=== PATIENT | female | born 1965 | race Caucasian/White ===

== ENCOUNTER → 2018-02-10 | Outpatient (CLI) | payer BC ==
[~2018-02-10] MED LIST: ALPR.5T PO; CLON0.5T3 PO; ESCT10T PO; HYDR-3454 PO; IBP600T1 PO; LISD50CA2 PO
--- NOTE | 2018-02-10 13:09 | Diagnostic Imaging Report ---
INDICATION: Screening. TECHNIQUE: Screening digital mammography was performed bilaterally with a Computer Aided Detection (CAD) system. 3D tomosynthesis was also performed and reviewed. COMPARISON: 06/05/2015 back through 01/14/2012. FINDINGS: There are scattered fibroglandular densities bilaterally. There are benign type calcifications in both breasts. There is an unchanged nodular density in the medial aspect of the left breast. There is no new dominant mass, spiculated lesion, or suspicious calcification identified. The skin, nipples, and axillae are unremarkable. IMPRESSION: Benign findings. ACR BI-RADS Category 2: Benign findings. Result letter will be mailed to the patient. Note: At least 10% of breast cancer is not imaged by mammography. Dictated by: Dictated on workstation # [id number]
== END ==
LOC: RAD 07:43
PROVIDERS: ATTEND Family Medicine
DX: Z12.31 Encounter for screening mammogram for malignant neoplasm of breast (principal)
CPT/HCPCS: 77067

== ENCOUNTER → 2019-06-25 | Outpatient (CLI) | payer BC ==
--- NOTE | 2019-06-25 14:59 | Diagnostic Imaging Report ---
EXAM: PA and lateral chest COMPARISON to priors from February 19, 2016 INDICATION: Follow-up of pneumonia. FINDINGS: Some linear densities adjacent to the hilum of both lungs most likely reflective of discoid atelectasis. There is no residual dense alveolar consolidation evident. Some parenchymal distortion within the right upper lobe does not appear significantly changed from prior exam. There is no effusion. There is no pneumothorax. Heart size and mediastinal contours appear appropriate and pulmonary vascularity appears normal. IMPRESSION: Bilateral perihilar linear densities are most suggestive of discoid atelectasis. There is chronic parenchymal distortion within the right upper lobe. No residual alveolar consolidation or focal infiltrate evident. There is no effusion. Dictated by: Dictated on workstation # [id number]
== END ==
LOC: RAD 12:45
PROVIDERS: ATTEND Family Medicine
DX: J18.9 Pneumonia, unspecified organism (principal)
CPT/HCPCS: 71046

== ENCOUNTER 2019-06-26 11:40 | Emergency (ER) | payer BC ==
[~2019-06-26] VITALS: Ht 154.9 cm; Wt 45.4 kg
[2019-06-26] MEDS ORDERED: methylPREDNISolone 125 MG (Solu-MEDROL) VIAL IV STA (11:54)
[2019-06-26] MEDS ORDERED: LACTATED RINGERS 1,000 ML IV ONE (11:54)
[2019-06-26] MEDS ORDERED: RT-ALBUTEROL/IPRATROPIUM 3 ML (DUONEB) VIAL INH ONE (12:00)
[2019-06-26] MEDS ORDERED: DEXAMETHASONE 4 MG/ML SDV (DECADRON) IH ONE (12:00)
[2019-06-26 12:03] LABS: BASOPHILS # (AUTO) 0.1 10^3/uL (0.0-0.1); BASOPHILS % (AUTO) 1 % (0-10); EOSINOPHILS # (AUTO) 0.5 10^3/uL (0.0-0.3); EOSINOPHILS % (AUTO) 3 % (0-10); HEMATOCRIT 47 % (35-52); HEMOGLOBIN 15.7 G/DL (11.5-16.0); LYMPHOCYTES # (AUTO) 2.9 X 10^3 (1.0-4.0); LYMPHOCYTES % (AUTO) 16 % (12-44); MEAN CORPUSCULAR HEMOGLOBIN 29 PG (25-34); MEAN CORPUSCULAR HGB CONC 33 G/DL (32-36); MEAN CORPUSCULAR VOLUME 88 FL (80-99); MEAN PLATELET VOLUME 9.6 FL (7.4-10.4); MONOCYTES # (AUTO) 1.5 X 10^3 (0.0-1.0); MONOCYTES % (AUTO) 8 % (0-12); NEUTROPHILS # (AUTO) 13.9 X 10^3 (1.8-7.8); NEUTROPHILS % (AUTO) 73 % (42-75); PLATELET COUNT 732 10^3/uL (130-400); RED CELL DISTRIBUTION WIDTH 14.5 % (10.0-14.5)
--- NOTE | 2019-06-26 12:23 | Diagnostic Imaging Report ---
INDICATION: Shortness of air with weakness. EXAMINATION: Chest 06/26/2019 COMPARISON to 12/06/2019 FINDINGS: Heart and pulmonary vasculature appear unremarkable. The lungs are clear other than chronic change. No effusions. No infiltrates. No pneumothorax. IMPRESSION: 1. Chronic findings. No acute abnormality. Dictated by: Dictated on workstation # [id number]
[2019-06-26 12:30] LABS: ALBUMIN 4.4 GM/DL (3.2-4.5); BILIRUBIN,TOTAL 0.5 MG/DL (0.1-1.0); CREATININE SERUM 1.57 MG/DL (0.60-1.30); POTASSIUM 3.8 MMOL/L (3.6-5.0); TOTAL PROTEIN 8.4 GM/DL (6.4-8.2)
--- NOTE | 2019-06-26 12:38 | ED Respiratory ---
General Chief Complaint: Respiratory Problems Stated Complaint: SOA / WEAKNESS Nursing Triage Note: TO ED PER W/C REPORTS THAT WAS DISCHARGED FROM [facility] JUN 18 WITH DX OF PNEUMONIA. WENT HOME ON O2 HAS NOT FELT WELL SINCE. C/O BEING DIZZY FOR 2 DAYS WAS SEEN BY FAMILY YESTERDAY CXR DONE Source: patient History of Present Illness Date Seen by Provider: Jun 26, 2019 Time Seen by Provider: 11:42 Initial Comments PT ARRIVES VIA POV, WANTS WHEELCHAIR ON ARRIVAL PT STATES " I DON'T FEEL GOOD" PT WITH MULTIPLE COMPLAINTS. PT STATES SHE WAS ADMITTED AT [place] "LAST WEEK" FOR PNEUMONIA, DISMISSED 06/18/19 SENT HOME ON ZITHROMAX, CEFDINIR, ALBUTEROL, ZOFRAN AND PREDNISONE. STATES SHE FINISHED ANTIBIOTICS AND PREDNISONE 2 DAYS AGO/FRIDAY STATES SHE WAS SENT HOME ON OXYGEN--HAD NOT BEEN ON OXYGEN PRIOR TO THAT STATES SHE LAST USED INHALER YESTERDAY STATES SHE STILL FEELS SHORT OF BREATH C/O DIZZINESS STATES HER BLOOD PRESSURE WAS LOW 85/65--STATES NORMALLY HER BLOOD PRESSURE IS HIGH AND SHE TAKES BLOOD PRESSURE MEDICATION, BUT DID NOT TAKE IT TODAY BECAUSE OF HER LOW BLOOD PRESSURE C/O GENERALIZED WEAKNESS STATES SHE HAS CONTINUED TO RUN FEVER 99-100 C/O NAUSEA, NO VOMITING, NO DIARRHEA, NO ABDOMINAL PAIN NO COUGH NO CHEST PAIN NO SWELLING IN LEGS/ FEET OR PAIN IN CALVES SAW DR. FRAIRE FRIDAY AND FRIDAY FOR FOLLOW UP. NO ADDITIONAL MEDICATIONS GIVEN. HAD CXR DONE YESTERDAY DENIES PRIOR HISTORY OF RESPIRATORY PROBLEMS, OTHER THAN CHILDHOOD ASTHMA STATES SHE SMOKES 1/2 PPD, NONE SINCE RECENT HOSPITALIZATION PCP: DR. FRAIRE Allergies and Home Medications Allergies Coded Allergies: Penicillins (Unverified Allergy, Unknown, HIVES, 06/26/19) Home Medications Clonazepam 0.5 Mg Tablet, 0.5 MG PO BID PRN, (Reported) PRN ANXIETY Hydrocodone Bit/Acetaminophen 1 Each Tablet, 1-2 TAB PO Q4H PRN, (Reported) Lisdexamfetamine Dimesylate 50 Mg Capsule, 50 MG PO DAILY, (Reported) Patient Home Medication List Home Medication List Reviewed: Yes Review of Systems Review of Systems Constitutional: see HPI, dizziness, fever, malaise, weakness EENTM: no symptoms reported; No nose congestion Respiratory: see HPI; No cough; dyspnea on exertion, short of breath Cardiovascular: no symptoms reported; No chest pain, No edema, No palpitations, No syncope Gastrointestinal: see HPI; No abdominal pain, No diarrhea; nausea; No vomiting Genitourinary: no symptoms reported Musculoskeletal: no symptoms reported Skin: no symptoms reported Psychiatric/Neurological: No Symptoms Reported; Denies Headache, Denies Numbness, Denies Paresthesia, Denies Weakness Hematologic/Lymphatic: No Symptoms Reported Immunological/Allergic: no symptoms reported Past Pjmlysp-Rbaben-Taxqsg Hx Past Med/Social Hx: Reviewed and Corrections made Patient Social History Alcohol Use: Occasionally Uses Recreational Drug Use: No Smoking Status: Current Everyday Smoker (1/2 PPD) Type Used: Cigarettes 2nd Hand Smoke Exposure: Yes Recent Foreign Travel: No Contact w/Someone Who Travel: No Recent Infectious Disease Expo: No Immunizations Up To Date Date of Influenza Vaccine: Feb 17, 2012 Past Medical History Surgeries: Yes ( X 3;REMOVAL OF BIRTHMARK;L FOOT SURGERY X 2;ENDOMETRIAL ABLATION) Section, Ear Surgery, Orthopedic 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) Cardiac: Yes Hypertension Neurological: No Reproductive Disorders: Yes (MENORRHAGIA-S/P ENDOMETRIAL ABLATION AND D&C 2012) Female Reproductive Disorders: Menstrual Problems Genitourinary: No Gastrointestinal: No Musculoskeletal: Yes (LEFT FOOT SURGERY X 2 IN 2013) Endocrine: No HEENT: Yes (EAR SURGERY ) Chronic Ear Infection Cancer: No Psychosocial: Yes ADD/ADHD, Anxiety Integumentary: Yes (BIRTHMARK REMOVAL ) Blood Disorders: No Family Medical History PSH: - X 3 -ENDOMETRIAL ABLATION AND D&C IN 2013 -LEFT FOOT SURGERY X 2 IN 2013 -REMOVAL OF DEYSI -EAR SURGERY Physical Exam Vital Signs - First Documented 06/26/19 06/26/19 06/26/19 11:44 13:02 15:29 Temp 37.2 Pulse 123 Resp 18 B/P (MAP) 122/62 (82) Pulse Ox 92 O2 Delivery Room Air O2 Flow Rate 1.00 Capillary Refill : Less Than 3 Seconds Height: '" Weight: lbs. oz. kg; 18.00 BMI Method: General Appearance: no apparent distress, thin, other (CONSTANT MOVEMENTS OF JAW AND LEGS/FEET--RIGHT > LEFT. HOLDS JAW IN OFFSET POSITION TO ONE SIDE. DOES NOT APPEAR TO BE IN ANY DISCOMFORT OR DISTRESS OR ILL. 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 II-XII nml as tested, no motor/sensory deficits, alert, oriented x 3 Skin: normal color, warm/dry Focused Exam Sepsis Stage: Severe Sepsis Possible Source: Pulmonary Lactate Level 06/26/19 11:55: Lactic Acid Level 4.19*H 06/26/19 14:19: Lactic Acid Level 2.63*H Time of Focused Exam: 12:30 Respiratory: Normal Breath Sounds, No Accessory Muscle Use, No Respiratory Distress Cardiovascular: No Edema, No Gallop, No JVD, No Murmur, Normal Peripheral Pulses, Tachycardia (BUT RATE IS DOWN FROM ARRIVAL--NOW IN 100'S) Capillary Refill: Less Than 3 Seconds Peripheral Pulses: 2+ Dorsalis Pedis (R), 2+ Left Dors-Pedis (L) Skin: normal color, warm/dry Lactic Acid Level Laboratory Tests Test 06/26/19 11:55 06/26/19 14:19 Lactic Acid Level 4.19 MMOL/L (0.50-2.00) *H 2.63 MMOL/L (0.50-2.00) *H Within 3hrs of presentation: Admin fluids, Admin ABX, Blood cultures prior to ABX's, Focus exam, Lactate level Progress/Results/Core Measures Suspected Sepsis Recent Fever Within 48 Hours: No Infection Criteria Present: None New/Unexplained Altered Menta: No Sepsis Screen: No Definite Risk SIRS Temperature: Pulse: 123 Respiratory Rate: Laboratory Tests 06/26/19 11:55: White Blood Count 19.0H Blood Pressure 122 /62 Mean: 82 06/26/19 11:55: Lactic Acid Level 4.19*H 06/26/19 14:19: Lactic Acid Level 2.63*H Laboratory Tests 06/26/19 11:55: Creatinine 1.57H, Platelet Count 732H, Total Bilirubin 0.5 06/26/19 12:48: INR Comment 1.0 Results/Orders Lab Results Laboratory Tests Test 06/26/19 11:55 06/26/19 12:48 06/26/19 13:59 06/26/19 14:19 Range/Units White Blood Count 19.0 H 4.3-11.0 10^3/uL Red Blood Count 5.34 4.35-5.85 10^6/uL Hemoglobin 15.7 11.5-16.0 G/DL Hematocrit 47 35-52 % Mean Corpuscular Volume 88 80-99 FL Mean Corpuscular Hemoglobin 29 25-34 PG Mean Corpuscular Hemoglobin Concent 33 32-36 G/DL Red Cell Distribution Width 14.5 10.0-14.5 % Platelet Count 732 H 130-400 10^3/uL Mean Platelet Volume 9.6 7.4-10.4 FL Neutrophils (%) (Auto) 73 42-75 % Lymphocytes (%) (Auto) 16 12-44 % Monocytes (%) (Auto) 8 0-12 % Eosinophils (%) (Auto) 3 0-10 % Basophils (%) (Auto) 1 0-10 % Neutrophils # (Auto) 13.9 H 1.8-7.8 X 10^3 Lymphocytes # (Auto) 2.9 1.0-4.0 X 10^3 Monocytes # (Auto) 1.5 H 0.0-1.0 X 10^3 Eosinophils # (Auto) 0.5 H 0.0-0.3 10^3/uL Basophils # (Auto) 0.1 0.0-0.1 10^3/uL Neutrophils % (Manual) 70 % Lymphocytes % (Manual) 21 % Monocytes % (Manual) 4 % Eosinophils % (Manual) 4 % Basophils % (Manual) 1 % Toxic Granulation 3+ Poikilocytosis SLIGHT Spherocytes SLIGHT Sodium Level 134 L 135-145 MMOL/L Potassium Level 3.8 3.6-5.0 MMOL/L Chloride Level 91 L 98-107 MMOL/L Carbon Dioxide Level 25 21-32 MMOL/L Anion Gap 18 H 5-14 MMOL/L Blood Urea Nitrogen 19 H 7-18 MG/DL Creatinine 1.57 H 0.60-1.30 MG/DL Estimat Glomerular Filtration Rate 34 BUN/Creatinine Ratio 12 Glucose Level 458 *H 70-105 MG/DL Lactic Acid Level 4.19 *H 2.63 *H 0.50-2.00 MMOL/L Calcium Level 10.0 8.5-10.1 MG/DL Corrected Calcium 9.7 8.5-10.1 MG/DL Total Bilirubin 0.5 0.1-1.0 MG/DL Aspartate Amino Transf (AST/SGOT) 18 5-34 U/L Alanine Aminotransferase (ALT/SGPT) 17 0-55 U/L Alkaline Phosphatase 144 H 40-136 U/L Troponin I 0.473 *H <0.028 NG/ML Total Protein 8.4 H 6.4-8.2 GM/DL Albumin 4.4 3.2-4.5 GM/DL Prothrombin Time 13.1 12.2-14.7 SEC INR Comment 1.0 0.8-1.4 Activated Partial Thromboplast Time 27 24-35 SEC Magnesium Level 2.2 1.6-2.4 MG/DL B-Type Natriuretic Peptide 1182.6 H <100.0 PG/ML Amylase Level 43 25-125 U/L Lipase 28 8-78 U/L Salicylates Level < 5.0 L 5.0-20.0 MG/DL Acetaminophen Level < 10 L 10-30 UG/ML Serum Alcohol < 10 <10 MG/DL Blood Gas Puncture Site RT RAD Blood Gas Patient Temperature 36.5 Arterial Blood pH 7.45 H 7.37-7.43 Arterial Blood Partial Pressure CO2 39 35-45 MMHG Arterial Blood Partial Pressure O2 75 L 79-93 MMHG Arterial Blood HCO3 27 23-27 MMOL/L Arterial Blood Total CO2 28.5 21.0-31.0 MMOL/L Arterial Blood Oxygen Saturation 95 94-100 % Arterial Blood Base Excess 3.4 H -2.5-2.5 MMOL/L Pranav Test YES-POS Blood Gas Ventilator Setting NO Blood Gas Inspired Oxygen 1 Test 06/26/19 14:20 06/26/19 14:45 Range/Units Urine Color YELLOW Urine Clarity CLEAR Urine pH 6.0 5-9 Urine Specific [place] 1.010 L 1.016-1.022 Urine Protein 1+ H NEGATIVE Urine Glucose (UA) 3+ H NEGATIVE Urine Ketones NEGATIVE NEGATIVE Urine Nitrite NEGATIVE NEGATIVE Urine Bilirubin NEGATIVE NEGATIVE Urine Urobilinogen 0.2 < = 1.0 MG/DL Urine Leukocyte Esterase NEGATIVE NEGATIVE Urine RBC (Auto) NEGATIVE NEGATIVE Urine RBC 0 /HPF Urine WBC 0 /HPF Urine Crystals NONE /LPF Urine Bacteria TRACE /HPF Urine Casts NONE /LPF Urine Mucus NEGATIVE /LPF Urine Culture Indicated CULTURE PENDING Urine Opiates Screen NEGATIVE NEGATIVE Urine Oxycodone Screen NEGATIVE NEGATIVE Urine Methadone Screen NEGATIVE NEGATIVE Urine Propoxyphene Screen NEGATIVE NEGATIVE Urine Barbiturates Screen NEGATIVE NEGATIVE Ur Tricyclic Antidepressants Screen NEGATIVE NEGATIVE Urine Phencyclidine Screen NEGATIVE NEGATIVE Urine Amphetamines Screen POSITIVE H NEGATIVE Urine Methamphetamines Screen NEGATIVE NEGATIVE Urine Benzodiazepines Screen NEGATIVE NEGATIVE Urine Cocaine Screen NEGATIVE NEGATIVE Urine Cannabinoids Screen NEGATIVE NEGATIVE Glucometer 323 H 70-110 MG/DL Micro Results Microbiology 06/26/19 Influenza Types A,B Antigen (JOSE) - Final, Complete My Orders Orders - AISLINN EDWARDS DO Ed Iv/Invasive Line Start (06/26/19 11:54) Ekg Tracing (06/26/19 11:54) O2 (06/26/19 11:54) Monitor-Rhythm Ecg Trace Only (06/26/19 11:54) Cbc With Automated Diff (06/26/19 11:54) Comprehensive Metabolic Panel (06/26/19 11:54) Blood Culture (06/26/19 11:54) Urinalysis (06/26/19 11:54) Urine Culture (06/26/19 11:54) Protime With Inr (06/26/19 11:54) Partial Thromboplastin Time (06/26/19 11:54) Chest 1 View, Ap/Pa Only (06/26/19 11:54) Ed Iv/Invasive Line Start (06/26/19 11:54) Ed Iv/Invasive Line Start (06/26/19 11:54) Ekg Tracing (06/26/19 11:54) Troponin I (06/26/19 11:54) Vital Signs Adult Sepsis Patie Q15M (06/26/19 11:54) O2 (06/26/19 11:54) Remove Rings In Anticipation O (06/26/19 11:54) Lactic Acid Analyzer (06/26/19 11:54) Influenza A And B Antigens (06/26/19 11:54) Ed Iv/Invasive Line Start (06/26/19 11:54) Lactated Ringers (Lr 1000 Ml Iv Solution (06/26/19 11:54) Albuterol/Ipra Inhalation Soln (Duoneb I (06/26/19 12:00) Dexamethasone Injection (Decadron Inject (06/26/19 12:00) Rt Request For Service (06/26/19 11:54) Methylprednisolone Sod Succ (Solu-Medrol (06/26/19 11:54) Svn Small Volume Nebulizer (06/26/19 11:54) Manual Differential (06/26/19 11:55) Drug Screen Stat (Urine) (06/26/19 12:47) BNP (06/26/19 12:48) Ed Iv/Invasive Line Start (06/26/19 12:49) Ns Iv 1000 Ml (Sodium Chloride 0.9%) (06/26/19 12:49) Insulin (Regular) Human (Humulin R (Per (06/26/19 13:00) Hemoglobin A1c (06/26/19 12:49) Amylase (06/26/19 12:55) Lipase (06/26/19 12:55) Cefepime Injection (Maxipime Injection) (06/26/19 13:15) Vancomycin Injection (Vancomycin Injecti (06/26/19 13:15) Alcohol (06/26/19 12:48) Magnesium (06/26/19 12:48) Enoxaparin Injection (Lovenox Injection) (06/26/19 13:15) Acetaminophen (06/26/19 13:19) Arterial Blood Gas (06/26/19 13:19) Salicylate (06/26/19 13:19) Furosemide Injection (Lasix Injection) (06/26/19 13:45) Catheter(Urinary) Insert & Ass 03,15 (06/26/19 13:32) Accucheck Stat ONCE (06/26/19 14:37) Ed Iv/Invasive Line Start (06/26/19 15:37) Ns Iv 1000 Ml (Sodium Chloride 0.9%) (06/26/19 15:37) Medications Given in ED Vital Signs/I&O 06/26/19 06/26/19 06/26/19 11:44 13:02 15:29 Temp 37.2 Pulse 123 100 Resp 18 B/P (MAP) 122/62 (82) 112/84 Pulse Ox 92 96 98 O2 Delivery Room Air OxyMask Nasal Cannula O2 Flow Rate 1.00 1.00 Capillary Refill : Less Than 3 Seconds Blood Pressure Mean: 82 Progress Note : Progress Note NO DETERIORATION IN PT'S CONDITION DURING ER STAY HEART RATE DOWN, BLOOD PRESSURE UP, O2 SATS IN MID TO UPPER 90'S PT HAD NO COMPLAINTS DURING ER STAY GIVEN IV FLUIDS, SOLU-MEDROL, NEB TREATMENTS, IV ANTIBIOTICS--CEFEPIME AND VANCOMYCIN, LOVENOX FOR ELEVATED TROPONIN, LASIX REVIEWED CT CHEST REPORT THAT WAS DONE AT [place] ON 06/18/19---SIGNIFICANT BILATERAL INFILTRATES, ABNORMALITY OF PANCREATIC HEAD, OTHER NON-ACUTE FINDINGS. WANTING SOMETHING TO EAT AND DRINK SOON SHE ARRIVES, AND CONTINUES TO WANT TO EAT THROUGHOUT ER STAY ECG Initial ECG Impression Date: Jun 26, 2019 Initial ECG Impression Time: 12:20 Initial ECG Rate: 90 Initial ECG Rhythm: Normal Sinus Diagnostic Imaging Comments CXR--CHRONIC CHANGES, NO ACUTE PROCESS, PER RADIOLOGIST REPORT AT 1237 Reviewed: Reviewed by Me Departure Communication (Admissions) THIS FACILITY IS ON [facility] [facility]--SPOKE WITH DR. PRECIADO, SHE RECENTLY CARED FOR PT AT [place]. ADVISES TRANSFER TO HIGHER LEVEL OF CARE, PT HAS MULTIPLE PROBLEMS AND HAD A VERY ABNORMAL CT OF CHEST ON 06/18/19 AT [place] 1315--CALLED [facility], PT PREFERENCE. 1320--SPOKE WITH DR. FREY, TECHNICAL DOCUMENT WRITER, ACCEPTS PT FOR ADMIT. NO ADDITIONAL RECOMMENDATIONS AT THIS TIME Impression Primary Impression: Severe sepsis Additional Impressions: PNEUMONIA WITH HYPOXIA SIGNIFICANT HYPERGLYCEMIA CHF (congestive heart failure) Elevated troponin Renal insufficiency ABNORMALITY OF PANCREAS NOTED ON RECENT CT SCAN Smoking greater than 25 pack years Disposition: XFER SHT-TRM HOSP Condition: Improved Transfer Transfer Reason: Diversion Transfer Facility: [facility] Method of Transfer: EMS Departure-Patient Inst. Referrals: EDUARDO FRAIRE MD (PCP/Family) Primary Care Physician AISLINN EDWARDS DO Jun 26, 2019 12:38
[2019-06-26] MEDS ORDERED: NS IV 1000 ML 1,000 ML IV SCH ×2 (12:49→15:37)
[2019-06-26] MEDS ORDERED: inSUlin (REGULAR) HUMAN 1 UNIT/0.01 ML (CHARGE PER UNIT) IV ONE (13:00)
[2019-06-26 13:03] LABS: BASOPHILS % (MANUAL) 1 %; EOSINOPHILS % (MANUAL) 4 %; LYMPHOCYTES % (MANUAL) 21 %; MONOCYTES % (MANUAL) 4 %; NEUTROPHILS % (MANUAL) 70 %; POIKILOCYTOSIS SLIGHT; SPHEROCYTES SLIGHT; TOXIC GRANULATION/VACUOLAZATIO 3+
[2019-06-26] MEDS ORDERED: CEFEPIME INJECTION 2,000 MG in WATER (STERILE) FOR INJECTION 20 ML IV ONE (13:15)
[2019-06-26] MEDS ORDERED: ENOXAPARIN 60 MG/0.6 ML (LOVENOX) SYR SC ONE (13:15)
[2019-06-26] MEDS ORDERED: VANCOMYCIN INJECTION 1,000 MG in NS (IVPB) 250 ML IV NR (13:15)
[2019-06-26 13:19] LABS: PROTHROMBIN TIME PATIENT 13.1 SEC (12.2-14.7)
[2019-06-26 13:29] LABS: AMYLASE 43 U/L (25-125); LIPASE 28 U/L (8-78); MAGNESIUM 2.2 MG/DL (1.6-2.4)
[2019-06-26 13:36] LABS: SALICYLATE < 5.0 MG/DL (5.0-20.0)
[2019-06-26 13:39] LABS: ACETAMINOPHEN < 10 UG/ML (10-30)
[2019-06-26] MEDS ORDERED: FUROSEMIDE 40 MG/4 ML INJ (LASIX) IVP ONE (13:45)
[2019-06-26 14:09] LABS: ABG BASE EXCESS 3.4 MMOL/L (-2.5-2.5); ABG OXYGEN SATURATION 95 % (94-100); ABG PCO2 39 MMHG (35-45); ABG PH 7.45 (7.37-7.43); ABG PO2 75 MMHG (79-93); ABG TCO2 28.5 MMOL/L (21.0-31.0); ALLENS TEST YES-POS; INSPIRED O2 1; PATIENT TEMP 36.5; VENTILATOR NO
[2019-06-26 14:31] LABS: BILIRUBIN,URINE NEGATIVE (NEGATIVE); CLARITY,URINE CLEAR; COLOR,URINE YELLOW; GLUCOSE, URINE (UA) 3+ (NEGATIVE); KETONES,URINE NEGATIVE (NEGATIVE); LEUKOCYTE ESTERASE ,URINE NEGATIVE (NEGATIVE); NITRITE,URINE NEGATIVE (NEGATIVE); PROTEIN,URINE 1+ (NEGATIVE)
--- NOTE | 2019-06-26 14:37 | NUR ---
[facility] CALLED FOR TRANSFER.
[2019-06-26 14:46] LABS: BACTERIA,URINE TRACE /HPF; RBC,URINE 0 /HPF; WBC,URINE 0 /HPF
--- NOTE | 2019-06-26 14:49 | NUR ---
REPORT TO [facility]
[2019-06-26 14:54] LABS: AMPHETAMINE SCREEN, URINE POSITIVE (NEGATIVE); BARBITURATE SCREEN URINE NEGATIVE (NEGATIVE); BENZODIAZEPINES SCREEN URINE NEGATIVE (NEGATIVE); CANNABINOID SCREEN, URINE NEGATIVE (NEGATIVE); COCAINE SCREEN URINE NEGATIVE (NEGATIVE); METHADONE STAT NEGATIVE (NEGATIVE); METHAMPHETAMINE SCREEN URINE S NEGATIVE (NEGATIVE); OPIATE SCREEN URINE NEGATIVE (NEGATIVE); OXYCODONE STAT NEGATIVE (NEGATIVE); PROPOXYPHENE STAT NEGATIVE (NEGATIVE); TRICYCLIC ANTIDEPRESSANTS SCRE NEGATIVE (NEGATIVE)
[2019-06-26 15:29] VITALS: BP 112/84
== END 2019-06-26 16:02 | disposition short-term general hospital (02) ==
LOC: EDUNIT# 11:40 → ER 11:41
DX: A41.9 Sepsis, unspecified organism (principal); R65.20 Severe sepsis without septic shock; J18.9 Pneumonia, unspecified organism; I11.0 Hypertensive heart disease with heart failure; I50.9 Heart failure, unspecified; R09.02 Hypoxemia; R73.9 Hyperglycemia, unspecified; R79.89 Other specified abnormal findings of blood chemistry; N28.9 Disorder of kidney and ureter, unspecified; K86.9 Disease of pancreas, unspecified; F41.9 Anxiety disorder, unspecified; F90.9 Attention-deficit hyperactivity disorder, unspecified type; F17.210 Nicotine dependence, cigarettes, uncomplicated; Z88.0 Allergy status to penicillin
CPT/HCPCS: 36415; 51702; 71045; 80053; 80306; 80320; 80329; 81000; 82150; 82805; 82962; 83036; 83605; 83690; 83735; 83880; 84484; 85007; 85027; 85610; 85730; 87040; 87088; 87804; 93005; 93041; 94640; 96361; 96365; 96367; 96372; 96375

== ENCOUNTER 2019-11-22 23:44 | Inpatient (IN) | payer BC ==
[~2019-11-22] VITALS: Ht 57.5 cm; Wt 56.5 kg
[2019-11-23] VITALS (7 sets, daily range): BP systolic 100–177; BP diastolic 73–86
[2019-11-23 00:09] LABS: BASOPHILS # (AUTO) 0.1 10^3/uL (0.0-0.1); BASOPHILS % (AUTO) 1 % (0-10); EOSINOPHILS # (AUTO) 1.7 10^3/uL (0.0-0.3); EOSINOPHILS % (AUTO) 10 % (0-10); HEMATOCRIT 39 % (35-52); HEMOGLOBIN 13.2 G/DL (11.5-16.0); LYMPHOCYTES # (AUTO) 2.4 X 10^3 (1.0-4.0); LYMPHOCYTES % (AUTO) 14 % (12-44); MEAN CORPUSCULAR HGB CONC 34 G/DL (32-36); MEAN CORPUSCULAR VOLUME 91 FL (80-99); MEAN PLATELET VOLUME 8.8 FL (7.4-10.4); MONOCYTES % (AUTO) 11 % (0-12); NEUTROPHILS # (AUTO) 11.5 X 10^3 (1.8-7.8); NEUTROPHILS % (AUTO) 65 % (42-75); PLATELET COUNT 434 10^3/uL (130-400); RED CELL DISTRIBUTION WIDTH 14.7 % (10.0-14.5); WHITE BLOOD COUNT 17.7 10^3/uL (4.3-11.0)
[2019-11-23 00:12] LABS: MEAN CORPUSCULAR HEMOGLOBIN 30 PG (25-34)
[2019-11-23] MEDS ORDERED: RT-ALBUTEROL/IPRATROPIUM 3 ML (DUONEB) VIAL ONE (00:15)
[2019-11-23 00:17] LABS: ALBUMIN 4.8 GM/DL (3.2-4.5); CHLORIDE 100 MMOL/L (98-107); POTASSIUM 4.1 MMOL/L (3.6-5.0); SODIUM 135 MMOL/L (135-145)
[2019-11-23 00:18] LABS: CALCIUM 9.6 MG/DL (8.5-10.1)
[2019-11-23 00:19] LABS: GLUCOSE 111 MG/DL (70-105); TOTAL PROTEIN 8.3 GM/DL (6.4-8.2)
[2019-11-23 00:20] LABS: CARBON DIOXIDE 19 MMOL/L (21-32)
[2019-11-23 00:21] LABS: BILIRUBIN,TOTAL 0.2 MG/DL (0.1-1.0)
[2019-11-23 00:22] LABS: ALKALINE PHOSPHATASE 138 U/L (40-136)
[2019-11-23 00:23] LABS: CREATININE SERUM 0.96 MG/DL (0.60-1.30); GFR ESTIMATED 60
[2019-11-23 00:24] LABS: BUN/CREATININE RATIO 15
[2019-11-23 00:26] LABS: ALANINE AMINOTRANSFERASE 10 U/L (0-55)
[2019-11-23 00:47] LABS: EOSINOPHILS % (MANUAL) 8 %; LYMPHOCYTES % (MANUAL) 13 %; MONOCYTES % (MANUAL) 11 %; NEUTROPHILS % (MANUAL) 68 %; RBC MORPH NORMAL
[2019-11-23 00:58] LABS: INR 0.9 (0.8-1.4); PROTHROMBIN TIME PATIENT 12.7 SEC (12.2-14.7)
[2019-11-23] MEDS ORDERED: AZITHROMYCIN INJECTION 500 MG in NS (IVPB) 250 ML IV ONE (02:45)
[2019-11-23] MEDS ORDERED: methylPREDNISolone 125 MG (Solu-MEDROL) VIAL IVP ONE (02:45)
--- NOTE | 2019-11-23 02:58 | ED Respiratory ---
General Chief Complaint: Respiratory Problems Stated Complaint: SOB Nursing Triage Note: Pt to [facility] 9 with c/o SOB since friday. Pt reports taking breathing Tx's with minimal relief. Pt is 89% on RA on arrival. Pt reports Hx of pneumonia with sepsis in May, denies Hx of COPD or asthma. Source: patient Exam Limitations: no limitations History of Present Illness Date Seen by Provider: Nov 22, 2019 Time Seen by Provider: 23:46 Initial Comments This 54-year-old woman has been having difficulty breathing for about 4 days. She denies COPD and states she was tested by Dr. De La Cruz with no positive results. However, she is tightly wheezing and appears to have bronchospasm on auscultation. She is afebrile but has had some cough. Oxygen saturations are in the 80s on room air. She reports prior history of pneumonia. She denies any COVID-19 exposures she reports performing multiple albuterol nebulized treatments this morning without improvement. Allergies and Home Medications Allergies Coded Allergies: Penicillins (Unverified Allergy, Unknown, HIVES, 06/26/19) Home Medications Clonazepam 0.5 Mg Tablet, 0.5 MG PO BID PRN, (Reported) PRN ANXIETY Hydrocodone Bit/Acetaminophen 1 Each Tablet, 1-2 TAB PO Q4H PRN, (Reported) Lisdexamfetamine Dimesylate 50 Mg Capsule, 50 MG PO DAILY, (Reported) Patient Home Medication List Home Medication List Reviewed: Yes Review of Systems Review of Systems Constitutional: no symptoms reported EENTM: no symptoms reported Respiratory: see HPI Cardiovascular: no symptoms reported Gastrointestinal: no symptoms reported Genitourinary: no symptoms reported : No Musculoskeletal: no symptoms reported Skin: no symptoms reported Psychiatric/Neurological: No Symptoms Reported Hematologic/Lymphatic: No Symptoms Reported Immunological/Allergic: no symptoms reported Past Pznpuyh-Ltftoa-Rcskuq Hx Past Med/Social Hx: Reviewed Nursing Past Med/Soc Hx Patient Social History Alcohol Use: Regular Use Recreational Drug Use: No Smoking Status: Former Smoker Type Used: Cigarettes Former Smoker, Quit: May 19, 2019 2nd Hand Smoke Exposure: Yes Recent Foreign Travel: No Contact w/Someone Who Travel: No Recent Infectious Disease Expo: No Immunizations Up To Date Date of Influenza Vaccine: Feb 17, 2012 Past Medical History Surgeries: Yes ( X 3;REMOVAL OF BIRTHMARK;L FOOT SURGERY X 2;ENDOMETRIAL ABLATION) Section, Ear Surgery, Orthopedic 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) Pneumonia Cardiac: Yes Hypertension Neurological: No Reproductive Disorders: Yes (MENORRHAGIA-S/P ENDOMETRIAL ABLATION AND D&C 2013) Female Reproductive Disorders: Menstrual Problems Genitourinary: No Gastrointestinal: No Musculoskeletal: Yes (LEFT FOOT SURGERY X 2 IN 2013) Endocrine: No Diabetes, Non-Insulin dep HEENT: Yes (EAR SURGERY ) Chronic Ear Infection Cancer: No Psychosocial: Yes ADD/ADHD, Anxiety Integumentary: Yes (BIRTHMARK REMOVAL ) Blood Disorders: No Family Medical History PSH: - X 3 -ENDOMETRIAL ABLATION AND D&C IN 2013 -LEFT FOOT SURGERY X 2 IN 2013 -REMOVAL OF DEYSI -EAR SURGERY Physical Exam Vital Signs - First Documented 11/22/19 23:48 Temp 36.7 Pulse 122 Resp 26 B/P (MAP) 168/82 (110) Pulse Ox 93 O2 Delivery Nasal Cannula O2 Flow Rate 2.00 Capillary Refill : Less Than 3 Seconds Height: '" Weight: lbs. oz. kg; 23.00 BMI Method: General Appearance: WD/WN, no apparent distress HEENT: PERRL/EOMI, normal ENT inspection Neck: normal inspection Respiratory: no respiratory distress, no accessory muscle use, wheezing Cardiovascular: regular rate, rhythm, no edema, no murmur Gastrointestinal: non tender, soft Extremities: non-tender, normal inspection, no pedal edema Neurologic/Psychiatric: community health navigator II-XII nml as tested, no motor/sensory deficits, alert, normal mood/affect, oriented x 3 Skin: normal color, warm/dry Focused Exam Lactate Level 11/23/19 00:13: Lactic Acid Level 1.16 Lactic Acid Level Laboratory Tests Test 11/23/19 00:13 Lactic Acid Level 1.16 MMOL/L (0.50-2.00) Progress/Results/Core Measures Suspected Sepsis Recent Fever Within 48 Hours: No Infection Criteria Present: None New/Unexplained Altered Menta: No Sepsis Screen: No Definite Risk SIRS Temperature: Pulse: 101 Respiratory Rate: 16 Laboratory Tests 11/23/19 00:01: White Blood Count 17.7H Blood Pressure 100 /79 Mean: 86 11/23/19 00:13: Lactic Acid Level 1.16 Laboratory Tests 11/23/19 00:01: Creatinine 0.96, INR Comment 0.9, Platelet Count 434H, Total Bilirubin 0.2 Results/Orders Lab Results Laboratory Tests Test 11/23/19 00:01 11/23/19 00:07 11/23/19 00:09 11/23/19 00:13 Range/Units White Blood Count 17.7 H 4.3-11.0 10^3/uL Red Blood Count 4.33 L 4.35-5.85 10^6/uL Hemoglobin 13.2 11.5-16.0 G/DL Hematocrit 39 35-52 % Mean Corpuscular Volume 91 80-99 FL Mean Corpuscular Hemoglobin 30 25-34 PG Mean Corpuscular Hemoglobin Concent 34 32-36 G/DL Red Cell Distribution Width 14.7 H 10.0-14.5 % Platelet Count 434 H 130-400 10^3/uL Mean Platelet Volume 8.8 7.4-10.4 FL Neutrophils (%) (Auto) 65 42-75 % Lymphocytes (%) (Auto) 14 12-44 % Monocytes (%) (Auto) 11 0-12 % Eosinophils (%) (Auto) 10 0-10 % Basophils (%) (Auto) 1 0-10 % Neutrophils # (Auto) 11.5 H 1.8-7.8 X 10^3 Lymphocytes # (Auto) 2.4 1.0-4.0 X 10^3 Monocytes # (Auto) 2.0 H 0.0-1.0 X 10^3 Eosinophils # (Auto) 1.7 H 0.0-0.3 10^3/uL Basophils # (Auto) 0.1 0.0-0.1 10^3/uL Neutrophils % (Manual) 68 % Lymphocytes % (Manual) 13 % Monocytes % (Manual) 11 % Eosinophils % (Manual) 8 % Blood Morphology Comment NORMAL Prothrombin Time 12.7 12.2-14.7 SEC INR Comment 0.9 0.8-1.4 Activated Partial Thromboplast Time 30 24-35 SEC Sodium Level 135 135-145 MMOL/L Potassium Level 4.1 3.6-5.0 MMOL/L Chloride Level 100 98-107 MMOL/L Carbon Dioxide Level 19 L 21-32 MMOL/L Anion Gap 16 H 5-14 MMOL/L Blood Urea Nitrogen 14 7-18 MG/DL Creatinine 0.96 0.60-1.30 MG/DL Estimat Glomerular Filtration Rate 60 BUN/Creatinine Ratio 15 Glucose Level 111 H 70-105 MG/DL Calcium Level 9.6 8.5-10.1 MG/DL Corrected Calcium 8.5-10.1 MG/DL Total Bilirubin 0.2 0.1-1.0 MG/DL Aspartate Amino Transf (AST/SGOT) 23 5-34 U/L Alanine Aminotransferase (ALT/SGPT) 10 0-55 U/L Alkaline Phosphatase 138 H 40-136 U/L C-Reactive Protein High Sensitivity 1.38 H 0.00-0.50 MG/DL B-Type Natriuretic Peptide 25.0 <100.0 PG/ML Total Protein 8.3 H 6.4-8.2 GM/DL Albumin 4.8 H 3.2-4.5 GM/DL Procalcitonin 0.03 <0.10 NG/ML Lactic Acid Level 1.16 0.50-2.00 MMOL/L My Orders Orders - DEBBY MORENO MD BNP (11/23/19 00:01) Cbc With Automated Diff (11/23/19 00:01) Comprehensive Metabolic Panel (11/23/19 00:01) Hs C Reactive Protein (11/23/19 00:01) Ed Iv/Invasive Line Start (11/23/19 00:01) Chest 1 View, Ap/Pa Only (11/23/19 00:01) Manual Differential (11/23/19 00:01) Albuterol/Ipra Inhalation Soln (Duoneb I (11/23/19 00:15) Blood Culture (11/23/19 00:13) Sputum Culture (11/23/19 00:13) Urinalysis (11/23/19 00:13) Urine Culture (11/23/19 00:13) Protime With Inr (11/23/19 00:13) Partial Thromboplastin Time (11/23/19 00:13) Vital Signs Adult Sepsis Patie Q15M (11/23/19 00:13) O2 (11/23/19 00:13) Remove Rings In Anticipation O (11/23/19 00:13) Lactic Acid Analyzer (11/23/19 00:13) Coronavirus Sars-Cov-2 So 2018 (11/23/19 01:37) Methylprednisolone Sod Succ (Solu-Medrol (11/23/19 02:45) Azithromycin Injection (Zithromax Inject (11/23/19 02:45) Medications Given in ED Current Medications Medications Dose Ordered Sig/Colleen Route Start Time Stop Time Status Last Admin Dose Admin Albuterol/ Ipratropium 3 ml STK-MED ONCE .ROUTE 11/23/19 00:15 11/23/19 00:17 DC 11/23/19 00:20 3 ML Azithromycin 500 mg/Sodium Chloride 250 ml @ 250 mls/hr ONCE ONCE IV 11/23/19 02:45 11/23/19 03:44 DC 11/23/19 03:27 250 MLS/HR Methylprednisolone Sodium Succinate 125 mg ONCE ONCE IVP 11/23/19 02:45 11/23/19 02:46 DC 11/23/19 03:27 125 MG Vital Signs/I&O 11/22/19 11/22/19 11/23/19 23:48 23:50 02:22 Temp 36.7 Pulse 122 101 Resp 26 16 B/P (MAP) 168/82 (110) 100/79 (86) Pulse Ox 93 94 95 O2 Delivery Nasal Cannula Nasal Cannula Room Air O2 Flow Rate 2.00 Capillary Refill : Less Than 3 Seconds Blood Pressure Mean: 86 Progress Note : Progress Note Patient received a DuoNeb treatment with some improvement. However, she remained hypoxic on RA. Nasal cannula was reapplied. WBC was elevated. She was treated with Solu-Medrol and Azithromycin. She was admitted due to persistent hypoxia. She was swabbed for COVID 19. Diagnostic Imaging Diagonstic Imaging: Xray Plain Films/CT/US/NM/MRI: chest Comments Chest x-ray viewed by me and report reviewed. See report below: NAME: LORENZO SALGADO [facility] REC#: [id number] PT STATUS: ADM IN : 1965 PHYSICIAN: DEBBY MORENO MD ADMIT DATE: 11/23/19 Signed Date of Exam:11/23/19 CHEST 1 VIEW, AP/PA ONLY INDICATION: Shortness of air. TECHNIQUE: Single view chest 12:25 AM. CORRELATION STUDY: 06/26/2019 FINDINGS: The heart size, mediastinal configuration and pulmonary vascularity are within normal limits. Lung parham are hyperinflated but overall appear to be clear. No consolidating infiltrate. IMPRESSION: 1. Hyperinflated lung parham with chronic change of the lung parenchyma. No acute abnormality and/or significant interval change. Dictated by: Dictated on workstation # [id number] Dict: 11/23/1944 Trans: 11/23/1945 DO [id number] Interpreted by: GREG PACKER DO Electronically signed by: GREG PACKER DO 11/23/1945 Departure Communication (Admissions) Time/Spoke to Admitting Phy: 02:45 Dr. Carmen Impression Primary Impression: Acute bronchitis Qualified Codes: J20.9 - Acute bronchitis, unspecified Additional Impressions: Hypoxia Acute bronchospasm Disposition: 01 HOME, SELF-CARE Condition: Improved Admissions Decision to Admit Reason: Admit from ER (General) Decision to Admit/Date: Nov 23, 2019 Time/Decision to Admit Time: 02:40 Departure-Patient Inst. Referrals: EDUARDO CARMEN MD (PCP/Family) Primary Care Physician DEBBY MORENO MD Nov 23, 2019 02:58
--- OUTSIDE RECORDS SUMMARY | 2019-11-23 03:31 | XMS REPORT ---
Author Author Common Sensing [facility] [place] Address [address] [address] Care Team Providers Care Medical Health Researcher Name Role Phone EDUARDO FRAIRE Unavailable PRECIADOJUANITA ESPARZA Unavailable Unavailable JUANITA PRECIADO Unavailable Unavailable JUANITA PRECIADO Unavailable Unavailable EDUARDO FRAIRE MD Unavailable Unavailable AISLINN EDWARDS DO Unavailable Unavailable Unavailable Unavailable Unavailable Unavailable Allergies No Information Medications Medication Ingredient Drug Dose Dates Status Sig Sig Care Class(es) (Normalized) (Original) Provid er no Acetaminoph no 06-16-19 no no no no information en information 20 - informat information infor mation name (1 source.) 07-16-19 ion 20 no ACETAMINOPH no 650 mg 06-16-19 no no no no information EN SUPPOS information 20 - informat information in formation name (1 source.) SUP 650 MG 06-23-19 ion (TYLENOL) 20 no Albuterol beta2-Adren 06-16-19 no no no no information ergic 20 - informat information information name (1 source.) Agonist 06-26-19 ion 20 no ALUM/MAG/SI no 06-16-19 no no no no information METH 30CC information 20 - informat information in formation name (1 source.) LIQ 06-26-19 ion (MYLANTA 20 PLUS) no amLODIPine Dihydropyri 10 mg 06-17-19 no no no no information dine 20 - informat information information name (1 source.) Calcium 06-23-19 ion Channel 20 Juanpablo no AZITHROMYCI no 500 mg 06-17-19 no no no no information N VIAL INJ information 20 - informat informatio n information name (1 source.) 500 MG 06-21-19 ion (ZITHROMAX 20 VIAL) no Bisacodyl Stimulant 5 mg 06-17-19 no no no no information Laxative 20 - informat information information name (1 source.) 06-23-19 ion 20 no BISACODYL no 10 mg 06-17-19 no no no no information SUPPOS 10 information 20 - informat information in formation name (1 source.) MG 06-23-19 ion (DULCOLAX 20 SUPPOS) no Budesonide Corticoster 06-16-19 no no no no information oid 20 - informat information information name (1 source.) 06-22-19 ion 20 no Calcium no 500 mg 06-16-19 no no no no information Carbonate information 20 - informat information in formation name (1 source.) 06-23-19 ion 20 no cefTRIAXone Cephalospor 1 g 06-16-19 no no no no information in 20 - informat information information name (1 source.) Antibacteri 06-22-19 ion al 20 no CEFTRIAXONE no 06-16-19 no no no no information PREMIX IV information 20 - informat information in formation name (1 source.) BAG IV 1 06-22-19 ion GM/50CC 20 (ROCEPHIN PREMIX IV BAG) no cloNIDine Central 0.1 mg 06-16-19 no no no n o information alpha-2 20 - informat information information name (1 source.) Adrenergic 06-23-19 ion Agonist 20 no diphenhydrA Histamine-1 25 mg 06-16-19 no no no no information MINE Receptor 20 - informat information informat ion name (1 source.) Antagonist 06-23-19 ion 20 no Docusate no 100 mg 06-16-19 no no no no information sodium information 20 - informat information infor mation name (1 source.) 100mg oral 07-16-19 ion capsule 20 (COLACE) no ENOXAPARIN no 40 mg 06-17-19 no no no n o information SYRINGE INJ information 20 - informat informati on information name (1 source.) 40 MG 06-26-19 ion (LOVENOX 20 SYRINGE) no Famotidine Histamine-2 20 mg 06-16-19 no no no no information Receptor 20 - informat information information name (1 source.) Antagonist 06-23-19 ion 20 no guaiFENesin no 06-16-19 no no no no information information 20 - informat information informat ion name (1 source.) 06-23-19 ion 20 no HYDROCODONE no 06-16-19 no no no no information /APAP information 20 - informat information infor mation name (1 source.) 5MG/325MG 06-26-19 ion TAB 5 20 MG/325MG (ADARSH-TAB 5/325) no INSULIN no 06-16-19 no no no no information ASPART PEN information 20 - informat informatio n information name (1 source.) INJ 100 07-16-19 ion UNITS/CC 20 (NOVOLOG FLEXPEN) no Lactulose Osmotic 06-16-19 no no no no information Laxative 20 - informat information information name (1 source.) 07-16-19 ion 20 no Melatonin no 3 mg 06-16-19 no no no no information information 20 - informat information informat ion name (1 source.) 07-15-19 ion 20 no METHYLPREDN no 06-17-19 no no no no information ISOLONE information 20 - informat information info rmation name (1 source.) VIAL INJ 06-22-19 ion 125 MG/2CC 20 (SOLU-MEDRO L VIAL) 06-16-2019 no no no no name - information inform informat 06-21-2019 ation ion no MILK OF no 06-17-19 no no no no information MAGNESIA information - informat information inf ormation name (1 source.) LIQ 07-16-19 ion 20 no Normal no 06-17-19 no no no no information saline information - informat information infor mation name (1 source.) Translation 06-21-19 ion s: [ NORMAL 20 SALINE 1000CC IV BAG INJ 0.9 % (NS 1000CC IV BAG)] 06-16-2019 no no no no name - information inform informat 07-01-2019 ation ion no ONDANSETRON no 06-16-19 no no no no information VIAL INJ 4 information - informat informatio n information name (1 source.) MG/2CC 06-23-19 ion (ZOFRAN 2CC 20 VIAL) no Polyethylen no 17 g 06-17-19 no no no no information e Glycols information 20 - informat information in formation name (1 source.) 06-23-19 ion 20 Problems Active Problems Problem Normalized Date Last Normalized Normalized Provider Fa cility Classification Problem(s) Recorded Problem Problem Sta tus Duration Other Abnormal Episodic Active EDUARDO FRAIRE [facility] Via screening for mammogram, MD Melendez suspected unspecified Hospital - conditions Translations: Jack (not mental [ OTH SCREEN (74482) disorders or MAMMO-MALIGN infectious NEOPLASM OF disease) (21 VINAY, ENCNTR sources.) SCREEN MAMMOGRAM FOR MALIGNANT NE, NOSP (ABN) FINDINGS ON RADIOLOGICAL OT, OTHER SPECIFIED ABNORMAL FINDINGS OF BLO] Allergic Allergy status Episodic Active AISLINN GRACE , DO [facility] Via reactions (2 to penicillin [place] sources.) Hospital - [place] ([id number]) Anxiety Anxiety Chronic Active [facility] disorders (12 disorder, [facility] sources.) unspecified [place] Translations: [facility] () [ ANXIETY STATE, UNSPECIFIED] Attention-defi Attention Chronic Active [facility] ital cit conduct deficit [facility] and disruptive disorder [place] behavior without [facility] (60704) disorders (3 mention of sources.) hyperactivity Attention-defi Attention-defi Chronic Active [facility] cit conduct cit [facility] and disruptive hyperactivity [place] behavior disorder, [facility] (66186) disorders (5 unspecified sources.) type Other lower Cough Episodic Active EDUARDO FRAIRE [facility] Vi a respiratory MD Melendez disease (6 Hospital - sources.) [place] (88560) Pancreatic Disease of Episodic Active AISLINNMaegan EDWARDS DO H V ia disorders (not pancreas, [place] diabetes) (2 unspecified Hospital - sources.) [place] (88099) Other diseases Disorder of Episodic Active AISLINN GRACE DO [facility] Via of kidney and kidney and [place] ureters (2 ureter, Hospital - sources.) unspecified [place] (52366) Essential Essential Chronic Active [facility] hypertension (primary) [facility] (8 sources.) hypertension [place] Translations: [facility] (69143) [ MALIGNANT ESSENTIAL HYPERTENSION] NEGATED Excessive or Chronic Active YOSSI HARRELL , Not A vailable no frequent DO (15359) information (3 menstruation sources.) Translations: [ MENSTRUAL DISORDER NEC] NEGATED Hallux rigidus Chronic Active no name no info rmation no information (10 sources.) Congestive Heart failure, Chronic Active AISLINN GRACE , DO [facility] Via heart failure; unspecified [place] nonhypertensiv Hospital - (2 sources.) [place] (34499) Diabetes Hyperglycemia, Episodic Active AISLINN GRACE , DO [facility] Via mellitus unspecified [place] without Hospital - complication [facility] (2 sources.) (01430) Hypertension Hypertensive Chronic Active AISLINN GRACE , DO [facility] Via with heart disease [place] complications with heart Hospital - and secondary failure [facility] hypertension (08691) (2 sources.) Other lower Hypoxemia Episodic Active AISLINN GRACE , DO [facility] V ia respiratory [place] disease (2 Hospital - sources.) Jack () Residual Insomnia, Episodic Active J[facility]ANITA [place] Hospital codes; unspecified [facility] unclassified [place] (2 sources.) [facility] (48777) Residual Insomnia, Episodic Active [facility] Hospital codes; unspecified [facility] unclassified [place] (2 sources.) [facility] () Substance-rela Nicotine Chronic Active AISLINN GRACE , DO [facility] Via elizabeth disorders dependence, [facility] (2 sources.) cigarettes, Hospital - uncomplicated [place] (58659) Other Other Episodic Active EDUARDO YEE , [facility] Via circulatory specified MD [place] disease (6 symptoms and Hospital - sources.) signs Jack involving the (25799) circulatory and respiratory systems Pneumonia Pneumonia, Episodic Active [facility] (except that unspecified [facility] caused by organism [place] tuberculosis Translations: [place] ([address]) or sexually [ PNEUMONIA, transmitted ORGANISM disease) (28 UNSPECIFIED, sources.) UNSPECIFIED BACTERIAL PNEUMONIA , BACTERIAL PNEUMONIA, UNSPECIFIED] NEGATED Screening Episodic Active no name no informati on no examination information (6 for other sources.) specified bacterial and spirochetal diseases Septicemia Sepsis, Episodic Active [facility] (except in unspecified [facility] of labor) (24 organism [place] sources.) Translations: [facility] (71258) [ UNSPECIFIED SEPTICEMIA, SEVERE SEPSIS WITHOUT SEPTIC SHOCK, SEPSIS, UNSPECIFIED ORGANISM] Other lower Shortness of Episodic Active AISLINN GRACE , DO [facility] Via respiratory breath [place] disease (2 Hospital - sources.) Jack (68187) Asthma (26 Unspecified Chronic Active JUANITA PRECIADO Hospit al sources.) asthma with [facility] of status [place] asthmaticus [facility] (33502) Translations: [ ASTHMA, UNSPECIFIED TYPE, WITH STATUS ASTHMATICUS] Past or Other Problems Problem Normalized Date Last Normalized Normalized Provider Fa cility Classification Problem(s) Recorded Problem Problem Sta tus Duration Other female Hypertrophy of Episodic Completed EDUARDO FRAIRE , Not Available genital uterus (45585) disorders (1 source.) Ovarian cyst Other and Episodic Completed EDUARDO FRAIRE , Not Available (1 source.) unspecified (42420) ovarian cyst Nonmalignant Solitary cyst Episodic Completed EDUARDO FRAIRE , Not Available breast of breast (14235) conditions (1 source.) Procedures No Information Immunizations No Information Results Test Name Value Interpretation Reference Range Date Time Fa cility (Normalized) (Normalized) (Medline Reference) laboratory on 2019-06-18 Albumin BCG dye 3.7 (no code) 06-18-2019 Hospital [Mass/Vol] 00: [address] () ALP [Catalytic 119 U/L (no code) 44 - 147 U/L 06-18-2019 Hosp ital activity/Vol] 00: [address] () ALT [Catalytic 12 U/L (no code) 4 - 40 U/L 06-18-2019 Hospit al activity/Vol] 00: [address] () Anion gap 15 mmol/L (H) 3 - 11 mmol/L 06-18-2019 Hospital [Moles/Vol] 00: [address] () AST [Catalytic 19 U/L (no code) 10 - 34 U/L 06-18-2019 Hospi carolin activity/Vol] 00: [address] () Basophils (Bld) 0.0 10*3/uL (no code) 0 - 0.3 10*3/uL 06-18-2019 Hospital [#/Vol] 00:[address] ([address]) Basophils/100 0.00 % (no code) 0.5 - 1 % 06-18-2019 Hospital WBC (Bld) 00: [address] () Bilirubin 0.2 mg/dL (no code) 0.1 - 1.2 mg/dL 06-18-2019 Hospit al [Mass/Vol] 00: [address] () Calcium 9.5 mg/dL (no code) 8.5 - 10.2 mg/dL 06-18-2019 Hospi carolin [Mass/Vol] 00:00050 [facility] () Chloride 106 mmol/L (no code) 95 - 106 mmol/L 06-18-2019 Hospi carolin [Moles/Vol] 00:00050 [facility] (69288) Creatinine 0.68 mg/dL (no code) 06-18-2019 Hospital [Mass/Vol] 00:00 [facility] (07888) Eosinophils 0.0 10*3/uL (no code) 0.05 - 0.5 06-18-2019 Hospita l (Bld) [#/Vol] 10*3/uL 00: [facility] () Eosinophils/100 0.0 % (no code) 1 - 4 % 06-18-2019 Hospit al WBC (Bld) 00: [facility] () Erythrocyte 14.7 % (no code) 11.6 - 14.6 % 06-18-2019 Hospit al distribution 00:00 [facility] of width (RBC) [facility] [Ratio] (23038) GFR/1.73 sq 90 (no code) 90 - 120 06-18-2019 Hospital M.predicted MDRD mL/min/{1.73_m2} mL/min/{1.73_m2} 00: [facility] of (S/P/Bld) [Vol [facility] rate/Area] (07127) Globulin (S) 2.6 g/dL (no code) 2 - 3.5 g/dL 06-18-2019 Hospit al [Mass/Vol] 00: [facility] () Glucose 228 mg/dL (H) 60 - 125 mg/dL 06-18-2019 Hospita l [Mass/Vol] 00: [facility] (38283) HCO3 (P) 23 (no code) 06-18-2019 Hospital [Moles/Vol] 00:00050 [facility] (76601) Hematocrit (Bld) 34.5 % (L) 36.1 - 50.3 % 06-18-2019 H ospital [Volume 00:00-0500 [facility] fraction] [facility] (71704) Hemoglobin (Bld) 11.4 g/dL (L) 12.1 - 17.2 g/dL 06-18-2019 Hospital [Mass/Vol] 00:00-0500 [facility] (88384) Lymphocytes 0.60 10*3/uL (no code) 0.9 - 2.9 06-18-2019 Hospita l (Bld) [#/Vol] 10*3/uL 00:000500 [facility] (92052) Lymphocytes/100 2.0 % (L) 20 - 40 % 06-18-2019 Hospit al WBC (Bld) 00:00-0500 [facility] (97275) MCH (RBC) 30.8 pg (no code) 27 - 31 pg 06-18-2019 Hospital [Entitic mass] 00:000500 [facility] (29637) MCHC (RBC) 33.0 g/dL (no code) 32 - 36 g/dL 06-18-2019 Hospital [Mass/Vol] 00:00-0500 [facility] (85946) MCV (RBC) 93.2 fL (no code) 80 - 100 fL 06-18-2019 Hospital [Entitic vol] 00:00-0500 [facility] (96197) Monocytes (Bld) 0.9 10*3/uL (no code) 0.3 - 0.9 06-18-2019 Hosp ital [#/Vol] 10*3/uL 00:00-0500 [facility] (91589) Monocytes/100 3.1 % (no code) 2 - 8 % 06-18-2019 Hospital WBC (Bld) 00:000500 [facility] (64124) Neutrophils 28.73 10*3/uL (H) 1.7 - 7 10*3/uL 06-18-2019 Hospital (Bld) [#/Vol] 00:00-0500 [facility] (54223) Neutrophils/100 94.9 % (H) 40 - 60 % 06-18-2019 Hospit al WBC (Bld) 00:00 [facility] (91675) Osmolality Calc 295 (no code) 06-18-2019 Hospital [Osmolality] 00:00 [facility] (40435) Platelet mean 10.2 fL (H) 7.2 - 11.7 fL 06-18-2019 Hosp ital volume (Bld) 00:00 [facility] [Entitic vol] [facility] (12242) Platelets (Bld) 444 10*3/uL (H) 150 - 450 06-18-2019 Hosp ital [#/Vol] 10*3/uL 00:00 [facility] (38814) Potassium 4.1 mmol/L (no code) 3.7 - 5.2 mmol/L 06-18-2019 Hosp ital [Moles/Vol] 00:000 [facility] (44951) Protein 6.3 g/dL (no code) 6.4 - 8.3 g/dL 06-18-2019 Hospita l [Mass/Vol] 00:000500 [facility] (89329) RBC (Bld) 3.70 10*6/uL (no code) 4.2 - 6.1 06-18-2019 Hospital [#/Vol] 10*6/uL 00:000500 [facility] (06676) Sodium 140 mmol/L (no code) 135 - 145 mmol/L 06-18-2019 Hosp ital [Moles/Vol] 00:000500 [facility] (36729) Urea nitrogen 10 mg/dL (no code) 7 - 20 mg/dL 06-18-2019 Hospi carolin [Mass/Vol] 00:000500 [facility] (44262) WBC (Bld) 30.27 10*3/uL (HH) 3.5 - 10.5 06-18-2019 Hospita l [#/Vol] 10*3/uL 00:000 [facility] (01521) not yet categorized on 2019-06-17 FINAL CULTURE Negative (no code) 06-17-2019 Hospital RESULTS 00:000 [facility] (74860) MEDIA PLATED Setup at 08:06 (no code) 06-17-2019 Hospital on 06/17/2019 00: [facility] (97288) not yet categorized on 2019-06-16 CULTURE SOURCE left (no code) 06-16-2019 Hospital 09: [facility] (76245) CULTURE SOURCE right ac (no code) 06-16-2019 Hospital 09: [facility] (41843) FINAL CULTURE Negative (no code) 06-16-2019 Hospital RESULTS 09: [facility] (19558) PRELIM CULTURE Negative (no code) 06-16-2019 Hospital RESULTS 09: [facility] (76928) laboratory on 2019-06-16 Albumin BCG dye 4.4 (no code) 06-16-2019 Hospital [Mass/Vol] 09: [facility] (50215) Albumin BCG dye 4.0 (no code) 06-16-2019 Hospital [Mass/Vol] 23:50050 [facility] (90808) ALP [Catalytic 150 U/L (H) 44 - 147 U/L 06-16-2019 Hosp ital activity/Vol] 09: [facility] (92519) ALP [Catalytic 133 U/L (H) 44 - 147 U/L 06-16-2019 Hosp ital activity/Vol] 23:500500 [facility] (75080) ALT [Catalytic 11 U/L (no code) 4 - 40 U/L 06-16-2019 Hospit al activity/Vol] 09: [facility] (06357) ALT [Catalytic 10 U/L (no code) 4 - 40 U/L 06-16-2019 Hospit al activity/Vol] 23:500500 [facility] (06729) Anion gap 16 mmol/L (H) 3 - 11 mmol/L 06-16-2019 Hospital [Moles/Vol] 09: [facility] (04783) Anion gap 18 mmol/L (H) 3 - 11 mmol/L 06-16-2019 Hospital [Moles/Vol] 23:50-0500 [facility] (33196) AST [Catalytic 24 U/L (no code) 10 - 34 U/L 06-16-2019 Hospi carolin activity/Vol] 09:170500 [facility] (42414) AST [Catalytic 23 U/L (no code) 10 - 34 U/L 06-16-2019 Hospi carolin activity/Vol] 23:50-0500 [facility] (25580) Average glucose 153 mg/dL (H) 06-16-2019 Hospital Estimated from 09: [facility] glycated [facility] hemoglobin mass (10335) conc (Bld) Base excess -4.00 (L) 06-16-2019 Hospital standard Calc 09: [facility] (BldA) [facility] [Moles/Vol] (11837) Basophils (Bld) 0.0 10*3/uL (no code) 0 - 0.3 10*3/uL 06-16-2019 Hospital [#/Vol] 09:17-0500 [facility] (34535) Basophils (Bld) 0.0 10*3/uL (no code) 0 - 0.3 10*3/uL 06-16-2019 Hospital [#/Vol] 23:50-0500 [facility] (28578) Basophils/100 0.20 % (no code) 0.5 - 1 % 06-16-2019 Hospital WBC (Bld) 09: [facility] (72734) Basophils/100 0.10 % (no code) 0.5 - 1 % 06-16-2019 Hospital WBC (Bld) 23:50-0500 [facility] (86690) Bilirubin 0.3 mg/dL (no code) 0.1 - 1.2 mg/dL 06-16-2019 Hospit al [Mass/Vol] 09:0500 [facility] (69605) Bilirubin 0.2 mg/dL (no code) 0.1 - 1.2 mg/dL 06-16-2019 Hospit al [Mass/Vol] 23:500500 [facility] () Calcium 9.6 mg/dL (no code) 8.5 - 10.2 mg/dL 06-16-2019 Hospi carolin [Mass/Vol] 09: [facility] () Calcium 9.5 mg/dL (no code) 8.5 - 10.2 mg/dL 06-16-2019 Hospi carolin [Mass/Vol] 23:050 [facility] () Chloride 106 mmol/L (no code) 95 - 106 mmol/L 06-16-2019 Hospi carolin [Moles/Vol] 09: [facility] () Chloride 107 mmol/L (no code) 95 - 106 mmol/L 06-16-2019 Hospi carolin [Moles/Vol] 23: [facility] () CO2 (Bld) 31 (L) 06-16-2019 Hospital [Partial 09: [facility] pressure] [facility] () Creatinine 0.77 mg/dL (no code) 06-16-2019 Hospital [Mass/Vol] 09: [facility] () Creatinine 0.67 mg/dL (no code) 06-16-2019 Hospital [Mass/Vol] 23: [facility] () Eosinophils 0.0 10*3/uL (no code) 0.05 - 0.5 06-16-2019 Hospita l (Bld) [#/Vol] 10*3/uL 09: [facility] (61288) Eosinophils 0.0 10*3/uL (no code) 0.05 - 0.5 06-16-2019 Hospita l (Bld) [#/Vol] 10*3/uL 23:050 [facility] () Eosinophils/100 0.1 % (no code) 1 - 4 % 06-16-2019 Hospit al WBC (Bld) 09: [facility] () Eosinophils/100 0.0 % (no code) 1 - 4 % 06-16-2019 Hospit al WBC (Bld) 23:500500 [facility] (36936) Erythrocyte 14.5 % (no code) 11.6 - 14.6 % 06-16-2019 Hospit al distribution 09:170500 [facility] width (RBC) [facility] [Ratio] (43525) Erythrocyte 14.6 % (no code) 11.6 - 14.6 % 06-16-2019 Hospit al distribution 23:500500 [facility] width (RBC) [facility] [Ratio] (01866) Fibrin D-dimer 178.00 (no code) 06-16-2019 Hospital DDU (PPP) 09: [facility] [Mass/Vol] [facility] (16842) FLUAV and FLUBV Negative (no code) 06-16-2019 Hospital Ag IA.rapid Nom 09: [facility] (Nose) [facility] (45148) GFR/1.73 sq 78 (no code) 90 - 120 06-16-2019 Hospital M.predicted MDRD mL/min/{1.73_m2} mL/min/{1.73_m2} 09: [facility] (S/P/Bld) [Vol [facility] rate/Area] (53353) GFR/1.73 sq 91 (no code) 90 - 120 06-16-2019 Hospital M.predicted MDRD mL/min/{1.73_m2} mL/min/{1.73_m2} 23:500500 [facility] (S/P/Bld) [Vol [facility] rate/Area] (19181) Globulin (S) 3.5 g/dL (no code) 2 - 3.5 g/dL 06-16-2019 Hospit al [Mass/Vol] 09: [facility] (73611) Globulin (S) 2.7 g/dL (no code) 2 - 3.5 g/dL 06-16-2019 Hospit al [Mass/Vol] 23:500500 [facility] (47390) Glucose 300 mg/dL (H) 60 - 125 mg/dL 06-16-2019 Hospita l [Mass/Vol] 09:170500 [facility] (04215) Glucose 223 mg/dL (H) 60 - 125 mg/dL 06-16-2019 Hospita l [Mass/Vol] 23:50-0500 [facility] (10438) HbA1c (Bld) 6.50 % (no code) 0 - 5.7 % 06-16-2019 Hospital [Mass fraction] 09: [facility] (12850) HCO3 (BldMV) 20 (no code) 06-16-2019 Hospital [Moles/Vol] 09: [facility] (77463) HCO3 (P) 22 (no code) 06-16-2019 Hospital [Moles/Vol] 09: [facility] (33449) HCO3 (P) 19 (L) 06-16-2019 Hospital [Moles/Vol] 23:500500 [facility] (47022) Hematocrit (Bld) 39.7 % (no code) 36.1 - 50.3 % 06-16-2019 H ospital [Volume 09:170500 [facility] fraction] [facility] (58952) Hematocrit (Bld) 34.5 % (L) 36.1 - 50.3 % 06-16-2019 H ospital [Volume 23:50-0500 [facility] fraction] [facility] (02923) Hemoglobin (Bld) 13.0 g/dL (no code) 12.1 - 17.2 g/dL 06-16-2019 Hospital [Mass/Vol] 09:170500 [facility] (50047) Hemoglobin (Bld) 11.5 g/dL (L) 12.1 - 17.2 g/dL 06-16-2019 Hospital [Mass/Vol] 23:500500 [facility] (29236) Lactate 19.7 (no code) 06-16-2019 Hospital [Mass/Vol] 09:0500 [facility] (23984) Lymphocytes 0.25 10*3/uL (L) 0.9 - 2.9 06-16-2019 Hospita l (Bld) [#/Vol] 10*3/uL 09: [facility] (19277) Lymphocytes 0.61 10*3/uL (no code) 0.9 - 2.9 06-16-2019 Hospita l (Bld) [#/Vol] 10*3/uL 23:500500 [facility] (47984) Lymphocytes/100 1.3 % (L) 20 - 40 % 06-16-2019 Hospit al WBC (Bld) 09: [facility] (94569) Lymphocytes/100 2.4 % (L) 20 - 40 % 06-16-2019 Hospit al WBC (Bld) 23: [facility] (38403) M. pneumoniae Ab Negative (no code) 06-16-2019 Hospital Ql (S) 09: [facility] (65738) MCH (RBC) 30.7 pg (no code) 27 - 31 pg 06-16-2019 Hospital [Entitic mass] 09: [facility] (59801) MCH (RBC) 31.3 pg (H) 27 - 31 pg 06-16-2019 Hospital [Entitic mass] 23:500500 [facility] (23329) MCHC (RBC) 32.7 g/dL (no code) 32 - 36 g/dL 06-16-2019 Hospital [Mass/Vol] 09: [facility] ([id number]) MCHC (RBC) 33.3 g/dL (no code) 32 - 36 g/dL 06-16-2019 Hospital [Mass/Vol] 23:50-0500 [facility] ([id number]) MCV (RBC) 93.6 fL (no code) 80 - 100 fL 06-16-2019 Hospital [Entitic vol] 09: [facility] ([id number]) MCV (RBC) 94.0 fL (no code) 80 - 100 fL 06-16-2019 Hospital [Entitic vol] [id number] [facility] ([id number]) Monocytes (Bld) 0.1 10*3/uL (no code) 0.3 - 0.9 06-16-2019 Hosp ital [#/Vol] 10*3/uL 09: [facility] ([id number]) Monocytes (Bld) 0.6 10*3/uL (no code) 0.3 - 0.9 06-16-2019 Hosp ital [#/Vol] 10*3/uL 23: [facility] () Monocytes/100 0.7 % (no code) 2 - 8 % 06-16-2019 Hospital WBC (Bld) 09: [facility] () Monocytes/100 2.2 % (no code) 2 - 8 % 06-16-2019 Hospital WBC (Bld) 23: [facility] () Natriuretic 67.60 pg/mL (no code) 0 - 100 pg/mL 06-16-2019 Hosp ital peptide B (Bld) 09: [facility] [Mass/Vol] [facility] ([id number]) Neutrophils 18.63 10*3/uL (H) 1.7 - 7 10*3/uL 06-16-2019 Hospital (Bld) [#/Vol] 09: [facility] () Neutrophils 24.18 10*3/uL (H) 1.7 - 7 10*3/uL 06-16-2019 Hospital (Bld) [#/Vol] 23:50 [facility] () Neutrophils/100 97.7 % (H) 40 - 60 % 06-16-2019 Hospit al WBC (Bld) 09: [facility] ([id number]) Neutrophils/100 95.3 % (H) 40 - 60 % 06-16-2019 Hospit al WBC (Bld) 23:50 [facility] () Osmolality Calc 298 (H) 06-16-2019 Hospital [Osmolality] 09: [facility] () Osmolality Calc 294 (no code) 06-16-2019 Hospital [Osmolality] 23:50 [facility] ([id number]) Oxygen adjusted 67 (L) 06-16-2019 Hospital to patient's 09: [facility] temperature (80498) (BldA) [Partial pressure] Oxygen 94 3L (L) 06-16-2019 Hospital saturation 09: [facility] adjusted to 0.5 [facility] (BldA) [Partial (39584) pressure] pH (Bld) 7.43 [pH] (no code) 7.38 - 7.42 [pH] 06-16-2019 Hospi carolin 09: [facility] () Platelet mean 9.8 fL (no code) 7.2 - 11.7 fL 06-16-2019 Hosp ital volume (Bld) 09: [facility] [Entitic vol] [facility] () Platelet mean 10.1 fL (H) 7.2 - 11.7 fL 06-16-2019 Hosp ital volume (Bld) 23: [facility] [Entitic vol] [facility] () Platelets (Bld) 426 10*3/uL (H) 150 - 450 06-16-2019 Hosp ital [#/Vol] 10*3/uL 09: [facility] () Platelets (Bld) 428 10*3/uL (H) 150 - 450 06-16-2019 Hosp ital [#/Vol] 10*3/uL 23: [facility] () Potassium 3.8 mmol/L (no code) 3.7 - 5.2 mmol/L 06-16-2019 Hosp ital [Moles/Vol] 09: [facility] () Potassium 3.7 mmol/L (no code) 3.7 - 5.2 mmol/L 06-16-2019 Hosp ital [Moles/Vol] 23:[id number] [facility] () Protein 7.9 g/dL (no code) 6.4 - 8.3 g/dL 06-16-2019 Hospita l [Mass/Vol] 09: [facility] ([id number]) Protein 6.7 g/dL (no code) 6.4 - 8.3 g/dL 06-16-2019 Hospita l [Mass/Vol] 23:500500 [facility] () RBC (Bld) 4.24 10*6/uL (no code) 4.2 - 6.1 06-16-2019 Hospital [#/Vol] 10*6/uL 09: [facility] () RBC (Bld) 3.67 10*6/uL (no code) 4.2 - 6.1 06-16-2019 Hospital [#/Vol] 10*6/uL 23: [facility] () Sodium 140 mmol/L (no code) 135 - 145 mmol/L 06-16-2019 Hosp ital [Moles/Vol] 09: [facility] () Sodium 140 mmol/L (no code) 135 - 145 mmol/L 06-16-2019 Hosp ital [Moles/Vol] 23:050 [facility] () Troponin ng/mL (no code) 0 - 0.4 ng/mL 06-16-2019 Hospital I.cardiac 09: [facility] [Mass/Vol] [facility] () Urea nitrogen 8 mg/dL (no code) 7 - 20 mg/dL 06-16-2019 Hospi [facility] [Mass/Vol] 09: [facility] () Urea nitrogen 10 mg/dL (no code) 7 - 20 mg/dL 06-16-2019 [facility]pi [facility] [Mass/Vol] 23:0500 [facility] () WBC (Bld) 19.06 10*3/uL (H) 3.5 - 10.5 06-16-2019 Hospita l [#/Vol] 10*3/uL 09: [facility] () WBC (Bld) 25.37 10*3/uL (HH) 3.5 - 10.5 06-16-2019 Hospita l [#/Vol] 10*3/uL 23:[id number] [facility] ([id number]) Vital Signs No Information Interventions No Information Plan of Treatment No Information Goals No Information Social History No Information Functional Status No Information Mental Status No Information Encounters Encounter Normalized Encounter Encounter Diagnosis Care Provi chi Organization Date Type 06-26-2019 Emergency department no information AISLINN EDWARDS DO (no [facility] - patient visit phone) [facility] 06-26-2019 (no phone) 06-16-2019 Evaluation and no information JUANITA PRECIADO (no [facility] - management of phone) [facility] (no 06-18-2019 inpatient phone) 02-10-2018 Patient encounter no information no name no or ganization name NEGATED Patient encounter no information no name no or ganization name 02-19-2016 NEGATED Patient encounter no information no name no or ganization name 06-05-2015 NEGATED Patient encounter no information no name no or ganization name 11-23-2013 NEGATED Patient encounter no information no name no or ganization name 12-07-2012 - 12-07-2012 NEGATED Patient encounter no information no name no or ganization name 11-27-2012 NEGATED Patient encounter no information no name no or ganization name 08-10-2012 01-14-2012 Patient encounter no information no name no or ganization name 06-26-2019 Patient encounter no information AISLINN EDWARDS DO (no [facility] procedure phone) [facility] (no phone) 06-25-2019 Patient encounter no information EDUARDO FRAIRE MD (no [facility] procedure phone) [facility] (no phone) 02-10-2018 Patient encounter no information EDUARDO FRAIRE MD (no [facility] procedure phone) [facility] (no phone) 02-19-2016 Patient encounter no information EDUARDO FRAIRE MD (no [facility] procedure phone) [facility] (no phone) 06-05-2015 Patient encounter no information EDUARDO FRAIRE MD (no [facility] procedure phone) [facility] (no phone) 05-29-2012 Patient encounter no information no name no or ganization name - procedure 05-29-2012 05-26-2012 Patient encounter no information no name no or ganization name procedure 01-21-2012 Patient encounter no information no name no or ganization name procedure 01-02-2012 Patient encounter no information no name no or ganization name procedure no information Other specified no name no organizatio n name pre-operative examination no information Pre-procedural no name no organization name laboratory examination Medical Equipment No Information Payers Normalized Payer Value [facility] no information Advance Directives Directive Response Recor ded Date Advance Directives Y 6:30am Health Care Power of Business Director N 12/07/12 6:30am Organ Donor Y 12/07/12 6 :30am Additional Source Comments This clinical document has been generated using [employer] software that has been certified by the Office of the National Coordinator for Health Information Technology (ONC 15.99.04.3023.Diam.31.00.0.430557) and the National Committee for Licensed Therapist (NCQA, as an eMeasure certified technology). FOR RECORDS PERTAINING TO PATIENTS WHO ARE OR HAVE BEEN ENROLLED IN A CHEMICAL D EPENDENCY/SUBSTANCE ABUSE PROGRAM, SOME INFORMATION MAY BE OMITTED. This clinica l summary was aggregated from multiple sources. Caution should be exercised in using it in the provision of clinical care. This summary normalizes information from multiple sources, and as a consequence, information in this document may ma terially change the coding, format and clinical context of patient data. In nuvia tion, data may be omitted in some cases. CLINICAL DECISIONS SHOULD BE BASED ON T HE PRIMARY CLINICAL RECORDS. [employer] provides no warranty or guara ntee of the accuracy or completeness of information in this document.The followi ng information is based on time limited clinical information
--- OUTSIDE RECORDS SUMMARY | 2019-11-23 03:31 | XMS REPORT | Encounter Summary ---
Author Author [facility] Organization [facility] Address Unknown Phone Unavailable Care Team Providers Care Toll Booth Operator Name Role Phone Dung Carmen MD 21 Dung Carmen MD PCP Encounter Details Care Team Description Date Type Department Anamaria Tuttleine Pheochromocytoma, unspecified laterality (Primary Dx) 10/28/2019 Orders Only [facility] [address] [id number] Social History Date Tobacco Use Types Packs/Day Years Used Quit: 06/07/2019 Former Smoker Cigarettes 0.25 20 Smokeless Tobacco: Never Used Drinks/Week oz/Week Comments Alcohol Use 12 Cans of beer 12.0 Yes Sex Assigned at Date Recorded Female 08/25/2019 12:24 PM CDT Industry Job Start Date Occupation Not on file Not on file Not on file Travel End Travel History Travel Start No recent travel history available. Date Recorded COVID-19 Exposure Response 10/05/2019 1:23 PM CDT In the last month, have you been in contact with No / Unsure someone who was confirmed or suspected to have Coronavirus / COVID-19? documented as of this encounter Functional Status Date of Assessment Functional Status Response 09/23/2019 Does the patient have a hearing impairment: Yes 08/03/2019 Does the patient have a visual impairment: Yes 08/03/2019 Does the patient have impaired ambulation: No 08/03/2019 Does the patient have an activity of daily living No (ADL) impairment: 08/03/2019 Does the patient have an instrumental activity of No daily living (IADL) impairment: Date of Assessment Cognitive Status Response 08/03/2019 Does the patient have a cognitive impairment: No documented as of this encounter Plan of Treatment Not on filedocumented as of this encounter Goals Goal Patient Associated Recent Progress Patient-Stat Aut hor Goal Type Problems ed? Increase Physical Activity Exercise Yes Idania Hernandez RN Note: "To be able to get better and be more active" documented as of this encounter Procedures Comments Procedure Name Priority Date/Time Associated Diag nosis GENETIC TEST Routine 10/15/2019 Pheochromocytom a, unspecified laterality documented in this encounter Results * GENETIC TEST (10/15/2019) Specimen Blood Narrative Performed At This result has an attachment that is n ot available. Performing Organization Address City/State/Zipcode Ph one Number OTHER OUTSIDE LAB documented in this encounter Visit Diagnoses Diagnosis Pheochromocytoma, unspecified lateralit y documented in this encounter
--- OUTSIDE RECORDS SUMMARY | 2019-11-23 03:31 | XMS REPORT | Encounter Summary ---
Author Author [facility] Organization [facility] Address Unknown Phone Unavailable Care Team Providers Care Tire Builder Operator Name Role Phone Dung Carmen MD 21 Dung Carmen MD PCP Encounter Details Care Team Description Date Type Department Cassidy Tuttle 11/03/2019 Documentation [facility] [address] [phone] Social History Date Tobacco Use Types Packs/Day [...] impairment: No documented as of this encounter Progress Notes * Mima Tuttleherine - 11/03/2019 12:27 PM CDT [facility] Counseling Aminta Meraz # [id number] During our last visit with Aminta Meraz, age 53 y.o., we ordered the [employer] Custom[employer] Panel (13 genes FH, MAX, MEN1, NF1, RET, SDHA, SDHAF2, SDHB, SDHC, SDHD, SMAD4, [id number] and VHL). Aminta's testing was NEGATIVE. Aminta was ca lled to inform her of these results. These results mean that she was not found t o have a mutation in any of these genes. Testing was ordered for Aminta based on her personal diagnosis of a pheochromocytoma as well as her family history of dean spicious signs of pheochromocytoma/paragangliomas. Aminta's testing did not find a mutation in any of the known genes associated wit h hereditary pheochromocytoma/paraganglioma syndromes. This means that at this t cynthia we cannot explain the cause for Aminta's pheochromocytoma. We did recommended that Aminta's family members still be aware of signs and sympt oms related to pheochromocytomas and paragangliomas. These include continual or episodic high blood pressure, headaches, profuse sweating, palpations, pallor, a nxiety and panic attacks. There are no other individuals in Aminta's family that meet criteria for genetic testing, due to this no other family members are recommended to see a genetic co unselor. It is still possible that Aminta's children could have inherited a hereditary can cer syndrome from their father's family. If there is a paternal family history o f cancer we recommend they consider seeing a Genetic Counselor to review the fam sam history and determine if genetic testing is appropriate. Plan: Aminta is to reach out to our clinic in 1-2 years to determine if there are newer genes for pheochromocytoma susceptibility available for testing. Time: 10 minutes. Discussed test results and implications for family members. Mariana Tuttle MS , [facility] [place] Certified Genetic Counselor [facility] [address] [address] Email: [email or web address] Appointments documented in this encounter Plan of Treatment Not on filedocumented as of this encounter Goals Goal Patient Associated Recent Progress Patient-Stat Aut hor Goal Type Problems ed? Increase Physical Activity Exercise Yes Idania Hernandez, RN Note: "To be able to get better and be more active" documented as of this encounter Visit Diagnoses Not on filedocumented in this encounter
--- OUTSIDE RECORDS SUMMARY | 2019-11-23 03:31 | XMS REPORT | Clinical Summary ---
Author Author [facility] Organization [facility] Address Unknown Phone Unavailable Care Team Providers Care Insole Rasper Name Role Phone Dung Carmen MD 21 Dung Carmen MD PCP Source Comments Some departments are not documenting in the electronic medical record. If you d o not see the information that you expected, contact Release of Information in [facility] [employer] Information Management department at [phone] for further assistan ce in locating additional records.[facility] Allergies Comments Active Allergy Reactions Severity Noted Date Penicillins HIVES Medium 06/26/2019 Tuna Oil STOMACH UPSET Low 06/26/2019 Medications End Date Status Medication Sig Dispensed Refills Start Date Active docusate (COLACE) 100 mg Take 100 mg 0 capsule by mouth daily. Active lisinopriL (ZESTRIL) 40 Take 40 mg by 0 mg tablet mouth daily. 0 Active metFORMIN-XR (GLUCOPHAGE Take 1,000 mg 0 06/30 XR) 500 mg extended by mouth 0 release tablet daily with dinner. Active clonazePAM (KLONOPIN) 0.5 Take 0.5 mg 0 07/17 mg tablet by mouth 0 daily as needed. Active sodium chloride 1 gram Take one 90 tablet 1 tablet tablet by 0 mouth three times daily. Active metoprolol tartrate Take one-half 10 tablet 0 /0 (LOPRESSOR) 25 mg tablet tablet by 0 mouth twice daily. Active melatonin 10 mg tab Take 1 tablet 0 by mouth at bedtime daily. Active metoprolol XL (TOPROL XL) Take 12.5 mg 0 25 mg extended release by mouth tablet twice daily. Active oxyCODONE (ROXICODONE) 5 Take one 20 tablet 0 0 mg tablet tablet to 0 three tablets by mouth every 4 hours as needed Active Problems Problem Noted Date Diastolic heart failure 09/01/2019 Essential hypertension 09/01/2019 Type 2 diabetes mellitus, without long-term current u se of insulin 09/01/2019 Resolved Problems Problem Noted Date Resolved Date Pheochromocytoma 09/01/2019 10/07/2019 Left adrenal mass 08/09/2019 10/07/2019 Encounters Care Team Description Date Type Specialty Cassidy Tuttle 11/03/2019 Documentation Oncology Cassidy Tuttle Pheochromocytoma, unspecified laterality (Primary Dx) 10/28/2019 Orders Only Oncology Kennedy Ibarra MD Pheochromocytoma, unspecified laterality (Primary Dx) 10/05/2019 Office Visit Oncology 10/05/2019 Kelly Garzon, MSN,ENGLISH DIVISION CHAIR Kennedy Ibarra MD Nelson, Katherine 10/04/2019 Clinical Oncology Support Telehealth Kennedy Ibarra MD Surgical Followup (Post op call, confirm pt received pathology results) 09/29/2019 Telephone Oncology Kennedy Ibarra MD Surgical Followup (Post op call, 2nd att empt); Results (Surgical pathology results - benign ) 09/28/2019 Telephone Oncology Kennedy Ibarra MD Surgical Followup (Post op call, surgery 09/22, discharged 09/23) 09/27/2019 Telephone Oncology Kennedy Ibarra MD LEFT LAPAROSCOPIC, ADRENALECTOMY 09/23/2019 Surgery Gianna Marquez MD Taylor, Susan, KHALIF-SPECIALTY PERSON 09/23/2019 Anesthesia Event Kennedy Ibarra MD Essential hypertension 09/23/2019 Hospital - Encounter 09/24/2019 09/23/2019 Kennedy Zhang MD Results (COVID test - negative) 09/22/2019 Telephone Oncology Kennedy Ibarra MD Adrenal mass (HCC) (Primary Dx); Pre-operative cardiovascular examination 09/21/2019 Ancillary Pre-Admission Testi ng Procedure Preop testing (Primary Dx); Pheochromocytoma, unspecified laterality 09/21/2019 Nurse Only Urgent Care 09/21/2019 Bacilio Neil DO Medication Question 09/21/2019 Telephone [facility]ocr[facility]ology, [facility] Madie Pearce RN Covid-19 09/20/2019 Telephone Pre-Admission Testi ng Corby, Bacilio, DO Medication Request 09/16/2019 Telephone Endocrinology, [facility] Kennedy Ibarra MD Other (Call to discuss COVID screening b efore surgery) 09/15/2019 Telephone Oncology Kennedy Ibarra MD Pheochromocytoma, unspecified laterality (Primary Dx) 09/15/2019 Orders Only Oncology Kennedy Ibarra MD Surgery (Check on pre-med/ inform pt tonja t case moved to start) 09/07/2019 Telephone Oncology Kennedy Ibarra MD Worsham, Samuel, DO Pheochromocytoma of left adrenal gland; Diastolic heart failure, unspecified HF chronicity (HCC); Essential hypertension; Type 2 diabetes mellitus with hyperglycemia, without long-term current use of insulin (HCC) 09/01/2019 Office Visit Endocr[facility]ology, [facility] 09/01/2019 Travel Kennedy Ibarra MD Referral (Check in with Endo regarding u rgent referral) 08/25/2019 Telephone Oncology from Last 3 Months Family History Medical History Relation Name Comments Cancer-Lung Father Bladder Cancer Maternal non-smoker Grandfather Stroke Maternal Grandfather Arthritis-osteo Maternal Grandmother Arthritis-osteo Mother Hypertension Mother Cancer-Lung Paternal Grandmother Cancer-Lung Paternal Uncle Relation Name Status Comments Daughter Alive Daughter Alive Father (Age 64) Maternal Aunt Alive Maternal Aunt (Age 90) Maternal Grandfather (Age 87) Maternal Grandmother (Age 91) Mother Alive spikes in blood pre ssure tubes are ties +ov/ut Paternal Aunt (Age 70) Paternal Grandfather (Age 71) Paternal Grandmother (Age 95) Paternal Uncle (Age 66) Sister Alive +ov/ut Son Alive Social History Date Tobacco Use Types Packs/Day Years Used Quit: 06/07/2019 Former Smoker Cigarettes 0.25 20 Smokeless Tobacco: Never Used Tobacco Cessation: Counseling Given: No Drinks/Week oz/Week Comments Alcohol Use 12 Cans of beer 12.0 Yes Sex Assigned at Date Recorded Female 08/25/2019 12:24 PM CDT Industry Job Start Date Occupation Not on file Not on file Not on file Travel End Travel History Travel Start No recent travel history available. Last Filed Vital Signs Reading Time Taken Comments Vital Sign 148/76 10/05/2019 1:38 PM CDT Blood Pressure 108 10/05/2019 1:38 PM CDT Pulse 36.2 C (97.2 F) 10/05/2019 1:38 PM CDT Temperature 16 10/05/2019 1:38 PM CDT Respiratory Rate 97% 10/05/2019 1:38 PM CDT Oxygen Saturation - - Inhaled Oxygen Concentration 57.8 kg (127 lb 6.4 oz) 10/05/2019 1:38 PM CDT Weight 157.5 cm (5' 2.01") 10/05/2019 1:38 PM CDT Height 23.3 10/05/2019 1:38 PM CDT Body Mass Index Plan of Treatment Health Maintenance Due Date Last Done Comments HIV SCREENING 11/09/1978 DILATED EYE EXAM 11/09/1981 DTAP/TDAP VACCINES (1 - 11/09/1981 Tdap) FOOT EXAM 11/09/1981 HBA1C 11/09/1981 HEPATITIS C SCREENING 11/09/1981 PHYSICAL (COMPREHENSIVE) 11/09/1981 EXAM PNEUMONIA VACCINE (DM) 11/09/1981 CERVICAL CANCER SCREENING 11/09/1984 BREAST CANCER SCREENING 2003 COLORECTAL CANCER 11/09/2013 SCREENING SHINGLES RECOMBINANT 11/09/2013 VACCINE (1 of 2) INFLUENZA VACCINE 02/17/2020 Goals Goal Patient Associated Recent Progress Patient-Stat Aut hor Goal Type Problems ed? Increase Physical Activity Exercise Yes Idania Hernandez RN Note: "To be able to get better and be more active" Procedures Comments Procedure Name Priority Date/Time Associated Diag nosis GENETIC TEST Routine 10/15/2019 Pheochromocytom a, unspecified laterality POC GLUCOSE 09/24/2019 7:53 AM CDT HC BASIC METABOLIC PANEL Routine 09/24/2019 4:50 AM CDT HC PHOSPHOROUS, SERUM Routine 09/24/2019 4:50 AM CDT HC MAGNESIUM Routine 09/24/2019 4:50 AM CDT POC GLUCOSE 09/23/2019 9:58 PM CDT POC GLUCOSE 09/23/2019 12:15 PM CDT ANESTHESIA ARTERIAL LINE Routine 09/23/2019 INSERTION 12:02 PM CDT HC LEVEL V SRG PTH, GROSS Routine 09/23/2019 Adre nal mass (HCC) & MICRO 10:39 AM CDT POC GLUCOSE 09/23/2019 10:18 AM CDT TRANSABDOMINAL/ LUMBAR/ 09/23/2019 Adrenal mass (HCC) DORSAL LAPAROSCOPIC 8:14 AM CDT ADRENALECTOMY/ EXPLORATION ADRENAL GLAND WITH/ WITHOUT BIOPSY POC GLUCOSE 09/23/2019 7:36 AM CDT TELEMETRY STRIPS-SCAN 09/23/2019 12:00 AM CDT HC BLOOD TYPING, ABO Routine 09/21/2019 Adrenal m ass (HCC) CONFIRM 91 3:21 PM CDT HC ABO GROUP Routine 09/21/2019 Adrenal mass (H CC) 3:15 PM CDT HC COMPREHENSIVE Routine 09/21/2019 Adrenal mass (HCC) METABOLIC PANEL 3:15 PM CDT HC CBC,AUTOMATED Routine 09/21/2019 Adrenal mass (HCC) 3:15 PM CDT COVID-19 (SARS-COV-2) PCR Routine 09/21/2019 Pheo chromocytoma, 1:27 PM CDT unspecified laterality ECG-SCAN 09/21/2019 12:00 AM CDT from Last 3 Months Results * GENETIC TEST (10/15/2019) Specimen Blood Narrative Performed At This result has an attachment that is n ot available. Performing Organization Address City/[facility] Ph one Number OTHER OUTSIDE LAB * POC GLUCOSE (09/24/2019 7:53 AM CDT) Only the most recent of 5 results within the time period is included. Glucose, POC 86 70 - 100 MG/DL MAIN LAB Specimen Performing Organization Address City/[facility] Ph one Number MAIN LAB [address] [place] [address] * PHOSPHORUS (09/24/2019 4:50 AM CDT) Phosphorus 3.0 2.0 - 4.5 MG/DL MAIN LAB Specimen Blood Performing Organization Address City/[facility]/Zipcode Ph one Number MAIN LAB [address] [place] [address] * MAGNESIUM (09/24/2019 4:50 AM CDT) Pathologist [facility] Magnesium 1.9 1.6 - 2.6 mg/dL [facility] MAIN LAB Specimen Blood Performing Organization Address [facility] one Number MAIN LAB [address] [place] [address] * BASIC METABOLIC PANEL (09/24/2019 4:50 AM CDT) Sodium 134 (L) 137 - 147 MMOL/L [facility] MAIN LAB Potassium 3.9 3.5 - 5.1 MMOL/L [facility] MAIN LAB Chloride 103 98 - 110 MMOL/L [facility] MAIN LAB CO2 25 21 - 30 MMOL/L [facility] MAIN LAB Anion Gap 6 3 - 12 [facility] MAIN LAB Glucose 92 70 - 100 MG/DL [facility] MAIN LAB Blood Urea 13 7 - 25 MG/DL [facility] MAIN LAB Nitrogen Creatinine 0.70 0.4 - 1.00 MG/DL [facility] MAIN LAB Calcium 8.5 8.5 - 10.6 MG/DL [facility] MAIN LAB eGFR Non >60 >60 mL/min [facility] MAIN LAB Comment: Taiwanese The eGFR is not validated f or use in drug dosing adjustments. Continue to use estimated creatinine clearance per dosing reference text. Please contact the Clinical Pharmacist for questions. eGFR >60 >60 mL/min [facility] MAIN LAB Taiwanese Comment: The eGFR is not validated for use in drug dosing adjustments. Continue to use estimated creatinine clearance per dosing reference text. Please contact the Clinical Pharmacist for questions. Specimen Blood Performing Organization Address [facility] one Number MAIN LAB [address] [place] [address] * A-LINE INSERTION (09/23/2019 12:02 PM CDT) Narrative Performed At Gianna Marquez MD 09/23/2019 12:0 4 PM Anesthesia Procedure: Arterial Line Mac cement A-LINE INSERTION Date/Time: 09/23/2019 8:40 AM Patient location: OR Indications: hemodynamic monitoring Preprocedure checklist performed: 2 pat ient identifiers, risks & benefits discussed, patient evaluated, timeout p erformed, consent obtained, patient being monitored and sterile drape Sterile technique: - Proper hand washing - Cap, mask - Sterile gloves - Skin prep for antisepsis Arterial Line Procedure Patient sedated: yes (see MAR) Sedation type: general; Artery prepped with chlorhexidine; skin prep agent completely dried prior to procedure. Location: radial artery Laterality: left Technique: ultrasound Needle gauge: 20 G Number of attempts: 4 Procedure Outcome Catheter secured with adhesive dressing applied Events: no complications noted during i nsertion and skin intact, warm, and dry Observation: pt tolerated well Additional notes: 2 attempts on right by MACHINE LEATHER TRIMMER and 2 attem pts on left, small artery unable to thread wire on more distal attempts Performed by: Gianna Marquez MD Authorized by: Gianna Marquez MD * SURGICAL PATHOLOGY (09/23/2019 10:39 AM CDT) PATHOLOGY [facility] [employer] [facility] [employer] [email or web address] Department of Pathology and Laboratory Medicine [address] [place] [id number] Surgical Pathology Office: [phone] SURGICAL PATHOLOGY REPORT NAME: LORENZO MERAZSal SURG PATH #: [id number] MR #: [id number] SPECIMEN CLASS: [facility] BILLING #: [id number] ALT ID #: LOCATION: [facility] DATE OF PROCEDURE: 09/23/2019 AGE: 53 SEX: F DATE RECEIVED: 09/23/2019 : 1965 TIME RECEIVED: 11:02 PHYSICIAN: KENNEDY IBARRA MD DATE OF REPORT: 09/27/2019 COPY TO: DATE OF PRINTIN09/27/2019 ############################## ############################## ############ Final Diagnosis: A. Adrenal, "left adrenal", adrenalectomy: Pheochromocytoma See comment. Comment: Immunostains on block A1 show the tumor cells are strongly positive for synaptophysin and chromogranin; S100 demonstrates positivity in sustentacular cells, and Ki-67 labels focally up to 5% of cells. PASS score = 2/20; a score less than 4 is considered benign. Attestation: By this signature, I attest that I have personally formulated the final interpretation expressed in this report and that the above diagnosis is based upon my examination of the slides and/or other material indicated in this report. +++ +++ John Bowens MD Resident /09/24/2019 ############################## ############################## ############ Material Received: A: left adrenal History: 53-year-old female with an adrenal mass. Gross Description: A. Fixative: Fresh Labeled: "Left adrenal" Weight: 105 grams Specimen measurement: 7.0 x 6.5 x 4.3 cm; the specimen was previously bivalved Adrenal gland: There is minimal amount of residual adrenal along the periphery, which measures approximately 2.0 x 1.5 x 0.5 cm The external surface is inked black. Tumor: 6.5 x 4.9 x 4.0 cm Tumor appearance: Well-circumscribed, reyez-ribeiro, pink and necrotic Tumor originates from: Cannot be determined grossly Distance of tumor from inked external surface: 0.2 cm Uninvolved adrenal gland: Bright yellow cortex Financial Compliance Manager sections of the specimen are submitted as follows: A1-A6 Tumor to uninvolved adrenal gland and inked external surface. (klp) /09/23/2019 If immunohistochemical stains and/or in situ hybridization are cited in this report, the performance characteristics were determined by the [facility] ([employer]) in compliance with CLIA'88 regulations. Some of these tests rely on the use of "analyte specific reagents" and are subject to specific labeling requirements by the FDA. Known positive and negative control tissues demonstrate appropriate staining. Results should be interpreted with caution given the likelihood of false negativity on decalcified specimens. This testing was developed by the Department of [facility]ology and [facility] of the [facility]. It has not been cleared or approved by the FDA. The FDA has determined that such clearance or approval is not necessary. Specimen Tissue - Adrenal Gland,Left Performing Organization Address City/State/Zipcode Ph one Number [facility] MAIN LAB [address] [place] [address] * TELEMETRY STRIPS-SCAN (09/23/2019 12:00 AM CDT) Narrative Performed At This result has an attachment that is n ot available. Ordered by an unspecified provider. * BLOOD TYPE CONFIRMATION - ORDER ONLY IF REQUESTED BY LAB (09/21/2019 3:21 PM CDT) ABO/RH(D) O POS MAIN LAB Specimen Blood Performing Organization Address City/[facility] one Number MAIN LAB [address] [place] [address] * CBC (09/21/2019 3:15 PM CDT) White Blood 10.1 4.5 - 11.0 K/UL MAIN LAB Cells RBC 3.49 (L) 4.0 - 5.0 M/UL MAIN LAB Hemoglobin 10.9 (L) 12.0 - 15.0 GM/DL MAIN LAB Hematocrit 32.5 (L) 36 - 45 % MAIN LAB MCV 93.3 80 - 100 FL MAIN LAB MCH 31.4 26 - 34 PG MAIN LAB MCHC 33.7 32.0 - 36.0 G/DL MAIN LAB RDW 14.4 11 - 15 % MAIN LAB Platelet Count 429 (H) 150 - 400 K/UL MAIN LAB MPV 7.3 7 - 11 FL MAIN LAB Specimen Blood Performing Organization Address City/[facility] one Number MAIN LAB [address] [place] [address] * TYPE & CROSSMATCH (09/21/2019 3:15 PM CDT) Units Ordered 2 MAIN LAB Crossmatch 09/24/2019,2359 MAIN LAB Expires Record Check 2ND TYPE REQUIRED MAIN LAB ABO/RH(D) O POS MAIN LAB Antibody Screen NEG MAIN LAB Electronic YES MAIN LAB Crossmatch Unit Number [id number] MAIN LAB Blood Component RBC,ADSOL,LEUKO REDUCED [facility] MAIN LAB Type Unit Division 0 [facility] MAIN LAB Status OF Unit REL FROM ALLOC [facility] MAIN LAB Transfusion OK TO TRANSFUSE [facility] MAIN LAB Status Crossmatch COMPATIBLE,ELECTRONIC MAIN LAB Result Unit Number [id number] MAIN LAB Blood Component RBC,ADSOL,LEUKO REDUCED [facility] MAIN LAB Type Unit Division 0 MAIN LAB Status OF Unit REL FROM ALLOC [facility] MAIN LAB Transfusion OK TO TRANSFUSE [facility] MAIN LAB Status Crossmatch COMPATIBLE,ELECTRONIC MAIN LAB Result Specimen Blood Performing Organization Address [facility] one Number MAIN LAB [address] [place] [address] * COMPREHENSIVE METABOLIC PANEL (09/21/2019 3:15 PM CDT) Sodium 135 (L) 137 - 147 MMOL/L [facility] MAIN LAB Potassium 4.7 3.5 - 5.1 MMOL/L [facility] MAIN LAB Chloride 103 98 - 110 MMOL/L [facility] MAIN LAB Glucose 94 70 - 100 MG/DL [facility] MAIN LAB Blood Urea 16 7 - 25 MG/DL [facility] MAIN LAB Nitrogen Creatinine 0.80 0.4 - 1.00 MG/DL [facility] MAIN LAB Calcium 9.7 8.5 - 10.6 MG/DL [facility] MAIN LAB Total Protein 7.2 6.0 - 8.0 G/DL [facility] MAIN LAB Total Bilirubin 0.3 0.3 - 1.2 MG/DL [facility] MAIN LAB Albumin 4.3 3.5 - 5.0 G/DL [facility] MAIN LAB Alk Phosphatase 118 (H) 25 - 110 U/L [facility] MAIN LAB AST (SGOT) 20 7 - 40 U/L [facility] MAIN LAB CO2 23 21 - 30 MMOL/L [facility] MAIN LAB ALT (SGPT) 19 7 - 56 U/L [facility] MAIN LAB Anion Gap 9 3 - 12 [facility] MAIN LAB eGFR Non >60 >60 mL/min [facility] MAIN LAB Comment: [place]ese The eGFR is not validated f or use in drug dosing adjustments. Continue to use estimated creatinine clearance per dosing reference text. Please contact the Clinical Pharmacist for questions. eGFR >60 >60 mL/min MAIN LAB Taiwanese Comment: The eGFR is not validated for use in drug dosing adjustments. Continue to use estimated creatinine clearance per dosing reference text. Please contact the Clinical Pharmacist for questions. Specimen Blood Performing Organization Address City/[facility]/Zipcode Ph one Number MAIN LAB [address] [place] [address] * COVID-19 (SARS-COV-2) PCR (09/21/2019 1:27 PM CDT) COVID-19 NASOPHARYNGEAL SWAB REFERENCE LAB (SARS-CoV-2) PCR Source COVID-19 NOT DETECTED DN-NOT DETECTED REFERENCE LAB (SARS-CoV-2) Comment: PCR This assay is designed to detect the N and/or RdRp genes of SARS-CoV-2 using nucleic acid amplification. A "Not Detected" result does not preclude the possibility of SARS-CoV-2 infection since the adequacy of sample collection and/or low viral burden may result in the presence of viral nucleic acids below the analytical sensitivity of this test method. Test results should be used along with other clinical and laboratory data in making the diagnosis. Test parameters have not been validated for screening in asymptomatic patients. This test is authorized for use under the FDA Emergency Use Authorization and performance characteristics have been verified by the [facility]. Fact sheet for providers: https://www.fda.gov/media/9926 56/download Fact sheet for patients: https://www.fda.gov/media/7587 57/download Specimen Nasopharyngeal Swab Performing Organization Address City/State/Zipcode Ph one Number REFERENCE LAB REFERENCE LAB See results for address. * ECG-SCAN (09/21/2019 12:00 AM CDT) Narrative Performed At This result has an attachment that is n ot available. Ordered by an unspecified provider. from Last 3 Months Insurance Type Payer Benefit Subscriber ID Effective Phone Address Plan / Dates Group PPO [facility] xxxxxxxxxxxx 2019-P [facility] resent BLUE [id number] Advance Directives Patient Financial Compliance Manager Explanation Type Date Recorded Advance 08/03/2019 1:45 PM Directive/DPOA Date Inactivated Comments Code Status Date Activated 09/24/2019 1:22 PM Full Code 09/23/2019 1:51 PM Provider has discussed Code Status No, discussion no t w/Patient or Family? necessary based on Dx
--- OUTSIDE RECORDS SUMMARY | 2019-11-23 03:32 | XMS REPORT | Encounter Summary ---
Author Author [facility] Organization [facility] Address Unknown Phone Unavailable Care Team Providers Care Tire Beader Maker Name Role Phone Dung Carmen MD 21 Dung Carmen MD PCP Reason for Visit * Reason Comments Surgical Followup Post op call, surgery 09/22, discharged 09/23 Encounter Details Care Team Description Date Type Department Andrew Ibarra MD [address] [place] [address] [phone] Surgical Followup (Post op call, surgery 09/22, discharged 09/23) 09/27/[address] [phone] Social History Date Tobacco Use Types Packs/Day [...] history available. Date Recorded COVID-19 Exposure Response 09/23/2019 6:46 AM CDT In the last month, have you [...] impairment: No documented as of this encounter Miscellaneous Notes * Telephone Encounter - Jill Kelly RN - 09/27/2019 12:36 PM CDT I called Aminta to complete her post op call. She did not answer. I left a [facility] ail with a call back number. documented in this encounter Plan of Treatment [...]
--- OUTSIDE RECORDS SUMMARY | 2019-11-23 03:32 | XMS REPORT | Encounter Summary ---
Author Author [facility] Organization [facility] Address Unknown Phone Unavailable Care Team Providers Care Sustainability Project Coordinator Name Role Phone Dung Carmen MD 21 Dung Carmen MD PCP Reason for Visit * Reason Comments Surgical Followup Post op call, confirm pt re ceived pathology results Encounter Details Care Team Description Date Type Department Andrew Ibarra MD [address] [place] [address] [phone] Surgical Followup (Post op call, confirm pt received pathology results) 09/29/[address] [phone] Social History Date Tobacco Use Types Packs/Day [...] Telephone Encounter - Jill Kelly RN - 09/29/2019 1:49 PM CDT The patient was called to follow up following their hospital discharge. The aime ent was questioned about the following information: Are you having pain? Yes Has been 1 -2 during the night but haven't had to take narcotic since yesterday. Do you feel you are able to manage your pain adequately? Yes Are you taking narcotic pain medication? No Are you using other non-narcotic measures to manage your pain so as to minimize the use of narcotic medications? Yes Are you having any nausea or vomiting? No Are you eating? Yes When was your last bowel movement/stoma output? Today. Bowel movements every day . Are you taking your recommended bowel regimen? Yes Did you go home with a Drain? No If yes, do you have questions? N/A What are your 24 hour totals of drain output? n/a Are you receiving any tube feeds at this time? N/A If you are on tube feeds, do you have questions? N/A Did you go home with an ostomy?: N/A Do you know your total amount of output from your ostomy? N/A Would you like an appointment with the ostomy clinic? N/A Have you received a call from [employer] ([facility])? N/A If you have not received a call and do not have home health please call to arran ge an ostomy supply distributer at [phone]. If you have home health [facility] once their services are complete you need to call and arrange an ostomy supply distributer at [phone]. Are there any concerns related to your incision? No Do you know your post-operative appointment information: date and time and locat ion? Yes Pt has been informed to contact their primary care provider to inform them of th eir recent surgery and hospital admission. The pt was reminded to call should they have any further concerns or needs. Pt r eminded to call the main cancer center at [phone] and ask to be connected t o their provider's nurse upon calling. documented in this encounter Plan of Treatment [...]
--- OUTSIDE RECORDS SUMMARY | 2019-11-23 03:32 | XMS REPORT | Encounter Summary ---
Author Author [facility] Organization [facility] Address Unknown Phone Unavailable Care Team Providers Care Centrifugal Supervisor Name Role Phone Dung Carmen MD 21 Dung Carmen MD PCP Reason for Visit * Auth/Cert Referred By Contact Referred To Contact Status Reason Specialty Diagnoses / Procedures Diagnoses Adrenal mass (HCC) Adrenal mass (HCC) [E27.8] P rocedures MI LAPAROSCOPY ADRENALECTOMY PRTL/COMPL TABDL LEFT LAPAROSCOPIC, POSSIBLE OPEN, ADRENALECTOMY Encounter Details Care Team Description Date Type Department Gianna Marquez MD [address] [address] [phone] Kina Hall APRN [address] [address] [phone] 09/23/2019 Anesthesia [facility] OR [address] [place] [address] [id number] Anesthesia Record Responsible Anesthesiologist Anesthesia Start Time Anesthesi a Stop Time Procedure Name Gianna Marquez MD 09/23/19 0813 09/23/19 1214 LEFT LAPAROSCOPIC, ADRENALECTOMY (Left Abdomen) Date Time Event Comment 631 AN Equip Check 2019 08 0812 Out of Pre Procedure 0813 Anes Start 0814 In Room 0817 An Start Data 0825 An Induction The patient was ree valuated immediately before moderate or deep sedation use and before anesthesia induction. 0828 An Intubation 0934 Anesthesia Ready 0937 Antibiotic Given 0943 Proc Start 1148 An Extubation 1210 an stop data 1214 Handoff to RN I completed my SBAR handoff to the receiving nurse. 1214 An Stop Meds Name Total midazolam (VERSED) 1 mg/mL injection 1 mg lidocaine (2%) 200 mg/10mL Injection 80 mg syringe propofol (DIPRIVAN) 200 mg/ 20 mL 200 mg injection (VIAL) rocuronium (ZEMURON) injection 130 mg ondansetron (ZOFRAN) injection 4 mg dexamethasone (DECADRON) 4 mg/mL 4 mg injection phenylephrine (RAÚL-SYNEPHRINE) 0.1 mg/mL 700 mcg injection (SYRINGE) sugammadex (BRIDION) 100 mg/mL iv soln 120 mg dextran 70/hypromellose (GENTEAL TEARS; 2 drop BION TEARS) ophthalmic solution remifentaniL (ULTIVA) 1 mg/3 mL 1,000 260.59 mcg mcg in sodium chloride 0.9% (NS) 20 mL Injection vasopressin (VASOSTRICT) 20 unit/mL 20 2.5 Units Units in sodium chloride 0.9% (NS) 20 m L IV Syringe phenylephrine (RAÚL-SYNEPHRINE) 10 mg in 3.41 mg sodium chloride 0.9% (NS) 250 mL IV dri p (std conc) HYDROmorphone injection (DILAUDID) 2 2 mg mg syringe niCARdipine (cardENE) 20 mg/NS 200 mL 0.75 mg infusion (std conc)(premade) niCARdipine (cardENE) 2.5 mg in sodium 0.5 mg chloride PF 0.9% 10 mL injection lactated ringers infusion 700 mL electrolyte-A (PLASMA-LYTE A PH 7.4) 500 mL infusion * Name O2 N2O Inspired Sevoflurane Isoflurane Inspired Sevoflurane * No blood administrations on file. Removal Type Details Placement Wounds 09/23/19; 0954; Left; Abdomen; Surgical 09/23/19 0954 by (NOT for Incision (4 PORT SITES) Oli Maya RN Pressure Injuries) 09/24/19 0915 by Aminta Kelly RN Peripheral 09/23/19; 0749; RN; L; Anterior; 09/22 0749 by Navneet, IV Forearm; 20 G; 1; 09/24/19; 0915 Viaquan nichols RN 09/23/19 1148 by Ema Ng CRNA ETT 09/23/19; 0828; Mask ventilation not 0 09/23/19 0828 by Berenice, attempted (0); Direct laryngoscopy, Ema Fuentes CRNA Stylet; Single-Lumen, Cuffed; 7mm; Mac; 3; Oral; 2a-Partial view of the glottis ; 1 insertion attempt; Auscultation, ETCO 2 Detector; 22 centimeters; short TMD, limited mouth opening; 09/23/19; 1148 09/24/19 0915 by Aminta Kelly RN Peripheral 09/23/19; 0832; Provider; R; Forearm; 1 8 09/23/19 0832 by INGRID Ng G; 1; 09/24/19; 0915 Ema Fuentes CRNA 09/23/19 1330 by Neeru Brunner RN Arterial 09/23/19; 0840 (created via procedure 09/23/19 0840 by Alma, Line documentation); 20 G; 09/23/19; 1330 K gage Meléndez MD 09/23/19 1200 by Neeru Brunner RN Indwelling 09/23/19; 0852; 16 FR; Regular 0 0852 by Urinary (Two-way); 09/23/19; 1200 (removed in Frandy Maya RN Catheter OR) documented in this encounter Social History Date Tobacco Use Types Packs/Day [...] Status Date of Assessment Functional Status Response 08/03/2019 Does the patient have a hearing impairment: [...] impairment: No documented as of this encounter OR Notes * Anesthesia Postprocedure Evaluation - Heath Garvin MD - 09/23/2019 1:34 PM CDT Post-Anesthesia Evaluation Name: Aminta Meraz : 1965 Age: 53 y.o. Sex: female Procedure Date: 09/23/2019 Procedure(s) (LRB): LEFT LAPAROSCOPIC, ADRENALECTOMY (Left) Surgeon: Surgeon(s): Orlando Wells MD DiPasco, Peter, MD Post-Anesthesia Vitals BP: 96/62 (09/22 1315) Pulse: 80 (09/22 1315) Respirations: 10 PER MINUTE (09/22 1315) SpO2: 98 % (09/22 1315) SpO2 Pulse: 80 (09/22 1315) Vitals Value Taken Time BP 96/62 09/23/2019 1:15 PM Temp 36.7 C (98.1 F) 09/23/2019 12:12 PM Pulse 80 09/23/2019 1:15 PM Respirations 10 PER MINUTE 09/23/2019 1:15 PM SpO2 98 % 09/23/2019 1:15 PM Post Anesthesia Evaluation Note Evaluation location: pre/post Patient participation: recovered; patient participated in evaluation Level of consciousness: alert Pain management: adequate Hydration: normovolemia Temperature: 36.0C - 38.4C Airway patency: adequate Perioperative Events Post-op nausea and vomiting: no PONV Postoperative Status Cardiovascular status: hemodynamically stable Respiratory status: spontaneous ventilation and supplemental oxygen Follow-up needed: none Perioperative Events Perioperative Event: No Emergency Case Activation: No * Anesthesia Procedure Notes - Gianna Marquez MD - 09/23/2019 12:02 PM CDT Associated Order(s): A-LINE INSERTION Anesthesia Procedure: Arterial Line Placement A-LINE INSERTION Date/Time: 09/23/2019 8:40 AM Patient location: OR Indications: hemodynamic monitoring Preprocedure checklist performed: 2 patient identifiers, risks & benefits discussed, patient evaluated, timeout performed, consent obtained, patient being monitored and sterile drape Sterile technique: - Proper hand washing - Cap, mask - Sterile gloves - Skin prep for antisepsis Arterial Line Procedure Patient sedated: yes (see MAR) Sedation type: general; Artery prepped with chlorhexidine; skin prep agent completely dried prior to pro cedure. Location: radial artery Laterality: left Technique: ultrasound Needle gauge: 20 G Number of attempts: 4 Procedure Outcome Catheter secured with adhesive dressing applied Events: no complications noted during insertion and skin intact, warm, and dry Observation: pt tolerated well Additional notes: 2 attempts on right by GOLF BALL MOLDER and 2 attempts on left, small artery unable to threa d wire on more distal attempts Performed by: Gianna Marquez MD Authorized by: Gianna Marquez MD * Anesthesia Preprocedure Evaluation - Gianna Marquez MD - 09/23/2019 8:01 AM CDT Anesthesia Pre-Procedure Evaluation Name: Aminta Meraz : 1965 Age: 53 y.o. Sex: female Procedure Info: Procedure Information Date/Time: 09/23/19 0815 Procedure: LEFT LAPAROSCOPIC, POSSIBLE OPEN, ADRENALECTOMY (Left ) - CASE [facility] 4 HOURS, REQUEST 4101 START Location: [facility]3 OR08 / [facility] OR/Periop Surgeon: Andrew Ibarra MD Physical Assessment Vital Signs (last filed in past 24 hours): BP: 100/63 (09/22 709) Temp: 36.8 C (98.2 F) (09/22 709) Pulse: 85 (09/22 709) Respirations: 15 PER MINUTE (09/22 709) SpO2: 97 % (09/22 709) Height: 157.5 cm (62") (09/22 709) Weight: 60.1 kg (132 lb 6.4 oz) (09/22 709) Patient History Allergies Allergen Reactions Penicillins HIVES Tuna Oil STOMACH UPSET Current Medications Medication Directions clonazePAM (KLONOPIN) 0.5 mg tablet Take 0.5 mg by mouth daily as needed. docusate (COLACE) 100 mg capsule Take 100 mg by mouth daily. lisinopriL (ZESTRIL) 40 mg tablet Take 40 mg by mouth daily. melatonin 10 mg tab Take 1 tablet by mouth at bedtime daily. metFORMIN-XR (GLUCOPHAGE XR) 500 mg extended release tablet Take 1,000 mg by david th daily with dinner. metoprolol tartrate (LOPRESSOR) 25 mg tablet Take one-half tablet by mouth twice daily. metoprolol XL (TOPROL XL) 25 mg extended release tablet Take 12.5 mg by mouth tw ice daily. phenoxybenzamine (DIBENZYLINE) 10 mg cap Take two capsules by mouth twice daily. sodium chloride 1 gram tablet Take one tablet by mouth three times daily. Social History Socioeconomic History Marital status: Spouse name: Not on file Number of children: Not on file Years of education: Not on file Highest education level: Not on file Occupational History Not on file Tobacco Use Smoking status: Former Smoker Packs/day: 0.25 Years: 20.00 Pack years: 5.00 Types: Cigarettes Last attempt to quit: 06/07/2019 Years since quittin.2 Smokeless tobacco: Never Used Substance and Sexual Activity Alcohol use: Yes Alcohol/week: 12.0 standard drinks Types: 12 Cans of beer per week Drug use: Never Sexual activity: Not on file Other Topics Concern Not on file Social History Narrative Not on file Review of Systems/Medical History PONV Screening: Female gender, Non-smoker and Postoperative opioids No history of anesthetic complications No family history of anesthetic complications Airway TMJ (pt endorses occasional popping, clicking and pain. ) Pulmonary Not a current smoker (Quit 05/2019, prevoius 5 pack year history ) Asthma (h/o childhood asthma) Not on home oxygen (required O2 during admission 06/2019 and briefly at [facility] 2019 for PNA ) seasonal allergies Pt was evaluated by pulmonology 07/2019, OV note reviewed in [facility] Cardiovascular Recent diagnostic studies: ECG, echocardiogram and stress test EKG: NSR, left atrial enlargement Exercise tolerance: >4 METS (Pt is able to clean fr 3 hours or walk 2.5 miles without CP or dyspnea. ) Beta Juanpablo therapy: Yes Beta blockers within 24 hours: Yes Hypertension (metoprolol, lisinopril ), Valvular problems/murmurs ( Physiologic regurgitation of tricuspid valve) No hx of coronary artery disease Palpitations (at night, asymptmatic ) CHF ( assciated with sepsis 05/2019. EF 60%) No hyperlipidemia No orthopnea No indications/hx of PND No dyspnea on exertion No syncope Pt evaluated by cardiology during admission for PNA 06/2019. GI/Hepatic/Renal GERD (OTC PRN ), No hx of cirrhosis No renal disease (hypokalemia and hyponatremia during admission 06/2019) Electrolyte problem Neuro/Psych No seizures No CVA No indications/hx of neuropathy No indications/hx of weakness Chronic benzodiazepine use ( clonazepam most nights ) Psychiatric history Anxiety ( clonazepam QHS PRN ) H/o etoh use, denies x 2 weeks Musculoskeletal Back pain (low back 2/2 scoliosis ) Endocrine/Other Diabetes (dx 05/2019. FBS ~120. 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 Constitution - negative Physical Exam Airway Findings Mallampati: III TM distance: >3 FB Neck ROM: full Mouth opening: good Dental Findings: Cardiovascular Findings: Rhythm: regular Rate: normal No murmur, no carotid bruit, no peripheral edema Comments: HR auscultated 100 Pulmonary Findings: Breath sounds clear to auscultation. Abdominal Findings: Not obese Neurological Findings: Alert and oriented x 3 Constitutional findings: No acute distress Diagnostic Tests Hematology: Lab Results Component Value Date HGB 10.9 09/21/2019 HCT 32.5 09/21/2019 PLTCT 429 09/21/2019 WBC 10.1 09/21/2019 MCV 93.3 09/21/2019 MCH 31.4 09/21/2019 MCHC 33.7 09/21/2019 MPV 7.3 09/21/2019 RDW 14.4 09/21/2019 General Chemistry: Lab Results Component Value Date NA 135 09/21/2019 K 4.7 09/21/2019 CL 103 09/21/2019 CO2 23 09/21/2019 GAP 9 09/21/2019 BUN 16 09/21/2019 CR 0.80 09/21/2019 GLU 94 09/21/2019 CA 9.7 09/21/2019 ALBUMIN 4.3 09/21/2019 TOTBILI 0.3 09/21/2019 Coagulation: No results found for: PT, PTT, INR Anesthesia Plan ASA score: 3 Plan: general Induction method: intravenous NPO status: acceptable Informed Consent Anesthetic plan and risks discussed with patient. Use of blood products discussed with patient Blood Consent: consented Comments: (Prn regional if open) labs pending: CMP, CBC, T&C, CBT Echo 06/27/2019 ([facility])- EF 60%, 1. Left ventricular hypertrophy. 2. Diastolic dysfunction. 3. Physiologic regurgitation of tricuspid valve. 4. Elevated PA pressures. Stress test 06/2019 ([facility])- Baseline ECG: Abnormal: SR, TYLER, diffuse ST/T changes Symptoms: Dyspnea, Chest Pain, Abdominal Discomfort ECG changes: no Baseline blood pressure: 140/78 Response to intervention: Normal Heart rate response: Normal documented in this encounter Plan of Treatment Not on filedocumented as of this encounter Goals Goal Patient Associated Recent Progress Patient-Stat Aut hor Goal Type Problems ed? Increase Physical Activity Exercise Yes Idania Hernandez RN Note: "To be able to get better and be more active" documented as of this encounter Procedures Comments Procedure Name Priority Date/Time Associated Diag nosis ANESTHESIA ARTERIAL LINE Routine 09/23/2019 INSERTION 12:02 PM CDT documented in this encounter Results * A-LINE INSERTION (09/23/2019 12:02 PM CDT) [...] Additional notes: 2 attempts on right by GOLF BALL MOLDER and 2 attem pts on left, small artery unable to thread wire on more distal attempts Performed by: Gianna Marquez MD Authorized by: Gianna Marquez MD documented in this encounter Visit Diagnoses Not on filedocumented in this encounter Administered Medications Action Date Dose Rate Site Medication Order MAR Action 09/23/2019 10:00 AM CDT 4 mg dexamethasone (DECADRON) injection Given Intravenous, INTRA-PROCEDURE MED, Starting Siomara 09/23/19 at 1000, Until Siomara 09/23/19 at 1225, Anesthesia Intra-op 09/23/2019 8:28 AM CDT 2 drops dextran 70/hypromellose (GENTEAL TEARS) Given ophthalmic solution INTRA-PROCEDURE MED, Starting Siomara 09/22/2 0 at 0828, Until Siomara 09/23/19 at 1225, Anesthesia Intra-op 09/23/2019 9:33 AM CDT electrolyte-A (PLASMA-LYTE A PH 7.4) Given - New injection Bag INTRA-PROCEDURE MED(CONT), Starting Siomara 09/23/19 at 0933, Until Siomara 09/23/19 at 1225, Anesthesia Intra-op 09/23/2019 10:16 AM CDT 0.5 mg HYDROmorphone injection (DILAUDID) Given INTRA-PROCEDURE MED, Starting Siomara 5/2 0 at 0950, Until Siomara 09/23/19 at 1225, Anesthesia Intra-op 0.5 mg Given 09/23/2019 10:13 AM CDT 0.5 mg Given 09/23/2019 9:55 AM CDT 09/23/2019 8:25 AM CDT 80 mg lidocaine (PF) injection Given INTRA-PROCEDURE MED, Starting Siomara 0 at 0825, Until Siomara 09/23/19 at 1225, Anesthesia Intra-op 09/23/2019 9:28 AM CDT 1 mg midazolam (VERSED) injection Given Intravenous, INTRA-PROCEDURE MED, Starting Siomara 09/23/19 at 0928, Until Siomara 09/23/19 at 1225, Anesthesia Intra-op 09/23/2019 10:35 AM CDT 0.25 mg niCARdipine (cardENE) 2.5 mg in sodium Bolus chloride PF 0.9% 10 mL injection 10 mL, INTRA-PROCEDURE MED(CONT), Starting Siomara 09/23/19 at 1027, Until Siomara 09/23/19 at 1225, Anesthesia Intra-op 0.25 mg Given - New Bag 09/23/2019 10:27 AM CDT 09/23/2019 10:35 AM CDT 5 mg/hr 50 mL/hr niCARdipine (cardENE) 20 mg/NS 200 mL Infusion infusion (std conc)(premade) Restarted 200 mL, INTRA-PROCEDURE MED(CONT), Starting Siomara 09/23/19 at 1027, Until Siomara 09/23/19 at 1225, Anesthesia Intra-op 5 mg/hr 50 mL/hr Given - New Bag 09/23/2019 10:27 AM CDT 09/23/2019 10:55 AM CDT 4 mg ondansetron (ZOFRAN) injection Given Intravenous, INTRA-PROCEDURE MED, Starting Siomara 09/23/19 at 1055, Until Siomara 09/23/19 at 1225, Anesthesia Intra-op 09/23/2019 10:43 AM CDT 1 mcg/kg/min 90.2 mL/hr phenylephrine (RAÚL-SYNEPHRINE) 10 mg in Infusion sodium chloride 0.9% (NS) 250 mL IV drip Restarted (std conc) 250 mL, INTRA-PROCEDURE MED(CONT), Starting Siomara 09/23/19 at 0935, Until Siomara 09/23/19 at 1225, Anesthesia Intra-op 0.1 mcg/kg/min 9 mL/hr Infusion Restarted 09/23/2019 10:00 AM CDT 0.3 mcg/kg/min 27 mL/hr Given - New Bag 09/23/2019 9:35 AM CDT 09/23/2019 9:20 AM CDT 100 mcg phenylephrine in NS injection syringe Given Intravenous, INTRA-PROCEDURE MED, Starting Siomara 09/23/19 at 0830, Until Siomara 09/23/19 at 1225, Anesthesia Intra-op 200 mcg Given 09/23/2019 8:51 AM CDT 200 mcg Given 09/23/2019 8:46 AM CDT 09/23/2019 10:15 AM CDT 20 mg propofol (DIPRIVAN) injection Given INTRA-PROCEDURE MED, Starting Siomara 0 at 0825, Until Siomara 09/23/19 at 1225, Anesthesia Intra-op 30 mg Given 09/23/2019 8:27 AM CDT 150 mg Given 09/23/2019 8:25 AM CDT 09/23/2019 9:44 AM CDT 0.05 mcg/kg/min 3.6 mL/hr remifentaniL (ULTIVA) 1 mg/3 mL 1,000 Infusion mcg in sodium chloride 0.9% (NS) 20 mL Restarted Injection INTRA-PROCEDURE MED(CONT), Starting Siomara 09/23/19 at 0820, Until Siomara 09/23/19 at 1225, Anesthesia Intra-op 0.02 mcg/kg/min 1.4 mL/hr Dose/Rate Change 09/23/2019 9:09 AM CDT 0.05 mcg/kg/min 3.6 mL/hr Infusion Restarted 09/23/2019 9:02 AM CDT 09/23/2019 9:57 AM CDT 30 mg rocuronium injection Given Intravenous, INTRA-PROCEDURE MED, Starting Siomara 09/23/19 at 0826, Until Siomara 09/23/19 at 1225, Anesthesia Intra-op 10 mg Given 09/23/2019 9:23 AM CDT 20 mg Given 09/23/2019 9:13 AM CDT 09/23/2019 11:38 AM CDT 120 mg sugammadex (BRIDION) injection Given Intravenous, INTRA-PROCEDURE MED, Starting Siomara 09/23/19 at 1138, Until Siomara 09/23/19 at 1225, Anesthesia Intra-op 09/23/2019 10:55 AM CDT 0.5 Units vasopressin (VASOSTRICT) 20 unit/mL 20 Bolus Units in sodium chloride 0.9% (NS) 20 m L IV Syringe 20 mL, INTRA-PROCEDURE MED(CONT), Starting Siomara 09/23/19 at 0855, Until Siomara 09/23/19 at 1225, Anesthesia Intra-op 0.5 Units Bolus 09/23/2019 10:43 AM CDT 0.5 Units Bolus 09/23/2019 9:21 AM CDT documented in this encounter
--- OUTSIDE RECORDS SUMMARY | 2019-11-23 03:32 | XMS REPORT | Encounter Summary ---
Author Author [facility] Organization [facility] Address Unknown Phone Unavailable Care Team Providers Care Life Enrichment Assistant Name Role Phone Dung Carmen MD 21 Dung Carmen MD PCP Encounter Details Care Team Description Date Type Department 09/23/2019 Travel Social History Date Tobacco Use Types Packs/Day [...]
--- OUTSIDE RECORDS SUMMARY | 2019-11-23 03:32 | XMS REPORT | Encounter Summary ---
Author [facility] Address Unknown Phone Unavailable Care Team Providers Care [employer] Lab Technician Name Role Phone Dung Carmen MD 21 Dung Carmen MD PCP Reason for Visit * Auth/Cert Referred By Contact Referred To Contact Status Reason Specialty Diagnoses / Procedures Diagnoses Adrenal mass (HCC) Adrenal mass (HCC) [E27.8] P rocedures ND LAPAROSCOPY ADRENALECTOMY PRTL/COMPL TABDL LEFT LAPAROSCOPIC, POSSIBLE OPEN, ADRENALECTOMY Encounter Details Care Team Description Date Type Department Kennedy Ibarra MD [address] [place] [address] [phone] LEFT LAPAROSCOPIC, ADRENALECTOMY 09/23/2019 Surgery [facility] OR [address] [place] [id number] Social History Date Tobacco Use Types Packs/Day [...] / COVID-19? documented as of this encounter Last Filed Vital Signs Reading Time Taken Comments Vital Sign 96/52 09/24/2019 7:53 AM CDT Blood Pressure 87 09/24/2019 7:53 AM CDT Pulse 36.6 C (97.8 F) 09/24/2019 7:53 AM CDT Temperature - - Respiratory Rate 95% 09/24/2019 7:53 AM CDT Oxygen Saturation - - Inhaled Oxygen Concentration 60.1 kg (132 lb 6.4 oz) 09/23/2019 7:10 AM CDT Weight 157.5 cm (5' 2") 09/23/2019 7:10 AM CDT Height 24.22 09/23/2019 7:10 AM CDT Body Mass Index documented in this encounter Functional Status Date of Assessment [...] impairment: No documented as of this encounter Discharge Summaries * Ruano, August - 09/24/2019 11:18 AM CDT Physician Discharge Summary Name: Lorenzo Meraz Date Of : 1965 Age: 53 years Admit date: 09/23/2019 Discharge date: 09/24/2019 11:21 AM Attending Physician: Dr. 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 Diabetes mellitus (HCC) Hearing reduced Hypertension Infection Left adrenal mass (HCC) 08/09/2019 Melanoma of face (HCC) left nose s/p MOHS On supplemental oxygen therapy Pheochromocytoma 07/2019 Allergies: Penicillins and Tuna oil Admission Physical Exam notable for: none Admission Lab/Radiology studies notable for: Results for orders placed or performed during the hospital encounter of 09/23/19 (from the past 24 hour(s)) POC GLUCOSE Result Value Ref Range Glucose, POC 174 (H) 70 - 100 MG/DL POC GLUCOSE Result Value Ref Range Glucose, POC 168 (H) 70 - 100 MG/DL MAGNESIUM Result Value Ref Range Magnesium 1.9 1.6 - 2.6 mg/dL PHOSPHORUS Result Value Ref Range Phosphorus 3.0 2.0 - 4.5 MG/DL BASIC METABOLIC PANEL Result Value Ref Range Sodium 134 (L) 137 - 147 MMOL/L Potassium 3.9 3.5 - 5.1 MMOL/L Chloride 103 98 - 110 MMOL/L CO2 25 21 - 30 MMOL/L Anion Gap 6 3 - 12 Glucose 92 70 - 100 MG/DL Blood Urea Nitrogen 13 7 - 25 MG/DL Creatinine 0.70 0.4 - 1.00 MG/DL Calcium 8.5 8.5 - 10.6 MG/DL eGFR Non >60 >60 mL/min eGFR >60 >60 mL/min POC GLUCOSE Result Value Ref Range Glucose, POC 86 70 - 100 MG/DL No orders to display Brief Hospital Course: The patient was admitted and the following issues were a ddressed during this hospitalization: (with pertinent details). 53F w/ HTN, DM, left 6cm pheochromocytoma s/p lap left adrenalectomy (09/22). Oper ation was unremarkable and postoperative course went as planned. Endocrinology w as consulted for recommendations and agree with continuing home metformin at dis charge. Will d/c phenoxybenzamine at this time. Patient was discharged in stable condition, afebrile, with good bowel and urinary function, ambulating, tolerati ng regular diet and PO medications. Condition at Discharge: Stable Discharge Diagnoses: Hospital Problems Active Problems Left adrenal mass (HCC) Pheochromocytoma Diastolic heart failure (HCC) Essential hypertension Type 2 diabetes mellitus, without long-term current use of insulin (HCC) Active Problems: Left adrenal mass (HCC) Pheochromocytoma Diastolic heart failure (HCC) Essential hypertension Type 2 diabetes mellitus, without long-term current use of insulin (HCC) Surgical Procedures: Procedure(s) (LRB): LEFT LAPAROSCOPIC, ADRENALECTOMY (Left) Significant Diagnostic Studies and Procedures: noted in brief hospital course Consults: CONSULT ENDOCRINOLOGY PHYSICIAN Patient Disposition: Home Patient instructions/medications: Regular Diet You have no dietary restriction. Please continue with a healthy balanced diet. Regular Diet You have no dietary restriction. Please continue with a healthy balanced diet. Activity as Tolerated You will likely feel tired for at least 1 week after your surgery. Take your pa in medicine as needed in order to stay active, but rest as needed for recovery. Gradually increased your activity level and take short walks 2-3 times a day. This will help reduce the risk of blood clots and lung infection (pneumonia) fol lowing surgery. You may use the stairs as needed as long as you are not dizzy or weak. Make sure someone is around the first few times you use the stairs or exercise. Begin to work toward your normal activity level at disch arge. Bathing Restrictions You may shower the day after surgery and allow clean, soapy water to run over y our incision but do not expose your incisions to soaking in water (i.e. hot tub, bathtub or swimming pools) for the first 6 weeks after surgery. Do not put any ointment or creams over the incisions for the first 6 weeks after surgery or whi le the incision is open, draining or scabbed. Lifting Restrictions Practice 10 deep breaths every hour and 2 coughs every hour, (for at least 12 h ours a day), while awake for the first week after surgery to reduce the risk of lung problems or pneumonia. Do not lift heavy objects (more than 8 pounds) for t he first 4 weeks. Also avoid pushing, pulling or abdominal pressure for these fi rst 4 weeks. When coughing, be sure to place a pillow over the incision and gent ly press inward to reduce the pressure (from coughing) on your incision. Incision Care *Keep your incision clean and dry. *May shower the day following procedure. Avoid direct water contact to the incis ion. Take sponge baths, working around the incision during this time. soapy wate r to run over your incision but do not expose your incisions to soaking in water (i.e. hot tub, bathtub or swimming pools) for the first 6 weeks after surgery. Do not put any ointment or creams over the incisions for the first 6 weeks after surgery or while the incision is open, draining or scabbed. *Your incisions have been closed with dissolvable suture on the inside and a spe cial skin glue over the incision. The skin glue will dissolve so do not attempt to remove it from your skin. Usually there are not stitches to be removed. *Your incision should gradually look better each day. If you notice unusual swel ling, redness, drainage, have increasing pain at the site, or have a fever great er than 100 degrees, notify your physician immediately Report These Signs and Symptoms Please contact your doctor if you have any of the following symptoms: temperatu re higher than 100.4 degrees F, uncontrolled pain, unable to have bowel movement or feelings of heart racing, sweating. Questions About Your Stay For questions or concerns regarding your hospital stay, call [phone]. Discharging attending physician: KENNEDY IBARRA [[id number]] Discharge Signs/Symptoms Standard Please contact your doctor if you have any of the following symptoms: temperature higher than 100.4 degrees F, uncontrolled pain, persistent nausea an d/or vomiting or difficulty breathing Questions About Your Stay Standard For questions or concerns regarding your hospital stay: -DURING BUSINESS HOUR (8:00 AM - 4:30 PM): Call [phone] and ask to be transferred to your discharge attending mirta n. -AFTER BUSINESS HOURS (4:30 PM - 8:00 AM, on weekends, or holidays): Call [phone] and ask the benzene washer operator to page the on-call doctor for the discha rge attending physician. Discharging attending physician: KENNEDY IBARRA [[id number]] Lifting Restrictions Do not lift more than 10 pounds until after follow-up appointment. Incision Care Standard *Keep your incision clean and dry. *May shower 1 days following procedure. Avoid direct water contact to the incisi on. Take sponge baths, working around the incision during this time. *Do not submerge incision in tub, pool, hot tub, or farias for 4 weeks. *Avoid applying deodorants, powders, creams, lotions, etc, to your incision for 4 weeks. *Usually there are no stitches to be removed. Steri-strips (strips of tape) will begin to fall off in 10-14 days. If they remain after 2 weeks, gently remove th em when they are damp after a shower. *Your incision should gradually look better each day. If you notice unusual swel ling, redness, drainage, have increasing pain at the site, or have a fever great er than 100 degrees, notify your physician immediately. *The steri strips will gradually come off in the next 1-2 weeks. Do not peel the m. There are no sutures to remove. Current Discharge Medication List START taking these medications Details oxyCODONE (ROXICODONE) 5 mg tablet Take one tablet to three tablets by mouth pallavi ry 4 hours as needed Qty: 20 tablet, Refills: 0 PRESCRIPTION TYPE: Print CONTINUE these medications which have NOT CHANGED Details clonazePAM (KLONOPIN) 0.5 mg tablet Take 0.5 mg by mouth daily as needed. PRESCRIPTION TYPE: Historical Med docusate (COLACE) 100 mg capsule Take 100 mg by mouth daily. PRESCRIPTION TYPE: Historical Med lisinopriL (ZESTRIL) 40 mg tablet Take 40 mg by mouth daily. PRESCRIPTION TYPE: Historical Med melatonin 10 mg tab Take 1 tablet by mouth at bedtime daily. PRESCRIPTION TYPE: Historical Med metFORMIN-XR (GLUCOPHAGE XR) 500 mg extended release tablet Take 1,000 mg by david th daily with dinner. PRESCRIPTION TYPE: Historical Med metoprolol tartrate (LOPRESSOR) 25 mg tablet Take one-half tablet by mouth twice daily. Qty: 10 tablet, Refills: 0 PRESCRIPTION TYPE: Normal metoprolol XL (TOPROL XL) 25 mg extended release tablet Take 12.5 mg by mouth tw ice daily. PRESCRIPTION TYPE: Historical Med sodium chloride 1 gram tablet Take one tablet by mouth three times daily. Qty: 90 tablet, Refills: 1 PRESCRIPTION TYPE: Normal The following medications were removed from your list. This list includes medic ations discontinued this stay and those removed from your prior med list in our system phenoxybenzamine (DIBENZYLINE) 10 mg cap Future Appointments Date Time Provider Department Center 10/05/2019 1:40 PM Kennedy Ibarra MD [facility] Exam 12/08/2019 10:30 AM Dalia Jenkins PA-C [facility] 03/07/2020 1:00 PM IM [facility]O [facility] Pending items needing follow up: follow up appointment, f/u endocrine Signed: Raghu Barrett DO 09/24/2019 cc: Primary Care Physician: Dung Carmen Verified Referring physicians: 2 Additional provider(s): ATTESTATION I personally performed the coughlin portions of the E/M visit, discussed case with re sident and concur with resident documentation of history, physical exam, assessm ent, and treatment plan unless otherwise noted. Staff name: Kennedy Ibarra MD Date: 09/26/2019 documented in this encounter Medications at Time of Discharge Start Date End Date Medication Sig Dispensed Refills 08/02/2019 clonazePAM (KLONOPIN) 0.5 Take 0.5 mg 0 mg tablet by mouth daily as needed. docusate (COLACE) 100 mg Take 100 mg 0 capsule by mouth daily. 08/02/2019 lisinopriL (ZESTRIL) 40 Take 40 mg by 0 mg tablet mouth daily. melatonin 10 mg tab Take 1 tablet 0 by mouth at bedtime daily. 06/30/2019 metFORMIN-XR (GLUCOPHAGE Take 1,000 mg 0 XR) 500 mg extended by mouth release tablet daily with dinner. 09/20/2019 metoprolol tartrate Take one-half 10 tablet 0 (LOPRESSOR) 25 mg tablet tablet by mouth twice daily. metoprolol XL (TOPROL XL) Take 12.5 mg 0 25 mg extended release by mouth tablet twice daily. 09/24/2019 oxyCODONE (ROXICODONE) 5 Take one 20 tablet 0 mg tablet tablet to three tablets by mouth every 4 hours as needed 09/01/2019 sodium chloride 1 gram Take one 90 tablet 1 tablet tablet by mouth three times daily. documented as of this encounter Progress Notes * Lorenzo Kelly RN - 09/24/2019 11:19 AM CDT Lorenzo Meraz discharged on 09/24/2019. . Discharge instructions reviewed with patient. Valuables returned: Personal Items / Valuables: Cell Phone, Eyeglasses/Contacts, Clothing, Wallet Where Are Valuables Stored?: see note. Home medications: . Functional assessment at discharge complete: Yes . Discharge instructions reviewed with patient all questions answered, peripheral IV's were removed. Instructions regarding incision care and post-procedure instr uctions given. Pt discharge to [facility] with oxycodone prescription via wheelchair where son picked her up * Raghu Barrett DO - 09/24/2019 5:08 AM CDT Surgical Oncology Progress Note 09/24/2019 ASSESSMENT 53F w/ HTN, DM, left 6cm pheochromocytoma s/p lap left adrenalectomy (09/22) Active Problems: Left adrenal mass (HCC) Pheochromocytoma Diastolic heart failure (HCC) Essential hypertension Type 2 diabetes mellitus, without long-term current use of insulin (HCC) PLAN - Regular diet, SLIV - Pain control with tylenol, oxy prn, d/c fent prn - Endocrine consulted and following, LDCF SSI > holding antihypertensives - Bowel regimen with miralax, colace - Ppx: SCD, lovenox - PT/OT/ROM, RT therapy Dispo: cont floor, anticipated discharge today Raghu Barrett DO Pager: [phone] S: No acute events overnight. Reports pain well controlled with medication. Denies nausea or vomiting at this time. Ambulating to chair as tolerated. Urinating wit hout difficulty. Passing gas but no bowel movement overnight. O: Temp: 36.3 C (97.3 F) (09/23 413) Pulse: 86 (09/23 041) Respirations: 17 PER MINUTE (09/23 413) BP: 101/67 (09/23 413) PE Gen: no apparent distress, alert and oriented HEENT: normocephalic/atraumatic CV: regular rate and rhythm Resp: unlabored on RA Abd: soft, nondistended, ari tender to palpation, incision CDI with steri strips in place Ext: non edematous, no deformities noted No current facility-administered medications on file prior to encounter. Current Outpatient Medications on File Prior to Encounter Medication Sig Dispense Refill clonazePAM (KLONOPIN) 0.5 mg tablet Take 0.5 mg by mouth daily as needed. docusate (COLACE) 100 mg capsule Take 100 mg by mouth daily. lisinopriL (ZESTRIL) 40 mg tablet Take 40 mg by mouth daily. metFORMIN-XR (GLUCOPHAGE XR) 500 mg extended release tablet Take 1,000 mg by mouth daily with dinner. Associated attestation - Kennedy Ibarra MD - 09/27/2019 1:43 PM CDT ATTESTATION I personally performed the coughlin portions of the E/M visit, discussed case with re sident and concur with resident documentation of history, physical exam, assessm ent, and treatment plan unless otherwise noted. Staff name: Kennedy Ibarra MD Date: 09/27/2019 * Lorenzo Kelly RN - 09/23/2019 3:50 PM CDT Patient arrived to room # (7106) via cart accompanied by transport. Patient modi sferred to the bed with assistance. Bedside safety checks completed. Initial pat ient assessment completed. Refer to flowsheet for details. Admission skin assessment completed with: Alanna Penny RN Pressure injury present on arrival?: No 1. Head/Face/Neck: No 2. Trunk/Back: No 3. Upper Extremities: No 4. Lower Extremities: No 5. Pelvic/Coccyx: No 6. Assessed for device associated injury? Yes 7. Malnutrition Screening Tool (Nursing Nutrition Assessment) Completed? No See Doc Flowsheet for additional wound details. INTERVENTIONS: * Neeru Brunner RN - 09/23/2019 1:36 PM CDT Report given to HEIDE [place] 7. Patient awaiting transport to [place] [id number]. * Ruby Toth RN - 09/23/2019 8:16 AM CDT Belongings in locker#04, code 4040 * Alyssa Webb RN - 09/22/2019 8:29 AM CDT Perioperative and Procedural COVID-19 Screening Form Have you been in contact with someone who was sick? ([employer]) Yes No / Unsure x Unable to assess Does the patient have any of the following symptoms? (Select all that apply) None of these x Cough Muscle Pain Shortness of breath Unable to assess Diarrhea Rash Vomiting Abdominal Pain Fever Greater than 100F or 37.8 C Red eye Weakness Bruising or bleeding Joint Pain Severe Headache Unable to assess Travel History: Has the patient travelled outside [place] and [place] in the past 14 days? No If so, where did they travel? <Location> If so, what dates did they travel? <Dates> Denies loss of taste/smell, foot sores/ulcers. * Judy Rendon, RN - 09/15/2019 5:09 PM CDT PAC triage call to pt to schedule PAC appt for surgery 09/23/19 w/Dr. Ibarra. Pt scheduled for Covid test 09/21/19 @ 1310, [facility]. PAC appt scheduled for 09/21/19, 1400 , [facility]. Pt states she is capable of doing a telehealth appt if she would qualify for it. Advised pt PAC would contact pt if she is eligible for telehealth and se t that up. Pt needs PAC visit d/t having pheochromocytoma, will need pre-medicat ed before surgery, HTN, CHF, DM, Left adrenal mass, and supplemental O2 per estuardo t. Pt verbalized understanding, visitor restriction policy reviewed. documented in this encounter H&P Notes * Collin Mayberry DO - 09/23/2019 7:10 AM CDT Surgical Oncology H&P 09/23/2019 Patient: Lorenzo Meraz Admission Date: 09/23/2019, LOS: 0 days Date of Service: September 23, 2019 Attending Surgeon: Kennedy Ibarra MD H&P Performed by: Collin Mayberry DO ASSESSMENT: 53 y.o. female with HTN and DM presents for laparoscopic left adrena lectomy secondary to pheochromocytoma PLAN: Plan for laparoscopic left adrenalectomy; possible open adrenalectomy - Risks of the procedure were presented, elects to proceed with the operation - Informed consent was obtained in clinic Collin Mayberry DO #[id number] __ HPI: Lorenzo Meraz is a 53 y.o. female with HTN and DM presents for laparosc opic left adrenalectomy secondary to pheochromocytoma. Pt has a left adranal mas s which was found incidentally. It measured 6 cm in size. Work up showed laborat ory findings consistent with pheochromocytoma. Has had no abdominal pain. Has tran d no headache or changes in vision. Has had no nausea or vomiting. Has followed with endocrinology. Continued on beta-blockade and was started on phenoxybenzami ne. 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 Current Outpatient Medications on File Prior to Encounter Medication Sig Dispense Refill clonazePAM (KLONOPIN) 0.5 mg tablet Take 0.5 mg by mouth daily as needed. docusate (COLACE) 100 mg capsule Take 100 mg by mouth daily. lisinopriL (ZESTRIL) 40 mg tablet Take 40 mg by mouth daily. metFORMIN-XR (GLUCOPHAGE XR) 500 mg extended release tablet Take 1,000 mg by mouth daily with dinner. Allergies: Penicillins and Tuna oil Social History Socioeconomic History Marital status: Spouse [...] file Social History Narrative Not on file Family History Problem Relation Age of Onset Hypertension Mother Arthritis-osteo Mother Cancer-Lung Father Cancer-Lung Paternal Uncle Arthritis-osteo Maternal Grandmother Cancer-Lung Maternal Grandfather Vitals: Vital Signs: Last Filed In 24 Hours Vital Signs: 24 Hour Range Intake/Output: No intake or output data in the 24 hours ending 09/23/19 0729 Physical Exam: Constitutional: Appearance: Normal appearance. HENT: Head: Normocephalic and atraumatic. Cardiovascular: Rate and Rhythm: Normal rate and regular rhythm. Pulses: Normal pulses. Heart sounds: No murmur. Pulmonary: Effort: Pulmonary effort is normal. No respiratory distress. Abdominal: General: Abdomen is flat. There is no distension. Palpations: Abdomen is soft. Tenderness: There is no abdominal tenderness. Skin: General: Skin is warm and dry. Neurological: General: No focal deficit present. Mental Status: She is alert and oriented to person, place, and time. ROS: Constitutional: Negative. HENT: Negative. Eyes: Negative. Respiratory: Negative. Cardiovascular: Negative. Gastrointestinal: Negative. Endocrine: Negative. Genitourinary: Negative. Musculoskeletal: Negative. Skin: Negative. Allergic/Immunologic: Negative. Neurological: Negative. Hematological: Negative. Psychiatric/Behavioral: Negative. Lab/Radiology/Other Diagnostic Tests: Recent Labs 09/21/19 1515 HGB 10.9* HCT 32.5* WBC 10.1 PLTCT 429* NA 135* K 4.7 CL 103 CO2 23 BUN 16 CR 0.80 GLU 94 CA 9.7 ALBUMIN 4.3 TOTPROT 7.2 TOTBILI 0.3 AST 20 ALT 19 ALKPHOS 118* Pertinent labs have been reviewed. Associated attestation - Kennedy Ibarra MD - 09/26/2019 10:50 PM CDT ATTESTATION I personally performed the coughlin portions of the E/M visit, discussed case with re sident and concur with resident documentation of history, physical exam, assessm ent, and treatment plan unless otherwise noted. Staff name: Kennedy Ibarra MD Date: 09/26/2019 documented in this encounter Consult Notes * Benny Jameson MD - 09/23/2019 2:52 PM CDT Associated Order(s): CONSULT ENDOCRINOLOGY PHYSICIAN Endocrinology consult Note Admission Date: 09/23/2019 LOS: 0 days Reason for Consult: Pheochromocytoma status post adrenalectomy Consult type: Opinion with orders Assessment: Left adrenal adenoma/pheochromocytoma Incidentally identified 06/28/2019 CT chest/abdomen demonstrated an incidental 4.8 x 5.3 x 6.0 cm mass of left adrenal gland. Right adrenal gland contains 13 mm benign adenoma On 08/05/2019 Plasma free metanephrines 3124 (reference less than 57) Plasma free normetanephrine's 1266 (reference range less than 148) Total free metanephrines 4390 (reference range less than 205) Plasma renin 6.95 (reference 0.255.82) Aldosterone 3 (less than 28) Status post adrenalectomy on 09/23/2019. R Adrenal Adenoma-1.3 cm and appears to be benign. Type 2 diabetesdiagnosed June 2019 Hemoglobin A1c was 7.5%. Prior to admission on metformin XR thousand milligrams daily with dinner. Received dexamethasone into operatively 4 mg at 10 AM this morning. Recommendations/Plan: Patient underwent left adrenalectomy due to pheochromocytoma. Currently blood pressure stable. I would hold Antihypertensives for now. If she develops tachycardia, I would resume low-dose metoprolol if blood pressure stable. Patient received dexamethasone 4 mg intraoperatively. I will start checking glucose 4 times daily. We will start on low-dose correction. Once she is tolerating diet, will resu me metformin. Thank you for the consult, will continue to follow with you She has follow-up scheduled on December 08, 2019. History of Present Illness: Lorenzo Meraz is a 53 y.o. female with past medi denae history of hypertension, she had CT chest completed June 2019 that showe d an incidental 4.8 x 5.3 x 6 cm left adrenal mass with 1.3 cm right adrenal vanessa noma. She had elevated plasma metanephrines. There was no evidence of primary hyperaldosteronism. Prior to admission she was on lisinopril and metoprolol. S he has a history of diastolic heart failure. She also has a history of type 2 d iabetes diagnosed June 2019, at that time A1c was 7.5% and was initiated on metformin thousand milligrams twice a day. She was treated with phenoxybenzamine started on September 01, 2019. She was alread y on beta-mitchel that was stopped and at that time she was initiated on phenoxy benzamine and then reinitiated on September 10, 2019. She underwent left adrenalect amanda on 09/23/2019. She reports being slightly drowsy. Her diet will be advanced to regular. 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 Diabetes mellitus (HCC) Hearing reduced Hypertension Infection Left adrenal mass (HCC) 08/09/2019 Melanoma of face (HCC) left nose s/p MOHS On supplemental oxygen therapy Pheochromocytoma 07/2019 Surgical History: Procedure Laterality Date EAR SURGERY Right due to nevi as a child age 1 ENDOMETRIAL ABLATION HEEL SPUR SURGERY Left HX SECTION x3 MOHS SURGERY multiple MOHS procedure of nose 2/2 melanoma Social History Socioeconomic History Marital status: Spouse [...] file Social History Narrative Not on file Family History: Reviewed Allergies: Penicillins and Tuna oil Scheduled Meds:enoxaparin (LOVENOX) syringe 40 mg, 40 mg, Subcutaneous, QDAY(21) Continuous Infusions: lactated ringers infusion 100 mL/hr at 09/23/19 1355 PRN and Respiratory Meds:acetaminophen Q6H PRN, albuterol sulfate PRN, docusate QDAY PRN, fentaNYL citrate PF Q1H PRN, ondansetron Q6H PRN OR ondansetron (Z OFRAN) IV Q6H PRN, oxyCODONE Q4H PRN Review of Systems: Comprehensive 10 point ROS was limited due to patient drowsiness. She denied an y major complaints. Reported her weight to be stable. Vital Signs: Last Filed in 24 hours Vital Signs: 24 hour Range BP: 91/58 (09/22 1349) Temp: 36.8 C (98.3 F) (09/22 134) Pulse: 77 (09/22 1349) Respirations: 14 PER MINUTE (09/22 134) SpO2: 96 % (09/22 134) SpO2 Pulse: 80 (09/22 1315) Height: 157.5 cm (62") (09/22 07) BP: (91-101)/(56-64) ABP: (92-102)/(47-54) Temp: [36.7 C (98.1 F)-36.8 C (98.3 F)] Pulse: [77-85] Respirations: [9 PER MINUTE-15 PER MINUTE] SpO2: [91 %-99 %] Physical Exam: General: Awake, Alert, Oriented; slightly drowsy HEENT: Normocephalic, Atraumatic, PERRL Cardiovascular: Regular Pulmonary: Breathing comfortably with no respiratory distress. Nonlabored breat ana cristina. Extremities: No cyanosis or edema noted Skin: No rash or lesion noted Neurologic: No focal deficits noted Lab/Radiology/Other Diagnostic Tests: Pertinent Labs Reviewed Benny Jameson MD Pager [phone] documented in this encounter Miscellaneous Notes * Care Plan - Lorenzo Kelly RN - 09/24/2019 7:32 AM CDT Problem: Infection, Risk of, Urinary Catheter-Associated Urinary Tract Infection Goal: Absence of urinary catheter-associated infection Outcome: Add Note Problem: Falls, High Risk of Goal: Absence of falls-Adult Patient Outcome: Add Note * Care Plan - Juan M Lazar RT - 09/23/2019 1:00 PM CDT RT Adult Assessment Note NAME:Lorenzo Meraz :1965 AGE: 53 y.o. ADMISSION DATE: 09/23/2019 DAYS ADMITTED: LOS: 0 days RT Treatment Plan: Protocol Plan: Medications Albuterol: MDI PRN Protocol Plan: Procedures PAP: Place a nursing order for "IS Q1h While Awake" for any of Lung Expansion in dicators Oxygen/Humidity: O2 to keep SpO2 > 92% Monitoring: Pulse oximetry BID & PRN Additional Comments: Impressions of the patient: no respiratory distress Vital Signs: Pulse: 81 RR: 11 PER MINUTE SpO2: 97 % O2 Device: Cannula Liter Flow: 2 Lpm O2%: 21 % Breath Sounds: Clear (implies normal);Decreased Respiratory Effort: Non-Labored * Procedures (Immed Post or Bedside) - Orlando Wells MD - 09/23/2019 11:48 AM CDT Brief Operative Note Name: Lorenzo Meraz : 1965 DATE OF OPERATION: 09/23/2019 Date: 09/23/2019 Preoperative Dx: 1) Left adrenal pheochromocytoma Post-op Diagnosis 1) Left adrenal pheochromocytoma Procedure(s): 1) Laparoscopic left adrenalectomy. Anesthesia Type: General Surgeon(s) and Role: Panel 1: Dr. Kennedy Wells MD PGY2 Findings: Normal anatomy, approx 6cm left sided adrenal pheochromocytoma. Small hiatal hernia noted. Estimated Blood Loss: Minimal Specimen(s) Removed/Disposition: Left adrenal gland Complications: None Implants: None Drains: None Disposition: PACU - stable Orlando Wells MD Surgery PGY2 Pager [phone] Associated attestation - Kennedy Ibarra MD - 09/27/2019 1:43 PM CDT ATTESTATION I performed this procedure with a resident. and I was present for the entire pro cedure. Staff name: Kennedy Ibarra MD Date: 09/27/2019 * Operative Report (Direct Entry) - Orlando Wells MD - 09/23/2019 9:43 AM CDT Operative Dictation Name: Lorenzo Meraz is a 53 y.o. female : 1965 DATE OF OPERATION: 09/23/2019 Date: 09/23/2019 Pre Operative Dx: Adrenal mass (HCC) [E27.8] Post-op Diagnosis * Adrenal mass (HCC) [E27.8] Procedure(s): LEFT LAPAROSCOPIC, ADRENALECTOMY (Left Abdomen) Anesthesia Type: General Surgeon(s) and Role: * Kennedy Ibarra MD - Primary * Orlando Wells MD - Resident - Assisting Indications: 53 yo female with HTN and DM. 6cm adrenal mass found incidentally via imaging fo r unrelated reason. Biochemical workup results consistent with pheochromocytoma. Patient underwent several weeks of alpha blockade. Findings: Normal anatomy, 6cm adrenal mass, small hiatal hernia noted. Description of Procedure: Informed consent was obtained and the patient was brought into the operating judit m and placed in the supine position on the operating table. General anesthesia w as induced by the anesthesia team. The patient was then positioned in the right lateral decubitus position. Preoperative antibiotics were given. The patient's l eft side was prepped and draped in the usual sterile fashion. A timeout was per formed verifying the correct patient, procedure, and site. Attention was then t urned to the patient's left side. Access into the peritoneal cavity was achieved with the Veress needle at Mendiola' s point. Correct placement was confirmed with low opening pressure and the abdom en was insufflated. A 5mm trochar was placed at the anterior axillary line 2cm b elow the costal margin using the Optiview trochar. The scope was placed into the abdomen and the area was found to be without injury from the Veress or trochar. Another 5mm port was placed under direct visualization at the mid clavicular li ne, 2cm caudal to the costal margin. 10mm and 5mm ports were placed in the same fashion a the mid and posterior axillary lines respectively. The splenic flexion was mobilized by opened the white line of Toldt on the left and reflecting the colon medially, off the anterior aspect of the Gerota's fasci a using the enseal devise and blunt dissection. After which the spleen and tail of the pancreas were mobilized by taking the splenophrenic, gastrosplenic, and s plenocolic ligaments. The spleen and tail of the pancreas were retracted anterio medially establishing excellent visualization of the left adrenal mass. The medial border of the adrenal was mobilized from the retroperitoneal fat. Thi s plan was continued cephalad freeing the superior medial aspect of the adrenal. The lateral border of the adrenal was then mobilized and the plane was taken in a posterior and inferior direction to separate the adrenal from Gerota's fascia taking care to preserve the renal vasculature. The posterior attachments of the adrenal contained the venous drainage of the adrenal and these were taken with the enseal devise; freeing the specimen. The adrenal gland was placed in an endo catch bag. The operative field was irrigated and excellent hemostasis was ensure d. A small hiatal hernia was noted. The 10mm trochar incision was extended to allow passage of the specimen which wa s removed and sent to pathology routine. The extended 10mm incision was closed using 0 non looped PDS to close the fascia l and muscle layers in full thickness bites. The skin was closed with a 3-0 vicr yl interrupted sutures followed by a 4-0 Monocryl running subcuticular. The othe r port sites were closed with the 3-0 vicryl interrupted sutures. Grottoes smith and steri strips were applied to all incisions. The procedure was concluded. Of note the patient experienced hypertension early in the case requiring alpha and beta blockage. After removal of the specimen th e patient required minimal pressor support. The patient was awoken smoothly from anesthesia transferred to the PACU in stable condition. There were no apparent complications. At the end of the procedure all sponge, needle, and instrument counts were correct x2. Dr. Ibarra was present and scrubbed for the entire pro cedure. Estimated Blood Loss: No blood loss documented. Specimen(s) Removed/Disposition: ID Type Source Tests Collected by Time Destination 1 : LEFT ADRENAL Tissue Adrenal Gland,Left SURGICAL PATHOLOGY Kennedy Ibarra MD 09/23/2019 2252 Orlando Wells MD Pager # [phone] Associated attestation - Kennedy Ibarra MD - 09/27/2019 8:32 AM CDT ATTESTATION I performed this procedure with a resident. and I was present for the entire pro cedure. Staff name: Kennedy Ibarra MD Date: 09/27/2019 documented in this encounter Plan of Treatment Not on filedocumented as of this encounter Goals Goal Patient Associated Recent Progress Patient-Stat Aut hor Goal Type Problems ed? Increase Physical Activity Exercise Yes Idania Hernandez RN Note: "To be able to get better and be more active" documented as of this encounter Procedures Comments Procedure Name Priority Date/Time Associated Diag nosis POC GLUCOSE 09/24/2019 7:53 AM CDT HC PHOSPHOROUS, SERUM Routine 09/24/2019 4:50 AM CDT HC MAGNESIUM Routine 09/24/2019 4:50 AM CDT HC BASIC METABOLIC PANEL Routine 09/24/2019 4:50 AM CDT POC GLUCOSE 09/23/2019 9:58 PM CDT POC GLUCOSE 09/23/2019 12:15 PM CDT HC LEVEL V SRG PTH, GROSS Routine 09/23/2019 Adre nal mass (HCC) & MICRO 10:39 AM CDT POC GLUCOSE 09/23/2019 10:18 AM CDT TRANSABDOMINAL/ LUMBAR/ 09/23/2019 Adrenal mass (HCC) DORSAL LAPAROSCOPIC 8:14 AM CDT ADRENALECTOMY/ EXPLORATION ADRENAL GLAND WITH/ WITHOUT BIOPSY POC GLUCOSE 09/23/2019 7:36 AM CDT TELEMETRY STRIPS-SCAN 09/23/2019 12:00 AM CDT documented in this encounter Results * POC GLUCOSE (09/24/2019 7:53 AM CDT) Glucose, POC 86 70 - 100 MG/DL MAIN LAB Specimen Performing Organization Address City/State/Zipcode Ph one Number MAIN LAB [address] [place] [address] * BASIC METABOLIC PANEL (09/24/2019 4:50 AM CDT) Sodium 134 (L) 137 - 147 MMOL/L MAIN LAB Potassium 3.9 3.5 - 5.1 [...] Nitrogen Creatinine 0.70 0.4 - 1.00 MG/DL MAIN LAB Calcium 8.5 8.5 - 10.6 MG/DL MAIN LAB eGFR Non >60 >60 mL/min MAIN LAB Comment: [place] The eGFR is not validated f or use in drug dosing adjustments. Continue to use estimated creatinine clearance per dosing reference text. Please contact the Clinical Pharmacist for questions. eGFR >60 >60 mL/min MAIN LAB [place] Comment: The eGFR is not validated for use in drug dosing adjustments. Continue to use estimated creatinine clearance per dosing reference text. Please contact the Clinical Pharmacist for questions. Specimen Blood Performing Organization Address City/[facility] Ph one Number MAIN LAB [address] [place] [address] * PHOSPHORUS (09/24/2019 4:50 AM CDT) Phosphorus 3.0 2.0 - 4.5 MG/DL MAIN LAB Specimen Blood Performing Organization Address [facility] Ph one Number MAIN LAB [address] [place] [address] * MAGNESIUM (09/24/2019 4:50 AM CDT) Magnesium 1.9 1.6 - 2.6 mg/dL MAIN LAB Specimen Blood Performing Organization Address [facility] Ph one Number MAIN LAB [address] [place] [address] * POC GLUCOSE (09/23/2019 9:58 PM CDT) Glucose, POC 168 (H) 70 - 100 MG/DL MAIN LAB Specimen Performing Organization Address [facility] Ph one Number MAIN LAB [address] [place] [address] * POC GLUCOSE (09/23/2019 12:15 PM CDT) Glucose, POC 174 (H) 70 - 100 MG/DL MAIN LAB Specimen Performing Organization Address City/State/Zipcode Ph one Number MAIN LAB [address] [place] [address] * SURGICAL PATHOLOGY (09/23/2019 10:39 AM CDT) PATHOLOGY [email or web address] Department of Pathology and Laboratory Medicine [address] [place] [address] Surgical Pathology Office: [phone] SURGICAL PATHOLOGY REPORT NAME: LORENZO MERAZ SURG PATH #: [id number] MR #: [id number] SPECIMEN CLASS: [facility] BILLING #: [id number] ALT ID #: LOCATION: [id number] DATE OF PROCEDURE: 09/23/2019 AGE: 53 SEX: [...] cm Uninvolved adrenal gland: Bright yellow cortex Practice Representative sections of the specimen are submitted as follows: A1-A6 Tumor to uninvolved adrenal gland and inked external surface. ([facility]) /09/23/2019 If immunohistochemical stains and/or in situ hybridization are cited in this report, the performance characteristics were determined by the Department of Pathology and Laboratory Medicine of the [facility] ([employer]) in compliance with CLIA'88 [...] of Pathology and Laboratory Medicine of the [facility]. It has not been cleared or approved by the FDA. The FDA has determined that such clearance or approval is not necessary. Specimen Tissue - Adrenal Gland,Left Performing Organization Address City/[facility] Ph one Number [facility] [address] [place] [address] * POC GLUCOSE (09/23/2019 10:18 AM CDT) Glucose, POC 177 (H) 70 - 100 MG/DL MAIN LAB Specimen Performing Organization Address City/[facility] Ph one Number [facility] MAIN LAB [address] [place] [address] * POC GLUCOSE (09/23/2019 7:36 AM CDT) Glucose, POC 107 (H) 70 - 100 MG/DL MAIN LAB Specimen Performing Organization Address City/State/Zipcode Ph one Number MAIN LAB [address] [place] [address] * TELEMETRY STRIPS-SCAN (09/23/2019 12:00 AM CDT) Narrative Performed At This result has an attachment that is n ot available. Ordered by an unspecified provider. documented in this encounter Visit Diagnoses Diagnosis Adrenal mass (HCC) Unspecified disorder of adrenal glands documented in this encounter Administered Medications Action Date Dose Rate Site Medication Order MAR Action 09/24/2019 4:42 AM CDT 650 mg acetaminophen (TYLENOL) tablet 650 mg Given 650 mg, Oral, EVERY 6 HOURS PRN, Starting Siomara 09/23/19 at 1233, Until Fri09/24/19 at 1322, Pain non-opioid: may be used alone or in combination with opioi d analgesia, TOTAL ACETAMINOPHEN DOSE NOT TO EXCEED 4GM DAILY, 650 mg Given 09/23/2019 8:44 PM CDT 650 mg Given 09/23/2019 3:48 PM CDT albuterol sulfate (PROAIR HFA) inhaler 2 puff 2 puff, Inhalation, RT NEEDED, Starting Siomara 09/23/19 at 1401, Until Fri09/24/19 at 1322, RT PROTOCOL, When administered by RT, will be per RT policy., 09/23/2019 10:39 AM CDT 5.5 mL Other bupivacaine (MARCAINE) 0.25 % injection Given INTRA-PROCEDURE MED, Starting Siomara 0 at 1039, Until Siomara 09/23/19 at 1213, Intra-op 09/23/2019 3:48 PM CDT 100 mg docusate (COLACE) capsule 100 mg Given 100 mg, Oral, DAILY PRN, Starting Siomara 09/23/19 at 1233, Until Fri09/24/19 at 1322, Constipation PO, Hold for loose stools., 09/23/2019 8:46 PM CDT 40 mg Abdomina l Tissue enoxaparin (LOVENOX) syringe 40 mg Given 40 mg, Subcutaneous, DAILY, First dose on Siomara 09/23/19 at 2100, Until Discontinued, For patients undergoing surgery: Consult physician in advance - - enoxaparin is an anticoagulant and may need to be held for 12hr prior to surgery or invasive procedures. NOTE: This is a HIGH ALERT Medication., insulin aspart U-100 (NOVOLOG FLEXPEN) injection PEN 0-6 Units 0-6 Units, Subcutaneous, BEFORE MEALS AND 2200, First dose on Siomara 09/23/19 at 1730, Until Discontinued, -POC glucose 181-220mg/dL at , , administer 1 unit insulin, at 22, 03* administer 0 units. -POC glucose 221-260mg/dL at , , administer 2 units insulin, at , 03* administer 1 unit. -POC glucose 261-300mg/dL at , , administer 3 units insulin, at , * administer 2 units. -POC glucose 301-350mg/dL at , , administer 4 units insulin, at , 03* administer 3 units. -POC glucos e 351-400mg/dL at , , administer 5 units insulin, at , 03* administer 4 units. -POC glucose >400mg/dL at , , administer 6 units insulin, at , 03* administer 5 units. *only if ordered 5x's daily For POCT glucose >350mg/dL give correction bolus and recheck POCT glucose in 2 hours. If POC T glucose at 2 hours >300mg/dL call physician for further orders. For patients who are not eating meals, continue to administer the appropriate correction factor. NOTE: This is a HIGH ALERT Medication., Dispense pens manually with initial order and then upon request. DO NOT uncheck "Do not dispense", 09/23/2019 10:39 AM CDT 5.5 mL Other lidocaine 1%/EPINEPHrine 1:100,000 Given injection INTRA-PROCEDURE MED, Starting Siomara 0 at 1039, Until Siomara 09/23/19 at 1213, Intra-op ondansetron (ZOFRAN) injection 4 mg 4 mg, Intravenous, EVERY 6 HOURS PRN, Starting Siomara 09/23/19 at 1233, Until Fri09/24/19 at 1322, Nausea/Vomiting Injectable ondansetron (ZOFRAN) tablet 4 mg 4 mg, Oral, EVERY 6 HOURS PRN, Startin g Siomara 09/23/19 at 1233, Until Fri09/24/19 at 1322, Nausea/Vomiting PO 09/24/2019 8:57 AM CDT 15 mg oxyCODONE (ROXICODONE) tablet 5-15 mg Given 5-15 mg, Oral, EVERY 4 HOURS PRN, Starting Siomara 09/23/19 at 1234, Until Fri09/24/19 at 1322, Pain PO 15 mg Given 09/24/2019 4:42 AM CDT 15 mg Given 09/24/2019 12:48 AM CDT documented in this encounter
--- OUTSIDE RECORDS SUMMARY | 2019-11-23 03:32 | XMS REPORT | Encounter Summary ---
Author Author [facility] Organization [facility] Address Unknown Phone Unavailable Care Team Providers Care Pace Analyst Name Role Phone Dung Carmen MD 21 Dung Carmen MD PCP Reason for Referral * Radiology Services (Routine) Referred By Contact Referred To Contact Status Reason Specialty Diagnoses / Procedures Andrew Ibrara MD [address] [place] [id number] New Request Radiology Diagnoses Pheochromocytoma, unspecified laterality P rocedures CT ABD/PELV W CONTRAST Reason for Visit * Reason Comments Post Operative Visit Encounter Details Care Team Description Date Type Department Andrew Ibarra MD [address] [place] [id number] [phone] Pheochromocytoma, unspecified laterality (Primary Dx) 10/05/2019 Office Visit The [address] [address] Social History Date Tobacco Use Types Packs/Day [...] 10/05/2019 1:38 PM CDT Body Mass Index documented in this [...] as of this encounter Progress Notes * Andrew Ibarra MD - 10/05/2019 1:40 PM CDT Name: Aminta Meraz : 1965 AGE: 53 y .o. DATE OF SERVICE: 10/05/2019 Subjective: Reason for Visit: Post-operative visit Aminta Meraz is a 53 y.o. female. History of Present Illness 53 year old female with HTN, DM, left 6cm pheochromocytoma s/p lap left adrenale ctomy (09/23/2019) with pathology showing pheochromocytoma with a PASS score of 2. Has been doing well. Currently been pain free. Has had no an increase in PO int luc. Has had no problems with bowel or bladder. Has not been taken her lisinopri l or metoprolol and SBP have been in the 130s. Continues to have bilateral, lowe r extremity tremors which has improved since surgery. Blood glucose levels have been 80-100. Has follow up with endocrinology and her primary care physician. Review of Systems Constitutional: Negative for chills and fever. HENT: Negative. Respiratory: Negative. Cardiovascular: Negative. Gastrointestinal: Negative for abdominal pain, nausea and vomiting. Genitourinary: Negative. Neurological: Positive for tremors. Psychiatric/Behavioral: Negative. Objective: clonazePAM (KLONOPIN) 0.5 mg tablet Take 0.5 mg by mouth daily as needed. docusate (COLACE) 100 mg capsule Take 100 mg by mouth daily. lisinopriL (ZESTRIL) 40 mg tablet Take 40 mg by mouth daily. melatonin 10 mg tab Take 1 tablet by mouth at bedtime daily. metFORMIN-XR (GLUCOPHAGE XR) 500 mg extended release tablet Take 1,000 mg by mouth daily with dinner. metoprolol tartrate (LOPRESSOR) 25 mg tablet Take one-half tablet by mouth t wice daily. metoprolol XL (TOPROL XL) 25 mg extended release tablet Take 12.5 mg by mout h twice daily. oxyCODONE (ROXICODONE) 5 mg tablet Take one tablet to three tablets by mouth every 4 hours as needed sodium chloride 1 gram tablet Take one tablet by mouth three times daily. Vitals: 10/05/19 1338 BP: (!) 148/76 BP Source: Arm, Right Upper Patient Position: Sitting Pulse: 108 Resp: 16 Temp: 36.2 C (97.2 F) TempSrc: Temporal SpO2: 97% Weight: 57.8 kg (127 lb 6.4 oz) Height: 157.5 cm (62.01") PainSc: Two Body mass index is 23.3 kg/m. Pain Score: Two Pain Loc: Abdomen Fatigue Scale: 3 Physical Exam Constitutional: Appearance: Normal appearance. HENT: Head: Normocephalic. Eyes: Extraocular Movements: Extraocular movements intact. Neck: Musculoskeletal: Normal range of motion. Cardiovascular: Rate and Rhythm: Normal rate. Pulmonary: Effort: Pulmonary effort is normal. No respiratory distress. Abdominal: Comments: Soft; nontender; nondistended; well healed incision sites. Musculoskeletal: Normal range of motion. General: No swelling. Skin: General: Skin is warm and dry. Coloration: Skin is not jaundiced. Neurological: General: No focal deficit present. Mental Status: She is alert and oriented to person, place, and time. Psychiatric: Mood and Affect: Mood normal. Behavior: Behavior normal. Assessment and Plan: 53 year old female with left 6 cm pheochromocytoma s/p laparoscopic left adrenal ectomy (09/23/2019) with pathology showing pheochromocytoma with a PASS 2 - Doing well post-operatively; incisions are well approximated without signs of infection - Continue blood pressure and blood glucose monitoring per PCP - Continue to follow with endocrinology - Return in to clinic in 1 year for follow up appointment with pre-appointment p lasma free metanephrines and CT A/P Andrew Ibarra MD Case discussed with Dr. Ibarra who directed care Attestation: I personally performed a history and physical examination of the patient and dis cussed the management of the patient with my resident Dr. Mayberry and reviewed [facility] medical records myself including recent pathology and agree with the history , physical exam, and plan of care including follow-up. I reviewed the resident' s note and agree with the documented findings and plan of care. I spent a total of 30 minutes with the patient of which 15 minutes were spent in counseling aide about t he details of the condition, specifically the surgical management of pheochromoc ytoma. Thank you for involving me in the care of this patient. Please don't hesi mondragon to contact me if you have any questions or concerns. Kind regards, Andrew Ibarra MD, FACS * Collin Mayberry DO - 10/05/2019 1:40 PM CDT . documented in this encounter Plan of Treatment Order Schedule Name Type Priority Associated Diag noses Expected: 10/04/2020 (Approximate), Expi res: 04/06/2021 CT ABD/PELV W CONTRAST Imaging Routine Pheochr omocytoma, unspecified laterality Expected: 10/04/2020 (Approximate), Expi res: 04/06/2021 METANEPHRINES FRACT FREE Lab Routine Pheoc hromocytoma, PLASMA unspecified laterality documented as of this encounter Goals Goal Patient Associated Recent Progress Patient-Stat Aut hor Goal Type Problems ed? Increase Physical Activity Exercise Yes Idania Hernandez RN Note: "To be able to get better and be more active" documented as of this encounter Visit Diagnoses Diagnosis Pheochromocytoma, unspecified lateralit y documented in this encounter
--- OUTSIDE RECORDS SUMMARY | 2019-11-23 03:32 | XMS REPORT | Encounter Summary ---
Author Author [facility] Organization [facility] Address Unknown Phone Unavailable Care Team Providers Care Certified Flight Instructor Name Role Phone Dung Carmen MD 21 Dung Carmen MD PCP Reason for Visit * Auth/Cert Referred By Contact Referred To Contact Status Reason Specialty Diagnoses / Procedures Diagnoses Adrenal mass (HCC) Adrenal mass (HCC) [E27.8] P rocedures [place] LAPAROSCOPY ADRENALECTOMY PRTL/COMPL TABDL LEFT LAPAROSCOPIC, POSSIBLE OPEN, ADRENALECTOMY Encounter Details Care Team Description Date Type Department Kennedy Ibarra MD [address] [place], [place] [id number] Essential hypertension 09/23/2019 [facility] 09/24/2019 [address] [place], [place] [id number] Social History Date Tobacco Use Types Packs/Day [...] or concerns regarding your hospital stay, call [phone]. Discharging attending physician: KENNEDY IBARRA [[id number]] Discharge Signs/Symptoms Standard Please contact your doctor if you have any of the following symptoms: temperature higher than 100.4 degrees F, uncontrolled pain, persistent nausea an d/or vomiting or difficulty breathing Questions About Your Stay Standard For questions or concerns regarding your hospital stay: -DURING BUSINESS HOUR (8:00 AM - 4:30 PM): Call [phone] and ask to be transferred to your discharge attending mirta n. -AFTER BUSINESS HOURS (4:30 PM - 8:00 AM, on weekends, or holidays): Call [phone] and ask the prototype machine operator to page the on-call doctor for the discha rge attending physician. Discharging attending physician: KENNEDY IBARRA [[id number]] Lifting Restrictions Do not lift more than [...] 10/05/2019 1:40 PM Kennedy Ibarra MD CCC2 [facility] Exam 12/08/2019 10:30 AM Dalia Jenkins PA-C [...] post-procedure instr uctions given. [facility] where son [...] anticipated discharge today Raghu Barrett DO Pager: [phone] S: No acute events overnight. Reports pain well controlled with medication. Denies nausea or vomiting at this time. Ambulating to chair as tolerated. Urinating wit hout difficulty. Passing gas but no bowel movement overnight. O: Temp: 36.3 C (97.3 F) (09/23 413) Pulse: 86 (09/23 413) Respirations: 17 PER MINUTE (09/23 413) BP: [...] [place] 7. Patient awaiting transport to [place] [address]. * Ruby Toth RN - 09/23/2019 8:16 [...] Travel History: Has the patient travelled outside [place] and [place] in the past 14 days? No If [...] Pertinent Labs Reviewed Benny Jameson MD Pager [phone] documented in this encounter Miscellaneous Notes * [...] closed with the 3-0 vicryl interrupted sutures. Paisley smith and steri strips were applied to [...] Gland,Left SURGICAL PATHOLOGY Kennedy Ibarra MD 09/23/2019 [address] Orlando Wells MD Pager # [phone] Associated attestation - Kennedy Ibarra MD - [...] City/State/Zipcode Ph one Number MAIN LAB [address] [place] [address] * BASIC METABOLIC PANEL (09/24/2019 4:50 AM [...] Non >60 >60 mL/min MAIN LAB Comment: Spanish The eGFR is not validated f or use in drug dosing adjustments. Continue to use estimated creatinine clearance per dosing reference text. Please contact the Clinical Pharmacist for questions. eGFR >60 >60 mL/min MAIN LAB Spanish Comment: The eGFR is not validated for use in drug dosing adjustments. Continue to use estimated creatinine clearance per dosing reference text. Please contact the Clinical Pharmacist for questions. Specimen Blood Performing Organization Address City/[facility] [place] [place] Ph one Number MAIN LAB [address] [place] [address] * PHOSPHORUS (09/24/2019 4:50 AM CDT) Phosphorus 3.0 2.0 - 4.5 MG/DL MAIN LAB Specimen Blood Performing Organization Address [facility] Ph one Number MAIN LAB [address] [place] [address] * MAGNESIUM (09/24/2019 4:50 AM CDT) Magnesium 1.9 1.6 - 2.6 mg/dL MAIN LAB Specimen Blood Performing Organization Address [facility] Ph one Number MAIN LAB [address] [place] [address] * POC GLUCOSE (09/23/2019 9:58 PM CDT) Glucose, POC 168 (H) 70 - 100 MG/DL MAIN LAB Specimen Performing Organization Address [facility] [place] [place] Ph one Number MAIN LAB [address] [place] [address] * POC GLUCOSE (09/23/2019 12:15 PM CDT) Glucose, POC 174 (H) 70 - 100 MG/DL MAIN LAB Specimen Performing Organization Address City/State/Zipcode Ph one Number MAIN LAB [address] [place] [address] * SURGICAL PATHOLOGY (09/23/2019 10:39 AM CDT) PATHOLOGY [facility] [email or web address] Department of Pathology and Laboratory Medicine [address] [place] [address] Surgical Pathology Office: [phone] SURGICAL PATHOLOGY REPORT NAME: LORENZO MERAZ SURG PATH #: [id number] MR #: [id number] SPECIMEN CLASS: [facility] BILLING #: [id number] ALT ID #: LOCATION: [id number] DATE OF [...] cm Uninvolved adrenal gland: Bright yellow cortex Algebra Tutor sections of the specimen are submitted as follows: A1-A6 Tumor to uninvolved adrenal gland and inked external surface. ([facility]) /09/23/2019 If immunohistochemical stains and/or in situ hybridization are cited in this report, the performance characteristics were determined by the Department of Pathology and Laboratory Medicine of the [facility] ([employer]) in compliance with [...] of Pathology and Laboratory Medicine of the [facility]. It has not been cleared or approved by the FDA. The FDA has determined that such clearance or approval is not necessary. Specimen Tissue - Adrenal Gland,Left Performing Organization Address City/State/[facility] Ph one Number [facility] LAB [address] [place] [address] * POC GLUCOSE (09/23/2019 10:18 AM CDT) Glucose, POC 177 (H) 70 - 100 MG/DL MAIN LAB Specimen Performing Organization Address City/[facility] [place] [place] Ph one Number [facility] MAIN LAB [address] [place] [address] * POC GLUCOSE (09/23/2019 7:36 AM CDT) Glucose, POC 107 (H) 70 - 100 MG/DL MAIN LAB Specimen Performing Organization Address City/State/Zipcode Ph one Number MAIN LAB [address] [place] [address] * TELEMETRY STRIPS-SCAN (09/23/2019 12:00 AM CDT) Narrative Performed At This result has an attachment that is n ot available. Ordered by an unspecified provider. documented in this encounter Visit Diagnoses Diagnosis Adrenal mass (HCC) Unspecified disorder of adrenal glands Left adrenal mass (HCC) Unspecified disorder of adrenal glands Pheochromocytoma Benign neoplasm of adrenal gland Essential hypertension Unspecified essential hypertension Diastolic heart failure (HCC) Unspecified diastolic heart failure Type 2 diabetes mellitus, without long- term current use of insulin (HCC) documented in this encounter Administered Medications Action Date Dose Rate Site Medication Order MAR Action 09/23/2019 7:58 AM CDT 1,000 mg acetaminophen (TYLENOL) tablet 1,000 mg Given 1,000 mg, Oral, ONCE, 1 dose, Siomara 0 at 0700, Hold if taken acetaminophen within last 8 hr, Pre-Op 09/24/2019 4:42 AM CDT 650 mg acetaminophen [...] RT, will be per RT policy., 09/23/2019 3:48 PM CDT 100 mg docusate (COLACE) capsule 100 mg Given 100 mg, Oral, DAILY PRN, Starting Siomara 09/23/19 at 1233, Until Fri09/24/19 at 1322, Constipation PO, Hold for loose stools., 09/23/2019 8:46 PM CDT 40 mg Abdomina l Tissue enoxaparin (LOVENOX) syringe 40 mg Given 40 mg, Subcutaneous, DAILY, First dose on Fri09/23/19 at 2100, Until Discontinued, For patients undergoing surgery: Consult physician in advance - - enoxaparin is an anticoagulant and may need to be held for 12hr prior to surgery or invasive procedures. NOTE: This is a HIGH ALERT Medication., 09/24/2019 2:50 AM CDT 25 mcg fentaNYL citrate PF (SUBLIMAZE) Given injection 12.5-25 mcg 12.5-25 mcg, Intravenous, EVERY 1 HOUR PRN, Starting Fri09/23/19 at 1234, Until Fri09/24/19 at 0641, Pain Injectable 25 mcg Given 09/23/2019 11:50 PM CDT 25 mcg Given 09/23/2019 10:11 PM CDT insulin aspart U-100 (NOVOLOG FLEXPEN) injection PEN 0-6 Units 0-6 Units, Subcutaneous, BEFORE MEALS AND 2200, First dose on Fri09/23/19 at 1730, Until Discontinued, -POC glucose 181-220mg/dL at , administer 1 unit insulin, at 22, 03* administer 0 units. -POC glucose 221-260mg/dL at administer 2 units insulin, at 22, 03* administer 1 unit. -POC glucose 261-300mg/dL at , administer 3 units insulin, at 22, 03* administer 2 units. -POC glucose 301-350mg/dL at administer 4 units insulin, at 22, 03* administer 3 units. -POC glucos e 351-400mg/dL at , administer 5 units insulin, at 22, 03* administer 4 units. -POC glucose >400mg/dL at administer 6 units insulin, at 22, 03* administer 5 units. *only if ordered [...] DO NOT uncheck "Do not dispense", 09/23/2019 7:40 AM CDT 1,000 mL 20 mL/hr lactated ringers infusion Given - New 1,000 mL, 1,000 mL, Intravenous, at 20 Bag mL/hr, CONTINUOUS, Starting Siomara 09/23/19 at 0700, Until Siomara 09/23/19 at 1238, Pre-Op 09/23/2019 11:55 PM CDT 100 mL/hr lactated ringers infusion Given - New 1,000 mL, Intravenous, at 100 mL/hr, Bag CONTINUOUS, Starting Siomara 09/23/19 at 1245 , Until Fri09/24/19 at 0641 100 mL/hr Given - New Bag 09/23/2019 1:55 PM CDT 100 mL/hr Given - New Bag 09/23/2019 12:41 PM CDT LACTATED RINGERS IV SOLP (Cabinet Override) NOW, 1 dose, Siomara 09/23/19 at 0630, Create d by cabinet override, Created by cabinet override, ondansetron (ZOFRAN) injection 4 mg 4 mg, Intravenous, EVERY 6 HOURS PRN, Starting Siomara 09/23/19 at 1233, Until Fri09/24/19 at 1322, Nausea/Vomiting Injectable ondansetron (ZOFRAN) tablet 4 mg 4 mg, Oral, EVERY 6 HOURS PRN, Startin g Siomara 09/23/19 at 1233, Until Fri09/24/19 at 1322, Nausea/Vomiting PO 09/23/2019 7:58 AM CDT 10 mg oxyCODONE (ROXICODONE) tablet 5-10 mg Given 5-10 mg, Oral, ONCE, 1 dose, Siomara 09/23/19 at 0700, Pre-Op 09/23/2019 1:08 PM CDT 10 mg oxyCODONE (ROXICODONE) tablet 5-10 mg Given 5-10 mg, Oral, ONCE PRN, 1 dose, Starting Siomara 09/23/19 at 1053, Until Siomara 09/23/19 at 1308, Pain PO, For Pain Score <4, For Pain Score <4, PACU (only) 09/24/2019 8:57 AM CDT 15 mg oxyCODONE (ROXICODONE) tablet 5-15 mg Given 5-15 mg, Oral, EVERY 4 HOURS PRN, Starting Siomara 09/23/19 at 1234, Until Fri09/24/19 at 1322, Pain PO 15 mg Given 09/24/2019 4:42 AM CDT 15 mg Given 09/24/2019 12:48 AM CDT documented in this encounter
--- OUTSIDE RECORDS SUMMARY | 2019-11-23 03:32 | XMS REPORT | Encounter Summary ---
Author Author [facility] Organization [facility] Address Unknown Phone Unavailable Care Team Providers Care Stemhole Borer And Topper Name Role Phone Dung Carmen MD 21 Dung Carmen MD PCP Encounter Details Care Team Description Date Type Department 10/05/2019 Travel Social History Date Tobacco Use Types [...]
--- OUTSIDE RECORDS SUMMARY | 2019-11-23 03:32 | XMS REPORT | Encounter Summary ---
Author Author [facility] Address Unknown Phone Unavailable Care Team Providers Care Tip Inserter Name Role Phone Dung Carmen MD 21 Dung Carmen MD PCP Reason for Visit * Consult, Test & Treat (Routine) Referred By Contact Referred To Contact Status Reason Specialty Diagnoses / Procedures Maria De Jesus Mckinney MD [address] [facility] [address] [address] Cc - Ww Cl Exm/Proc [address] No Auth Needed Specialty Services Oncology Diagnoses Required Pheochromocytoma of left adrenal gland Encounter Details Care Team Description Date Type Department Kelly Tuttle, MSN,WEBBING TACKER [address] [place] [address] [phone] Andrew Ibarra MD [address] [place] [address] [phone] Cassidy Tuttle 10/04/2019 Clinical [facility] [address] [place] [address] Social History Date Tobacco Use Types Packs/Day [...] as of this encounter Progress Notes * Cassidy Tuttle - 10/04/2019 1:30 PM CDT NAME: Aminta Meraz MRN: [facility]U# [id number] : 1965 [facility] Genetic Counseling Date:10/04/2019 Dx Code: D35.00, Z80.8 Referring physician: Maria De Jesus Mckinney MD Aminta Meraz, age 53 y.o., was called by the Genetic Counseling Clinic toda y for consultation regarding her diagnosis of a pheochromocytoma. Patients ve rbal consent was obtained to provide this telehealth visit due to the [facility]. Clinical History: Aminta was diagnosed with a pheochromocytoma at 53 years of age on the left adrenal gland. She has since had an adrenalectomy. She reports esse ntially normal mammogram screening, her ovaries and uterus are intact and she tran s never had a colonoscopy. There were no other major medical concerns reported a t today's appointment. Family History Relation Status Problems (Age of Onset) - (Comment) Daughter Alive, age 22y; Alive, age 30y Son Alive, age 20y Mother Alive, age 86y Spikes in blood pressure, tubes ties, +ov/ut, Arthritis-o steo; Hypertension Maternal Aunt Alive, age 90y; at age 90 Maternal Grandfather at age 87 Bladder Cancer (70) - (non-smoker); Stro ke Maternal Grandmother at age 91 Arthritis-osteo Father at age 64 Cancer-Lung (62) Paternal Aunt at age 70 Paternal Grandfather at age 71 Paternal Grandmother at age 95 Cancer-Lung (94) Paternal Uncle at age 66 Cancer-Lung Sister Alive, age 58y (+ov/ut) Discussion: We discussed hereditary cancer syndromes involving paragangliomas c ancers in the family. Red flags for hereditary syndromes include bilateral / mu ltifocal disease, young age of onset (often <50 yrs), and 2-3 relatives with the same, or related conditions. We discussed that approximately 40% of pheochromocytomas are due to hereditary f actors, current guidelines recommend testing in individuals diagnosed with pheoc hromocytomas under 45 years of age. Due to Aminta's personal diagnosis of a pheoc hromocytoma, and the family history of similar symptoms as Aminta (high blood pre ssure, and anxiety), we recommended genetic testing. Testing for multiple genes for cancer susceptibility was recommended (a genetic panel). If a gene from the panel is found to have a mutation, this would affect medical management including surveillance for early detection and treatment deci siayah. The discussion included an explanation of the different types of results which m ay be reported (positive / negative / or variant of unknown significance). We d iscussed the various syndromes and diseases associated with the genes on the craft el. Our discussion included the patient's increased risk status, how genes affect ca ncer susceptibility, potential benefits, risks, and limitations of testing, and methods for early detection and prevention. We discussed that federal laws (JOHN, ALE) protect from medical insurance discr imination. There are currently no federal laws in place which protect an individ ual who is found to have a hereditary cancer syndrome from discrimination for li fe, halfway care, or, disability insurance. For more information regarding pot ential insurance coverage please refer to www.ginahelp.org Plan: A saliva sample will be sent to Aminta and then sent to [facility] for [facility] Panel: 13 genes with susceptibility to pheochromocytomas and paragangli omas including: FH, MAX, MEN1, NF1, RET, SDHA, SDHAF2, SDHB, SDHC, SDHD, SMAD4, BBFL236, and VHL. This panel includes sequencing and deletion/duplication analys is. Time: 60 minutes. Obtained and reviewed family history. Discussed hereditary cancer syndromes, autosomal dominant inheritance / other inheritance as relevant , presymptomatic surveillance, management and treatment. Possible testing outcom es, including possibility of uncertain variants, strategies for testing other [facility] if a gene alteration is found. Insurance information and out of poc ket ricci discussed. Completed paperwork including verbal consent for genetic te sting. Mariana Tuttle MS, [facility] Certified Genetic Counselor [facility] [place] [address] Email: [email or web address] Appointments Pending: We discussed that I would call Aminta when her results are reported documented in this encounter Plan of Treatment Order Schedule Name Type Priority Associated Diag noses Ordered: 09/01/2019 AMB REFERRAL TO GENETIC Outpatient Routine Pheoch romocytoma of left COUNSELING Referral adrenal gland documented as of this encounter Goals Goal Patient Associated Recent Progress Patient-Stat Aut hor Goal Type Problems ed? Increase Physical Activity Exercise Yes Idania Hernandez, RN Note: "To be able to get better and be more active" documented as of this encounter Visit Diagnoses Not on filedocumented in this encounter
--- OUTSIDE RECORDS SUMMARY | 2019-11-23 03:32 | XMS REPORT | Encounter Summary ---
Author Author [facility] Organization [facility] Address Unknown Phone Unavailable Care Team Providers Care Anesthesiologist Attending Name Role Phone Dung Carmen MD 21 Dung Carmen MD PCP Reason for Visit * Reason Comments Surgical Followup Post op call, 2nd attempt Results Surgical pathology results - benign Encounter Details Care Team Description Date Type Department Andrew Ibarra MD [address] [place] [address] [phone] Surgical Followup (Post op call, 2nd att empt); Results (Surgical pathology results - benign ) 09/28/2019 [address] [phone] Social History Date Tobacco Use Types Packs/Day [...] Telephone Encounter - Jill Kelly RN - 09/28/2019 12:11 PM CDT I called Aminta for her post op call (2nd attempt) and to let her know that her s urgical pathology has resulted and it is benign. Aminta did not answer. I left a detailed message with a call back number. * Telephone Encounter - Jill Kelly RN - 09/28/2019 12:10 PM CDT ----- Message from Andrew Ibarra MD sent at 09/28/2019 8:42 AM CDT ----- Please inform pt of benign pathology findings. documented in this encounter Plan of Treatment [...]
--- OUTSIDE RECORDS SUMMARY | 2019-11-23 03:33 | XMS REPORT | Encounter Summary ---
Author Author [facility] Organization [facility] Address Unknown Phone Unavailable Care Team Providers Care Parts And Service Manager Name Role Phone Dung Carmen MD 21 Dung Carmen MD PCP Reason for Visit * Reason Comments Medication Question Encounter Details Care Team Description Date Type Department Bacilio Tavarez DO [address] [place] [address] [phone] Medication Question 09/21/2019 Telephone The [facility] [address] [facility] [place] [address] Social History Date Tobacco Use Types Packs/Day [...] history available. Date Recorded COVID-19 Exposure Response 09/21/2019 1:27 PM CDT In the last month, have [...] encounter Miscellaneous Notes * Telephone Encounter - Em Torres RN - 09/22/2019 3:56 PM CDT ----- Message ----- From: Bacilio Tavraez DO Sent: 09/22/2019 2:58 PM CDT To: Em Torres RN Called pharmacy and clarified plan! Thank you! Leighton * Telephone Encounter - Em Torrse RN - 09/21/2019 7:25 AM CDT [facility] pharmacist m needing clarification for metroprolol Rx rec'd yesterday. Pharmacist states pt was previously Rx'd / filled metoprolol 25mg XR and wonderi ng if the new Rx from Dr. Tavarez for metoprolol 12.5mg is to replace the XR pre scription. Please advise. documented in this encounter Plan of Treatment Not on filedocumented as of this encounter Goals Goal Patient Associated Recent Progress Patient-Stat Aut hor Goal Type Problems ed? Increase Physical Activity Exercise Yes Fos Idania zendejas RN Note: "To be able to get better and be more active" documented as of this encounter Visit Diagnoses Not on filedocumented in this encounter
--- OUTSIDE RECORDS SUMMARY | 2019-11-23 03:33 | XMS REPORT | Encounter Summary ---
Author Author [facility] Organization [facility] Address Unknown Phone Unavailable Care Team Providers Care Lead Cytogenetic Technologist Name Role Phone Dung Carmen MD 21 Dung Carmen MD PCP Encounter Details Care Team Description Date Type Department 09/01/2019 Travel Social History Date Tobacco Use Types Packs/Day Years Used Quit: 06/07/2019 Former Smoker Cigarettes Smokeless Tobacco: Never Used Drinks/Week oz/Week Comments Alcohol Use 12 Cans of beer 12.0 Yes Sex Assigned at Date Recorded Female 08/25/2019 12:24 PM CDT Industry Job Start Date Occupation Not on file Not on file Not on file Travel End Travel History Travel Start No recent travel history available. Date Recorded COVID-19 Exposure Response 09/01/2019 10:16 AM CDT In the last month, have [...]
--- OUTSIDE RECORDS SUMMARY | 2019-11-23 03:33 | XMS REPORT | Encounter Summary ---
Author Author [facility] Organization [facility] Address Unknown Phone Unavailable Care Team Providers Care Engine Room Helper Name Role Phone Dung Carmen MD 21 Dung Carmen MD PCP Reason for Visit * Reason Comments Other Call to discuss COVID aurora perera before surgery Encounter Details Care Team Description Date Type Department Andrew Ibarra MD [address] [place], [place] [id number] Other (Call to discuss COVID screening b efore surgery) 09/15/[address] [phone] Social History Date Tobacco Use Types Packs/Day [...] Telephone Encounter - Jill Kelly RN - 09/15/2019 2:47 PM CDT Aminta returned my call and left a vm. I called her back to discuss the COVID joni ting before surgery. She said that she will come [facility] [place] [place] on 09/20 so she can complete the testing. I scheduled her visit at 1:10 at [facility]. I sen t her the appointment details with FAQs via [employer]. I told her to call me if gurpreet mcmanus has any questions or concerns. Aminta is aware that if she tests positive for C OVID her surgery will need to be postponed. * Telephone Encounter - Jill Kelly RN - 09/15/2019 9:20 AM CDT I called Aminta to discuss the pre-surgical COVID screening that is now required for all surgical patients 48 hours before the procedure. Aminta did not answer. I left a voicemail with my call back number. COVID order placed in O2. Aminta's s urgery is scheduled on 09/22. She would need her testing completed on 09/20. documented in this encounter Plan of Treatment [...]
--- OUTSIDE RECORDS SUMMARY | 2019-11-23 03:33 | XMS REPORT | Encounter Summary ---
Author Author [facility] Organization [facility] Address Unknown Phone Unavailable Care Team Providers Care Aircraft Detail Draftsperson Name Role Phone Dung Carmen MD 21 Dung Carmen MD PCP Reason for Visit * Reason Comments Pre Operative Visit Covid-19 * Auth/Cert Referred By Contact Referred To Contact Status Reason Specialty Diagnoses / Procedures Diagnoses Adrenal mass (HCC) Adrenal mass (HCC) [E27.8] P rocedures DC LAPAROSCOPY ADRENALECTOMY PRTL/COMPL TABDL LEFT LAPAROSCOPIC, POSSIBLE OPEN, ADRENALECTOMY Encounter Details Care Team Description Date Type Department Preop testing (Primary Dx); Pheochromocytoma, unspecified laterality 09/21/[address] Nurse [address] [facility] [address] [place] [address] Social History Date Tobacco Use Types Packs/Day [...] as of this encounter Progress Notes * Julienne Garcia RN - 09/21/2019 1:10 PM CDT Per O2, patient viewed results in Dr. Scribbleshart, testing noted to be completed for pre -procedure purposes. RN sent [employer] message notifying patient of the following: Informed patient of NEGATIVE COVID 19 testing. Patient was advised to contact p rocedure team and PCP should any symptoms develop prior to planned procedure. PETE Cannon, RN, CCRN, SCRN, CNRN * Malgorzata Schneider - 09/21/2019 1:10 PM CDT [facility] 1333. Patient iden tity confirmed via photo I.D. Nasopharyngeal procedure explained to the patient. Nasopharyngeal swab completed left Patient education provided given and instructed patient self isolate until conta cted w/ results and further instructions. Swab collected by Chio Luther RN. Date symptoms began/reason for testing: Pre-op 09/23/19 documented in this encounter Plan of Treatment Not on filedocumented as of this encounter Goals Goal Patient Associated Recent Progress Patient-Stat Aut hor Goal Type Problems ed? Increase Physical Activity Exercise Yes Idania Hernandez RN Note: "To be able to get better and be more active" documented as of this encounter Procedures Comments Procedure Name Priority Date/Time Associated Diag nosis COVID-19 (SARS-COV-2) PCR Routine 09/21/2019 Pheo chromocytoma, 1:27 PM CDT unspecified laterality ECG-SCAN 09/21/2019 12:00 AM CDT documented in this encounter Results * COVID-19 (SARS-COV-2) PCR (09/21/2019 1:27 PM [...] performance characteristics have been verified by the [facility] Laboratories. Fact sheet for providers: https://www.fda.gov/media/7257 56/download Fact sheet for patients: https://www.fda.gov/media/4431 57/download Specimen Nasopharyngeal Swab Performing Organization Address City/State/Zipcode Ph one Number REFERENCE LAB REFERENCE LAB See results for address. * ECG-SCAN (09/21/2019 12:00 AM CDT) Narrative Performed At This result has an attachment that is n ot available. Ordered by an unspecified provider. documented in this encounter Visit Diagnoses Diagnosis Preop testing Preoperative examination, unspecified Pheochromocytoma, unspecified lateralit y documented in this encounter
--- OUTSIDE RECORDS SUMMARY | 2019-11-23 03:33 | XMS REPORT | Encounter Summary ---
Author Author [facility] Organization [facility] Address Unknown Phone Unavailable Care Team Providers Care Blade Balancer Name Role Phone Dung Carmen MD 21 Dung Carmen MD PCP Encounter Details Care Team Description Date Type Department Andrew Ibarra MD [address] [place] [address] [phone] Pheochromocytoma, unspecified laterality (Primary Dx) 09/15/2019 Orders Only [facility] [address] [phone] Social History Date Tobacco Use Types Packs/Day [...] more active" documented as of this encounter Results * COVID-19 (SARS-COV-2) PCR [...] performance characteristics have been verified by the [facility] Laboratories. Fact sheet for providers: https://www.fda.gov/media/9467 56/download Fact sheet for patients: https://www.fda.gov/media/1230 57/download Specimen Nasopharyngeal Swab Performing Organization Address City/State/Zipcode Ph one Number REFERENCE LAB REFERENCE LAB See results for address. documented in this encounter Visit Diagnoses Diagnosis Pheochromocytoma, unspecified lateralit y documented in this encounter
--- OUTSIDE RECORDS SUMMARY | 2019-11-23 03:33 | XMS REPORT | Encounter Summary ---
Author Author [facility] Address Unknown Phone Unavailable Care Team Providers Care Lamp Shade Maker Name Role Phone Dung Carmen MD 21 Dung Carmen MD PCP Reason for Visit * Reason Comments Referral Pt returned call to discuss Endo referral Encounter Details Care Team Description Date Type Department Andrew Ibarra MD [address] [place] [address] [phone] Referral (Pt returned call to discuss En do referral) 08/18/[address] [phone] Social History Date Tobacco Use Types Packs/Day Years Used Quit: 06/07/2019 Former Smoker Cigarettes Smokeless Tobacco: Never Used Drinks/Week oz/Week Comments Alcohol Use 12 Cans of beer 12.0 Yes Sex Assigned at Date Recorded Female Industry Job Start Date Occupation Not on file Not on file Not on file Travel End Travel History Travel Start No recent travel history available. documented as of this encounter Functional Status [...] Telephone Encounter - Jill Kelly RN - 08/18/2019 12:34 PM CDT Aminta returned my phone call to discuss her lab results and the referral to Endo crinology. I told Aminta that based on her lab results it looks like she has a ph eochromocytoma. She will need to be seen by Endocrinology to be pre-medicated be fore surgery. I told her that Endocrinology will most likely try to set her up f or a TeleHealth visit due to COVID concerns at this time. She was ok with that p jef. I asked her if she has a smart device or a laptop and she said yes. I told her that she will need to set up MyChart and the Endo ceiling cleaner can help her wit h that. I told Aminta that I will place the referral today and she should be hear ing from them soon. It usually takes about 30 days to adequately pre-medicate be fore surgery so we should be good to go with our timing but if we need to make a ny adjustments we will take care of if needed. Aminta verbalized understanding an d had no further questions or concerns. documented in this encounter Plan of Treatment [...]
--- OUTSIDE RECORDS SUMMARY | 2019-11-23 03:33 | XMS REPORT | Encounter Summary ---
Author Author [facility] Organization [facility] Address Unknown Phone Unavailable Care Team Providers Care Contract Preparer Name Role Phone Dung Carmen MD 21 Dung Carmen MD PCP Reason for Visit * Reason Comments Other Pt completed lab tests Encounter Details Care Team Description Date Type Department Andrew Ibarra MD [address] [place] [address] [phone] Other (Pt completed lab tests) 08/06/[address] The [address] [phone] Social History Date Tobacco Use Types Packs/Day [...] Telephone Encounter - Jill Kelly RN - 08/06/2019 8:40 AM CDT Aminta left a voicemail requesting a return call regarding her lab order. She keira d that she was having a hard time opening the lab order that I sent via email si nce it was sent secure. I called Aminta back. She said that she was finally able to open it. She completed the first set of labs yesterday and the cortisol lab t his morning. She said that she completed the labs at [facility] in [place], [place]. I told her that I will keep an eye out for the faxed results. documented in this encounter Plan of Treatment [...]
--- OUTSIDE RECORDS SUMMARY | 2019-11-23 03:33 | XMS REPORT | Encounter Summary ---
Author Author [facility] Organization [facility] Address Unknown Phone Unavailable Care Team Providers Care Therapeutic Mentor Name Role Phone Dung Carmen MD 21 Dung Carmen MD PCP Reason for Visit * Reason Comments Results Lab results - Plasma free m etanephrines, renin, aldosterone Encounter Details Care Team Description Date Type Department Andrew Ibarra MD [address] [place] [address] Results (Lab results - Plasma free metan ephrines, renin, aldosterone) 08/13/[address] Tele[address] [phone] Social History Date Tobacco Use Types Packs/Day [...] Telephone Encounter - Jill Kelly RN - 08/13/2019 11:21 AM CDT I received Aminta's lab results (plasma free metanephrines, aldosterone, and ramon n) yesterday and sent them to Dr. Ibarra to review. He sent me a message this a fternoon stating that it looks like Aminta has a pheochromocytoma and she will ne ed to be pre-medicated before surgery. He would like her to be referred to Endoc rinology kendra. I called Aminta to discuss her lab results and Endo referral. She did not answer. I left a voicemail with a call back number. documented in [...]
--- OUTSIDE RECORDS SUMMARY | 2019-11-23 03:33 | XMS REPORT | Encounter Summary ---
Author Author [facility] Organization [facility] Address Unknown Phone Unavailable Care Team Providers Care Associate Professor Of Counseling Name Role Phone Dung Carmen MD 21 Dung Carmen MD PCP Reason for Visit * Auth/Cert Referred By Contact Referred To Contact Status Reason Specialty Diagnoses / Procedures Diagnoses Adrenal mass (HCC) Adrenal mass (HCC) [E27.8] P rocedures DE LAPAROSCOPY ADRENALECTOMY PRTL/COMPL TABDL LEFT LAPAROSCOPIC, POSSIBLE OPEN, ADRENALECTOMY Encounter Details Care Team Description Date Type Department Andrew Ibarra MD [address] [place] [address] Adrenal mass (HCC) (Primary Dx); Pre-operative cardiovascular examination 09/21/2019 Ancillary [facility] [address] [place] [address] Anesthesia Record Responsible Anesthesiologist Anesthesia Start Time [...] the receiving nurse. 1214 An Stop Meds * No agents on file. * No blood administrations on file. Removal Type Details Placement Wounds 09/23/19; 0954; Left; Abdomen; Surgical 09/23/19 0954 by (NOT for Incision (4 PORT SITES) Oli Maya RN Pressure Injuries) 09/24/19 0915 by Aminta Kelly RN Peripheral 09/23/19; 0749; RN; L; Anterior; 09/22 0749 by NavneetINGRID li Forearm; 20 G; 1; 09/24/19; 0915 Viand HEIDE nichols 09/23/19 1148 by Ema Ng, DESK REPORTER ETT 09/23/19; 0828; Mask ventilation not 0 [...] INGRID Ng G; 1; 09/24/19; 0915 Ema Fuentes, DESK REPORTER 09/23/19 1330 by Neeru Brunner RN Arterial [...] Signs Reading Time Taken Comments Vital Sign 129/76 09/21/2019 1:52 PM CDT Blood Pressure 105 09/21/2019 1:52 PM CDT Pulse 37 C (98.6 F) 09/21/2019 1:52 PM CDT Temperature - - Respiratory Rate 100% 09/21/2019 1:52 PM CDT Oxygen Saturation - - Inhaled Oxygen Concentration 59.4 kg (131 lb) 09/21/2019 1:52 PM CDT Weight 157.5 cm (5' 2") 09/21/2019 1:52 PM CDT Height 23.96 09/21/2019 1:52 PM CDT Body Mass Index documented in [...] impairment: No documented as of this encounter Patient Instructions * Pre-Anesthesia Patient Instructions* Gisselle Connors RN - 09/21/2019 2:00 PM CDT GENERAL INFORMATION Before you come to the hospital Make arrangements for a responsible adult to drive you home and stay with you for 24 hours following surgery. Bath/Shower Instructions Take a bath or shower using the special soap given to you in PAC. Use half th e bottle the night before, and the other half the morning of your procedure. Use clean towels with each bath or shower. Put on clean clothes after bath or shower. Avoid using lotion and oils. If you are having surgery above the waist, wear a shirt that fastens up the f ront. Sleep on clean sheets if bath or shower is done the night before procedure. Leave money, credit cards, jewelry, and any other valuables at home. The [facility] is not responsible for the loss or breakage of persona l items. Remove nail lithuanian, makeup and all jewelry (including piercings) before comin g to the hospital. The morning of your procedure: brush your teeth and tongue do not smoke do not shave the area where you will have surgery What to bring to the hospital ID/ Insurance Card Dispensary Technician card Official documents for legal guardianship Copy of your Living Will, Advanced Directives, and/or Durable Power of Attorn ey Small bag with a few personal belongings CPAP/BiPAP machine (including all supplies) Walker,cane, or motorized scooter Cases for glasses/hearing aids/contact lens (bring solutions for contacts) Dress in clean, loose, comfortable clothing Eating or drinking before surgery Do not eat or drink anything after 11:00 p.m. the day before your procedure ( including gum, mints, candy, or chewing tobacco) OR follow the specific instruct ions you were given by your Surgeon. You may have WATER ONLY up to 2 hours before arriving at the hospital. Other instructions Notify your surgeon if: there is a possibility that you are you become ill with a cough, fever, sore throat, nausea, vomiting or flu-like symptoms you have any open wounds/sores that are red, painful, draining, or are new si nce you last saw the doctor you need to cancel your procedure You will receive a call with your surgery arrival time from between 2:30pm an d 4:30pm the last business day before your procedure. If you do not receive a c all, please call [phone] before 4:30pm or [phone] after 4:30pm. Notify us at [facility]: if you need to cancel your procedure if you are going to be late Arrival at the hospital [facility] [address] [place] [address] ? Park in the parking garage located at [address] [facility] [place] [address]. ? Equipment Maintenance Supervisor parking is available in front of [facility] between the hours of 7:00 am and 4:00 pm Friday through Friday. ? If parking in the P5 garage, take the east elevators in the parking garage to the second level and walk to the entrance of the [facility]. ? Enter through the 1st floor main entrance and check in with Information Desk. ? If you are a woman between the ages of 10 and 55, and have not had a hysterect amanda, you will be asked for a urine sample prior to surgery. Please do not urina te before arriving in the Surgery Waiting Room. Once there, check in and let th e attendant know if you need to provide a sample. For the safety of all patients, visitors and staff as we work to contain COVID-1 9, we must dramatically restrict patient visitors. For most patients, no visitors are allowed. Exceptions include: ? 1 parent or guardian for patients younger than 18 ? 1 support person for labor and delivery patients ? 1 support person for patients with disabilities or impairments needing assista nce ? 1 support person or boat driver for patients undergoing outpatient treatment or pro cedures ? Support persons for patients nearing end of life * Pre-Anesthesia Medication Instructions* Allegra Leon, PHARMD - 09/21/2019 2:00 PM CDT YOUR MEDICATION LIST clonazePAM (KLONOPIN) 0.5 mg tablet Take 0.5 [...] 12.5 mg by mout h twice daily. phenoxybenzamine (DIBENZYLINE) 10 mg cap Take two capsules by mouth twice da sam. sodium chloride 1 gram tablet Take one tablet by mouth three times daily. YOUR MEDICATION INSTRUCTIONS FOR SURGERY Please continue taking your medicine as your doctor has told you to UNLESS it is listed to stop below. 14 DAYS BEFORE SURGERY Do not start any new vitamins, herbals, or natural supplements before surgery . 7 DAYS BEFORE SURGERY DO NOT TAKE the following anti-inflammatory medications such as ibuprofen (Advil , Motrin) and naproxen (Aleve) You may use acetaminophen (Tylenol) DAY BEFORE SURGERY TAKE your medications the day before surgery as usual unless told differently MORNING OF SURGERY DO NOT take these medications: Remaining vitamins/supplements Ointments/creams/lotions Docusate Lisinopril Metformin Sodium chloride TAKE these medications with a sip (1-2 ounces) of water: Metoprolol Phenoxybenzamine Clonazepam, if needed Use all inhalers, nasal sprays, and eye drops as usual Please contact the clinic pharmacist with any changes to your medication list or medication questions before surgery. ? E-mail: [email or web address] ? Before going home from the hospital, please ask your doctor when you should re-s tart any medicine that was stopped for surgery. documented in this encounter Plan of Treatment Order Schedule Name Type Priority Associated Diag noses ONE TIME for 1 Occurrences starting 09/2019 until 09/21/2019 ECG 12-LEAD ECG Routine Pre-operative cardiovascular examination documented as of this encounter Goals Goal Patient Associated Recent Progress Patient-Stat Aut hor Goal Type Problems ed? Increase Physical Activity Exercise Yes Idania Hernandez RN Note: "To be able to get better and be more active" documented as of this encounter Procedures Comments Procedure Name Priority Date/Time Associated Diag nosis HC BLOOD TYPING, ABO Routine 09/21/2019 Adrenal m ass (HCC) CONFIRM 91 3:21 PM CDT HC CBC,AUTOMATED Routine 09/21/2019 Adrenal mass (HCC) 3:15 PM CDT HC ABO GROUP Routine 09/21/2019 Adrenal mass (H CC) 3:15 PM CDT HC COMPREHENSIVE Routine 09/21/2019 Adrenal mass (HCC) METABOLIC PANEL 3:15 PM CDT documented in this encounter Results * BLOOD TYPE CONFIRMATION - ORDER ONLY IF REQUESTED BY LAB (09/21/2019 3:21 PM CDT) ABO/RH(D) O POS [facility] Specimen Blood Performing Organization Address [facility] one Number [facility] [address] [place] [address] * TYPE & CROSSMATCH (09/21/2019 3:15 PM CDT) Units Ordered 2 [facility] Crossmatch 09/24/2019,2359 [facility] Expires Record Check 2ND TYPE REQUIRED [facility] ABO/RH(D) O POS [facility] Antibody Screen NEG [facility] Electronic YES [facility] Crossmatch Unit Number [id number] MAIN LAB Blood Component RBC,ADSOL,LEUKO REDUCED [facility] Type Unit Division 0 [facility] Status OF Unit REL FROM ALLOC [facility] Transfusion OK TO TRANSFUSE [facility] Status Crossmatch COMPATIBLE,ELECTRONIC MAIN LAB Result Unit Number [id number] MAIN LAB Blood Component RBC,ADSOL,LEUKO REDUCED [facility] Type Unit Division 0 [facility] Status OF Unit REL FROM ALLOC [facility] Transfusion OK TO TRANSFUSE [facility] Status Crossmatch COMPATIBLE,ELECTRONIC MAIN LAB Result Specimen Blood Performing Organization Address [facility] one Number MAIN LAB [address] [place] [address] * COMPREHENSIVE METABOLIC PANEL (09/21/2019 3:15 PM [...] >60 >60 mL/min [facility] Comment: [place] The eGFR is not validated f or use in drug dosing adjustments. Continue to use estimated creatinine clearance per dosing reference text. Please contact the Clinical Pharmacist for questions. eGFR >60 >60 mL/min [facility] [place] Comment: The eGFR is not validated for use in drug dosing adjustments. Continue to use estimated creatinine clearance per dosing reference text. Please contact the Clinical Pharmacist for questions. Specimen Blood Performing Organization Address City/[facility] Ph one Number [facility] [address] [place] [address] * CBC (09/21/2019 3:15 PM CDT) White Blood 10.1 4.5 - 11.0 K/UL [facility] Cells RBC 3.49 (L) 4.0 - 5.0 M/UL [facility] Hemoglobin 10.9 (L) 12.0 - 15.0 GM/DL [facility] Hematocrit 32.5 (L) 36 - 45 % [facility] MCV 93.3 80 - 100 FL [facility] MCH 31.4 26 - 34 PG [facility] MCHC 33.7 32.0 - 36.0 G/DL [facility] RDW 14.4 11 - 15 % [facility] Platelet Count 429 (H) 150 - 400 K/UL [facility] MPV 7.3 7 - 11 FL [facility] Specimen Blood Performing Organization Address City/[facility] Ph one Number [facility] [address] [place] [address] documented in this encounter Visit Diagnoses Diagnosis Adrenal mass (HCC) Unspecified disorder of adrenal glands Pre-operative cardiovascular examinatio n documented in this encounter
--- OUTSIDE RECORDS SUMMARY | 2019-11-23 03:33 | XMS REPORT | Encounter Summary ---
Author Author [facility] Organization [facility] Address Unknown Phone Unavailable Care Team Providers Care Freight Rate Analyst Name Role Phone Dung Carmen MD 21 Dung Carmen MD PCP Reason for Visit * Reason Comments Covid-19 Encounter Details Care Team Description Date Type Department Madie Pearce RN Covid-19 09/20/[address] [facility] [address] [place] [phone] Social History Date Tobacco Use Types Packs/Day [...] encounter Miscellaneous Notes * Telephone Encounter - Madie Pearce RN - 09/20/2019 2:14 PM CDT Perioperative and Procedural COVID-19 Screening Form Have you been in contact with someone who was sick? ([facility]) Yes No / Unsure X Unable to assess Does the patient have any of the following symptoms? (Select all that apply) None of these X Cough Muscle Pain Shortness of breath Unable to assess Diarrhea Rash Vomiting Abdominal Pain Fever Greater than 100F or 37.8 C Red eye Weakness Bruising or bleeding Joint Pain Severe Headache Unable to assess Travel History: Has the patient travelled outside [place] and [place] in the past 14 days? <Yes or No> NO If so, where did they travel? <Location> If so, what dates did they travel? <Dates> For the safety of all patients, visitors [...] assista nce ? 1 support person or lifter driver for patients undergoing outpatient treatment or pro cedures ? Support persons for patients nearing end of life documented in this encounter Plan of Treatment [...]
--- OUTSIDE RECORDS SUMMARY | 2019-11-23 03:33 | XMS REPORT | Encounter Summary ---
Author Author [facility] Organization [facility] Address Unknown Phone Unavailable Care Team Providers Care Data Sciences Director Name Role Phone Dung Carmen MD 21 Dung Carmen MD PCP Reason for Visit * Reason Comments Medication Request Encounter Details Care Team Description Date Type Department Bacilio Tavarez DO [address] [place] [address] [phone] Medication Request 09/16/2019 Telephone The [facility] [address] [facility] [address] [place] [address] Social History Date Tobacco Use Types Packs/Day [...] Telephone Encounter - Em Torres RN - 09/16/2019 1:11 PM CDT Spoke with pt and she accepted offered appt for 11/18/19@10:30. Future Appointments Date Time Provider Department Center 09/21/2019 1:10 PM SPEC SCREENING NURSE [facility] 09/21/2019 2:00 PM ICC PAC ROOM 1 IC1PAC None 10/05/2019 1:40 PM Andrew Ibarra MD CCC2 [facility] Exam 12/08/2019 10:30 AM Dalia Jenkins PA-C [facility] IM 03/07/2020 1:00 PM IM [facility] Provided pt with address and parking garage info. * Telephone Encounter - Em Torres RN - 09/16/2019 12:39 PM CDT Called pt to offer 12/01/19 appt with Dalia; PAOLA. * Telephone Encounter - Bacilio Tavarez DO - 09/16/2019 12:14 PM CDT Thanks Em, A follow up with Dalia would be great! She should have 3 refills already according to my last order, but I have sent an other script in. [place]on * Telephone Encounter - Em Torres RN - 09/16/2019 11:52 AM CDT Pt LVM that she is almost out of medication and possibly needs refill; did not i dentify medication. Pt also wondering if she needs to arrange f/u with nurse practitioner/YANA. Spoke with pt and she is needing refill for 20mg BID phenoxybenzamine with [facility] pharmacy. Pt states the earliest appt she could be offered was in February and scheduled th at appt. Pt is wondering if she needs to see nurse practioner / PA-C for the 3 month f/u. Per review of schedule, Dalia has openings on 12/01/19. Please advise. Routing to Dr. Tavarez. documented in this encounter Plan of Treatment [...]
--- OUTSIDE RECORDS SUMMARY | 2019-11-23 03:33 | XMS REPORT | Encounter Summary ---
Author Author [facility] Organization [facility] Address Unknown Phone Unavailable Care Team Providers Care Home Supervisor Name Role Phone Dung Carmen MD 21 Dung Carmen MD PCP Reason for Visit * Reason Comments Results COVID test - negative Encounter Details Care Team Description Date Type Department Andrew Ibarra MD [address] [place] [address] [phone] Results (COVID test - negative) 09/22/[address] [address] Social History Date Tobacco Use Types Packs/Day [...] Telephone Encounter - Jill Kelly RN - 09/22/2019 2:05 PM CDT I called Aminta to let her know that her pre-surgical COVID test was negative so we are going to proceed with her surgery tomorrow. She verbalized understanding. documented in this encounter Plan of Treatment [...]
--- OUTSIDE RECORDS SUMMARY | 2019-11-23 03:33 | XMS REPORT | Encounter Summary ---
Author Author [facility] Organization [facility] Address Unknown Phone Unavailable Care Team Providers Care Top Cleaner Name Role Phone Dung Carmen MD 21 Dung Carmen MD PCP Reason for Referral * Consult, Test & Treat (Routine) Referred By Contact Referred To Contact Status Reason Specialty Diagnoses / Procedures Maria De Jesus Mckinney MD [address] [facility] [address] [place] [address] Cc - Ww Cl Exm/Proc [address] No Auth Needed Specialty Services Oncology Diagnoses Required Pheochromocytoma of left adrenal gland Reason for Visit * Reason Comments Other Pheochromocytoma * Consult, Test & Treat (Urgent) Referred By Contact Referred To Contact Status Reason Specialty Diagnoses / Procedures Andrew Stoner MD [address] [place] [address] Mpa5 Im Endo Cl [address] [place] [address] No Auth Needed Specialty Services Endocrinology, Diagnoses Required Diabetes & Adrenal mass (HCC) Metabolism / Pheochromocytoma, Endocrinology, unspecified Metabolism & laterality Genetics Encounter Details Care Team Description Date Type Department Andrew Stoner MD [address] [place] [address] [phone] Bacilio TavarezDO [address] [place] [address] [phone] Pheochromocytoma of left adrenal gland; Diastolic heart failure, unspecified HF chronicity (HCC); Essential hypertension; Type 2 diabetes mellitus with hyperglycemia, without long-term current use of insulin (HCC) 09/01/2019 Office Visit [facility] [address] [facility] [address] [place] [address] Social History Date Tobacco Use Types Packs/Day Years Used Quit: 06/07/2019 Former Smoker Cigarettes Smokeless Tobacco: Never Used Tobacco Cessation: Counseling [...] Signs Reading Time Taken Comments Vital Sign - - Blood Pressure - - Pulse - - Temperature - - Respiratory Rate - - Oxygen Saturation - - Inhaled Oxygen Concentration 52.2 kg (115 lb) 09/01/2019 10:17 AM CDT stated Weight 154.9 cm (5' 1") 09/01/2019 10:17 AM CDT stated Height 21.73 09/01/2019 10:17 AM CDT Body Mass Index documented in [...] as of this encounter Patient Instructions * Patient Instructions* Bacilio Tavarez DO - 09/01/2019 11:00 AM CDT Thank you for coming in today. It was a pleasure to see you! PLAN: Plan to follow with genetic counseling Start Phenoxybenzamine 10 mg twice daily Check Blood pressure 2 x daily, report testing on Mychart every 3rd day and we w ill titrate medication Goal blood pressure is systolic blood pressure < 120/80 while sitting and > 90 systolic blood pressure when standing. After day 3, we recommend starting a high sodium diet (5 Grams sodium daily) 1/2 gallon of water intake daily If you can come 15 minutes early to your next appointment it will help immensely in keeping the clinic on time for everyone. Em is my nurse - please call her directly if you have any questions or judith rns. Her phone number is: [phone] documented in this encounter Progress Notes * Bacilio Tavarez DO - 09/01/2019 11:00 AM CDT Date of Service: 09/01/2019 Obtained patient's verbal consent to treat them and their agreement to [facility] and NPP via this telehealth visit during the Coronavirus Public He [facility] Emergency Aminta Meraz is a 53 y.o. female with history of diabetes, HTN, left adrenal mass who presents to endocrinology for left adrenal mass. Assessment Pheochromoctyoma Incidentally identified 06/28/2019 CT chest/abdomen demonstrated an [...] (reference [id number]) Aldosterone 3 (less than 28) R Adrenal Adenoma 06/28/2019 CT chest/abdomen demonstrated an incidental 4.8 x 5.3 x 6.0 cm mass of left adrenal gland. Right adrenal gland contains 13 mm benign adenoma Biochemical work-up consistent with pheochromocytoma and likely from large left adrenal mass HTN Sporadic elevated BP On lisinopril, metoprolol 25 mg daily Congestive heart failure Dx 06/201606/27/2019 echocardiogram demonstrated ejection fraction of 60%, left ventricular hypertrophy, diastolic dysfunction and elevated PA pressures Diagnosed during sepsis 06/20 PNA Pheo possibly contributing On BB since that time Diabetes Dx: 06/2019 A1c 7.5 Diet and lifestyle changes Metformin 1000 mg BID Impression / Plan Patient is a large left adrenal adenoma with laboratory findings consistent with pheochromocytoma. The patient has plans for adrenalectomy and will need presur jeremy treatment with phenoxybenzamine Start phenoxybenzamine 10 mg BID Goal Systolic BP < 120/80 seated and > 90 while standing Continue Metformin 1000 mg BID Genetic counseling Salt load and fluid load 5000 daily Beta blockade on board prior to diagnosis of pheochromocytoma Discussed plan in detail with the patient and she will communicate her blood pre ssure levels every 3 days via my chart. Patient seen with Dr. Mckinney RTC 3 months Orders Placed This Encounter AMB REFERRAL TO GENETIC COUNSELING phenoxybenzamine (DIBENZYLINE) 10 mg cap sodium chloride 1 gram tablet Encounter Medications Medications phenoxybenzamine (DIBENZYLINE) 10 mg cap Sig: Take one capsule by mouth twice daily. Dispense: 60 capsule Refill: 1 Order Specific Question: Collaborating Physician Answer: MARIA DE JESUS MCKINNEY [[id number]] sodium chloride 1 gram tablet Sig: Take one tablet by mouth three times daily. Dispense: 90 tablet Refill: 1 Order Specific Question: Collaborating Physician Answer: MARIA DE JESUS MCKINNEY [[id number]] ATTESTATION I personally performed the coughlin portions of the E/M visit, discussed case with re sident and concur with resident documentation of history, physical exam, assessm ent, and treatment plan unless otherwise noted. Outside records reviewed and summarized. Personally reviewed MRI pelvis - large left adrenal mass. Time >60 minutes spent with patient on counseling and coordinating care. This time included discussion of medical issues, interpretation of data and educating patient on condition and treatment options (and potential risks and benefits). Of note, Ms. Meraz is on a beta-mitchel with functional pleochromocytoma; cri tical to get alpha-blockade initiated. This was discussed in detail with Ms. Kam. Staff name: Maria De Jesus Mckinney MD Date: 09/02/2019 Subjective: History of Present Illness Aminta Meraz is a 53 y.o. female Historical Information: Patient was recently admitted to the hospital in [facility] for pneumonia and as part of her work-up underwent CT of her chest on 06/28/2019 and was found to have an incidental 6 cm mass of left adrenal gland. Patient reports fairly constant tremors since March 2019, prior to that she h ad episodic tremors for 3-4 yrs. Episodes previously associated with tremors, sp ikes in blood pressure, hot flashes/diaphoresis Denies headache. On 08/05/2019 Plasma free metanephrines 3124 (reference less than 57) Plasma free normetanephrine's 1266 (reference range less than 148) Total free metanephrines 4390 (reference range less than 205) Plasma renin 6.95 (reference 0.255.82) Aldosterone 3 (less than 28) 06/27/2019 echocardiogram demonstrated ejection fraction of 60%, left ventricular hypertrophy, diastolic dysfunction and elevated PA pressures Patient was referred to Dr. Stoner for adrenalectomy and was seen on 08/03/2019, Plan for surgery with adrenalectomy 09/23/2019. I have reviewed outside records from [facility] and [employer]. Th ey have been summarized (notes, labs, imaging) where appropriate. 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 Medical History: Diagnosis Date defect Diabetes mellitus (HCC) Hearing reduced Infection Left adrenal mass (HCC) 08/09/2019 On supplemental oxygen therapy History reviewed. No pertinent surgical history. Family History Problem Relation Age of Onset Hypertension Mother Arthritis-osteo Mother Cancer-Lung Father Cancer-Lung Paternal Uncle Arthritis-osteo Maternal Grandmother Cancer-Lung Maternal Grandfather Social History Socioeconomic History Marital status: Spouse name: Not on file Number of children: Not on file Years of education: Not on file Highest education level: Not on file Occupational History Not on file Tobacco Use Smoking status: Former Smoker Types: Cigarettes Last attempt to quit: 06/07/2019 Years since quittin.2 Smokeless tobacco: Never Used Substance and Sexual Activity Alcohol use: Yes Alcohol/week: 12.0 standard drinks Types: 12 Cans of beer per week Drug use: Never Sexual activity: Not on file Other Topics Concern Not on file Social History Narrative Not on file Review of Systems 10 point review of systems positive for: Tremors, hypertension, All other system reviewed and are negative Objective: ascorbic acid (vitamin C) (VITAMIN-C) 250 mg tablet Take 250 mg by mouth bruno ly. clonazePAM (KLONOPIN) 0.5 mg tablet as Needed. docusate (COLACE) 100 mg capsule Take 100 mg by mouth daily. ferrous sulfate (FEOSOL) 325 mg (65 mg iron) tablet Take 325 mg by mouth bruno ly. Take on an empty stomach at least 1 hour before or 2 hours after food. Garlic 500 mg cap Take by mouth. lisinopriL (ZESTRIL) 40 mg tablet metFORMIN-XR (GLUCOPHAGE XR) 500 mg extended release tablet Take 1,000 mg by mouth daily with dinner. metoprolol XL (TOPROL XL) 25 mg extended release tablet Take 25 mg by mouth daily. phenoxybenzamine (DIBENZYLINE) 10 mg cap Take one capsule by mouth twice bruno ly. sodium chloride 1 gram tablet Take one tablet by mouth three times daily. VITAMIN B COMPLEX PO Take 1 capsule by mouth daily. Vitals: 09/01/19 1017 Weight: 52.2 kg (115 lb) Height: 154.9 cm (61") PainSc: Zero Body mass index is 21.73 kg/m. Physical Exam Constitutional: Appearance: She is well-developed. HENT: Head: Normocephalic and atraumatic. Eyes: Extraocular Movements: Extraocular movements intact. Neck: Musculoskeletal: Normal range of motion. Pulmonary: Effort: Pulmonary effort is normal. Musculoskeletal: Normal range of motion. Skin: Findings: No rash. Neurological: Mental Status: She is alert and oriented to person, place, and time. Psychiatric: Mood and Affect: Mood normal. Behavior: Behavior normal. Labs and Imaging: Comprehensive Metabolic Profile No results found for: NAPOC, KPOC, CO2POC, BUNPOC, CR, GLUPOC Complete Blood Count with Differential Annual Diabetes Labs Serum and POC Hgb A1c Lipids No results found for: HGBA1C, A1C No results found for: CHOL, TRIG, HDL, LDL, V LDL, NONHDLCHOL, CHOLHDLC Microalbumin TSH and Celiac No results found for: MCALBR, URMALBCRRAT No results found for: TSH, THYROGLB, T HYROGLBAB, MICROSOMAB, TTIGA, TISSUETRANS, VITD25 Basic Thyroid Studies / Growth hormone No results found for: TSH, CWCEH0K, FREET4, T3, FREET3, REVERSET3, THYROGLB, THY ROGLBAB, THYBINDGLB, MICROSOMAB, TSI, TSHRECAB Basic Adrenal/Gonadotrope/Growth hormone Studies No results found for: FSH, LH, TESTOSTER, FRTESTO, TESTOSBIO, SEXHBIND, PROLACTI N, AST, ALT, PSA, PROLACTIN, CORTISOL, 17ALPHHYD, DEHYDROEP, DEOXYCORT, PROGESTE R, ESTRADIOL, BHCG, ALDOSTIMD, ALDOSSUPINE, ALDOSUP, RENIN Basic Bone / Calcium / Growth hormone Studies No results found for: VITD25, QLJQ919, KGVQRAGR1890, PTH, CROSSLINKS, SERXLINKS, NTX, NTXTELOPEPU, OSTEOCALCIN, HGH, IGF1 documented in this encounter Plan of Treatment [...] as of this encounter Visit Diagnoses Diagnosis Pheochromocytoma of left adrenal gland Diastolic heart failure, unspecified HF chronicity (HCC) Essential hypertension Unspecified essential hypertension Type 2 diabetes mellitus with hyperglyc emia, without long-term current use of insulin (HCC) documented in this encounter
--- OUTSIDE RECORDS SUMMARY | 2019-11-23 03:33 | XMS REPORT | Encounter Summary ---
Author Author [facility] Organization [facility] Address Unknown Phone Unavailable Care Team Providers Care Food Service Manager Name Role Phone Dung Carmen MD 21 Dung Carmen MD PCP Reason for Visit * Reason Comments Other Additional lab to complete for Dr. Ibarra Encounter Details Care Team Description Date Type Department Andrew Ibarra MD [address] [place] [address] [phone] Other (Additional lab to complete for Dr Sal Ibarra) 08/04/[address] [address] Social History Date Tobacco Use Types Packs/Day [...] Telephone Encounter - Jill Kelly RN - 08/04/2019 11:[address] Ibarra saw Aminta in clinic yesterday. He wanted her to complete some labs. Since she lives out of town and the labs need to be drawn between 8-10 in the mo rning we sent her home with the lab orders. After she left Dr. Ibarra added on an additional lab for her to complete. I called Aminta to let her know that I lidia l email her the lab order for her to print and take to the lab of her choice. Yevgeniy mcmanus did not answer. I left a voicemail [...]
--- OUTSIDE RECORDS SUMMARY | 2019-11-23 03:33 | XMS REPORT | Encounter Summary ---
Author Author [facility] Organization [facility] Address Unknown Phone Unavailable Care Team Providers Care Lap Runner Name Role Phone Dung Carmen MD 21 Dung Carmen MD PCP Reason for Visit * Reason Comments Results Discuss lab results - charity cates pheochromocytoma Referral Discuss referral to Endocri nology for pre-medication for surgery Encounter Details Care Team Description Date Type Department Andrew Ibarra MD [address] [place] [address] [phone] Results (Discuss lab results - indicate s pheochromocytoma); Referral (Discuss referral to Endocrinology for pre-medication for surgery) 08/16/[address] [address] Social History Date Tobacco Use Types Packs/Day [...] Telephone Encounter - Jill Kelly RN - 08/16/2019 9:45 AM CDT I called Aminta to discuss her lab results from last week. It seems that her adre nal mass is a pheochromocytoma. She will need to be seen by Endocrinology to sta rt her pre-medication for surgery. Aminta did not answer the phone. I left a deta iled message with my call back number. documented in this encounter [...]
--- OUTSIDE RECORDS SUMMARY | 2019-11-23 03:33 | XMS REPORT | Encounter Summary ---
Author Author [facility] Organization [facility] Address Unknown Phone Unavailable Care Team Providers Care Clam Dredger Name Role Phone Dung Carmen MD 21 Dung Carmen MD PCP Reason for Visit * Reason Comments Other Call to discuss additional lab order from Dr. Ibarra Encounter Details Care Team Description Date Type Department Andrew Ibarra MD [address] [place], [place] [id number] Other (Call to discuss additional lab or chi from Dr. Ibarra) 08/05/2019 Telephone The [address] [address] Social History Date Tobacco Use Types Packs/Day [...] encounter Miscellaneous Notes * Telephone Encounter - Jlil Kelly RN - 08/05/2019 11:11 AM CDT I called Aminta yesterday to let her know that Dr. Ibarra wanted to have her com plete another lab that is also time sensitive (complete in morning between 8-10) . Aminta did not call me back yesterday or confirm via email that she received th e lab order. I called her back again today and left another message. documented in this encounter Plan of Treatment Not on filedocumented as of this encounter Goals Goal Patient Associated Recent Progress Patient-Stat Aut hor Goal Type Problems ed? Increase Physical Activity Exercise Yes Fos Idania zendejas, RN Note: "To be able to get better and be more active" documented as of this encounter Visit Diagnoses Not on filedocumented in this encounter
--- OUTSIDE RECORDS SUMMARY | 2019-11-23 03:33 | XMS REPORT | Encounter Summary ---
Author Author [facility] Organization [facility] Address Unknown Phone Unavailable Care Team Providers Care Forest Worker Name Role Phone Dung Carmen MD 21 Dung Carmen MD PCP Reason for Visit * Reason Comments Surgery Check on pre-med/ inform pt that case moved to 1st start Encounter Details Care Team Description Date Type Department Andrew Ibarra MD [address] [place], [place] [phone] Surgery (Check on pre-med/ inform pt tonja t case moved to start) 09/07/2019 Telephone [address] [address] Social History Date Tobacco Use Types Packs/Day [...] Telephone Encounter - Jill Kelly RN - 09/07/2019 11:16 AM CDT I called Aminta to see how she has been doing with the dibenzyline that Dr. Mckinney ( Endo) ordered. Aminta said that things are going well and her BP has been running 110/90. I let Aminta know that I think that her surgery is set to go on 09/[address] Ibarra. I also let her know that we had to cancel our non-urgent cases that week so she will be a first start. They will probably want her to check in kameron und 6 am. Aminta said that she will come in town the day before surgery since she lives out of town. documented in this encounter Plan of Treatment [...]
--- OUTSIDE RECORDS SUMMARY | 2019-11-23 03:33 | XMS REPORT | Encounter Summary ---
Author Author [facility] Organization [facility] Address Unknown Phone Unavailable Care Team Providers Care Real Estate Sales Manager Name Role Phone Dung Carmen MD 21 Dung Carmen MD PCP Reason for Visit * Reason Comments Referral Check in with Endo danna paez urgent referral Encounter Details Care Team Description Date Type Department Andrew Ibarra MD [address] [place] [address] [phone] Referral (Check in with Endo regarding u rgent referral) 08/25/2019 Tele[address] [address] Social History Date Tobacco Use Types Packs/Day [...] Miscellaneous Notes * Telephone Encounter - Jill Kelly, HEIDE - 08/25/2019 11:19 AM CDT I called the Endocrinology office to check on the urgent referral that we placed on 08/17 for Aminta. She has a pheochromocytoma and is needing to establish care w ith an Continuous Pickling Line Pickler Helper to start her pre-medication for surgery in September. I called Endo last week to check on the referral and I was told that it would take 3-5 bu siness days before they would reach out and I should not give the pt the number for Endo so she could schedule. I was forwarded to the Endo admin office and I l eft a voicemail for Christelle. I explained that this is an urgent/ time sensitive referral and this pt needs to be scheduled today. I provided my call back number . documented in this encounter Plan of [...]
--- OUTSIDE RECORDS SUMMARY | 2019-11-23 03:33 | XMS REPORT | Encounter Summary ---
Author Author [facility] Organization [facility] Address Unknown Phone Unavailable Care Team Providers Care Non Emergency Services Ambulance Driver Name Role Phone Dung Carmen MD 21 Dung Carmen MD PCP Reason for Referral * Consult, Test & Treat (Urgent) Referred By Contact Referred To Contact Status Reason Specialty Diagnoses / [place] [address] [place] [id number] Mpa5 Im Endo Cl [address] [place] [address] No Auth Needed Specialty Services Endocrinology, Diagnoses Required Diabetes & Adrenal mass (HCC) Metabolism / Pheochromocytoma, Endocrinology, unspecified Metabolism & laterality Genetics Encounter Details Care Team Description [place] [address] [place] [address] [phone] Adrenal mass (HCC) (Primary Dx); Pheochromocytoma, unspecified laterality 08/18/2019 Orders Only The [address] [phone] Social History Date Tobacco Use Types Packs/Day [...] as of this encounter Plan of Treatment Order Schedule Name Type Priority Associated Diag noses Ordered: 08/18/2019 AMB REFERRAL TO Outpatient STAT Adrenal mass ( HCC) ENDOCRINOLOGY Referral Pheochromocytoma, unspecified laterality documented as of this encounter Goals Goal Patient Associated Recent Progress Patient-Stat Aut hor Goal Type Problems ed? Increase Physical Activity Exercise Yes Idania Hernandez RN Note: "To be able to get better and be more active" documented as of this encounter Visit Diagnoses Diagnosis Adrenal mass (HCC) Unspecified disorder of adrenal glands Pheochromocytoma, unspecified lateralit y documented in this encounter
--- OUTSIDE RECORDS SUMMARY | 2019-11-23 03:33 | XMS REPORT | Encounter Summary ---
Author Author [facility] Organization [facility] Address Unknown Phone Unavailable Care Team Providers Care Dust Box Worker Name Role Phone Dung Carmen MD 21 Dung Carmen MD PCP Encounter Details Care Team Description Date Type Department 09/21/2019 Travel Social History Date Tobacco Use Types [...]
--- OUTSIDE RECORDS SUMMARY | 2019-11-23 03:34 | XMS REPORT | Encounter Summary ---
Author Author [facility] Organization [facility] Address Unknown Phone Unavailable Care Team Providers Care Vice President Education Name Role Phone Dung Carmen MD 21 Dung Carmen MD PCP Encounter Details Care Team Description Date Type Department Andrew Ibarra MD [address] [place], [place] [phone] Adrenal mass (HCC) (Primary Dx) 08/03/2019 Prep for Case The [address] [phone] Social History Date Tobacco Use Types Packs/Day [...]
--- OUTSIDE RECORDS SUMMARY | 2019-11-23 03:34 | XMS REPORT | Encounter Summary ---
Author Author [facility] Organization [facility] Address Unknown Phone Unavailable Care Team Providers Care Floral Assistant Name Role Phone Dung Carmen MD 21 Dung Carmen MD PCP Encounter Details Care Team Description Date Type Department 07/09/2019 [facility] [address] [place] [phone] Social History Date Tobacco Use Types Packs/Day Years Used Never Assessed Sex Assigned at Date Recorded Female Industry Job Start Date Occupation Not on file Not on file Not on file Travel End Travel History Travel Start No recent travel history available. documented as of this encounter Medications at Time of Discharge Start Date End Date Medication Sig Dispensed Refills 06/30/2019 metFORMIN-XR (GLUCOPHAGE Take 1,000 mg 0 XR) 500 mg extended by mouth release tablet daily with dinner. documented as of this encounter Plan of Treatment Not on filedocumented as of this encounter Goals Goal Patient Associated Recent Progress Patient-Stat Aut hor Goal Type Problems ed? Increase Physical Activity Exercise Yes Idania Hernandez RN Note: "To be able to get better and be more active" documented as of this encounter Procedures Comments Procedure Name Priority Date/Time Associated Diag nosis CT CHEST EXTERNAL IMAGING Routine 07/09/2019 12:00 AM BRANCH OPERATIONS COORDINATOR documented in this encounter Results * CT CHEST EXTERNAL IMAGING (07/09/2019 12:00 AM BRANCH OPERATIONS COORDINATOR) Specimen Narrative Performed At This order has been auto finalized and does not contain a result. documented in this encounter Visit Diagnoses Not on filedocumented in this encounter
--- OUTSIDE RECORDS SUMMARY | 2019-11-23 03:34 | XMS REPORT | Encounter Summary ---
Author Author [facility] Organization [facility] Address Unknown Phone Unavailable Care Team Providers Care Kerrick Kleaner Operator Name Role Phone PCP Unavailable Encounter Details Care Team Description Date Type Department 06/18/2019 [facility] [address] [address] Social History Date Tobacco Use Types Packs/Day Years Used Never Assessed Sex Assigned at Date Recorded Female Industry Job Start Date Occupation Not on file Not on file Not on file Travel End Travel History Travel Start No recent travel history available. documented as of this encounter Plan of [...] Diag nosis CT CHEST EXTERNAL IMAGING Routine 06/18/2019 12:00 AM TRANSPORTATION EQUIPMENT PAINTER documented in this encounter Results * CT CHEST EXTERNAL IMAGING (06/18/2019 12:00 AM TRANSPORTATION EQUIPMENT PAINTER) Specimen Narrative Performed At This order has been auto finalized and does not contain a result. documented in this encounter Visit Diagnoses Not on filedocumented in this encounter
--- OUTSIDE RECORDS SUMMARY | 2019-11-23 03:34 | XMS REPORT | Encounter Summary ---
Author Author [facility] Organization [facility] Address Unknown Phone Unavailable Care Team Providers Care Bus Assistant Name Role Phone Dung Carmen MD 21 Dung Carmen MD PCP Reason for Referral * Radiology Services (Routine) Referred By Contact Referred To Contact Status Reason Specialty Diagnoses / Procedures Ginger Castaneda PA-C [address] [place] [address] [facility] [address] [address] No Auth Needed Radiology Diagnoses Abdominal mass, unspecified abdominal location Abnormal CT scan P rocedures CT ABD/PELV W CONTRAST Reason for Visit * Reason Comments Navigation Assessment Encounter Details Care Team Description Date Type Department Ginger Castaneda PA-C [address] [place], [place] [id number] Navigation Assessment 06/23/[address] [id number] Social History Date Tobacco Use Types Packs/Day Years Used Never Assessed Sex Assigned at Date Recorded Female Industry Job Start Date Occupation Not on file Not on file Not on file Travel End Travel History Travel Start No recent travel history available. 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 An adrenal adenoma was also noted. Patient referred for surgical evaluation and/or additional work up. Referral reviewed by Dr. Lazcano and Ginger Castaneda PA-C who will be seeing the patient. Unable to scheduled PAT appointment, please call [phone] (PAT nursing) after cons ult and a case has been placed in the EMR to schedule. Physician Info: Referring Physician: Dr. Dung Carmen, [facility] Contact Name & Number: [phone], fax: [phone] PCP: Dr. Dung Carmen, [facility] Location of Films: PACS Location of Pathology: None collected at this time. History of Present Illness: The patient is a 53 yo female. 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 She was then sent to [facility] to be admitted for further treatment. CT scan completed on her day of discharge no elizabeth and mass posterior to the pancreas and an adrenal adenoma. The patient was discharged from [facility] on O2, at the time of ramiro gation the patient was on 2L. The patient was had a follow up CXR per her PCP at [facility] in [place]. The patient has not had any prior endoscopies. Past surgical history includes c- sections, foot surgery for a bone spur, and an abnormal nevus was removed from her chest. The patient has no hx of heart disease, diabetes, or prior history of lung disea se. At the time of assessment the patient reports ABD tenderness when palpated. She reports a recent decrease in appetite and some weight loss since her hospitaliza tion, approximately 10-12lbs, however she denies nausea, vomiting, changes in he r urine or stool. Timeline/Records: 06/16/19 - Admitted to [facility] 06/16/19 - CXR 06/17/19 - CXR 06/18/19 - CT Chest - Extenseive areas of pneumonias in both upper lung field regions, right worse tonja n left. Enlargement of the right adrenal gland and the right adrenal gland is low densit y suggesting an adrenal adenoma. There is a 4.7cm in diameter mass posterior to the tail of the pancreas and post erior to the stomach. Mass probably represents severe lymphadenopathy although o ther etiologies are in the differential diagnosis. The mass is solid density and has irregular enhancement. See full report. 06/18/19 - Discharged from [facility]. Discharge diagnosis: sepsis wi th status asthmaticus with pneumonia, right upper lobe. 06/25/19 - Follow up CXR 07/02/19 - CT A/P with IV and oral contrast for be completed prior to consult wi th Ginger Castaneda PA-C NEEDS Assessment: Genetic Counseling: Genetic Assessment: No identified risk factors;Other (Comment)(Maternal grandfat her hx of bladder cancer. ) Nutrition: Current Weight (in pounds): 105 Recent Weight Loss Without Trying?: Yes, 2-13 lb. Eating Poorly Due to Decreased Appetite?: Yes Score: Malnutrition Screening Tool (MST): 2 Nutrition Intervention: Provided information about available services Social & Financial: Social and Financial Assessment: No needs identified Tobacco assessment last 30 days: Not assessed at this time Spiritual & Emotional: Spiritual and Emotional Assessment: Reports feeling and/or sounds anxious, worri ed or irritable Spiritual and Emotional Intervention: Emotional Support provided Physical: Fall Risk: None identified Physical needs: Oxygen O2 Liter Flow: 2 Lpm Communication: Communication Barrier: No Onc Fertility: Onc Fertility Assessment: Not applicable Additional Education: Additional Education Documented: Yes Patient Education Education provided to: patient Are learners ready to learn?: Yes Are there barriers to learning?: No Topics Discussed Topics discussed: orientation to Cancer Center;diagnostic tests Ph # given to patient for follow up: Yes Education Details Educated by: telephone Ed time: 10 min Learner's response: The patient expressed understanding of what was explained to them, participated and agreed with the present plan.;The patient has received c ontact information and was instructed on how to contact us if questions or judith rns arise Materials given to patient: Other (see comments)(Uhlig guide) 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 Increase Physical Activity Exercise Yes Idania Hernandez, RN Note: "To be able to get better and be more active" documented as of this encounter Visit Diagnoses Diagnosis Abdominal mass, unspecified abdominal l ocation Abnormal CT scan Other nonspecific (abnormal) findings o n radiological and other examinations of body structure documented in this encounter
--- OUTSIDE RECORDS SUMMARY | 2019-11-23 03:34 | XMS REPORT | Encounter Summary ---
Author Author [facility] Organization [facility] Address Unknown Phone Unavailable Care Team Providers Care Arts Administrator Or Manager Name Role Phone Dung Carmen MD 21 Dung Carmen MD PCP Encounter Details Care Team Description Date Type Department 08/03/2019 Travel Social History Date Tobacco Use Types [...]
--- OUTSIDE RECORDS SUMMARY | 2019-11-23 03:34 | XMS REPORT | Encounter Summary ---
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 documented in this encounter Visit Diagnoses Not on filedocumented in this encounter
--- OUTSIDE RECORDS SUMMARY | 2019-11-23 03:34 | XMS REPORT | Continuity of Care Document ---
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 Name Role Phone [facility] Unavailable Unavailable Problems Problem Status Onset Date Classification Date Reported Comments Source Diastolic heart failure Active 09/01/2019 11/23/2019 [facility], Essential hypertension Active 09/01/2019 11/23/2019 [facility], Type 2 diabetes mellitus, without long-t erm current use of insulin Active 09/01/2019 11/23/2019 [facility], Pheochromocytoma, unspecified laterality Active Diagnosis 11/23/2019 [facility], Adrenal mass (HCC) Active Diagnosis 11/23/2019 [facility], Left adrenal mass (HCC) Active Diagnosis 11/23/2019 [facility], Pheochromocytoma Active Diagnosis 11/23/2019 [facility], Essential hypertension Active Diagnosis 11/23/2019 [facility], Diastolic heart failure (HCC) Active Diagnosis 0 11/23/2019 [facility], Type 2 diabetes mellitus, without long-t erm current use of insulin (HCC) Active Diagnosis 11/23/2019 [facility] , Pre-operative cardiovascular examination Active Diagnosis 11/23/2019 [facility], Preop testing Active Diagnosis 11/23/2019 [facility], Pheochromocytoma of left adrenal gland Active Diagnosis 11/23/2019 [facility], Diastolic heart failure, unspecified HF chronicity (HCC) Active Diag nosis 11/23/2019 [facility], Type 2 diabetes mellitus with hyperglyce benedicto, without long-term current use of insulin (HCC) Active Diagnosis 11/23/2019 [facility], Abdominal mass, unspecified abdominal location Active Diagnosis 11/23/2019 [facility], Abnormal CT scan Active Diagnosis 11/23/2019 [facility], Medications Medication Details Route Status Patient Instructions Ordering Provider Order Date Source docusate (COLACE) 100 mg capsule Take 100 mg by mouth daily. Active [facility] , lisinopriL (ZESTRIL) 40 mg tablet Take 40 mg by mouth daily. Active [facility] , metFORMIN-XR (GLUCOPHAGE XR) 500 mg exte nded release tablet Take 1,000 mg by mouth daily with dinner. Active [facility], clonazePAM (KLONOPIN) 0.5 mg tablet Take 0.5 mg by mouth daily as needed. Active [facility] , sodium chloride 1 gram tablet Take one tablet by mouth three times daily. Active [facility] , metoprolol tartrate (LOPRESSOR) 25 mg tablet Take one- half tablet by mouth twice daily. Active [facility], melatonin 10 mg tab Take 1 tab let by mouth at bedtime daily. Active [facility] , metoprolol XL (TOPROL XL) 25 mg extended release table t Take 12.5 mg by mouth twice daily. Active [facility], oxyCODONE (ROXICODONE) 5 mg tablet Take one tablet to three tablets by mouth every 4 hours as needed Active [facility], Allergies, Adverse Reactions, Alerts Substance Category Reaction Severity Reaction type Status Date Reported Comments Source PENICILLINS HIVES Drug Intolerance Active 06/26/2019 [facility] [place], TUNA OIL [facility] OMACH UPSET Drug Intolerance Active 06/26/2019 [facility] [place], Immunizations Immunization Date Given Site Status Last Updated Comments Source Evaluated Forecast 11/23/2019 completed table.evaluated-forecast { border-collapse: collapse; font-family: Samak, Helvetica, sans-serif; } .evaluated-forecast th, .evaluated-forecast td { paddinpx 8px; } .evaluated-forecast thead th { background: #[id number]; text-transform: lowercase; text-align: left; font-size: 15px; color: #fff; } .evaluated-forecast tr { border: 1px solid #[id number]; } .evaluated- forecast tbody tr { border-bottom: 1px solid #[id number]; } .evaluated- forecast tbody tr:nth-child(odd) { background: #[id number]; } .e valuated-forecast tbody th, .evaluated-forecast tbody tr td { border- right: 1px solid #[id number]; } .evaluated-forecast tfoot th { background: #[id number]; text-align: left; font-weight: normal; font-size: 10px; color: #fff; } .evaluated-forecast tr *:nth- child(3), .evaluated-forecast tr *:nth-child(4) { text-align: right; } MMR 11/09/1964 TOBY (Varivax) 11/09/1964 Tdap 11/09/1970 Zoster Subunit (Shingrix) 11/09/2013 Influenza IIV4 MDV 11/17/2019 PPSV23 (Pneumovax 23) 11/09/2028 Polio, UF [id number]^Too Old^LN Hib, UF VZ78505-0^Too Old^LN Hep B, UF EW71578-0^Too Old^LN Hep A, UF UQ06455-0^Too Old^LN Rotavirus, UF IC92846-1^Too Old^LN Meningococcal, UF ZI68782-0^Too Old^LN HPV, UF JV99732-8^Too Old^LN [id number], Influenza IIV3 MDV 03/26/2012 Not Given [id number], Results Order Name Results Value Reference Range Date Interpretation Comments Source POC GLUCOSE Glucose, POC 86 70 - 100 09/24/2019 [facility], BASIC METABOLIC PANEL Sodium 134 137 - 147 09/24/2019 [facility], BASIC METABOLIC PANEL Potassium 3.9 3.5 - 5.1 09/24/2019 [facility], BASIC METABOLIC PANEL Chloride 103 98 - 110 09/24/2019 [facility], BASIC METABOLIC PANEL CO2 25 21 - 30 09/24/2019 [facility], BASIC METABOLIC PANEL Anion Gap 6 3 - 12 09/24/2019 [facility], BASIC METABOLIC PANEL Glucose 92 70 - 100 09/24/2019 [facility], BASIC METABOLIC PANEL Blood Urea Nit christine 13 7 - 25 09/24/2019 [facility], BASIC METABOLIC PANEL Creatinine 0.70 0.4 - 1.00 09/24/2019 [facility], BASIC METABOLIC PANEL Calcium 8.5 8.5 - 10.6 09/24/2019 [facility], BASIC METABOLIC PANEL eGFR Non Afric an Algerian 60 60 mL/min 09/24/2019 The eGFR is not validated fo r use in drug dosing adjustments. Continue to use estimated creatinine clearance per dosing reference text. Please contact the Clinical Pharmacist for questions. [facility] , BASIC METABOLIC PANEL eGFR A merican 60 60 mL/min 09/24/2019 The eGFR is not validated fo r use in drug dosing adjustments. Continue to use estimated creatinine clearance per dosing reference text. Please contact the Clinical Pharmacist for questions. [facility] , BASIC METABOLIC PANEL Lab Interpreta tion Abnormal 09/24/2019 [facility], MAGNESIUM Magnesium 1.9 mg/dL 1.6 - 2.6 09/24/2019 [facility], PHOSPHORUS Phosphorus 3.0 2.0 - 4.5 09/24/2019 [facility], POC GLUCOSE Glucose, POC 168 70 - 100 09/24/2019 [facility], POC GLUCOSE Lab Interpretation Abno rmal 09/24/2019 [facility], POC GLUCOSE Glucose, POC 174 70 - 100 09/23/2019 [facility], POC GLUCOSE Lab Interpretation Abno rmal 09/23/2019 [facility], TYPE & CROSSMATCH Units Ordered 2 09/23/2019 [facility], TYPE & CROSSMATCH Crossmatch Expires 09/24/2019,2359 09/23/[address] [facility], TYPE & CROSSMATCH ABO/RH(D) O POS 09/23/2019 [facility], TYPE & CROSSMATCH Antibody Screen NEG 09/23/2019 [facility], TYPE & CROSSMATCH Unit Number [id number] 09/23/2019 [facility], TYPE & CROSSMATCH Blood Component Ty pe RBC,ADSOL,LEUKO REDUCED 09/23/2019 [facility], TYPE & CROSSMATCH Unit Division 0 09/23/2019 [facility], TYPE & CROSSMATCH Transfusion Status OK TO TRANSFUSE 09/23/2019 [facility], TYPE & CROSSMATCH Crossmatch Result COMPATIBLE,ELECTRONIC 09/23/2019 [facility] , POC GLUCOSE Glucose, POC 177 70 - 100 09/23/2019 [facility], POC GLUCOSE Lab Interpretation Abno rmal 09/23/2019 [facility], POC GLUCOSE Glucose, POC 107 70 - 100 09/23/2019 [facility], POC GLUCOSE Lab Interpretation Abno rmal 09/23/2019 [facility], COMPREHENSIVE METABOLIC PANEL Sodium 135 137 - 147 09/21/2019 [facility], COMPREHENSIVE METABOLIC PANEL Potass ium 4.7 3.5 - 5.1 09/21/[address] [facility], COMPREHENSIVE METABOLIC PANEL Chlori de 103 98 - 110 09/21/2019 [facility], COMPREHENSIVE METABOLIC PANEL Glucos e 94 70 - 100 09/21/2019 [facility], COMPREHENSIVE METABOLIC PANEL Blood Urea Nitrogen 16 7 - 25 09/21/[address] [facility], COMPREHENSIVE METABOLIC PANEL Creati nine 0.80 0.4 - 1.00 09/21/[address] [facility], COMPREHENSIVE METABOLIC PANEL Calciu m 9.7 8.5 - 10.6 09/21/[address] [facility], COMPREHENSIVE METABOLIC PANEL Total Protein 7.2 6.0 - 8.0 09/21/2019 [facility], COMPREHENSIVE METABOLIC PANEL Total Bilirubin 0.3 0.3 - 1.2 09/21/2019 [facility], COMPREHENSIVE METABOLIC PANEL Albumi n 4.3 3.5 - 5.0 09/21/2019 [facility], COMPREHENSIVE METABOLIC PANEL Alk Ph osphatase 118 U/L 25 - 110 09/21/2019 [facility], COMPREHENSIVE METABOLIC PANEL AST (S GOT) 20 U/L 7 - 40 09/21/2019 [facility], COMPREHENSIVE METABOLIC PANEL CO2 23 21 - 30 09/21/2019 [facility], COMPREHENSIVE METABOLIC PANEL ALT (S GPT) 19 U/L 7 - 56 09/21/2019 [facility], COMPREHENSIVE METABOLIC PANEL Anion Gap 9 3 - 12 09/21/2019 [facility], COMPREHENSIVE METABOLIC PANEL eGFR N on 60 60 mL/min 09/21/2019 The eGFR is not validated fo r use in drug dosing adjustments. Continue to use estimated creatinine clearance per dosing reference text. Please contact the Clinical Pharmacist for questions. [facility] , COMPREHENSIVE METABOLIC PANEL eGFR A frican Algerian 60 60 mL/min 09/21/2019 The eGFR is not validated fo r use in drug dosing adjustments. Continue to use estimated creatinine clearance per dosing reference text. Please contact the Clinical Pharmacist for questions. [facility] , COMPREHENSIVE METABOLIC PANEL Lab In terpretation Abnormal 09/21/2019 [facility], BLOOD TYPE CONFIRMATION - ORDER ONLY IF REQUESTED BY LAB ABO/RH(D) O POS 09/21/2019 [facility], CBC White Blood Cells 10.1 4.5 - 11.0 09/21/2019 [facility], CBC RBC 3.49 4.0 - 5.0 09/21/2019 [facility] , CBC Hemoglobin 10.9 12.0 - 15.0 09/21/2019 [facility], CBC Hematocrit 32.5 % 36 - 45 09/21/2019 [facility], CBC MCV 93.3 80 - 100 09/21/2019 [facility] , CBC MCH 31.4 PG 26 - 34 09/21/2019 [facility] , CBC MCHC 33.7 32.0 - 36.0 09/21/2019 [facility] , CBC RDW 14.4 % 11 - 15 09/21/2019 [facility] , CBC Platelet Count 429 150 - 400 09/21/2019 [facility], CBC MPV 7.3 7 - 11 09/21/2019 [facility] , CBC Lab Interpretation Abnormal 09/21/2019 [facility], Pathology Reports Report Value Date Source SURGICAL PATHOLOGY PATHOLOGY R [facility] Department of Pathology and Laboratory [id number] [place], [place] [address]Tbxxnenv Pathology Office: [phone] VAIYRTTH PATHOLOGY REPORT NAME: AMINTA MERAZ Agatha SURG PATH #: [id number] MR #: [id number] SPECIMENCLASS: [facility] BILLING #: [id number] ALT ID #: LOCATION: [facility] DATE OFPROCEDURE: 09/23/2019 AGE: 53 SEX: F DATE RECEIVED: 09/23/2019 : 1965TIME RECEIVED: 11:02 PHYSICIAN: KENNEDY IBARRA MD DATE OF REPORT:09/27/2019 COPY TO: DATE OF PRINTIN09/27/2019 ########################################################################Final Diagnosis: A. Adrenal, "left adrenal", adrenalectomy:PheochromocytomaSee comment. Comment:Immunostains on block A1 show the tumor cells are strongly posi tive forsynaptophysin and chromogranin; S100 demonstrates positivity insustentacular cells, and Ki-67 labels focally up to 5% of cells. PASS score = 2/20; a score less than 4 is considered benign. Attestation:By this signature, I attest that I have personally formulated the finalinterpretation expressed in this report and that the above diagnosis isbased upon my examination of the slides and/or other material indicated inthis report. +++ +++John Bowens MD Resident /09/24/2019 ################################################ ########################Material Received:A: left adrenal History:53-year-old female with an adrenal mass. Gross Description:A. Fixative: FreshLabeled: "Left adrenal"Weight: 105 grams Specimen measurement: 7.0 x 6.5 x 4.3 cm; the specimen was previouslybivalvedAdrenal gland: There is minimal amount of residual adrenal along theperiphery, which measures approximately 2.0 x 1.5 x 0.5 cmThe external surface is inked black.Tumor: 6.5 x 4.9 x 4.0 cmTumor appearance: Well-circumscribed, reyez-ribeiro, pink and necroticTumor originates from: Cannot be determined grosslyDistance of tumor from inked external surface: 0.2 cmUninvolved adrenal gland: Bright yellow cortex Remote Sensing Program Manager sections of the specimen are submitted as follows:A1-A6 Tumor to uninvolved adrenal gland and inked external surface.(kl) /09/23/2019 If immunohistochemical stains and/or in situ hybridization are cited inthis report, the performance characteristics were determined by theDepartment of Pathology and Laboratory Medicine of the [facility] ([employer]) in compliance with CLIA'88regulations. Some of these tests rely on the use of "analyte specificreagents" and are subject to specific labeling requirements by the FDA. Known positive and negative control tissues demonstrate appropriatestaining. Results should be interpreted with caution given the likelihoodof false negativity on decalcified specimens. This testing was developedby the Department of Pathology and Laboratory Medicine of the [facility]. It has not been cleared or approved by the FDA. The FDA hasdetermined that such clearance or approval is not necessary.[facility], Diagnostic Reports No Data Provided for This Section Consultation Notes Results Value Date Source Progress Note Graciela Mejias e - 11/03/2019 12:27 PM [facility] Genetic CounselingJufredamarietta MerazDavidU# [id number] 1965 During our last visit with Aminta Meraz, age 53 y.o., we ordered the [facility] CustomNext Panel (13 genes FH, MAX, MEN1, NF1, RET, SDHA, SDHAF2, SDHB, SDHC, SDHD, SMAD4, [id number] and VHL). Aminta's testing was NEGATIVE. Aminta was called to inform her of these results. These results mean that she was not found to have a mutation in any of these genes. Testing was ordered for Aminta based on her personal diagnosis of a pheochromocytoma as well as her family history of suspicious signs of pheochromocytoma/paragangliomas. Aminta's testing did not find a mutation in any of the known genes associated with hereditary pheochromocytoma/paraganglioma syndromes. This means that at this time we cannot explain the cause for Aminta's pheochromocytoma.We did recommended that Aminta's family members still be aware of signs and symptoms related to pheochromocytomas and paragangliomas. These include continual or episodic high blood pressure, headaches, profuse sweating, palpations, pallor, anxiety and panic attacks. There are no other individuals in Aminta's family that meet criteria for genetic testing, due to this no other family members are recommended to see a genetic counselor.It is still possible that Aminta's children could have inherited a hereditary cancer syndrome from their father's family. If there is a paternal family history of cancer we recommend they consider seeing a Genetic Counselor to review the family history and determine i f genetic testing is appropriate. Plan: Aminta is to reach out to our clinic in 1-2 years to determine if there are newer genes for pheochromocytoma susceptibility available for testing. Time: 10 minutes. Discussed test results and implications for family members. Mariana Mejias MS , [facility] Certified Genetic CounselorSevier Valley Hospital Cancer [address] [place] [address] Email: [email or web address] Fax: Cppointments 11/03/2019 [facility] , Progress Note Graciela Mejias e - 10/04/2019 1:30 PM CDT NAME: Aminta MerazMRN: TYREE# [id number]: 1965[facility] Genetic Counselin gDate:10/04/2019Dx Code: D35.00, Z80.8Referring physician: Lynn Yanez MD Aminta Meraz, age 53 y.o., was called by the Genetic Counseling Clinic today for consultation regarding her diagnosis of a pheochromocytoma. Patients verbal consent was obtained to provide this telehealth visit due to [facility].Clinical History: Aminta was diagnosed with a pheochromocytoma at 53 years of age on the left adrenal gland. She has since had an adrenalectomy. She reports essentially normal mammogram screening, her ovaries and uterus are intact and she has never had a colonoscopy. There were no other major medical concerns reported at today's appointment. Family History Relation Status Problems (Age of Onset) - (Comment) Daughter Alive, age 22y; Alive, age 30y Son Alive, age 20y Mother Alive, age 86y Spikes in blood pressure, tubes ties, +ov/ut, Arthritis-osteo; Hypertension Maternal Aunt Alive, age 90y; at age 90 Maternal Grandfather at age 87 Bladder Cancer (70) - (non-smoker); Stroke Maternal Grandmother at age 91 Arthritis-osteo Father at age 64 Cancer-Lung (62) Paternal Aunt at age 70 Paternal Grandfather at age 71 Paternal Grandmother at age 95 Cancer-Lung (94) Paternal Uncle at age 66 Cancer-Lung Sister Alive, age 58y (+ov/ut) Discussion: We discussed hereditary cancer syndromes involving paragangliomas cancers in the family. Red flags for hereditary syndromes include bilateral / multifocal disease, young age of onset (often We discussed that approximately 40% of pheochromocytomas are due to hereditary factors, current guidelines recommend testing in individuals diagnosed with pheochromocytomas under 45 years of age. Due to Aminta's personal diagnosis of a pheochromocytoma, and the family history of similar symptoms as Aminta (high blood pressure, and anxiety), we recommended genetic testing. Testing for multiple genes for cancer susceptibility was recommended (a genetic panel). If a gene from the panel is found to have a mutation, this would affect medical management including surveillance for early detection and treatment decisions.The discussion included an explanation of the different types of results which may be reported (positive / negative / or variant of unknown significance). We discussed the various syndromes and diseases associated with the genes on the panel. Our discussion included the patient's increased risk status, how genes affect cancer susceptibility, potential benefits, risks, and limitations of testing, and methods for early detection and prevention.We discussed that federal laws (NEERU, ALE) protect from medical insurance discrimination. There are currently no federal laws in place which protect an individual who is found to have a hereditary cancer syndrome from discrimination for life, jail care, or, disability insurance. For more information regarding potential insurance coverage please refer to www.ginahelp.org Plan: A saliva sample will be sent to Aminta and then sent to [facility] for PGLNext Panel: 13 genes with susceptibility to pheochromocytomas and paragangliomas including: FH, MAX, MEN1, NF1, RET, SDHA, SDHAF2, SDHB, SDHC, SDHD, SMAD4, [id number], and VHL. This panel includes sequencing and deletion/duplication analysis.Time: 60 minutes. Obtained and reviewed family history. Discussed hereditary cancer syndromes, autosomal dominant inheritance / other inheritance as relevant, presymptomatic surveillance, management and treatment. Possible testing outcomes, including possibility of uncertain variants, strategies for testing other family members if a gene alteration is found. Insurance information and out of pocket ricci discussed. Completed paperwork including verbal consent for genetic testing.Mariana Mejias MS, CGCCertified Genetic CounselorUnIntermountain Medical Center Cancer [address] [address]Hzknk: [email or web address] appointments Pending: We discussed that I would call Aminta when her results are reported 11/03/2019 [facility] , Progress Note Kennedy Ibarra MD - 10/05/2019 1:40 PM CDT Name: Aminta Meraz : 1965 AGE: 53 y.o. DATE OF SE RVICE: 10/05/2019Subjective: Reason for Visit:Post-operative visit Aminta Meraz is a 53 y.o. female. History of Present Gtohjvb83 year old female with HTN, DM, left 6cm pheochromocytoma s/p lap left adrenalectomy (09/23/2019) with pathology showing pheochromocytoma with a PASS score of 2. Has been doing well. Currently been pain free. Has had no an increase in PO intake. Has had no problems with bowel or bladder. Has not been taken her lisinopril or metoprolol and SBP have been in the 130s. Continues to have bilateral, lower extremity tremors which has improved since surgery. Blood glucose levels have been 80-100. Has follow up with endocrinology and her primary care physician. Review of Systems Constitutional: Negative for chills and fever. HENT: Negative. Respiratory: Negative. Cardiovascular: Negative. Gastrointestinal: Negative for abdominal pain, nausea and vomiting. Genitourinary: Negative. Neurological: Positive for tremors. Psychiatric/Behavioral: Negative. Objective: & #8226; clonazePAM (KLONOPIN) 0.5 mg tablet Take 0.5 mg by mouth daily as needed. docusate (COLACE) 100 mg capsule Take 100 mg by mouth daily. lisinopriL (ZESTRIL) 40 mg tablet Take 40 mg by mouth daily. melatonin 10 mg tab Take 1 tablet by mouth at bedtime daily. metFORMIN-XR (GLUCOPHAGE XR) 500 mg extended release tablet Take 1,000 mg by mouth daily with dinner. • metoprolol tartrate (LOPRESSOR) 25 mg tablet Take one-half tablet by mouth twice daily. metoprolol XL (TOPROL XL) 25 mg extended release tablet Take 12.5 mg by mouth twice daily. oxyCODONE (ROXICODONE) 5 mg tablet [...] PainSc: Two Body mass index is 23.3 kg/m . Pain Score: TwoPain Loc: AbdomenFatigue Scale: 3 Physical ExamConstitutional: Appearance: Normal appearance. HENT: Head: Normocephalic. Eyes: Extrao cular Movements: Extraocular movements intact. Neck: Musculoskeletal: Normal [...] person, place, and time. Psychiatric: Mood and Aff ect: Mood normal. Behavior: Behavior normal. Assessment and Plan:53 year old female with left 6 cm pheochromocytoma s/p laparoscopic left adrenalectomy (09/23/2019) with pathology showing pheochromocytoma with a PASS 2 - Doing well post-operatively; incisions are well approximated without signs of infection - Continue blood pressure and blood glucose monitoring per PCP - Continue to follow with endocrinology - Return in to clinic in 1 year for follow up appointment with pre-appointment plasma free metanephrines and CT A/PPePratibha Naidu discussed with Dr. Ibarra who directed care Attestation:I personally performed a history and physical examination of the patient and discussed the management of the patient with my resident Dr. Mayberry and reviewed their medical records myself including recent pathology and agree with the history, physical exam, and plan of care including follow-up. I reviewed the resident's note and agree with the documented findings and plan of care. I spent a total of 30 minutes with the patient of which 15 minutes were spent in psychotherapist counselor about the details of the condition, specifically the surgical management of pheochromocytoma. Thank you for involving me in the care of this patient. Please don't hesitate to contact me if you have any questions or concerns.Kind regards, Kennedy Ibarra MD, FACS 10/05/2019 [facility] , Progress Note Collin Mayberry DO - 10/05/2019 1:40 PM CDT. 10/05/2019 [facility], [facility]. Note Telephone Encounter - Jill Kelly RN - 09/29/2019 1:49 PM CDTThe patient was called to follow up following their hospital discharge. The patient was questioned about the following information: Are you having pain? Yes Has been 1 -2 during the night but haven't had to take narcotic since yesterday. Do you feel you are able to manage your pain adequately? Yes Are you taking narcotic pain medication? NoAre you using other non-narcotic measures to manage your pain so as to minimize the use of narcotic medications? YesAre you having any nausea or vomiting? No Are you eating? YesWhen was your last bowel movement/stoma output? Today. Bowel movements every day.Are you taking your recommended bowel regimen? YesDid you go home with a Drain? NoIf yes, do you have questions? N/AWhat are your 24 hour totals of drain output? n/aAre you receiving any tube feeds at this time? N/AIf you are on tube feeds, do you have questions? N/ADid you go home with an ostomy?: N/ADo you know your total amount of output from your ostomy? N/AWould you like an appointment with the ostomy clinic? N/AHave you received a call from [facility])? N/AIf you have not received a call and do not have home health please call to arrange an ostomy supply distributer at [phone]. If you have home health remember once their services are complete you need to call and arrange an ostomy supply distributer at [phone]. Are there any concerns related to your incision? NoDo you know your post-operative appointment information: date and time and location? Yes Pt has been informed to contact their primary care provider to inform them of their recent surgery and hospital admission. The pt was reminded to call should they have any further concerns or needs. [phone] and ask to be connected to their provider's nurse upon calling. 09/29/2019 [facility]. Note Telephone Encounter - Jill Kelly RN - 09/28/2019 12:11 PM CDTI called Aminta for her post op call (2nd attempt) and to let her know that her surgical pathology has resulted and it is benign. Aminta did not answer. I left a detailed message with a call back number. 09/28/2019 [facility]. Note Telephone Encounter - Jill Kelly RN - 09/28/2019 12:10 PM CDT----- Message from Kennedy Ibarra MD sent at 09/28/2019 8:42 AM CDT -----Please inform pt of benign pathology findings. 09/28/2019 [facility]. Note Telephone Encounter - Jill Kelly RN - 09/27/2019 12:36 PM CDTI called Aminta to complete her post op call. She did not answer. I left a voicemail with a call back number. 09/27/2019 [facility] , Progress Note Aminta Kelly RN - 09/24/2019 11:19 AM CDTJubentley Meraz discharged on 09/24/2019. .Discharge instructions reviewed with patient.Valuables returned: Personal Items / Valuables: Cell Phone, Eyeglas ses/Contacts, Clothing, WalletWhere Are Valuables Stored?: see note.Home medications: .Functional assessment at discharge complete: Yes .Discharge instructions reviewed with patient all questions answered, peripheral IV's were removed. Instructions regarding incision care and post-procedure instructions given. Pt discharge to lobby with oxycodone prescription via wheelchair where son picked her up 09/24/2019 [facility], Progress Note Shon Barrett, DO - 09/24/2019 5:08 AM CDT Surgical Oncology Progress Note09/24/[id number] w/ HTN, DM, left 6cm pheochromocytoma s/p lap left adrenalectomy (09/22)Active Problems: Left adrenal mass (HCC) Pheochromocytoma Diastolic heart failure (HCC) Essential hypertension Type 2 diabetes mellitus, without long-term current use of insulin (HCC)PLAN- Regular diet, SLIV- Pain control with tylenol, oxy prn, d/c fent prn- Endocrine consulted and following, LDCF SSI holding antihypertensives- Bowel regimen with miralax, colace- Ppx: SCD, lovenox- PT/OT/ROM, RT therapyDispo: cont floor, anticipated discharge todayBabadavid Barrett DOPager: [phone] S:No acute events overnight. Reports pain well controlled with medication. Denies nausea or vomiting at this time. Ambulating to chair as tolerated. Urinating without difficulty. Passing gas but no bowel movement overnight.O:Temp: 36.3 C (97.3 F) (09/23 413)Pulse: 86 (09/23 413)Respirations: 17 PER MINUTE (09/23 413)BP: 101/67 (09/23 413)PEGen: no apparent distress, alert and orientedHEENT: normocephalic/atraumaticCV: regular rate and rhythmResp: unlabored on RAAbd: soft, nondistended, ari tender to palpation, incision CDI with steri strips in placeExt: non edematous, no deformities notedNo current facility-administered medications on file prior to [...] 1,000 mg by mouth daily with dinner. ssociated attestation - Kennedy Ibarra MD - 09/27/2019 1:43 PM CDT ATTESTATIONI personally performed the coughlin portions of the E/M visit, discussed case with resident and concur with resident documentation of history, physical exam, assessment, and treatment plan unless otherwise noted.Staff name: Kennedy Ibarra MD Date: 09/27/2019 09/24/2019 [facility] , Progress Note Aminta Kelly RN - 09/23/2019 3:50 PM CDTPatient arrived to room # (4414) via cart accompanied by transport. Patient transferred to the bed with assistance. Bedside safety checks completed. Initial patient assessment completed. Refer to flowsheet for details.Admission skin assessment completed with: Alanna Penny RN Pressure injury present on arrival?: No1. Head/Face/Neck: No2. Trunk/Back: No3. Upper Extremities: No4. Lower Extremities: No5. Pelvic/Coccyx: No6. Assessed for device associated injury? Yes7. Malnutrition Screening Tool (Nursing Nutrition Assessment) Completed? NoSee Doc Flowsheet for additional wound details. INTERVENTIONS: 09/24/2019 [facility] , Progress Note Neeru Brunner RN - 09/23/2019 1:36 PM CDTReport given to HEIDE [place] 7. Patient awaiting transport to [place] 7106. 09/24/2019 [facility], Progress Note Ruby Toth RN - 09/23/2019 8:16 AM CDTBelongings in locker#04, code 4040 09/24/2019 [facility] , Progress Note Alyssa Webb RN - 09/22/2019 8:29 AM CDT Perioperative and Procedural COVID-19 Screening FormHave you been in contact with someone who was sick? (Select One)Yes No / Unsure x Unable to assess Does the patient have any of the following symptoms? (Select all that apply)None of these x Cough Muscle Pain Shortness of breath Unable to assess Diarrhea Rash Vomiting Abdominal Pain Fever Greater than 100F or 37.8 C Red eye Weakness Bruising or bleeding Joint Pain Severe Headache Unable to assess Travel History:Has the patient travelled outside [place] and [place] in the past 14 days? No If so, where did they travel? If so, what dates did they travel? Denies loss of taste/smell, foot sores/ulcers. 09/24/2019 [facility] , Progress Note Judy Rendon R N - 09/15/2019 5:09 PM CDTPAC triage call to pt to schedule PAC appt for surgery 09/23/19 w/Dr. Ibarra. Pt scheduled for Covid test 09/21/19 @ 1310, ICC. PAC appt scheduled for 09/21/19, 1400, ICC. Pt states she is capable of doing a telehealth appt if she would qualify for it. Advised pt PAC would contact pt if she is eligible for telehealth and set that up. Pt needs PAC visit d/t having pheochromocytoma, will need pre-medicated before surgery, HTN, CHF, DM, Left adrenal mass, and supplemental O2 per chart. Pt verbalized understanding, visitor restriction policy reviewed. 09/24/2019 [facility], Consultation Note Ab thi Jameson MD - 09/23/2019 2:52 PM CDTAssociated Order(s): CONSULT ENDOCRINOLOGY PHYSICIAN Endocrinology consult NoteAdmission Date: 09/23/2019 LOS: 0 daysReason for Consult: Pheochromocytoma status post adrenalectomyConsult type: Opinion with ordersAssessment:Left adrenal adenoma/pheochromocytoma Incidentally identified 06/28/2019 CT chest/abdomen demonstrated an incidental 4.8 x 5.3 x 6.0 cm mass of left adrenal gland. Right adrenal gland contains 13 mm benign adenomaOn 08/05/2019 Plasma free metanephrines 3124 (reference less than 57) Plasma free normetanephrine's 1266 (reference range less than 148) Total free metanephrines 4390 (reference range less than 205) Plasma renin 6.95 (reference 0.255.82) Aldosterone 3 (less than 28)Status post adrenalectomy on 09/23/2019.R Adrenal Adenoma-1.3 cm and appears to be benign.Type 2 diabetesdiagnosed June 2019Hemoglobin A1c was 7.5%.Prior to admission on metformin XR thousand milligrams daily with dinner.Received dexamethasone into operatively 4 mg at 10 AM this morning.Recommendations/Plan: Patient underwent left adrenalectomy due to pheochromocytoma. Currently blood pressure stable. I would hold Antihypertensives for now. If she develops tachycardia, I would resume low-dose metoprolol if blood pressure stable. Patient received dexamethasone 4 mg intraoperatively. I will start checking glucose 4 times daily. We will start on low-dose correction. Once she is tolerating diet, will resume metformin.Than k you for the consult, will continue to follow with you She has follow-up scheduled on December 08, 2019. Histo ry of Present Illness: Aminta Meraz is a 53 y.o. female with past medical history of hypertension, she had CT chest completed June 2019 that showed an incidental 4.8 x 5.3 x 6 cm left adrenal mass with 1.3 cm right adrenal adenoma. She had elevated plasma metanephrines. There was no evidence of primary hyperaldosteronism. Prior to admission she was on lisinopril and metoprolol. She has a history of diastolic heart failure. She also has a history of type 2 diabetes diagnosed June 2019, at that time A1c was 7.5% and was initiated on metformin thousand milligrams twice a day.She was treated with phenoxybenzamine started on September 01, 2019. She was already on beta-mitchel that was stopped and at that time she was initiated on phenoxybenzamine and then reinitiated on September 10, 2019. She underwent left adrenalectomy on 09/23/2019. She reports being slightly drowsy. [...] 2 ENDOMETRIAL ABLATION HEEL SPUR SURGERY Left • HX SECTION x3 MOHS SURGERY multiple MOHS procedure of nose 2/2 melanoma Social History Socioeconomic History Marital status: Spouse name: Not on file &#8 226; Number of children: Not on file Years [...] Social History Narrative Not on file Family History:Reviewed Allergies: Penicillins and Tuna oilScheduled Meds:enoxaparin (LOVENOX) syringe 40 mg, 40 mg, Subcutaneous, QDAY(21)Continuous Infusions: lactated ringers infusion 100 mL/hr at 09/23/19 1355 PRN and Respiratory Meds:acetaminophen Q6H PRN, albuterol sulfate PRN, docusate QDAY PRN, fentaNYL citrate PF Q1H PRN, ondansetron Q6H PRN OR ondansetron (ZOFRAN) IV Q6H PRN, oxyCODONE Q4H PRNReview of Systems:Comprehensive 10 point ROS was limited due to patient drowsiness. She denied any major complaints. Reported her weight to be stable.Vital Signs: Last Filed in 24 hours Vital Signs: 24 hour Range BP: 91/58 (09/22 1349)Temp: 36.8 C (98.3 F) (09/22 1349)Pulse: 77 (09/22 1349)Respirations: 14 PER MINUTE (09/22 1349)SpO2: 96 % (09/22 1349)SpO2 Pulse: 80 (09/22 1315)Height: 157.5 cm (62") (09/22 0710) BP: (91-101)/(56-64) ABP: (92-102)/(47-54) Temp: [36.7 C (98.1 F)-36.8 C (98.3 F)] Pulse: [77-85] Respirations: [9 PER MINUTE-15 PER MINUTE] SpO2: [91 %-99 %] Physical Exam:General: Awake, Alert, Oriented; slightly drowsyHEENT: Normocephalic, Atraumatic, PERRLCardiovascular: RegularPulmonary: Breathing comfortably with no respiratory distress. Nonlabored breathing.Extremities: No cyanosis or edema notedSkin: No rash or lesion notedNeurologic: No focal deficits notedLab/Radiology/Other Diagnostic Tests:Pertinent Labs ReviewedAbeer Gisell MDPager [phone] 09/24/2019 [facility]. Note Care Plan - Aminta Kelly RN - 09/24/2019 7:32 AM CDTProblem: Infection, Risk of, Urinary Catheter-Associated Urinary Tract InfectionGoal: Absence of urinary catheter-associated infectionOutcome: Add Note Problem: Falls, High Risk ofGoal: Absence of falls-Adult PatientOutcome: Add Note 09/24/2019 [facility]. Note Care Plan - Juan M Lazar RT - 09/23/2019 1:00 PM CDTRT Adult Assessment NoteNAME:Aminta Meraz :1965 AGE: 53 y.o.ADMISSION DATE: 09/23/2019 DAYS ADMITTED: LOS: 0 daysRT Treatment Plan:Protocol Plan: MedicationsAlbuterol: MDI PRNProtocol Plan: ProceduresPAP: Place a nursing order for "IS Q1h While Awake" for any of Lung Expansion indicatorsOxygen/Humidity: O2 to keep SpO2 92%Monitoring: Pulse oximetry BID and PRNAdditional Comments:Impressions of the patient: no respiratory distressVital Signs:Pulse: 81RR: 11 PER MINUTESpO2: 97 %O2 Device: CannulaLiter Flow: 2 LpmO2%: 21 %Breath Sounds: Clear (implies normal);DecreasedRespiratory Effort: Non- Labored 09/24/2019 [facility]. Note Procedures (Immed P ost or Bedside) - Orlando Wells MD - 09/23/2019 11:48 AM CDT Brief Operative Note Name: Aminta Meraz : 1965 OF OPERATION: 09/23/2019 Da te: 09/23/2019 Preoperative Dx: 1) Left adrenal pheochromocytoma Post-op Diagnosis 1) Left adrenal pheochromocytoma Procedure(s):1) Laparoscopic left adrenalectomy. Anesthesia Type: General Surgeon(s) and Role:Panel 1: Dr. Kennedy Wells MD PGY2 Findings: Normal anatomy, approx 6cm left sided adrenal pheochromocytoma. Small hiatal hernia noted. Estimated Blood Loss: Minimal Specimen(s) Removed/Disposition: Left adrenal gland Complications: None Implants: None Drains: None Disposition: PACU - stable OLESYA Santosurgery [id number] ssociated attestation - Kennedy Ibarra MD - 09/27/2019 1:43 PM CDT ATTESTATIONI performed this procedure with a resident. and I was present for the entire procedure.Staff name: Kennedy Ibarra MD Date: 09/27/2019 09/24/2019 [facility], [facility]. Note Operative Report (D irect Entry) - Orlando Wells MD - 09/23/2019 9:43 AM CDT Operative DictationName: Aminta Meraz is a 53 y.o. female : 1965 OF OPERATION: 09/23/2019Date: 09/23/2019 Pre Operative Dx:Adrenal mass (HCC) [E27.8]Post-op Diagnosis * Adrenal mass (HCC) [E27.8]Procedure(s): LEFT LAPAROSCOPIC, ADRENALECTOMY (Left Abdomen)Anesthesia Type: GeneralSurgeon(s) and Role: * Kennedy Ibarra MD - Primary * Orlando Wells MD - Resident - AssistingIndications: 53 yo female with HTN and DM. 6cm adrenal mass found incidentally via imaging for unrelated reason. Biochemical workup results consistent with pheochromocytoma. Patient underwent several weeks of alpha blockade. Findings:Normal anatomy, 6cm adrenal mass, small hiatal hernia noted. Description of Procedure: Informed consent was obtained and the patient was brought into the operating room and placed in the supine position on the operating table. General anesthesia was induced by the anesthesia team. The patient was then positioned in the right lateral decubitus position. Preoperative antibiotics were given. The patient's left side was prepped and draped in the usual sterile fashion. A timeout was performed verifying the correct patient, procedure, and site. Attention was then turned to the patient's left side.Access into the peritoneal cavity was achieved with the Veress needle at Mendiola's point. Correct placement was confirmed with low opening pressure and the abdomen was insufflated. A 5mm trochar was placed at the anterior axillary line 2cm below the costal margin using the Optiview trochar. The scope was placed into the abdomen and the area was found to be without injury from the Veress or trochar. Another 5mm port was placed under direct visualization at the mid clavicular line, 2cm caudal to the costal margin. 10mm and 5mm ports were placed in the same fashion a the mid and posterior axillary lines respectively. The splenic flexion was mobilized by opened the white line of Toldt on the left and reflecting the colon medially, off the anterior aspect of the Gerota's fascia using the enseal devise and blunt dissection. After which the spleen and tail of the pancreas were mobilized by taking the splenophrenic, gastrosplenic, and splenocolic ligaments. The spleen and tail of the pancreas were retracted anteriomedially establishing excellent visualization of the left adrenal mass. The medial border of the adrenal was mobilized from the retroperitoneal fat. This plan was continued cephalad freeing the superior [...] The adrenal gland was placed in an endocatch bag. The operative field was irrigated and excellent hemostasis was ensured. A small hiatal hernia was noted. The 10mm trochar incision was extended to allow passage of the specimen which was removed and sent to pathology routine. The extended 10mm incision was closed using 0 non looped PDS to close the fascial and muscle layers in full thi ckness bites. The skin was closed with a 3-0 vicryl interrupted sutures followed by a 4-0 Monocryl running subcuticular. The other port sites were closed with the 3-0 vicryl interrupted sutures. [place] smith and steri strips were applied to all incisions. The procedure was concluded. Of note the patient experienced hypertension early in the case requiring alpha and beta blockage. After removal of the specimen the patient required minimal pressor support. The patient was awoken smoothly from anesthesia transferred to the PACU in stable condition. There were no apparent complications. At the end of the procedure all sponge, needle, and instrument counts were correct x2. Dr. Ibarra was present and scrubbed for the entire procedure.Estimated Blood Loss: No blood loss documented. Specimen(s) Removed/Disposition: ID Type Source Tests Collected by Time Destination 1 : LEFT ADRENAL Tissue Adrenal Gland,Left SURGICAL PATHOLOGY Kennedy Ibarra MD 09/23/2019 1039 Orlando Wells, MDPager # [phone] ectronically signed by Kennedy Ibarra MD at 09/27/2019 8:32 AM CDTAssociated attestation - Kennedy Ibarra MD - 09/27/2019 8:32 AM CDT ATTESTATIONI performed this procedure with a resident. and I was present for the entire procedure.Staff name: Kennedy Ibarra MD Date: 09/27/2019 09/24/2019 [facility] , Progress Note Aminta Kelly RN - 09/24/2019 11:19 AM CDTAminta Meraz discharged on 09/24/2019. .Discharge instructions reviewed with patient.Valuables returned: Personal Items / Valuables: Cell Phone, Eyeglas ses/Contacts, Clothing, WalletWhere Are Valuables Stored?: see note.Home medications: .Functional assessment at discharge complete: Yes .Discharge instructions reviewed with patient all questions answered, peripheral IV's were removed. Instructions regarding incision care and post-procedure instructions given. Pt discharge to lobby with oxycodone prescription via wheelchair where son picked her up 09/23/2019 [facility], Progress Note Shon Barrett, DO - 09/24/2019 5:08 AM CDT Surgical Oncology Progress Note09/24/[id number] w/ HTN, DM, left 6cm pheochromocytoma s/p lap left adrenalectomy (09/22)Active Problems: Left adrenal mass (HCC) Pheochromocytoma Diastolic heart failure (HCC) Essential hypertension Type 2 diabetes mellitus, without long-term current use of insulin (HCC)PLAN- Regular diet, SLIV- Pain control with tylenol, oxy prn, d/c fent prn- Endocrine consulted and following, LDCF SSI holding antihypertensives- Bowel regimen with miralax, colace- Ppx: SCD, lovenox- PT/OT/ROM, RT therapyDispo: cont floor, anticipated discharge todayKaylin Shawger: [phone] S:No acute events overnight. Reports pain well controlled with medication. Denies nausea or vomiting at this time. Ambulating to chair as tolerated. Urinating without difficulty. Passing gas but no bowel movement overnight.O:Temp: 36.3 C (97.3 F) (09/23 413)Pulse: 86 (09/23 0414)Respirations: 17 PER MINUTE (09/23 413)BP: 101/67 (09/23 413)PEGen: no apparent distress, alert and orientedHEENT: normocephalic/atraumaticCV: regular rate and rhythmResp: unlabored on RAAbd: soft, nondistended, ari tender to palpation, incision CDI with steri strips in placeExt: non edematous, no deformities notedNo current facility-administered medications on file prior to [...] 1,000 mg by mouth daily with dinner. ssociated attestation - Kennedy Ibarra MD - 09/27/2019 1:43 PM CDT ATTESTMAKENZIEI personally performed the coughlin portions of the E/M visit, discussed case with resident and concur with resident documentation of history, physical exam, assessment, and treatment plan unless otherwise noted.Staff name: Kennedy Ibarra MD Date: 09/27/2019 09/23/2019 [facility] , Progress Note Aminta Kelly RN - 09/23/2019 3:50 PM CDTPatient arrived to room # (7106) via cart accompanied by transport. Patient transferred to the bed with assistance. Bedside safety checks completed. Initial patient assessment completed. Refer to flowsheet for details.Admission skin assessment completed with: Alanna Penny RN Pressure injury present on arrival?: No1. Head/Face/Neck: No2. Trunk/Back: No3. Upper Extremities: No4. Lower Extremities: No5. Pelvic/Coccyx: No6. Assessed for device associated injury? Yes7. Malnutrition Screening Tool (Nursing Nutrition Assessment) Completed? NoSee Doc Flowsheet for additional wound details. INTERVENTIONS: 09/23/2019 [facility] , Progress Note Neeru Brunner RN - 09/23/2019 1:36 PM CDTReport given to HEIDE [place] 7. Patient awaiting transport to [place] [address]. 09/23/2019 [facility], Progress Note Ruby Toth RN - 09/23/2019 8:16 AM CDTBelongings in locker#04, code 4040 09/23/2019 [facility] , Progress Note Alyssa Webb RN - 09/22/2019 8:29 AM CDT Perioperative and Procedural COVID-19 Screening FormHave you been in contact with someone who was sick? (Select One)Yes No / Unsure x Unable to assess Does the patient have any of the following symptoms? (Select all that apply)None of these x Cough Muscle Pain Shortness of breath Unable to assess Diarrhea Rash Vomiting Abdominal Pain Fever Greater than 100F or 37.8 C Red eye Weakness Bruising or bleeding Joint Pain Severe Headache Unable to assess Travel History:Has the patient travelled outside [place] and [place] in the past 14 days? No If so, where did they travel? If so, what dates did they travel? Denies loss of taste/smell, foot sores/ulcers. 09/23/2019 [facility] , Progress Note Judy Rendon R N - 09/15/2019 5:09 PM CDTPAC triage call to pt to schedule PAC appt for surgery 09/23/19 w/Dr. Ibarra. Pt scheduled for Covid test 09/21/19 @ 1310, ICC. PAC appt scheduled for 09/21/19, 1400, ICC. Pt states she is capable of doing a telehealth appt if she would qualify for it. Advised pt PAC would contact pt if she is eligible for telehealth and set that up. Pt needs PAC visit d/t having pheochromocytoma, will need pre-medicated before surgery, HTN, CHF, DM, Left adrenal mass, and supplemental O2 per chart. Pt verbalized understanding, visitor restriction policy reviewed. 09/23/2019 [facility], Consultation Note Ab thi Jameson MD - 09/23/2019 2:52 PM CDTAssociated Order(s): CONSULT ENDOCRINOLOGY PHYSICIAN Endocrinology consult NoteAdmission Date: 09/23/2019 LOS: 0 daysReason for Consult: Pheochromocytoma status post adrenalectomyConsult type: Opinion with ordersAssessment:Left adrenal adenoma/pheochromocytoma Incidentally identified 06/28/2019 CT chest/abdomen demonstrated an incidental 4.8 x 5.3 x 6.0 cm mass of left adrenal gland. Right adrenal gland contains 13 mm benign adenomaOn 08/05/2019 Plasma free metanephrines 3124 (reference less than 57) Plasma free normetanephrine's 1266 (reference range less than 148) Total free metanephrines 4390 (reference range less than 205) Plasma renin 6.95 (reference 0.255.82) Aldosterone 3 (less than 28)Status post adrenalectomy on 09/23/2019.R Adrenal Adenoma-1.3 cm and appears to be benign.Type 2 diabetesdiagnosed June 2019Hemoglobin A1c was 7.5%.Prior to admission on metformin XR thousand milligrams daily with dinner.Received dexamethasone into operatively 4 mg at 10 AM this morning.Recommendations/Plan: Patient underwent left adrenalectomy due to pheochromocytoma. Currently blood pressure stable. I would hold Antihypertensives for now. If she develops tachycardia, I would resume low-dose metoprolol if blood pressure stable. Patient received dexamethasone 4 mg intraoperatively. I will start checking glucose 4 times daily. We will start on low-dose correction. Once she is tolerating diet, will resume metformin.Than k you for the consult, will continue to follow with you She has follow-up scheduled on December 08, 2019. Histo ry of Present Illness: Aminta Meraz is a 53 y.o. female with past medical history of hypertension, she had CT chest completed June 2019 that showed an incidental 4.8 x 5.3 x 6 cm left adrenal mass with 1.3 cm right adrenal adenoma. She had elevated plasma metanephrines. There was no evidence of primary hyperaldosteronism. Prior to admission she was on lisinopril and metoprolol. She has a history of diastolic heart failure. She also has a history of type 2 diabetes diagnosed June 2019, at that time A1c was 7.5% and was initiated on metformin thousand milligrams twice a day.She was treated with phenoxybenzamine started on September 01, 2019. She was already on beta- mitchel that was stopped and at that time she was initiated on phenoxybenzamine and then reinitiated on September 10, 2019. She underwent left adrenalectomy on 09/23/2019. She reports being slightly drowsy. [...] 2 ENDOMETRIAL ABLATION HEEL SPUR SURGERY Left • HX SECTION x3 MOHS SURGERY multiple MOHS procedure of nose 2/2 melanoma Social History Socioeconomic History Marital status: Spouse name: Not on file • Number of children: Not on file Years [...] Social History Narrative Not on file Family History:Reviewed Allergies: Penicillins and Tuna oilScheduled Meds:enoxaparin (LOVENOX) syringe 40 mg, 40 mg, Subcutaneous, QDAY(21)Continuous Infusions: lactated ringers infusion 100 mL/hr at 09/23/19 1355 PRN and Respiratory Meds:acetaminophen Q6H PRN, albuterol sulfate PRN, docusate QDAY PRN, fentaNYL citrate PF Q1H PRN, ondansetron Q6H PRN OR ondansetron (ZOFRAN) IV Q6H PRN, oxyCODONE Q4H PRNReview of Systems:Comprehensive 10 point ROS was limited due to patient drowsiness. She denied any major complaints. Reported her weight to be stable.Vital Signs: Last Filed in 24 hours Vital Signs: 24 hour Range BP: 91/58 (09/22 134)Temp: 36.8 C (98.3 F) (09/22 134)Pulse: 77 (09/22 1349)Respirations: 14 PER MINUTE (09/22 134)SpO2: 96 % (09/22 1349)SpO2 Pulse: 80 (09/22 1315)Height: 157.5 cm (62") (09/22 0710) BP: (91-101)/(56-64) ABP: (92-102)/(47-54) Temp: [36.7 C (98.1 F)-36.8 C (98.3 F)] Pulse: [77-85] Respirations: [9 PER MINUTE-15 PER MINUTE] SpO2: [91 %-99 %] Physical Exam:General: Awake, Alert, Oriented; slightly drowsyHEENT: Normocephalic, Atraumatic, PERRLCardiovascular: RegularPulmonary: Breathing comfortably with no respiratory distress. Nonlabored breathing.Extremities: No cyanosis or edema notedSkin: No rash or lesion notedNeurologic: No focal deficits notedLab/Radiology/Other Diagnostic Tests:Pertinent Labs ReviewedAbeer Gisell, MDPager [phone] 09/23/2019 [facility]. Note Care Plan - Aminta Kelly RN - 09/24/2019 7:32 AM CDTProblem: Infection, Risk of, Urinary Catheter-Associated Urinary Tract InfectionGoal: Absence of urinary catheter-associated infectionOutcome: Add Note Problem: Falls, High Risk ofGoal: Absence of falls-Adult PatientOutcome: Add Note 09/23/2019 [facility]. Note Care Plan - Juan M Lazar RT - 09/23/2019 1:00 PM CDTRT Adult Assessment NoteNAME:Aminta Meraz :1965 AGE: 53 y.o.ADMISSION DATE: 09/23/2019 DAYS ADMITTED: LOS: 0 daysRT Treatment Plan:Protocol Plan: MedicationsAlbuterol: MDI PRNProtocol Plan: ProceduresPAP: Place a nursing order for "IS Q1h While Awake" for any of Lung Expansion indicatorsOxygen/Humidity: O2 to keep SpO2 92%Monitoring: Pulse oximetry BID and PRNAdditional Comments:Impressions of the patient: no respiratory distressVital Signs:Pulse: 81RR: 11 PER MINUTESpO2: 97 %O2 Device: CannulaLiter Flow: 2 LpmO2%: 21 %Breath Sounds: Clear (implies normal);DecreasedRespiratory Effort: Non- Labored 09/23/2019 [facility]. Note Procedures (Immed P ost or Bedside) - Orlando Wells MD - 09/23/2019 11:48 AM CDT Brief Operative Note Name: Aminta Meraz : 1965 OF OPERATION: 09/23/2019 Da te: 09/23/2019 Preoperative Dx: 1) Left adrenal pheochromocytoma Post-op Diagnosis 1) Left adrenal pheochromocytoma Procedure(s):1) Laparoscopic left adrenalectomy. Anesthesia Type: General Surgeon(s) and Role:Panel 1: Dr. Kennedy Wells MD PGY2 Findings: Normal anatomy, approx 6cm left sided adrenal pheochromocytoma. Small hiatal hernia noted. Estimated Blood Loss: Minimal Specimen(s) Removed/Disposition: Left adrenal gland Complications: None Implants: None Drains: None Disposition: PACU - stable OLESYA Santosurgery [id number] ssociated attestation - Kennedy Ibarra MD - 09/27/2019 1:43 PM CDT ATTESTATIONI performed this procedure with a resident. and I was present for the entire procedure.Staff name: Kennedy Ibarra MD Date: 09/27/2019 09/23/2019 [facility]. Note Operative Report (D irect Entry) - Orlando Wells MD - 09/23/2019 9:43 AM CDT Operative DictationName: Aminta Meraz is a 53 y.o. female : 1965 OF OPERATION: 09/23/2019Date: 09/23/2019 Pre Operative Dx:Adrenal mass (HCC) [E27.8]Post-op Diagnosis * Adrenal mass (HCC) [E27.8]Procedure(s): LEFT LAPAROSCOPIC, ADRENALECTOMY (Left Abdomen)Anesthesia Type: GeneralSurgeon(s) and Role: * Kennedy Ibarra MD - Primary * Orlando Wells MD - Resident - AssistingIndications: 53 yo female with HTN and DM. 6cm adrenal mass found incidentally via imaging for unrelated reason. Biochemical workup results consistent with pheochromocytoma. Patient underwent several weeks of alpha blockade. Findings:Normal anatomy, 6cm adrenal mass, small hiatal hernia noted. Description of Procedure: Informed consent was obtained and the patient was brought into the operating room and placed in the supine position on the operating table. General anesthesia was induced by the anesthesia team. The patient was then positioned in the right lateral decubitus position. Preoperative antibiotics were given. The patient's left side was prepped and draped in the usual sterile fashion. A timeout was performed verifying the correct patient, procedure, and site. Attention was then turned to the patient's left side.Access into the peritoneal cavity was achieved with the Veress needle at Mendiola's point. Correct placement was confirmed with low opening pressure and the abdomen was insufflated. A 5mm trochar was placed at the anterior axillary line 2cm below the costal margin using the Optiview trochar. The scope was placed into the abdomen and the area was found to be without injury from the Veress or trochar. Another 5mm port was placed under direct visualization at the mid clavicular line, 2cm caudal to the costal margin. 10mm and 5mm ports were placed in the same fashion a the mid and posterior axillary lines respectively. The splenic flexion was mobilized by opened the white line of Toldt on the left and reflecting the colon medially, off the anterior aspect of the Gerota's fascia using the enseal devise and blunt dissection. After which the spleen and tail of the pancreas were mobilized by taking the splenophrenic, gastrosplenic, and splenocolic ligaments. The spleen and tail of the pancreas were retracted anteriomedially establishing excellent visualization of the left adrenal mass. The medial border of the adrenal was mobilized from the retroperitoneal fat. This plan was continued cephalad freeing the superior [...] The adrenal gland was placed in an endocatch bag. The operative field was irrigated and excellent hemostasis was ensured. A small hiatal hernia was noted. The 10mm trochar incision was extended to allow passage of the specimen which was removed and sent to pathology routine. The extended 10mm incision was closed using 0 non looped PDS to close the fascial and muscle layers in full thi ckness bites. The skin was closed with a 3-0 vicryl interrupted sutures followed by a 4-0 Monocryl running subcuticular. The other port sites were closed with the 3-0 vicryl interrupted sutures. [place] smith and steri strips were applied to all incisions. The procedure was concluded. Of note the patient experienced hypertension early in the case requiring alpha and beta blockage. After removal of the specimen the patient required minimal pressor support. The patient was awoken smoothly from anesthesia transferred to the PACU in stable condition. There were no apparent complications. At the end of the procedure all sponge, needle, and instrument counts were correct x2. Dr. Ibarra was present and scrubbed for the entire procedure.Estimated Blood Loss: No blood loss documented. Specimen(s) Removed/Disposition: ID Type Source Tests Collected by Time Destination 1 : LEFT ADRENAL Tissue Adrenal Gland,Left SURGICAL PATHOLOGY Kennedy Ibarra MD 09/23/2019 1039 Orlando Wells, MDPager # [phone] ectronically signed by Kennedy Ibarra MD at 09/27/2019 8:32 AM CDTAssociated attestation - Kennedy Ibarra MD - 09/27/2019 8:32 AM CDT ATTESTATIONI performed this procedure with a resident. and I was present for the entire procedure.Staff name: Kennedy Ibarra MD Date: 09/27/2019 09/23/2019 [facility] , [place] Note Anesthesia Postprocedu re Evaluation - Heath Garvin MD - 09/23/2019 1:34 PM CDT Post-Anesthesia EvaluationName: Aminta Meraz : 1965 Age: 53 y.o. Sex: female Procedure Date: 09/23/2019Procedure(s) (LRB):LEFT LAPAROSCOPIC, ADRENALECTOMY (Left) Surgeon: Surgeon(s):Orlando Wells MDDiPasco, Peter, MDPost-Anesthesia VitalsBP: 96/62 (09/22 1315)Pulse: 80 (09/22 1315)Respirations: 10 PER MINUTE (09/22 1315)SpO2: 98 % (09/22 1315)SpO2 Pulse: 80 (09/22 1315) Vitals Value Taken Time BP 96/62 09/23/2019 1:15 PM Temp 36.7 C (98.1 F) 09/23/2019 12:12 PM Pulse 80 09/23/2019 1:15 PM Respirations 10 PER MINUTE 09/23/2019 1:15 PM SpO2 98 % 09/23/2019 1:15 PM Post Anesthesia Evaluation NoteEvaluation location: pre/postPatient participation: recovered; patient participated in evaluationLevel of consciousness: alertPain management: adequateHydration: normovolemiaTemperature: 36.0 C - 38.4 CAirway patency: adequatePerioperative Events Post-op nausea and vomiting: no PONVPostoperative StatusCardiovascular status: hemodynamically stableRespiratory status: spontaneous ventilation and supplemental oxygenFollow-up needed: nonePerioperative EventsPerioperative Event: NoEmergency Case Activation: No 09/23/2019 [facility] , [place] Note Anesthesia Procedure N Gianna Brewer MD - 09/23/2019 12:02 PM CDTAssociated Order(s): A-LINE INSERTIONAnesthesia Procedure: Arterial Line PlacementA-LINE INSERTIONDate/Time: 09/23/2019 8:40 AMPat ient location: ORIndications: hemodynamic monitoring Preprocedure checklist performed: 2 patient identifiers, risks and benefits discussed, patient evaluated, timeout performed, consent obtained, patient being monitored and sterile drapeSterile technique:- Proper hand washing- Cap, mask- Sterile gloves- Skin prep for antisepsis Arterial Line Procedure Patient sedated: yes (see MAR)Sedation type: general; Artery prepped with chlorhexidine; skin prep agent completely dried prior to procedure.Location: radial arteryLaterality: leftTechnique: ultrasoundNeedle gauge: 20 GNumber of attempts: 4Procedure OutcomeCatheter secured with adhesive dressing appliedEvents: no complications noted during insertion and skin intact, warm, and dry Observation: pt tolerated wellAdditional notes: 2 attempts on right by BOWLING BALL GRADER AND MARKER and 2 attempts on left, small artery unable to thread wire on more distal attemptsPerformed by: Gianna Marquez MDAuthorized by: Gianna Marquez MD 09/23/2019 [facility] , [place] Note Anesthesia Preprocedur e Evaluation - Gianna Marquez MD - 09/23/2019 8:01 AM CDT Anesthesia Pre-Procedure EvaluationName: Aminta Meraz : 1965 Age: 53 y.o. Sex: female Procedure Info: Procedure Information Date/Time: 09/23/19 0815 Procedure: LEFT LAPAROSCOPIC, POSSIBLE OPEN, ADRENALECTOMY (Left ) - CASE LENGTH 4 HOURS, REQUEST 1061 START Location: [facility] OR / [facility] OR/Periop Surgeon: Kennedy Ibarra MD Physical AssessmentVital Signs (last filed in past 24 hours):BP: 100/63 (09/22 709)Temp: 36.8 C (98.2 F) (09/22 709)Pulse: 85 (09/22 709)Respirations: 15 PER MINUTE (09/22 709)SpO2: 97 % (09/22 709)Height: 157. 5 cm (62") (09/22 709)Weight: 60.1 kg (132 lb 6.4 oz) (09/22 709) Patient History Allergies Allergen Reactions Penicillins HIVES Tuna Oil STOMACH UPSET Current Medications Medication Directions clonazePAM (KLONOPIN) 0.5 mg tablet Take 0.5 mg by mouth daily as needed. docusate (COLACE) 100 mg capsule Take 100 mg by mouth daily. lisinopriL (ZESTRIL) 40 mg tablet Take 40 mg by m outh daily. melatonin 10 mg tab Take 1 tablet by mouth at bedtime daily. metFORMIN-XR (GLUCOPHAGE XR) 500 mg extended release tablet Take 1,000 mg by mouth daily with dinner. metoprolol tartrate (LOPRESSOR) 25 mg tablet Take one- half tablet by mouth twice daily. metoprolol XL (TOPROL XL) 25 mg extended release tablet Take 12.5 mg by mouth twice daily. phenoxybenzamine (DIBENZYLINE) 10 mg cap [...] Narrative Not on file Review of Systems/Medical HistoryPONV Screening: Female gender, Non-smoker and Postoperative opioidsNo history of anesthetic complicationsNo family history of anesthetic complicationsAirway TMJ (pt endorses occasional popping, clicking and pain. )Pulmonary Not a current smoker (Quit 05/2019, prevoius 5 pack year history ) Asthma (h/o chi ldhood asthma) Not on home oxygen (required O2 during admission 06/2019 and briefly at DC 06/2019 for PNA ) seasonal allergies Pt was evaluated by pulmonology 07/2019, OV note reviewed in CECardiovascular Recent diagnostic studies: ECG, echocardiogram and stress test EKG: NSR, left atrial enlargement Exercise tolerance: 4 METS (Pt is able to clean fr 3 hours or walk 2.5 miles without CP or dyspnea. ) Beta Mitchel therapy: Yes Beta blockers within 24 hours: [...] (hypokalemia and hyponatremia during admission 06/2019) Electrolyte problemNeuro/Psych No seizures No CVA No indications/hx of neuropathy No indications/hx of weakness Chronic benzodiazepine use ( clonazepam most nights ) Psychiatric history Anxiety ( clonazepam QHS PRN ) H/o etoh use, denies x 2 weeks Musculoskeletal Back pain (low back 2/2 scoliosis )Endocrine/Other Diabetes (dx 05/2019. FBS ~120. ), type 2 No anemia No autoimmune disease No malignancy Large left adrenal adenoma with laboratory findings consistent with pheochromocytoma.Constitution - negative Physical ExamAirway Findings Mallampati: III TM distance: 3 FB Neck ROM: full Mouth opening: goodDental Findings: Cardiovascular Findings: Rhythm: regular Rate: normal No murmur, no carotid bruit, no peripheral edema Comments: HR auscultated 100 Pulmonary Findings: Breath sounds clear to auscultation.Abdominal Findings: Not obeseNeurological Findings: Alert and oriented x 3Constitutional findings: No acute distress Diagnostic TestsHematology: Lab Results Component Value Date HGB 10.9 [...] Coagulation: No results found for: PT, PTT, INRAnesthesia PlanASA score: 3 Plan: generalInduction method: intravenousNPO status: acceptableInformed ConsentAnesthetic plan and risks discussed with patient.Use of blood products discussed with patientBlood Consent: consentedComments: (Prn regional if open)labs pending: CMP, CBC, T&C, CBTEcho 06/27/2019 (CE)- EF 60%, 1. Left ventricular hypertrophy.2. Diastolic dysfunction.3. Physiologic regurgitation of tricuspid valve.4. Elevated PA pressures.Stress test 06/2019 (CE)- Baseline ECG: Abnormal: SR, TYLER, diffuse ST/T changesSymptoms: Dyspnea, Chest Pain, Abdominal DiscomfortECG changes: no Baseline blood pressure: 140/78 Response to intervention: NormalHeart rate response: Normal 09/23/2019 [facility]. Note Telephone Encounter - Em Torres RN - 09/22/2019 3:56 PM CDT----- Message -----From: Bacilio Tavarez DOSent: 09/22/2019 2:58 PM CDTTo: Em Torres RNCalled pharmacy and clarified plan!Thank you!Sam 09/22/2019 [facility]. Note Telephone Encounter - Em Torres RN - 09/21/2019 7:25 AM CDTLinburg pharmacist lvm needing clarification for metroprolol Rx rec'd yesterday.Pharmacist states pt was previously Rx'd / filled metoprolol 25mg XR and wondering if the new Rx from Dr. Tavarez for metoprolol 12.5mg is to replace the XR prescription.Please advise. 09/22/2019 [facility] , [facility]. Note Telephone Encounter - Jill Kelly RN - 09/22/2019 2:05 PM CDTI called Aminta to let her know that her pre-surgical COVID test was negative so we are going to proceed with her surgery tomorrow. She verbalized understanding. 09/22/2019 [facility] , Progress Note Julienne Garcia RN - 09/21/2019 1:10 PM CDTPer O2, patient viewed results in My Perfect [employer], testing noted to be completed for pre-procedure purposes. RN sent My [employer] message notifying patient of the followi ng:Informed patient of NEGATIVE COVID 19 testing. Patient was advised to contact procedure team and PCP should any symptoms develop prior to planned procedure.PETE Cannon, RN, CCRN, SCRN, CNRN 09/21/2019 [facility] , Progress Note Yanique Schneider e - 09/21/2019 1:10 PM CDTPatient arrived to COVID clinic for COVID-19 testing 09/21/19 1333. Patient identity confirmed via photo I.D. Nasopharyngeal procedure explained to the aime ent. Nasopharyngeal swab completed leftPatient education provided given and instructed patient self isolate until contacted w/ results and further instructions. Swab collected by Chio Luther RN.Date symptoms began/reason for testing: Pre-op 09/23/19 09/21/2019 [facility], [facility]. Note Telephone Encounter - Madie Pearce RN - 09/20/2019 2:14 PM CDT Perioperative and Procedural COVID-19 Screening FormHave you been in contact with someone who was sick? (Select One)Yes No / Unsure X Unable to assess Does the patient have any of the following symptoms? (Select all that apply)None of these X Cough Muscle Pain Shortness of breath Unable to assess Diarrhea Rash Vomiting Abdominal Pain Fever Greater than 100F or 37.8 C Red eye Weakness Bruising or bleeding Joint Pain Severe Headache Unable to assess Travel History:Has the patient travelled outside [place] and [place] in the past 14 days? NO If so, where did they travel? If so, what dates did they travel? For the safety of all patients, visitors and staff as we work to contain COVID-19, we must dramatically restrict patient visitors. For most patients, no visitors are allowed. Exceptions include:? 1 parent or guardian for patients younger than 18 ? 1 support person for labor and delivery patients ? 1 support person for patients with disabilities or impairments needing assistance ? 1 support person or emergency detail driver for patients undergoing outpatient treatment or procedures ? Support persons for patients nearing end of life 09/20/2019 [facility]. Note Telephone Encounter - Em Torres RN - 09/16/2019 1:11 PM CDT Spoke with pt and she accepted offered appt for 11/18/19@10:30.Future Appointments Date Time Provider Department Center 09/21/2019 1:10 PM SPEC SCREENING NURSE [facility] 09/21/2019 2:00 PM ICC PAC ROOM 1 IC1PAC None 10/05/2019 1:40 PM Kennedy Ibarra MD CCC2 [facility] Exam 12/08/2019 10:30 AM Dalia Jenkins PA-C [facility] 03/07/2020 1:00 PM IM ENDO [facility] Provided pt with address and parking garage info. 09/16/2019 [facility]. Note Telephone Encounter - Em Torres RN - 09/16/2019 12:39 PM CDTCalled pt to offer 12/01/19 appt with Dalia; LMTCB. 09/16/2019 [facility]. Note Telephone Encounter - Bacilio Tavarez DO - 09/16/2019 12:14 PM CDTTjuma Strickland, A follow up with Dalia would be great!She should have 3 refills already according to my last order, but I have sent ano ther script in.Sam 09/16/2019 [facility]. Note Telephone Encounter - Em Torres RN - 09/16/2019 11:52 AM CDTPt LVM that she is almost out of medication and possibly needs refill; did not identify medication.Pt also wondering if she needs to ar range f/u with nurse practitioner/PA-C.Spoke with pt and she is needing refill for 20mg BID phenoxybenzamine with [facility] pharmacy.Pt states the earliest appt she could be offered was in February and scheduled that appt.Pt is wondering if she needs to see nurse practioner / PA-C for the 3 month f/u.Per review of schedule, Dalia has openings on 12/01/19.Please advise.Routing to Dr. Tavarez. 09/16/2019 [facility]. Note Telephone Encounter - Jill Kelly RN - 09/15/2019 2:47 PM CDTJubentley returned my call and left a vm. I called her back to discuss the COVID testing before surgery. She said that [facility] [place], [place] on [facility]/20 so she can complete the testing. I scheduled her visit at 1:10 at [facility]. I sent her the appointment details with FAQs via [employer]. I told her to call me if she has any questions or concerns. Aminta is aware that if she tests positive for COVID her surgery will need to be postponed. 09/15/2019 [facility]. Note Telephone Encounter - Jill Kelly RN - 09/15/2019 9:20 AM CDTI called Aminta to discuss the pre-surgical COVID screening that is now required for all surgical patients 48 hours before the procedure. Aminta did not answer. I left a voicemail with my call back number. COVID order placed in O2. Aminta's surgery is scheduled on 09/22. She would need her testing completed on 09/20. 09/15/2019 [facility]. Note Telephone Encounter - Jill Kelly RN - 09/07/2019 11:16 AM CDTI called Aminta to see how she has been doing with the dibenzyline that Dr. Yanez (Endo) ordered. Aminta said that things are going well a nd her BP has been running 110/90. I let Aminta know that I think that her surgery is set to go on 09/[address] Ibarra. I also let her know that we had to cancel our non-urgent cases that week so she will be a first start. They will probably want her to check in around 6 am. Aminta said that she will come in town the day before surgery since she lives out of town. 09/07/2019 [facility] , Progress Note Bacilio Tavarez, - 09/01/2019 11:00 AM CDT Date of Service: 09/01/2019Obtained patient's verbal consent to treat them and their agreement to [facility] financial policy and NPP via this [facility] EmergencyJulie Maegan Meraz is a 53 y.o. female with history of diabetes, HTN, left adrenal mass who presents to endocrinology for left adrenal mass. AssessmentPheochromoctyomaIncidentally identified06/28/2019 CT chest/abdomen demonstrated an incidental 4.8 x 5.3 x 6.0 cm mass of left adrenal gland. Right adrenal gland contains 13 mm benign adenomaOn 08/05/2019 Plasma free metanephrines 3124 (reference less than 57)Plasma free normetanephrine's 1266 (reference range less than 148)Total free metanephrines 4390 (reference range less than 205)Plasma renin 6.95 (reference 0.255.82)Aldosterone 3 (less than 28)R Adrenal Adenoma06/28/2019 CT chest/abdomen demonstrated an incidental 4.8 x 5.3 x 6.0 cm mass of left adrenal gland. Right adrenal gland contains 13 mm benign adenomaBiochemical work-up consistent with pheochromocytoma and likely from large left adrenal massHTNSporadic elevated BPOn lisinopril, metoprolol 25 mg dailyCongestive heart failureDx echocardiogram demonstrated ejection fraction of 60%, left ventricular hypertrophy, diastolic dysfunction and elevated PA pressuresDiagnosed during sepsis 06/20 PNA Pheo possibly contributingOn BB since that timeDiabetesDx: [id number] 7.5 Diet and lifestyle changesMetformin 1000 mg BIDImpression / PlanPatient is a large left adrenal adenoma with laboratory findings consistent with pheochromocytoma. The patient has plans for adrenalectomy and will need presurgery treatment with phenoxybenzamine Start phenoxybenzamine 10 mg BID Goal Systolic BP 90 while standingContinue Metformin 1000 mg BIDGenetic counselingSalt load and fluid load 5000 daily Beta blockade on board prior to diagnosis of pheochromocytomaDiscussed plan in detail with the patient and she will communicate her blood pressure levels every 3 days via my chart.Patient seen with Dr. Chang 3 months Orders Placed This Encounter AMB REFERRAL TO GENETIC COUNSELING phenoxybenzamine (DIBENZYLINE) 10 mg cap sodium chloride 1 gram tablet Encounter Medications Medications phenoxybenzamine (DIBENZYLINE) 10 mg cap Sig: Take one capsule by mouth twice daily. Dispense: 60 capsule Refill: 1 Order Specific Question: Collaborating Physician Answer: LYNN YANEZ [[id number]] sodium chloride 1 gram tablet Sig: Take one tablet by mouth three times daily. Dispense: 90 tablet Refill: 1 Order Specific Question: Collaborating Physician Answer: LYNN YANEZ [[id number]] ATTESTATIONI personally performed the coughlin portions of the E/M visit, discussed case with resident and concur with resident documentation of history, physical exam, assessment, and treatment plan unless otherwise noted. Outside records reviewed and summarized.Personally reviewed MRI pelvis - large left adrenal mass.Time60 minutes spent with patient on counseling and coordinating care. This time included discussion of medical issues, interpretation of data and educating patient on condition and treatment options (and potential risks and benefits). Of note, Ms. Meraz is on a beta-mitchel with functional pleochromocytoma; critical to get alpha-blockade initiated. This was discussed in detail with Ms. Meraz.Staff name: Lynn Yanez MD Date: 09/02/2019 Subjective: History of Present IllnessJulimarietta Meraz is a 53 y.o. female Historical Information:Patient was recently admitted to the hospital in [facility] for pneumonia and as part of her work-up underwent CT of her chest on 06/28/2019 and was found to have an incidental 6 cm mass of left adrenal gland. Patient reports fairly constant tremors since March 2019, prior to that she had episodic tremors for 3-4 yrs. Episodes previously associated with tremors, spikes in blood pressure, hot flashes/diaphoresisDenies headache.On 08/05/2019 Plasma free metanephrines 3124 (reference less than 57)Plasma free normetanephrine's 1266 (reference range less than 148)Total free metanephrines 4390 (reference range less than 205)Plasma renin 6.95 (reference 0.255.82)Aldosterone 3 (less than 28)06/27/2019 echocardiogram demonstrated ejection fraction of 60%, left ventricular hypertrophy, diastolic dysfunction and elevated PA pressuresPatient was referred to Dr. Ibarra for adrenalectomy and was seen on 08/03/2019, Plan for surgery with adrenalectomy 09/23/2019. I have reviewed outside records from [facility] and [employer]. 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 No pertinent surgical history.Family History Problem Relation Age of Onset Hypertension [...] History Narrative Not on file Review of [id number] point review of systems positive for: Tremors, hypertension, All other system reviewed and are negativeObjective: ascorbic acid (vitamin C) (VITAMIN-C) 250 mg tablet Take 250 mg by mouth daily. • clonazePAM (KLONOPIN) 0.5 mg tablet as Needed. docusate (COLACE) 100 mg capsule Take 100 mg by mouth daily. ferrous sulfate (FEOSOL) 325 mg (65 mg iron) tablet Take 325 mg by mouth daily. Take on an empty stomach at least [...] cap Take one capsule by mouth twice daily. sodium chloride 1 gram tablet Take one tablet by mouth three times daily. VITAMIN B COMPLEX PO Take 1 capsule by mouth daily. Vitals: 09/01/19 1017 Weight: 52.2 kg (115 lb) Height: 154.9 cm (61") PainSc: Zero Body mass index is 21.73 kg/m . Physical ExamConstitutional: Appearance: She is well-developed. HENT: Head: Normocephalic and atraumatic. Eyes: Extraocular Movements: Extraocular movements intact. Neck: Musculoskeletal: Normal range of motion. Pulmonary: Effort: Pulmonary effort is normal. Musculoskeletal: Normal range of motion. Skin: Findings: No rash. Neurological: Mental Status: She is alert and oriented to person, place, and time. Psychiatric: Mood and Affect: Mood normal. Behavior: Behavior normal. Labs and Imaging:Comprehensive Metabolic Profile No results found for: NAPOC, KPOC, CO2POC, BUNPOC, CR, GLUPOC Complete Blood Count with Differential Annual Diabetes Labs Serum and POC Hgb A1c Lipids No results found for: HGBA1C, A1C No results found for: CHOL, TRIG, HDL, LDL, VLDL, NONHDLCHOL, CHOLHDLC Microalbumin TSH and Celiac No results found for: MCALBR, URMALBCRRAT No results found for: TSH, THYROGLB, THYROGLBAB, MICROSOMAB, TTIGA, TISSUETRANS, VITD25 Basic Thyroid Studies / Growth hormone No results found for: TSH, RFMQE6Z, FREET4, T3, FREET3, REVERSET3, THYROGLB, THYROGLBAB, THYBINDGLB, MICROSOMAB, TSI, TSHRECAB Basic Adrenal/Gonadotrope/Growth hormone Studies No results found for: FSH, LH, TESTOSTER, FRTESTO, TESTOSBIO, SEXHBIND, PROLACTIN, AST, ALT, PSA, PROLACTIN, CORTISOL, 17ALPHHYD, DEHYDROEP, DEOXYCORT, PROGESTER, ESTRADIOL, BHCG, ALDOSTIMD, ALDOSSUPINE, ALDOSUP, RENIN Basic Bone / Calcium / Growth hormone Studies No results found for: VITD25, JXZR970, VITAM [id number], PTH, CROSSLINKS, SERXLINKS, NTX, NTXTELOPEPU, OSTEOCALCIN, HGH, IGF1 09/02/2019 [facility], [facility]. Note Telephone Encounter - Jill Kelly RN - 08/25/2019 11:19 AM CDTI called the Endocrinology office to check on the urgent referral that we placed on 08/17 for Aminta. She has a pheochromocytoma and is n eeding to establish care with an Grommet Worker to start her pre-medication for surgery in September. I called Endo last week to check on the referral and I was told that it would take 3-5 business days before they would reach out and I should not give the pt the number for Endo so she could schedule. I was forwarded to the Endo admin office and I left a voicemail for Christelle. I explained that this is an urgent/ time sensitive referral and this pt needs to be scheduled today. I provided my call back number. 08/25/2019 [facility] , [facility]. Note Telephone Encounter - Jill Kelly RN - 08/18/2019 12:34 PM CDTJubentley returned my phone call to discuss her lab results and the referral to Endocrinology. I told Aminta that based on her lab results it looks like she has a pheochromocytoma. She will need to be seen by Endocrinology to be pre-medicated before surgery. I told her that Endocrinology will most likely try to set her up for a TeleHealth visit due to COVID concerns at this time. She was ok with that plan. I asked her if she has a smart device or a laptop and she said yes. I told her that she will need to set up MyChart and the Endo operating room scheduler can help her with that. I told Aminta that I will place the referral today and she should be hearing from them soon. It usually takes about 30 days to adequately pre-medicate before surgery so we should be good to go with our timing but if we need to make any adjustments we will take care of if needed. Aminta verbalized understanding and had no further questions or concerns. 08/18/2019 [facility], [facility]. Note Telephone Encounter - Jill Kelly RN - 08/16/2019 9:45 AM CDTI called Aminta to discuss her lab results from last week. It seems that her adrenal mass is a pheochromocytoma. She will need to be seen by Endocrinology to start her pre-medication for surgery. Aminta did not answer the phone. I left a detailed message with my call back number. 08/16/2019 [facility], [facility]. Note Telephone Encounter - Jill Kelly RN - 08/13/2019 11:21 AM CDTI received Aminta's lab results (plasma free metanephrines, aldosterone, and renin) yesterday and sent them to Dr. Ibarra to review. He sent me a message this afternoon stating that it looks like Aminta has a pheochromocytoma and she will need to be pre-medicated before surgery. He would like her to be referred to Endocrinology kendra. I called Aminta to discuss her lab results and Endo referral. She did not answer. I left a voicemail with a call back number. 08/13/2019 [facility]. Note Telephone Encounter - Jill Kelly RN - 08/06/2019 8:40 AM CDTJubentley left a voicemail requesting a return call regarding her lab order. She said that she was having a hard time opening the lab order that I sent via email since it was sent secure. I called Aminta back. She said that she was finally able to open it. She completed the first set of labs yesterday and the cortisol lab this morning. She said that she completed the labs at [facility] in [place], [place]. I told her that I will keep an eye out for the faxed results. 08/06/2019 [facility]. Note Telephone Encounter - Jill Kelly RN - 08/05/2019 11:11 AM CDTI called Aminta yesterday to let her know that Dr. Ibarra wanted to have her complete another lab that is also time sensitive (complete in morning between 8-10). Aminta did not call me back yesterday or confirm via email that she received the lab order. I called her back again today and left another message. 08/05/2019 [facility]. Note Telephone Encounter - Jill Kelly RN - 08/04/2019 11:23 AM CDTDr. Ibarra saw Aminta in clinic yesterday. He wanted her to complete some labs. Since she lives out of town and the labs need to be drawn between 8-10 in the morning we sent her home with the lab orders. After she left Dr. Ibarra added on an additional lab for her to complete. I called Aminta to let her know that I will email her the lab order for her to print and take to the lab of her choice. She did not answer. I left a voicemail with a call back number. 08/04/2019 [facility], Progress Note Kennedy Ibarra MD - 08/03/2019 2:00 PM CDT Name: Aminta Meraz : 1965 AGE: 53 y.o. DATE OF SERV ICE: 08/03/2019Subjective: Reason for Visit:New PatientJulimarietta Meraz is a 53 y.o. female. History of Present IllnessMs. Mariya is a 53-year-old female with a history of hypertension and diabetes who presents for evaluation of a left adrenal mass. Patient reports that she was recently admitted in [facility] for pneumonia for which she became septic and CT of her chest and abdomen was obtained and was found to have an approximately 6 cm mass in the left adrenal gland. She reports that she was asymptomatic at this time including no abdominal pain, no changes in her bowel habits, no nausea or vomiting. She does report some right lower quadrant pain but states that this is not chronic and is intermittent. She denies any other complaints at this time and reports that her blood pressure is well controlled on lisinopril. Review of Systems Constitutional: Negative. HENT: Negative. Eyes: Negative. Respiratory: Negative. Cardiovascular: Negative. Gastrointestinal: Negative. Endocrine: Negative. Genitourinary: Negative. Musculoskeletal: Negative. Skin: Negative. Allergic/Immunologic: Negative. Neurological: Negative. Hematological: Negative. Psychiatric/Behavioral: Negative. Medical History: Diagnosis Date defect Diabetes mellitus (HCC) Hearing reduced Infection Left adrenal mass (HCC) 08/09/2019 On supplemental oxygen therapy History reviewed. No pertinent surgical history.Family History Problem Relation Age of Onset Hypertension Mother Arthritis-osteo Mother Cancer-Lung Father Cancer- Lung Paternal Uncle Arthritis-osteo Maternal Grandmother Cancer-Lung Maternal Grandfather Social History Socioeconomic History Marital status: Spouse name: Not on file Number of children: Not on file Years of education: Not on file Highest education level: Not on file Occupational History Not on file Tobacco Use Smoking status: Former Smoker Types: Cigarettes Last attempt to quit: 06/07/2019 Years since quittin.1 Smokeless tobacco: Never Used Substance and Sexual Activity Alcohol use: Yes Alcohol/week: 12.0 standard drinks Types: 12 Cans of beer per week Drug use: Never Sexual activity: Not on file Other Topics Concern Not on file Social History Narrative Not on file Objective: ascorbic acid (vitamin C) (VITAMIN-C) 250 mg tablet Take 250 mg by mouth daily. clonazePAM (KLONOPIN) 0.5 mg tablet docusate (COLACE) 100 mg capsule Take 100 mg by mouth daily. ferrous sulfate (FEOSOL) 325 mg (65 mg iron) tablet Take 325 mg by mouth daily. Take on an empty stomach at least 1 hour before or 2 hours after food. Garlic 500 mg cap Take by mouth. lisinopriL (ZESTRIL) 40 mg tablet metFORMIN-XR (GLUCOPHAGE XR) 500 mg extended release tablet Take 1,000 mg by mouth. metoprolol XL (TOPROL XL) 25 mg extended release tablet TURMERIC PO Take 500 mg by mouth daily. VITAMIN B COMPLEX PO Take by mouth. Vitals: 08/03/19 1413 08/03/19 1415 BP: 138/75 BP Source: Arm, Left Upper Patient Position: Sitting Pulse: 92 Resp: 15 Temp: 36.7 C (98.1 F) TempSrc: Oral SpO2: 100% Weight: 53.8 kg (118 lb 9.6 oz) Height: 157.4 cm (61.97") PainSc: Zero Zero Body mass index is 21.71 kg/m . Pain Score: Zero Fatigue Scale: 0-None Physical ExamConstitutional: Appearance: Normal appearance. HENT: Head: Normocephalic and [...] and oriented to person, place, and time. Assessment and Plan:53-year-old female with a history of hypertension diabetes who presents for left adrenal mass. CT imaging shows left adrenal mass of approximately 6 cm in diameter as well as a 1.3 cm right adrenal mass. This was an incidental finding on imaging but given size of the left adrenal mass would recommend excision at this time. Previous lab work showed normal potassium and sodium values but will obtain plasma metanephrines as well as aldosterone to renin ratio prior to intervention. Pending no findings of hyperaldosteronism or pheochromocytoma we will plan for laparoscopic excision of the left adrenal gland. Risk and benefits discussed with the patient in the office today who is in agreement with proceeding with the procedure.Kennedy Ibarra MD andSarthak Franco MDGeneral Surgery [id number] Left Adrenal Mass (Hcc) Attestation:I personally performed a history and physical examination of the patient and discussed the management of the patient with my resident Dr. Franco and reviewed their medical records myself including recent imaging as well as laboratory findings and agree with the history, physical exam, and plan of care including follow-up. I reviewed the resident's note and agree with the documented findings and plan of care. I spent a total of 60 minutes with the patient of which 50 minutes were spent in psychotherapist counselor about the details of the condition, specifically the surgical management of adrenal masses. Thank you for involving me in the care of this patient. Please don't hesitate to contact me if you have any questions or concerns.Kind regards, Kennedy Ibarra MD, FACS 08/03/2019 [facility], [facility]. Note Telephone Encounter - Christelle Mejia RN - 07/06/2019 3:26 PM CST Navigation Intake Assessment DocumentPatient Name: Aminta MerazDOB: 1965Insurance: BCBS [place] Appointments Date Time Provider Department Center 08/03/2019 2:00 PM Kennedy Ibarra MD [facility] Exam Diagnosis and Reason for Visit: Adrenal MassPhysician Info: Referring Physician: Dung Carmen Other: Records in Care Everywhere and Navigation packet Please see initial navigation note and O2 for additional documentationLocation of Films: PACSLocation of Pathology: No pathologyHistory of Present Illness: Ms. Meraz is a 53 year old woman who was originally referred to for management of what was thought to be a pancreatic mass. Recent CT imaging and review with GI surgical team have identified this mass as a left adrenal mass. Imagin07-09-19 CT Chest W contrast - Impression: 1. Peripheral ground glass and reticular densities in the upper lobes bilaterally which may represent areas of minot atelectasis/pneumonitis or scarring, corresponding to the faint density on prior chest radiograph. 2. Otherwise unremarkable appearance of the lungs. 3. Stable left adrenal mass, as described in greater detail on CT abdomen/pelvis examination 06-28-19 and stable mild diffuse enlargement of the right adrenal gland. 4. Moderate gastric distension, likely from recent food and liquid ingestion. 06-28-09 CT Ab/Pel W and WO - Impression: 1. 6 cm left adrenal mass; considerations, adrenal cortical carcinoma, adrenal myolipoma, adrenal leiomyoma pheochromocytoma, tumor of neural origin. 2. Large colonic fecal burden. Prior Treatment (XRT, Surgery, Chemotherapy): NoneComments: This RN spoke to patient who verbalized understanding of date, time and location of appointment. Gave direct contact information for further questions or concerns. Appointment information sent to patient via mail. HEIDE Claros UP OPERATOR TOOL 07/16/2019 [facility], [facility]. Note Telephone Encounter - Stacey Kendrick RN - 07/05/2019 10:51 AM Makenzie Castaneda review the images from 06/28/[address] [facility] in [place] her review of the images: it is the same mass. It is on the left side and sits behind the pancreas and above/near the left kidney, which is where the adrenal gland would be. On the initial imaging I thought there could have been a second mass but now with full abdominal imaging it may just be a loop of bowel.At this time the adrenal gland is the main concern. Patient to see Dr. Ibarra. Referral shell updated, patient left a messages and asked her to call this RN to discuss Ginger's recommendations and the changes in the plan of care. referral shell routed to the navigation group and this navigator spoke to Christelle JAEGER nurse navigator. Sending paper packet to Christelle, she was given a copy of the patient's most recent ED note that was just prior to her transfer to [facility] in [place]. Stacey Kendrick RN UP OPERATOR TOOL 07/05/2019 [facility] , [facility]. Note Telephone Encounter - Stacey Kendrick RN - 07/02/2019 3:22 PM CSTSpoke to the patient, she has since been discharged from [facility] in [place]. Navigator has bene unsuccessful in obtain images from [facility] in [place] via [employer]. Called radiology and medical records, they will be pushing the image to the cloud. Navigator will update Ginger Castaneda to review the images. Stacey Kendrick RN UP OPERATOR TOOL 07/05/2019 [facility]. Note Telephone Encounter - Stacey Kendrick RN - 07/01/2019 3:07 PM CSTNavigator I got a voicemail from this patient on the afternoon of 06/30/19. She said she was dx with sepsis and that she had new scans and they didnt see it.Navigator has since contacted the patient x2 and voicemails x2. and has not been able to reach the patient. Was able to reach the patient's PCPs office and they indicated the patient had been admitted to [facility] in [place]. Records obtained via Care Everywhere. Requesting recent CT scan images via the cloud. Updated the Care Team. Navigator to follow. Stacey Kendrick RN UP OPERATOR TOOL 07/05/2019 [facility]. Note Telephone Encounter - Stacey Kendrick RN - 06/28/2019 4:15 PM CST Navigation Intake Assessment DocumentPatient Name: Aminta MerazDOB: 1965Insurance: BCBS [place]Appointment Info: Future Appointments Date Time Provider Department Center 07/02/2019 9:15 AM [facility] Radiolog 07/02/2019 11:40 AM Ginger Castaneda PA-C [facility] Exam Diagnosis and Reason for Visit: Abdominal mass noted on CT scan of the chest during a recent hospitalization for pneumonia at [facility]. An adrenal adenoma was also noted. Patient referred for surgical evaluation and/or additional work up. Referral reviewed by Dr. Lazcano and Ginger Castaneda PA-C who will be seeing the patient. Unable to scheduled PAT appointment, please call [phone] (PAT nursing) after consult and a case has been placed in the EMR to schedule. Physician Info: Referring Physician: Dr. Dung Carmen, [facility] Contact Name and Number: [phone], fax: [phone] PCP: Dr. Dung Carmen, [facility] CenterLocation of Films: PACSLocation of Pathology: None collected at this time. History of Present Illness: The patient is a 53 yo female. 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 She was then sent to [facility] to be admitted for further treatment. CT scan completed on her day of discharge noted and mass posterior to the pancreas and an adrenal adenoma. The patient was discharged from [facility] on O2, at the time of navigation the patient was on 2L. The patient was had a follow up CXR per her PCP at [facility] in [place]. The patient has not had any prior endoscopies. Past surgical history includes c- sections, foot surgery for a bone spur, and an abnormal nevus was removed from her chest. The patient has no hx of heart disease, diabetes, or prior history of lung disease. At the time of assessment the patient reports ABD tenderness when palpated. She reports a recent decrease in appetite and some weight loss since her hospitalization, approximately 10-12lbs, however she denies nausea, vomiting, changes in her urine or stool. Timeline/Records:06/16/19 - Admitted to [facility] 06/16/19 - CXR06/17/19 - CXR06/18/19 - CT Chest - Extenseive areas of pneumonias in both upper lung field regions, right worse than left. Enlargement of the right adrenal gland and the right adrenal gland is low density suggesting an adrenal adenoma. There is a 4.7cm in diameter mass posterior to the tail of the pancreas and posterior to the stomach. Mass probably represents severe lymphadenopathy although other etiologies are in the differential diagnosis. The mass is solid density and has irregular enhancement. See full report. 06/18/19 - Discharged from [facility]. Discharge diagnosis: sepsis with status asthmaticus with pneumonia, right upper lobe. 06/25/19 - Follow up CXR 07/02/19 - CT A/P with IV and oral contrast for be completed prior to consult with Ginger TOM Assessment:Genetic Counseling:Genetic Assessment: No identified risk factors;Other (Comment)(Maternal grandfather hx of bladder cancer. ) Nutrition:Current Weight (in pounds): 105Recent Weight Loss Without Trying?: Yes, 2-13 lb.Eating Poorly Due to Decreased Appetite?: YesScore: Malnutrition Screening Tool (MST): 2Nutrition Intervention: Provided information about available servicesSocial and Financial:Social and Financial Assessment: No needs identifiedTobacco assessment last 30 days: Not assessed at this time Sp iritual and Emotional:Spiritual and Emotional Assessment: Reports feeling and/or sounds anxious, worried or irritableSpiritual and Emotional Intervention: Emotional Support providedPhysical:Fall Risk: None identifiedPhysical needs: OxygenO2 Liter Flow: 2 Lpm Communication:Communication Barrier: No Onc Fertility: Onc Fertility Assessment: Not applicable Additional Education:Additional Education Documented: YesPatient EducationEducation provided to: patient Are learners ready to learn?: YesAre there barriers to learning?: No Topics DiscussedTopics discussed: orientation to [facility];diagnostic tests Ph # given to patient for follow up: YesEducation DetailsEducated by: telephoneEd time: 10 minLearner's response: The patient expressed understanding of what was explained to them, participated and agreed with the present plan.;The patient has received contact information and was instructed on how to contact us if questions or concerns ariseMaterials given to patient: Other (see comments)([facility] guide) UP OPERATOR TOOL 06/29/2019 [facility] , A-LINE INSERTION Gianna Marquez MD 09/23/2019 12:04 PM Anesthesia Procedure: Arterial Line Placement A-LINE INSERTIONDate/Time: 09/23/2019 8:40 AM Patient location: ORIndications: hemodynamic monitoring Preprocedure checklist performed: 2 patient identifiers, risks and benefits discussed, patient evaluated, timeout performed, consent obtained, patient being monitored and sterile drape Sterile technique:- Proper hand washing- Cap, mask- Sterile gloves- Skin prep for antisepsis Arterial Line Procedure Patient sedated: yes (see MAR)Sedation type: general; Artery prepped with chlorhexidine; skin prep agent completely dried prior to procedure.Location: radial arteryLaterality: leftTechnique: ultrasoundNeedle gauge: 20 GNumber of attempts: 4 Procedure OutcomeCatheter secured with adhesive dressing appliedEvents: no complications noted during insertion and skin intact, warm, and dry Observation: pt tolerated well Additional notes: 2 attempts on right by [employer]ING [employer]ER and 2 attempts on left, small artery unable to thread wire on more distal attempts Performed by: Gianna Marquez, MDAuthorized by: Gianna Marquez MD [facility], ECG-SCAN Ordered by an unspeci fied provider. [facility], COVID-19 (SARS-COV-2) PCR COVI D-19 (SARS-CoV-2) PCR SourceNASOPHARYNGEAL SWABREFERENCE LAB [facility] , CT ABD/PEL EXTERNAL IMAGING Th is order has been auto finalized and does not contain a result. [facility] , CT CHEST EXTERNAL IMAGING This order has been auto finalized and does not contain a result. [facility] , CT CHEST EXTERNAL IMAGING This order has been auto finalized and does not contain a result. [facility] , MRI PELVIS EXTERNAL IMAGING Th is order has been auto finalized and does not contain a result. [facility] , Discharge Summaries Results Value Date Source Discharge Summary Ruano, Aug/08/2020 11:18 AM CDT Physician Discharge SummaryName: [facility]: [id number] Of : 1965 Age: 53 yearsAdmit date: 09/23/2019 Discharge date: 09/24/2019 11:21 AMAttending Physician: Dr. 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 Diabetes mellitus (HCC)• Hearing reduced Hypertension Infection Left adrenal mass (HCC) 08/09/2019 Melanoma of face (HCC)left nose s/p MOHS On supplemental oxygen therapy Pheochromocytoma 07/2019Allergies: Penicillins and Tuna oilAdmission Physical Exam notable for:noneAdmission Lab/Radiology studies notable for:Results for orders placed or performed during the hospital encounter of 09/23/19 (from the past 24 hour(s))POC GLUCOSEResult Value Ref RangeGlucose, POC 174 (H) 70 - 100 MG/DLPOC GLUCOSEResult Value Ref RangeGlucose, POC 168 (H) 70 - 100 MG/DLMAGNESIUMResult Value Ref RangeMagnesium 1.9 1.6 - 2.6 mg/dLPHOSPHORUSResult Value Ref RangePhosphorus 3.0 2.0 - 4.5 MG/DLBASIC METABOLIC PANELResult Value Ref RangeSodium 134 (L) 137 - 147 MMOL/LPotassium 3.9 3.5 - 5.1 MMOL/LChloride 103 98 - 110 MMOL/LCO2 25 21 - 30 MMOL/LAnion Gap 6 3 - 12Glucose 92 70 - 100 MG/DLBlood Urea Nitrogen 13 7 - 25 MG/DLCreatinine 0.70 0.4 - 1.00 MG/DLCalcium 8.5 8.5 - 10.6 MG/DLeGFR Non 60 60 mL/mineGFR 60 60 mL/minPOC GLUCOSEResult Value Ref RangeGlucose, POC 86 70 - 100 MG/DLNo orders to displayBrief Hospital Course: The patient was admitted and the following issues were addressed during this hospitalization: (with pertinent details).53F w/ HTN, DM, left 6cm pheochromocytoma s/p lap left adrenalectomy (09/22). Operation was unremarkable and postoperative course went as planned. Endocrinology was consulted for recommendations and agree with continuing home metformin at discharge. Will d/c phenoxybenzamine at this time. Patient was discharged in stable condition, afebrile, with good bowel and urinary function, ambulating, tolerating regular diet and PO medications.Condition at Discharge: StableDischarge Diagnoses:Hospital ProblemsActive ProblemsLeft adrenal mass (HCC)PheochromocytomaDiastolic heart failure (HCC)Essential hypertensionType 2 diabetes mellitus, without long-term current use of insulin (HCC)Active Problems:Left adrenal mass (HCC)PheochromocytomaDiastolic heart failure (HCC)Essential hypertensionType 2 diabetes mellitus, without long-term current use of insulin (HCC)Surgical Procedures:Procedure(s) (LRB):LEFT LAPAROSCOPIC, ADRENALECTOMY (Left)Significant Diagnostic Studies and Procedures: noted in brief hospital courseConsults:CONSULT ENDOCRINOLOGY PHYSICIANPatient Disposition: HomePatient instructions/medications:Regular DietYou have no dietary restriction. Please continue with a healthy balanced diet.Regular DietYou have no dietary restriction. Please continue with a healthy balanced diet.Activity as ToleratedYou will likely feel tired for at least 1 week after your surgery. Take your pain medicine as needed in order to stay active, but rest as needed for recovery. Gradually increased your activity level and take short walks 2-3 times a day.This will help reduce the risk of blood clots and lung infection (pneumonia) following surgery. You may use the stairs as needed as long as you are not dizzy or weak. Make sure someone is around the first few times you usethe stairs or exercise. Begin to work toward your normal activity level at discharge.Bathing RestrictionsYou may shower the day after surgery and allow clean, soapy water to run over your incision but do not expose your incisions to soaking in water (i.e. hot tub, bathtub or swimming pools) for the first 6 weeks after surgery. Do not put any ointment or creams over the inc isions for the first 6 weeks after surgery or while the incision is open, draining or scabbed.Lifting RestrictionsPractice 10 deep breaths every hour and 2 coughs every hour, (for at least 12 hours a day), while awake for the first week after surgery to reduce the risk of lung problems or pneumonia. Do not lift heavy objects (more than 8 pounds) for the first 4 weeks. Also avoid pushing, pulling or abdominal pressure for these first 4 weeks. When coughing, be sure to place a pillow over the incision and gently press inward to reduce the pressure (from coughing) on your incision.Incision Care*Keep your incision clean and dry.*May shower the day following procedure. Avoid direct water contact to the incision. Take sponge baths, working around the incision during this time. soapy water to run over your incision but do not expose your incisions to soaking in water (i.e. hot tub, bathtub or swimming pools) for the first 6 weeks after surgery. Do not put any ointment or creams over the incisions for the first 6 weeks after surgery or while the incision is open, draining or scabbed.*Your incisions have been closed with dissolvable suture on the inside and a special skin glue over the incision. The skin glue will dissolve so do not attempt to remove it from your skin. Usually there are not stitches to be removed.*Your incision should gradually look better each day. If you notice unusual swelling, redness, drainage, have increasing pain at the site, or have a fever greater than 100 degrees, notify your physician immediatelyReport These Signs and SymptomsPlease contact your doctor if you have any of the following symptoms: temperature higher than 100.4 degrees F, uncontrolled pain, unable to have bowel movement or feelings of heart racing, sweating.Questions About Your StayFor questions or concerns regarding your hospital stay, call [phone].Discharging attending physician: KENNEDY IBARRA [[id number]]Discharge Signs/SymptomsStandard Please contact your doctor if you have any of the following symptoms: temperature higher than 100.4 degrees F, uncontrolled pain, persistent nausea and/or vomiting or difficulty breathingQuestions About Your StayStandard For questions or concerns regarding your hospital stay:-DURING BUSINESS HOUR (8:00 AM - 4:30 PM):Call [phone] and ask to be transferred to your discharge attending physician.-AFTER BUSINESS HOURS (4:30 PM - 8:00 AM, on weekends, or holidays):Call [phone] and ask the cane flume feeding machine operator to page the on- call doctor for the discharge attending physician.Discharging attending physician: KENNEDY IBARRA [[id number]]Lifting RestrictionsDo not lift more than 10 pounds until after follow-up appointment.Incision CareStandard *Keep your incision clean and dry.*May shower 1 days following procedure. Avoid direct water contact to the incision. Take sponge baths, working around the incision during this time.*Do not submerge incision in tub, pool, hot tub, or farias for 4 weeks.*Avoid applying deodorants, powders, creams, lotions, etc, to your incision for 4 weeks.*Usually there are no stitches to be removed. Steri-strips (strips of tape) will begin to fall off in 10-14 days. If they remain after 2 weeks, gently remove them when they are damp after a shower.*Your incision should gradually look better each day. If you notice unusual swelling, redness, drainage, have increasing pain at the site, or have a fever greater than 100 degrees, notify your physician immediately.*The steri strips will gradually come off in the next 1-2 weeks. Do not peel them. There are no sutures to remove.Current Discharge Medication ListSTART taking these medicationsDetailsox yCODONE (ROXICODONE) 5 mg tablet Take one tablet to three tablets by mouth every 4 hours as neededQty: 20 tablet, Refills: 0PRESCRIPTION TYPE: PrintCONTINUE these medications which have NOT CHANGEDDetailsclonazePAM (KLONOPIN) 0.5 mg tablet Take 0.5 mg by mouth daily as needed.PRESCRIPTION TYPE: Historical Meddocusate (COLACE) 100 mg capsule Take 100 mg by mouth daily.PRESCRIPTION TYPE: Historical MedlisinopriL (ZESTRIL) 40 mg tablet Take 40 mg by mouth daily.PRESCRIPTION TYPE: Historical Medmelatonin 10 mg tab Take 1 tablet by mouth at bedtime daily.PRESCRIPTION TYPE: Historical MedmetFORMIN-XR (GLUCOPHAGE XR) 500 mg extended release tablet Take 1,000 mg by mouth daily with dinner.PRESCRIPTION TYPE: Historical Medmetoprolol tartrate (LOPRESSOR) 25 mg tablet Take one-half tablet by mouth twice daily.Qty: 10 tablet, Refills: 0PRESCRIPTION TYPE: Normalmetoprolol XL (TOPROL XL) 25 mg extended release tablet Take 12.5 mg by mouth twice daily.PRESCRIPTION TYPE: Historical Medsodium chloride 1 gram tablet Take one tablet by mouth three times daily.Qty: 90 tablet, Refills: 1PRESCRIPTION TYPE: NormalThe following medications were removed from your list. This list includes medications discontinued this stay and those removed from your prior med list in our systemphenoxybenzamine (DIBENZYLINE) 10 mg capFuture AppointmentsDate Time Provider Department Center10/05/2019 1:40 PM Kennedy Ibarra MD [facility] Exam12/08/2019 10:30 AM Dalia Jenkins PA-C [facility] IM03/07/2020 1:00 PM [facility] IMPending items needing follow up: follow up appointment, f/u endocrineSigned:Raghu Barrett DO09/24/2019cc:Primary Care Physician: Dung Carmen VerifiedReferring physicians: 2Additional provider(s):ATTESTATIONI personally performed the coughlin portions of the E/M visit, discussed case with xander hinton and concur with resident documentation of history, physical exam, assessment, and treatment plan unless otherwise noted.Staff name: Kennedy Ibarra MD Date: 09/26/2019 documented in this encounter 09/24/2019 [facility] , Discharge Summary [place], Apr il - 09/24/2019 11:18 AM CDT Physician Discharge SummaryName: Tamiko NashvilleMedical Record Number: [id number] Of : 1965 Age: 53 yearsAdmit date: 09/23/2019 Discharge date: 09/24/2019 11:21 AMAttending Physician: Dr. 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 Diabetes mellitus (HCC)• Hearing reduced Hypertension Infection Left adrenal mass (HCC) 08/09/2019 Melanoma of face (HCC)left nose s/p MOHS On supplemental oxygen therapy Pheochromocytoma 07/2019Allergies: Penicillins and Tuna oilAdmission Physical Exam notable for:noneAdmission Lab/Radiology studies notable for:Results for orders placed or performed during the hospital encounter of 09/23/19 (from the past 24 hour(s))POC GLUCOSEResult Value Ref RangeGlucose, POC 174 (H) 70 - 100 MG/DLPOC GLUCOSEResult Value Ref RangeGlucose, POC 168 (H) 70 - 100 MG/DLMAGNESIUMResult Value Ref RangeMagnesium 1.9 1.6 - 2.6 mg/dLPHOSPHORUSResult Value Ref RangePhosphorus 3.0 2.0 - 4.5 MG/DLBASIC METABOLIC PANELResult Value Ref RangeSodium 134 (L) 137 - 147 MMOL/LPotassium 3.9 3.5 - 5.1 MMOL/LChloride 103 98 - 110 MMOL/LCO2 25 21 - 30 MMOL/LAnion Gap 6 3 - 12Glucose 92 70 - 100 MG/DLBlood Urea Nitrogen 13 7 - 25 MG/DLCreatinine 0.70 0.4 - 1.00 MG/DLCalcium 8.5 8.5 - 10.6 MG/DLeGFR Non 60 60 mL/mineGFR 60 60 mL/minPOC GLUCOSEResult Value Ref RangeGlucose, POC 86 70 - 100 MG/DLNo orders to displayBrief Hospital Course: The patient was admitted and the following issues were addressed during this hospitalization: (with pertinent details).53F w/ HTN, DM, left 6cm pheochromocytoma s/p lap left adrenalectomy (09/22). Operation was unremarkable and postoperative course went as planned. Endocrinology was consulted for recommendations and agree with continuing home metformin at discharge. Will d/c phenoxybenzamine at this time. Patient was discharged in stable condition, afebrile, with good bowel and urinary function, ambulating, tolerating regular diet and PO medications.Condition at Discharge: StableDischarge Diagnoses:Hospital ProblemsActive ProblemsLeft adrenal mass (HCC)PheochromocytomaDiastolic heart failure (HCC)Essential hypertensionType 2 diabetes mellitus, without long-term current use of insulin (HCC)Active Problems:Left adrenal mass (HCC)PheochromocytomaDiastolic heart failure (HCC)Essential hypertensionType 2 diabetes mellitus, without long-term current use of insulin (HCC)Surgical Procedures:Procedure(s) (LRB):LEFT LAPAROSCOPIC, ADRENALECTOMY (Left)Significant Diagnostic Studies and Procedures: noted in brief hospital courseConsults:CONSULT ENDOCRINOLOGY PHYSICIANPatient Disposition: HomePatient instructions/medications:Regular DietYou have no dietary restriction. Please continue with a healthy balanced diet.Regular DietYou have no dietary restriction. Please continue with a healthy balanced diet.Activity as ToleratedYou will likely feel tired for at least 1 week after your surgery. Take your pain medicine as needed in order to stay active, but rest as needed for recovery. Gradually increased your activity level and take short walks 2-3 times a day.This will help reduce the risk of blood clots and lung infection (pneumonia) following surgery. You may use the stairs as needed as long as you are not dizzy or weak. Make sure someone is around the first few times you usethe stairs or exercise. Begin to work toward your normal activity level at discharge.Bathing RestrictionsYou may shower the day after surgery and allow clean, soapy water to run over your incision but do not expose your incisions to soaking in water (i.e. hot tub, bathtub or swimming pools) for the first 6 weeks after surgery. Do not put any ointment or creams over the inc isions for the first 6 weeks after surgery or while the incision is open, draining or scabbed.Lifting RestrictionsPractice 10 deep breaths every hour and 2 coughs every hour, (for at least 12 hours a day), while awake for the first week after surgery to reduce the risk of lung problems or pneumonia. Do not lift heavy objects (more than 8 pounds) for the first 4 weeks. Also avoid pushing, pulling or abdominal pressure for these first 4 weeks. When coughing, be sure to place a pillow over the incision and gently press inward to reduce the pressure (from coughing) on your incision.Incision Care*Keep your incision clean and dry.*May shower the day following procedure. Avoid direct water contact to the incision. Take sponge baths, working around the incision during this time. soapy water to run over your incision but do not expose your incisions to soaking in water (i.e. hot tub, bathtub or swimming pools) for the first 6 weeks after surgery. Do not put any ointment or creams over the incisions for the first 6 weeks after surgery or while the incision is open, draining or scabbed.*Your incisions have been closed with dissolvable suture on the inside and a special skin glue over the incision. The skin glue will dissolve so do not attempt to remove it from your skin. Usually there are not stitches to be removed.*Your incision should gradually look better each day. If you notice unusual swelling, redness, drainage, have increasing pain at the site, or have a fever greater than 100 degrees, notify your physician immediatelyReport These Signs and SymptomsPlease contact your doctor if you have any of the following symptoms: temperature higher than 100.4 degrees F, uncontrolled pain, unable to have bowel movement or feelings of heart racing, sweating.Questions About Your StayFor questions or concerns regarding your hospital stay, call [phone].Discharging attending physician: KENNEDY IBARRA [[id number]]Discharge Signs/SymptomsStandard Please contact your doctor if you have any of the following symptoms: temperature higher than 100.4 degrees F, uncontrolled pain, persistent nausea and/or vomiting or difficulty breathingQuestions About Your StayStandard For questions or concerns regarding your hospital stay:-DURING BUSINESS HOUR (8:00 AM - 4:30 PM):Call [phone] and ask to be transferred to your discharge attending physician.-AFTER BUSINESS HOURS (4:30 PM - 8:00 AM, on weekends, or holidays):Call [phone] and ask the cane flume feeding machine operator to page the on- call doctor for the discharge attending physician.Discharging attending physician: KENNEDY IBARRA [[id number]]Lifting RestrictionsDo not lift more than 10 pounds until after follow-up appointment.Incision CareStandard *Keep your incision clean and dry.*May shower 1 days following procedure. Avoid direct water contact to the incision. Take sponge baths, working around the incision during this time.*Do not submerge incision in tub, pool, hot tub, or farias for 4 weeks.*Avoid applying deodorants, powders, creams, lotions, etc, to your incision for 4 weeks.*Usually there are no stitches to be removed. Steri-strips (strips of tape) will begin to fall off in 10-14 days. If they remain after 2 weeks, gently remove them when they are damp after a shower.*Your incision should gradually look better each day. If you notice unusual swelling, redness, drainage, have increasing pain at the site, or have a fever greater than 100 degrees, notify your physician immediately.*The steri strips will gradually come off in the next 1-2 weeks. Do not peel them. There are no sutures to remove.Current Discharge Medication ListSTART taking these medicationsDetailsox yCODONE (ROXICODONE) 5 mg tablet Take one tablet to three tablets by mouth every 4 hours as neededQty: 20 tablet, Refills: 0PRESCRIPTION TYPE: PrintCONTINUE these medications which have NOT CHANGEDDetailsclonazePAM (KLONOPIN) 0.5 mg tablet Take 0.5 mg by mouth daily as needed.PRESCRIPTION TYPE: Historical Meddocusate (COLACE) 100 mg capsule Take 100 mg by mouth daily.PRESCRIPTION TYPE: Historical MedlisinopriL (ZESTRIL) 40 mg tablet Take 40 mg by mouth daily.PRESCRIPTION TYPE: Historical Medmelatonin 10 mg tab Take 1 tablet by mouth at bedtime daily.PRESCRIPTION TYPE: Historical MedmetFORMIN-XR (GLUCOPHAGE XR) 500 mg extended release tablet Take 1,000 mg by mouth daily with dinner.PRESCRIPTION TYPE: Historical Medmetoprolol tartrate (LOPRESSOR) 25 mg tablet Take one-half tablet by mouth twice daily.Qty: 10 tablet, Refills: 0PRESCRIPTION TYPE: Normalmetoprolol XL (TOPROL XL) 25 mg extended release tablet Take 12.5 mg by mouth twice daily.PRESCRIPTION TYPE: Historical Medsodium chloride 1 gram tablet Take one tablet by mouth three times daily.Qty: 90 tablet, Refills: 1PRESCRIPTION TYPE: NormalThe following medications were removed from your list. This list includes medications discontinued this stay and those removed from your prior med list in our systemphenoxybenzamine (DIBENZYLINE) 10 mg capFuture AppointmentsDate Time Provider Department Center10/05/2019 1:40 PM Kennedy Ibarra MD [facility]2 [facility] Exam12/08/2019 10:30 AM Dalia Jenkins PA-C [facility] IM03/07/2020 1:00 PM [facility] IMPending items needing follow up: follow up appointment, f/u endocrineSigned:Raghu Barrett, 09/24/2019cc:Primary Care Physician: Dung Carmen VerifiedReferring physicians: 2Additional provider(s):ATTESTATIONI personally performed the coughlin portions of the E/M visit, discussed case with xander hinton and concur with resident documentation of history, physical exam, assessment, and treatment plan unless otherwise noted.Staff name: Kennedy Ibarra MD Date: 09/26/2019 documented in this encounter 09/23/2019 [facility] , History and Physicals Results Value Date Source HP Collin Hollingsworth DO - 09/23/2019 7:10 AM CDT Surgical Oncology H&P009/23/2019 Patient: Aminta MerazMRN: [id number] Date: 09/23/2019, LOS: 0 daysDate of Service: September 23, 2019Attending Surgeon: Kennedy Ibarra MDH&P Performed by: Collin Mayberry DOASSESSMENT: 53 y.o. female with HTN and DM presents for laparoscopic left adrenalectomy secondary to pheochromocytomaPLAN:Plan for laparoscopic left adrenalectomy; possible open adrenalectomy - Risks of the procedure were presented, elects to proceed with the operation- Informed consent was obtained in clinic Collin Mayberry DO #[id number] HPI: Aminta Meraz is a 53 y.o. female with HTN and DM presents for laparoscopic left adrenalectomy secondary to pheochromocytoma. Pt has a left adranal mass which was found incidentally. It measured 6 cm in size. Work up showed laboratory findings consistent with pheochromocytoma. Has had no abdominal pain. Has had no headache or changes in vision. Has had no nausea or vomiting. Has followed with endocrinology. Continued on beta-blockade and was started on phenoxybenzamine. Medical History: Diagnosis Date Asthma as child [...] multiple MOHS procedure of nose 2/2 melanoma Medications:No current facility-administered medications on file prior to encounter. Current Outpatient Medications on File Prior to Encounter Medication Sig Dispense Refill • clonazePAM (KLONOPIN) 0.5 mg tablet Take 0.5 mg by mouth daily as needed. docusate (COLACE) 100 mg capsule Take 100 mg by mouth daily. lisinopriL (ZESTRIL) 40 mg tablet Take 40 mg by mouth daily. metFORMIN-XR (GLUCOPHAGE XR) 500 mg extended release tablet Take 1,000 mg by mouth daily with dinner. Allergies: Penicillins and Tuna oilSocial History Socioeconomic History Marital status: Spouse name: Not on file Number of children: Not on file Years of education: Not on file Highest education level: Not on file Occupational History Not on file Tobacco Use Smoking status: Former Smoker Packs/day: 0.25 Years: 20.00 Pack years: 5.00 Types: Cigarettes Last attempt to quit: 06/07/2019 Years since quitt in.2 Smokeless tobacco: Never Used Substance and Sexual Activity Alcohol use: Yes Alcohol/week: 12.0 standard drinks Types: 12 Cans of beer per week Drug use: Never • Sexual activity: Not on file Other Topics Concern Not on file Social History Narrative Not on file Family History Problem Relation Age of Onset Hypertension Mother Arthritis-osteo Mother Cancer- Lung Father Cancer-Lung Paternal Uncle Arthritis-osteo Maternal Grandmother Cancer-Lung Maternal Grandfather Vitals:Vital Signs: Last Filed In 24 Hours Vital Signs: 24 Hour Range Intake/Output:No intake or output data in the 24 hours ending 09/23/19 0729Physical Exam: Constitutional: Appearance: Normal appearance. HENT: Head: [...] and oriented to person, place, and time. ROS:Constitutional: Negative. HENT: Negative. Eyes: Negative. Respiratory: Negative. Cardiovascular: Negative. Gastrointestinal: Negative. Endocrine: Negative. Genitourinary: Negative. Musculoskeletal: Negative. Skin: Negative. Allergic/Immunologic: Negative. Neurological: Negative. Hematological: Negative. Psychiatric/Behavioral: Negative. Lab/Radiology/Other Diagnostic Tests:Recent Labs HGB 10.9* HCT 32.5* WBC 10.1 PLTCT 429* NA 135* K 4.7 CL 103 CO2 23 BUN 16 CR 0.80 GLU 94 CA 9.7 ALBUMIN 4.3 TOTPROT 7.2 TOTBILI 0.3 AST 20 ALT 19 ALKPHOS 118* Pertinent labs have been reviewed. ssociated attestation - Kennedy Ibarra MD - 09/26/2019 10:50 PM CDT ATTESTATIONI personally performed the coughlin portions of the E/M visit, discussed case with resident and concur with resident documentation of history, physical exam, assessment, and treatment plan unless otherwise noted.Staff name: Kennedy Ibarra MD Date: 09/26/2019 09/24/2019 [facility] , Note Collin Mayberry DO - 09/23/2019 7:10 AM CDT Surgical Oncology H&P009/23/2019 Patient: Aminta MerazMRN: [id number] Date: 09/23/2019, LOS: 0 daysDate of Service: September 23, 2019Attending Surgeon: Kennedy Ibarra MDH&P Performed by: Collin Chizek, DOASSESSMENT: 53 y.o. female with HTN and DM presents for laparoscopic left adrenalectomy secondary to pheochromocytomaPLAN:Plan for laparoscopic left adrenalectomy; possible open adrenalectomy - Risks of the procedure were presented, elects to proceed with the operation- Informed consent was obtained in clinic Collinkelly Peñadavid DO #[id number] HPI: Aminta Meraz is a 53 y.o. female with HTN and DM presents for laparoscopic left adrenalectomy secondary to pheochromocytoma. Pt has a left adranal mass which was found incidentally. It measured 6 cm in size. Work up showed laboratory findings consistent with pheochromocytoma. Has had no abdominal pain. Has had no headache or changes in vision. Has had no nausea or vomiting. Has followed with endocrinology. Continued on beta-blockade and was started on phenoxybenzamine. Medical History: Diagnosis Date Asthma as child [...] multiple MOHS procedure of nose 2/2 melanoma Medications:No current facility-administered medications on file prior to encounter. Current Outpatient Medications on File Prior to Encounter Medication Sig Dispense Refill • clonazePAM (KLONOPIN) 0.5 mg tablet Take 0.5 mg by mouth daily as needed. docusate (COLACE) 100 mg capsule Take 100 mg by mouth daily. lisinopriL (ZESTRIL) 40 mg tablet Take 40 mg by mouth daily. metFORMIN-XR (GLUCOPHAGE XR) 500 mg extended release tablet Take 1,000 mg by mouth daily with dinner. Allergies: Penicillins and Tuna oilSocial History Socioeconomic History Marital status: Spouse name: Not on file Number of children: Not on file Years of education: Not on file Highest education level: Not on file Occupational History Not on file Tobacco Use Smoking status: Former Smoker Packs/day: 0.25 Years: 20.00 Pack years: 5.00 Types: Cigarettes Last attempt to quit: 06/07/2019 Years since quitt in.2 Smokeless tobacco: Never Used Substance and Sexual Activity Alcohol use: Yes Alcohol/week: 12.0 standard drinks Types: 12 Cans of beer per week Drug use: Never • Sexual activity: Not on file Other Topics Concern Not on file Social History Narrative Not on file Family History Problem Relation Age of Onset Hypertension Mother Arthritis-osteo Mother Cancer- Lung Father Cancer-Lung Paternal Uncle Arthritis-osteo Maternal Grandmother Cancer-Lung Maternal Grandfather Vitals:Vital Signs: Last Filed In 24 Hours Vital Signs: 24 Hour Range Intake/Output:No intake or output data in the 24 hours ending 09/23/19 0729Physical Exam: Constitutional: Appearance: Normal appearance. HENT: Head: [...] and oriented to person, place, and time. ROS:Constitutional: Negative. HENT: Negative. Eyes: Negative. Respiratory: Negative. Cardiovascular: Negative. Gastrointestinal: Negative. Endocrine: Negative. Genitourinary: Negative. Musculoskeletal: Negative. Skin: Negative. Allergic/Immunologic: Negative. Neurological: Negative. Hematological: Negative. Psychiatric/Behavioral: Negative. Lab/Radiology/Other Diagnostic Tests:Recent Labs HGB 10.9* HCT 32.5* WBC 10.1 PLTCT 429* NA 135* K 4.7 CL 103 CO2 23 BUN 16 CR 0.80 GLU 94 CA 9.7 ALBUMIN 4.3 TOTPROT 7.2 TOTBILI 0.3 AST 20 ALT 19 ALKPHOS 118* Pertinent labs have been reviewed. ssociated attestation - Kennedy Ibarra MD - 09/26/2019 10:50 PM CDT ATTESTATIONI personally performed the coughlin portions of the E/M visit, discussed case with resident and concur with resident documentation of history, physical exam, assessment, and treatment plan unless otherwise noted.Staff name: Kennedy Ibarra MD Date: 09/26/2019 09/23/2019 [facility] , Vital Signs Vital Sign Value Date Comments Source Systolic blood pressure 148 mm [Hg] 10/05/2019 [facility], Diastolic blood pressure 76 mm [Hg] 10/05/2019 [facility], Heart rate 108 /min 10/05/2019 [facility], Body temperature 36.22 Cynthia 10/05/2019 [facility], Respiratory rate 16 /min 10/05/2019 [facility], Body height 157.5 cm 10/05/2019 [facility], Body weight 57.788 kg 10/05/2019 [facility], BMI 23.30 kg/m2 10/05/2019 [facility], Oxygen saturation in Arterial blood by Pulse oximetry 97 % 10/05/2019 [facility] , Systolic blood pressure 96 mm[ Hg] 09/24/2019 [facility], Diastolic blood pressure 52 mm [Hg] 09/24/2019 [facility], Heart rate 87 /min 09/24/2019 [facility], Body temperature 36.56 Cynthia 09/24/2019 [facility], Oxygen saturation in Arterial blood by Pulse oximetry 95 % 09/24/2019 [facility] , Body height 157.5 cm 09/23/2019 [facility], Body weight 60.056 kg 09/23/2019 [facility], BMI 24.22 kg/m2 09/23/2019 [facility], Systolic blood pressure 129 mm [Hg] 09/21/2019 [facility], Diastolic blood pressure 76 mm [Hg] 09/21/2019 [facility], Heart rate 105 /min 09/21/2019 [facility], Body temperature 37 Cynthia 09/21/2019 [facility], Body height 157.5 cm 09/21/2019 [facility], Body weight 59.421 kg 09/21/2019 [facility], BMI 23.96 kg/m2 09/21/2019 [facility], Oxygen saturation in Arterial blood by Pulse oximetry 100 % 09/21/2019 [facility] , Body height 154.9 cm 09/01/2019 [facility], Body weight 52.164 kg 09/01/2019 [facility], BMI 21.73 kg/m2 09/01/2019 [facility], Systolic blood pressure 138 mm [Hg] 08/03/2019 [facility], Diastolic blood pressure 75 mm [Hg] 08/03/2019 [facility], Heart rate 92 /min 08/03/2019 [facility], Body temperature 36.72 Cynthia 08/03/2019 [facility], Respiratory rate 15 /min 08/03/2019 [facility], Body height 157.4 cm 08/03/2019 [facility], Body weight 53.797 kg 08/03/2019 [facility], BMI 21.71 kg/m2 08/03/2019 [facility], Oxygen saturation in Arterial blood by Pulse oximetry 100 % 08/03/2019 [facility] , Encounters Location Location Details Encounter Type Encounter Number Reason For Visit Attending Provider ADM Date DC Date Status Source [facility] Encounter [id number] 06/10/19 20 06/11/2019 [facility], [facility] [place] [facility] Encounter [id number] 06/18/1906/19/2019 [facility], [facility] Telephone [id number] Ginger Castaneda PA-C 06/23/2019 [facility], [facility] Hospital Encounter [id number] 06/28/1906/29/2019 [facility], [facility] Telephone [id number] Ginger Castaneda PA-C 06/30/2019 [facility], MOBCAT OUTP ATIENT [id number] R EBECCA CASTANEDA 07/02/2019 Active [facility], CCC2 CA SER IES [id number] R EBECCA CASTANEDA 07/02/2019 Active [facility], [facility] Telephone [id number] Kennedy Ibarra 07/06/2019 [facility] Encounter [id number] 07/09/1907/10/2019 [facility], Travel [id number] 08/03/2019 [facility] , [facility] Prep for Case [id number] Kennedy Ibarra 08/03/2019 [facility], CCC2 CA SER IES [id number] Daren IBARRA 08/03/2019 08/03/2019 Active [facility], [facility] Office Visit [id number] Kennedy Ibarra 08/03/2019 08/03/2019 [facility], [facility] Telephone [id number] Kennedy Ibarra 08/04/2019 [facility] Telephone [id number] Kennedy Ibarra 08/05/2019 [facility] Telephone [id number] Kennedy Ibarra 08/06/2019 [facility] Telephone [id number] Kennedy Ibarra 08/13/2019 [facility] Telephone [id number] Kennedy Ibarra 08/16/2019 [facility] Telephone [id number] Kennedy Ibarra 08/18/2019 [facility] Orders Only [id number] Kennedy Ibarra 08/18/2019 [facility], [facility] Telephone [id number] Kennedy Ibarra 08/25/2019 [facility], Travel [id number] 09/01/2019 [facility] , MPAENDO OUT PATIENT [id number] Daniel TAVAREZ 09/01/2019 09/01/2019 Discharged [facility] [place], [facility] Office Visit [id number] Bacilio Tavarez DO 09/01/2019 09/02/2019 [facility] , [facility] Telephone [id number] Kennedy Ibarra 09/07/2019 [facility] Telephone [id number] Kennedy Ibarra 09/15/2019 [facility] Orders Only [id number] Kennedy Ibarra 09/15/2019 [facility], [facility] Telephone [id number] Bacilio Tavarez DO 09/16/2019 [facility], [facility] [place] [facility] Telephone [id number] Madie Pearce RN 09/20/2019 [facility], Travel [id number] 09/21/2019 [facility] , [facility] Telephone [id number] Bacilio Tavarez DO 09/21/2019 [facility], ICSPSCR OUT PATIENT [id number] 09/21/2019 09/21/2019 Active [facility], [facility] [place] Nurse Only [id number] 09/21/2019 09/21/2019 [facility], IC1PAC OUTP ATIENT [id number] 09/21/2019 Active [facility] [place], IC1PAC OUTP ATIENT [id number] 09/21/2019 Active [facility] [place], [facility] [place] [facility] [place] [facility] Ancillary Procedure [id number] Kennedy Ibarra 09/21/2019 09/21/2019 [facility], [facility] Telephone [id number] Kennedy Ibarra 09/22/2019 [facility], Travel [id number] 09/23/2019 [facility] , [facility] Hospital Encounter [id number] Kennedy Ibarra 09/23/2019 09/24/2019 [facility] , [facility] [place] Anesthesia Event [id number] Lis Pineda 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 [employer]NATIONAL RESERVATIONS 09/23/2019 09/23/2019 [facility], [facility] [place] Surgery [id number] Kennedy Ibarra 09/23/2019 09/23/2019 [facility] , [facility] Telephone [id number] Kennedy Ibarra 09/27/2019 [facility] Telephone [id number] Kennedy Ibarra 09/28/2019 [facility], [facility] Telephone [id number] Kennedy Ibarra 09/29/2019 [facility], [id number] CA SERIES [id number] David MEJIAS 10/04/2019 10/04/2019 Active [facility], [facility] Clinical Support Telehealth 10 [id number] Cassidy Ibarra Umm son MSN,FOLDED TOWEL MACHINE OPERATOR 10/04/2019 11/03/2019 [facility], Travel [id number] 10/05/2019 [facility] , CCC2 CA SER IES [id number] Daren IBARRA 10/05/2019 10/05/2019 Active [facility], [facility] Office Visit [id number] Kennedy Ibarra 10/05/2019 10/05/2019 [facility], [facility] Orders Only [id number] Cassidy Mejias 10/28/2019 [facility], [facility] Documentation [id number] Cassidy Mejias 11/03/2019 [facility], CCC2 O CASSIDY MEJIAS Active [facility] [place], Procedures Procedure Code Date Perfomer Comments Source GENETIC TEST [id number] 10/15/2019 [facility], POC GLUCOSE 38403 [facility] 33893 [facility] PHOSPHOROUS, SERUM 81065 09/24/2019 [facility] , BASIC METABOLIC PANEL 48428 09/24/2019 [facility] , POC GLUCOSE 82617 09/24/2019 [facility], POC GLUCOSE 70936 09/23/2019 [facility], ANESTHESIA ARTERIAL LINE INSERTION [id number] 09/23/2019 [facility] , HC LEVEL V SRG PTH, GROSS & MICRO 26161 09/23/2019 [facility] POC GLUCOSE 48351 [facility], TRANSABDOMINAL/ LUMBAR/ DORSAL LAPAROSCO PIC ADRENALECTOMY/ EXPLORATION ADRENAL GLAND WITH/ WITHOUT BIOPSY 01442 09/23/2019 [facility] , POC GLUCOSE 14517 09/23/2019 [facility], TELEMETRY STRIPS-SCAN [id number] 09/23/2019 Document [facility] , BLOOD TYPING, ABO CONFIRM [id number] 09/21/2019 [facility] , CBC,AUTOMATED 68253 09/21/2019 [facility] , HC COMPREHENSIVE METABOLIC PANEL 28134 09/21/2019 [facility] , HC ABO GROUP 14497 09/21/2019 [facility], COVID-19 (SARS-COV-2) PCR U0003 09/21/2019 [facility] , ECG-SCAN [id number] 09/21/2019 Document [facility], CT CHEST EXTERNAL IMAGING IMG9 16 07/09/2019 Outpatient [facility] , CT ABD/PEL EXTERNAL IMAGING IM G920 06/28/2019 Outpatient [facility] , CT CHEST EXTERNAL IMAGING IMG9 16 06/18/2019 Outpatient [facility] , MRI PELVIS EXTERNAL IMAGING IM G834 06/10/2019 Outpatient [facility] , Plan of Care Plan of Care Date Source Scheduled OrdersNameTypePriorityAssociat ed DiagnosesOrder ScheduleCT ABD/PELV W CONTRASTImagingRoutineAbdominal mass, unspecified abdominal locationAbnormal CT scanExpected: 06/23/2019 (Approximate), Expires: 1documented as of this encounter 11/23/2019 [facility], Scheduled OrdersNameTypePriorityAssociat ed DiagnosesOrder ScheduleRENIN- RANDOMLabRoutineAdrenal mass (HCC)Expected: 08/03/2019 (Approximate), Expires: 1ALDOSTERONE-RANDOMLabRoutineAdrenal mass (HCC)Expected: 08/03/2019 (Approximate), Expires: 1METANEPHRINES FRACT FREE PLASMALabRoutineAdrenal mass (HCC)Expected: 08/03/2019 (Approximate), Expires: 1CORTISOL,RANDOMLabRoutineAdrenal mass (HCC)Expected: 08/03/2019 (Approximate), Expires: 1documented as of this encounter 11/23/2019 [facility], Scheduled OrdersNameTypePriorityAssociat ed DiagnosesOrder ScheduleRENIN- RANDOMLabRoutineAdrenal mass (HCC)Expected: 08/03/2019 (Approximate), Expires: 1ALDOSTERONE-RANDOMLabRoutineAdrenal mass (HCC)Expected: 08/03/2019 (Approximate), Expires: 08/03/2020METANEPHRINES FRACT FREE PLASMALabRoutineAdrenal mass (HCC)Expected: 08/03/2019 (Approximate), Expires: 1CORTISOL,RANDOMLabRoutineAdrenal mass (HCC)Expected: 08/03/2019 (Approximate), Expires: 1documented as of this encounter 11/23/2019 [facility], Scheduled OrdersNameTypePriorityAssociat ed DiagnosesOrder ScheduleRENIN- RANDOMLabRoutineAdrenal mass (HCC)Expected: 08/03/2019 (Approximate), Expires: 1ALDOSTERONE-RANDOMLabRoutineAdrenal mass (HCC)Expected: 08/03/2019 (Approximate), Expires: 08/03/2020METANEPHRINES FRACT FREE PLASMALabRoutineAdrenal mass (HCC)Expected: 08/03/2019 (Approximate), Expires: 08/03/2020ORTISOL,RANDOMLabRoutineAdrenal mass (HCC)Expected: 08/03/2019 (Approximate), Expires: 1documented as of this encounter 11/23/2019 [facility], Scheduled OrdersNameTypePriorityAssociat ed DiagnosesOrder ScheduleRENIN- RANDOMLabRoutineAdrenal mass (HCC)Expected: 08/03/2019 (Approximate), Expires: 1ALDOSTERONE-RANDOMLabRoutineAdrenal mass (HCC)Expected: 08/03/2019 (Approximate), Expires: 08/03/2020METANEPHRINES FRACT FREE PLASMALabRoutineAdrenal mass (HCC)Expected: 08/03/2019 (Approximate), Expires: 1CORTISOL,RANDOMLabRoutineAdrenal mass (HCC)Expected: 08/03/2019 (Approximate), Expires: 1documented as of this encounter 11/23/2019 [facility], Scheduled ReferralsNameTypePriorityAssoc iated DiagnosesOrder ScheduleAMB REFERRAL TO ENDOCRINOLOGYOutpatient ReferralSTATAdrenal mass (HCC)Pheochromocytoma, unspecified lateralityOrdered: 08/18/2019documented as of this encounter 11/23/2019 [facility], Scheduled OrdersNameTypePriorityAssociat ed DiagnosesOrder ScheduleECG 25-ZZXQDIHQrmnygfEfy-hyvxfxazh cardiovascular examinationONE TIME for 1 Occurrences starting 09/21/2019 until 09/21/2019documented as of this encounter 11/23/2019 [facility], Scheduled ReferralsNameTypePriorityAssoc iated DiagnosesOrder ScheduleAMB REFERRAL TO GENETIC COUNSELINGOutpatient ReferralRoutinePheochromocytoma of left adrenal glandOrdered: 09/01/2019documented as of this encounter 11/23/2019 [facility], Scheduled OrdersNameTypePriorityAssociat ed DiagnosesOrder ScheduleCT ABD/PELV W CONTRASTImagingRoutinePheochromocytoma, unspecified lateralityExpected: 10/04/2020 (Approximate), Expires: 04/06/2021METANEPHRINES FRACT FREE PLASMALabRoutinePheochromocytoma, unspecified lateralityExpected: 10/04/2020 (Approximate), Expires: 1documented as of this encounter 11/23/2019 [facility], Scheduled OrdersNameTypePriorityAssociat ed DiagnosesOrder ScheduleCT ABD/PELV W CONTRASTImagingRoutinePheochromocytoma, unspecified lateralityExpected: 10/04/2020 (Approximate), Expires: 04/06/2021METANEPHRINES FRACT FREE PLASMALabRoutinePheochromocytoma, unspecified lateralityExpected: 10/04/2020 (Approximate), Expires: 1documented as of this encounter 11/23/2019 [facility], Health MaintenanceDue DateLast DoneComme ntsHIV EQPJQLSTY24/24/1979DILATED EYE EXAM11/09/1981DTAP/TDAP VACCINES (1 - Tdap)11/09/1981FOOT EXAM11/09/19812256TQR9D19/24/1982HEPATITIS C LLFZVARAS39/24/1982PHYSICAL (COMPREHENSIVE) EXAM11/09/1981PNEUMONIA VACCINE (DM)11/09/1981CERVICAL CANCER YVROFPPUL21/24/1985BREAST CANCER UQHOISVAF53/24/2004COLORECTAL CANCER HPWQKFSXU22/24/2014SHINGLES RECOMBINANT VACCINE (1 of 2)11/09/2013INFLUENZA ILELCQV3602/17/2020 11/23/2019 [facility], Social History No Data Provided for This Section Assessment and Plan No Data Provided for This Section Family History Value Date S ource Medical HistoryRelationNameCommentsCance r-LungFatherBladder CancerMaternal Grandfathernon-smokerStrokeMaternal GrandfatherArthritis-osteoMaternal ImlyxseimvgZazetkwwn-hojjtFchdimYlmmuxvfxiuiGxjlihRxkjac-JeqiOmjwjrvv GrandmotherCancer-LungPaternal UncleRelationNameStatusCommentsDaughterAliveDaughterAliveFatherDeceased (Age 64)Maternal AuntAliveMaternal AuntDeceased (Age 90)Maternal GrandfatherDeceased (Age 87)Maternal GrandmotherDeceased (Age 91)MotherAlivespikes in blood pressure tubes are ties +ov/utPaternal AuntDeceased (Age 70)Paternal GrandfatherDeceased (Age 71)Paternal GrandmotherDeceased (Age 95)Paternal UncleDeceased (Age 66)SisterAlive+ov/utSonAlive 11/23/2019 [facility] , Advance Directives Order Name Results Value Date Source Advance Directives Advance Dir ectives Documents on FileTypeDate RecordedPatien t RepresentativeExplanationAdvance Directive/DPOA08/03/2019 1:45 PMLatest Code Status on FileCode StatusDate ActivatedDate InactivatedCommentsFull Code09/23/2019 1:51 PM09/24/2019 1:22 PMProvider has discussed Code Status w/Patient or Family?No, discussion not necessary based on Dx 11/23/2019 [facility] , Functional Status No Data Provided for This Section
--- OUTSIDE RECORDS SUMMARY | 2019-11-23 03:34 | XMS REPORT | Encounter Summary ---
Author Author [facility] Organization [facility] Address Unknown Phone Unavailable Care Team Providers Care Chief Pharmacist Name Role Phone Dung Carmen MD 21 Dung Carmen MD PCP Reason for Visit * Reason Comments Navigation Follow Up Encounter Details Care Team Description Date Type Department Ginger Castaneda PA-C [address] [place] [address] [phone] Navigation Follow Up 06/30/2019 Telephone [facility] [address] [address] Social History Date Tobacco Use Types Packs/Day Years Used Never Assessed Sex Assigned at Date Recorded Female Industry Job Start Date Occupation Not on file Not on file Not on file Travel End Travel History Travel Start No recent travel history available. documented as of this encounter Miscellaneous Notes * Telephone Encounter - Stacey Kendrick RN - 07/05/2019 10:51 AM BLOOD COORDINATOR Modesto Castaneda review the images from 06/28/2019 done at [facility] in [place], Her her review of the images: it is the same mass. It is on the left side and sits b ehind the pancreas and above/near the left kidney, which is where the adrenal gl and would be. On the initial imaging I thought there could have been a second ma ss but now with full abdominal imaging it may just be a loop of bowel. At this time the adrenal gland is the main concern. Patient to see Dr. Stoner. Referral shell updated, patient left a messages [...] was just prior to her transfer to [facility] in [facility]. Stacey Kendrick RN D COORDINATOR * Telephone Encounter - Stacey Kendrick RN - 07/02/2019 3:22 PM BLOOD COORDINATOR Spoke to the patient, she has since been discharged from [facility] in [place]. Pam chacon has bene unsuccessful in obtain images from [facility] in [place] via [employer]. [facility]ir led radiology and medical records, they will be pushing the image to the cloud. Navigator will update Ginger Castaneda to review the images. Stacey Kendrick RN D COORDINATOR * Telephone Encounter - Stacey Kendrick RN - 07/01/2019 3:07 PM BLOOD COORDINATOR Navigator I got a voicemail from this patient on the afternoon of 06/30/19. She s aid she was dx with sepsis and that she had new scans and they didnt see i t. Navigator has since contacted the patient x2 and voicemails x2. and has not been able to reach the patient. Was able to reach the patient's PCPs office and t avay indicated the patient had been admitted to [facility] in [place]. Records obtai fidelina via Care Everywhere. Requesting recent CT scan images via the cloud. Updated the Care Team. Navigator to follow. Stacey Kendrick RN D COORDINATOR documented in this encounter Plan of Treatment [...]
--- OUTSIDE RECORDS SUMMARY | 2019-11-23 03:34 | XMS REPORT | Encounter Summary ---
Author Author [facility] Organization [facility] Address Unknown Phone Unavailable Care Team Providers Care Fire Crew Specialist Name Role Phone Dung Carmen MD 21 Dung Carmen MD PCP Reason for Visit * Reason Comments Navigation Follow Up Encounter Details Care Team Description Date Type Department Andrew Ibarra MD [address] [place] [address] [phone] Navigation Follow Up 07/06/2019 Telephone [facility] [address] [address] Social History Date Tobacco Use Types Packs/Day Years Used Never Assessed Sex Assigned at Date Recorded Female Industry Job Start Date Occupation Not on file Not on file Not on file Travel End Travel History Travel Start No recent travel history available. documented as of this encounter Miscellaneous Notes * Telephone Encounter - Christelle Mejia RN - 07/06/2019 3:26 PM INSTRUMENT INSPECTOR Navigation Intake Assessment Document Patient Name: Aminta Meraz : 1965 Insurance: [facility] Future Appointments Date Time Provider Department Center 08/03/2019 2:00 PM Andrew Ibarra MD [facility] Exam Diagnosis & Reason for Visit: Adrenal Mass Physician Info: Referring Physician: Dung Carmen Other: Records in Care Everywhere and Navigation packet Please see initial navigation note and O2 for additional documentation Location of Films: PACS Location of Pathology: No pathology History of Present Illness: Ms. Meraz is a 53 year old woman who was original ly referred to for management of what was thought to be a pancreatic mass. R ecent CT imaging and review with GI surgical team have identified this mass as a left adrenal mass. Imagin07-09-19 CT Chest W contrast - Impression: 1. Peripheral ground glas s and reticular densities in the upper lobes bilaterally which may represent are as of minot atelectasis/pneumonitis or scarring, corresponding to the faint dens ity on prior chest radiograph. 2. Otherwise unremarkable appearance of the amparo gs. 3. Stable left adrenal mass, as described in greater detail on CT abdomen/ pelvis examination 06-28-19 and stable mild diffuse enlargement of the right adre nal gland. 4. Moderate gastric distension, likely from recent food and liquid ingestion. 06-28-09 CT Ab/Pel W and WO - Impression: 1. 6 cm left adrenal mass; considera tions, adrenal cortical carcinoma, adrenal myolipoma, adrenal leiomyoma pheochro mocytoma, tumor of neural origin. 2. Large colonic fecal burden. Prior Treatment (XRT, Surgery, Chemotherapy): None Comments: This RN spoke to patient who verbalized understanding of date, time a nd location of appointment. Gave direct contact information for further questio ns or concerns. Appointment information sent to patient via mail. Luciana Claros RUMENT INSPECTOR documented in this encounter Plan of Treatment [...]
--- OUTSIDE RECORDS SUMMARY | 2019-11-23 03:34 | XMS REPORT | Encounter Summary ---
Author Author [facility] Organization [facility] Address Unknown Phone Unavailable Care Team Providers Care Social Problems Specialist Name Role Phone PCP Unavailable Encounter Details Care Team Description Date Type Department 06/10/2019 [facility] [address] [address] Social History Date Tobacco Use [...] Procedure Name Priority Date/Time Associated Diag nosis MRI PELVIS EXTERNAL Routine 06/10/2019 IMAGING 12:00 AM AUTO VINYL TOP INSTALLER documented in this encounter Results * MRI PELVIS EXTERNAL IMAGING (06/10/2019 12:00 AM AUTO VINYL TOP INSTALLER) Specimen Narrative Performed At This order has been auto finalized and does not contain a result. documented in this encounter Visit Diagnoses Not on filedocumented in this encounter
--- OUTSIDE RECORDS SUMMARY | 2019-11-23 03:34 | XMS REPORT | Encounter Summary ---
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 Encounter Details Care Team Description Date Type Department Andrew Ibarra MD [address] [place], [place] [phone] Adrenal mass (HCC) (Primary Dx); Left adrenal mass (HCC) 08/03/2019 Office Visit [facility] [place] [phone] Social History Date Tobacco Use Types Packs/Day [...] history available. documented as of this encounter Last Filed Vital Signs Reading Time Taken Comments Vital Sign 138/75 08/03/2019 2:13 PM CDT Blood Pressure 92 08/03/2019 2:13 PM CDT Pulse 36.7 C (98.1 F) 08/03/2019 2:13 PM CDT Temperature 15 08/03/2019 2:13 PM CDT Respiratory Rate 100% 08/03/2019 2:13 PM CDT Oxygen Saturation - - Inhaled Oxygen Concentration 53.8 kg (118 lb 9.6 oz) 08/03/2019 2:13 PM CDT Weight 157.4 cm (5' 1.97") 08/03/2019 2:13 PM CDT Height 21.71 08/03/2019 2:13 PM CDT Body Mass Index documented in [...] Progress Notes * Andrew Ibarra MD - 08/03/2019 2:00 PM CDT Name: Aminta Meraz : 1965 AGE: 53 y.o . DATE OF SERVICE: 08/03/2019 Subjective: Reason for Visit: New Patient Aminta Meraz is a 53 y.o. female. History of Present Illness Ms. Meraz is a 53-year-old female with a history of hypertension and diabetes who presents for evaluation of a left adrenal mass. Patient reports that she wa s recently admitted in [facility] for pneumonia for which she became septi c and CT of her chest and abdomen was obtained and was found to have an approxim ately 6 cm mass in the left adrenal gland. She reports that she was asymptomati c at this time including no abdominal pain, no changes in her bowel habits, no n ausea or vomiting. She does report some right lower quadrant pain but states th at this is not chronic and is intermittent. [...] bruno ly. clonazePAM (KLONOPIN) 0.5 mg tablet docusate (COLACE) [...] Zero Zero Body mass index is 21.71 kg/m. Pain Score: Zero Fatigue Scale: 0-None Physical Exam Constitutional: Appearance: Normal appearance. HENT: Head: Normocephalic [...] to person, place, and time. Assessment and Plan: 53-year-old female with a history of hypertension diabetes who presents for left adrenal mass. CT imaging shows left adrenal mass of approximately 6 cm in diam eter as well as a 1.3 cm right adrenal mass. This was an incidental finding on imaging but given size of the left adrenal mass would recommend excision at this time. Previous lab work showed normal potassium and sodium values but will obt ain plasma metanephrines as well as aldosterone to renin ratio prior to interven tion. Pending no findings of hyperaldosteronism or pheochromocytoma we will fariba n for laparoscopic excision of the left adrenal gland. Risk and benefits discus sed with the patient in the office today who is in agreement with proceeding wit h the procedure. Andrew Ibarra MD and Sarthak Franco MD General Surgery Resident PGY1 Problem Left Adrenal Mass (Hcc) Attestation: I personally performed a history and [...] of which 50 minutes were spent in adult school counselor about the details of the condition, specifically the surgical management of adrenal masses. Thank you for involving me in the care of this pa almaz. Please don't hesitate to contact me if you have any questions or concerns . Kind regards, Andrew Ibarra MD, FACS documented in this encounter Plan of Treatment Order Schedule Name Type Priority Associated Diag noses Expected: 08/03/2019 (Approximate), Expi res: 08/03/2020 RENIN-RANDOM Lab Routine Adrenal mass (H CC) Expected: 08/03/2019 (Approximate), Expi res: 08/03/2020 ALDOSTERONE-RANDOM Lab Routine Adrenal mas s (HCC) Expected: 08/03/2019 (Approximate), Expi res: 08/03/2020 METANEPHRINES FRACT FREE Lab Routine Adren al mass (HCC) PLASMA Expected: 08/03/2019 (Approximate), Expi res: 08/03/2020 CORTISOL,RANDOM Lab Routine Adrenal mass ( HCC) documented as of this encounter Goals Goal [...]
--- OUTSIDE RECORDS SUMMARY | 2019-11-23 03:35 | XMS REPORT | Continuity of Care Document ---
Author Organization Unknown Address Unknown Phone Unavailable Allergies Active Description Code Type Severity Reaction Onset Reported/Identified Relationship to Patient Clinical Status Yes NO KNOWN DRUG ALLERGIES UNKNOWN UNKNOWN Yes Penicillins [id number] Drug Aller gy Unknown HIVES 06/26/2019 Medications Medication Packaging Start Date St op Date Route Dosage Sig NORMAL SALINE 1000CC IV BAG INJ 0.9 % (NS 1000CC IV BAG) ml 06/16/2019 07/01/2019 CONTINUOUSEVERY 0 Hour CEFTRIAXONE PREMIX IV BAG IV 1 GM/50CC (ROCEPHIN PREMIX IV BAG) GM 06/16/2019 06/22/2019 Daily&1445 CEFTRIAXONE INJ 1 GM (ROCEPHIN) GM 06/16/2019 06/22/2019 Daily&1530 FAMOTIDINE TAB 20 MG (PEPCID) MG 06/16/2019 06/23/2019 BID&0800,2000 BUDESONIDE INHALATION SUSP A MP 0.5 MG/2CC (PULMICORT) MG 06/16/2019 06/23/2019 BID&0400,1600 INSULIN ASPART PEN INJ 100 U NITS/CC (NOVOLOG FLEXPEN) 06/16/2019 07/16/2019 ACHS&0630,1130,1630,2100 ALBUTEROL SVN 2.5MG/3CC LIQ 2.5 MG (PROVENTIL MINOO 2.5MG/3CC) MG 06/16/2019 06/26/2019 Q4H&0200,0600,1000,1400,1800 ,2200 METHYLPREDNISOLONE VIAL INJ 125 MG/2CC (SOLU-MEDROL VIAL) MG 06/16/2019 06/21/2019 Q6H&0600,1200,1800,2359 ACETAMINOPHEN ORAL TABLET 325mg(Tylenol) MG 06/16/2019 07/16/2019 PRN EVERY 6 Hour Docusate sodium 100mg oral capsule (COLACE ) MG 06/16/2019 07/16/2019 PRN BID LACTULOSE SYRUP LIQ 20 GM/30 CC (CHRONULAC SYRUP) GM 06/16/2019 07/16/2019 BID&0800,2000 MELATONIN TAB 3 MG (MELATONIN) MG 06/16/2019 07/15/2019 PRN QHS ACETAMINOPHEN SUPPOS SUP 650 MG (TYLENOL) MG 06/16/2019 06/23/2019 PRN Q4H CLONAZEPAM TAB 0.5 MG (KLONOPIN) MG 06/16/2019 07/16/2019 PRN Q8H ALUM/MAG/SIMETH 30CC LIQ (MYLANTA PLUS) cc 06/16/2019 06/26/2019 PRN Q4H GUAIFENESIN - DM LIQ (ROBITUSSIN DM) MLS 06/16/2019 06/23/2019 PRN Q4H ALPRAZOLAM TAB 0.25 MG (XANAX) MG 06/16/2019 06/26/2019 PRN Q6H CLONIDINE TAB 0.1 MG (CATAPRES) MG 06/16/2019 06/23/2019 PRN Q6H ONDANSETRON VIAL INJ 4 MG/2CC (ZOFRAN 2CC VIAL) MG 06/16/2019 06/23/2019 PRN Q6H CALCIUM CARBONATE TAB 500 MG (TUMS) MG 06/16/2019 06/23/2019 PRN Q6H DIPHENHYDRAMINE CAP 25 MG (BENADRYL) MG 06/16/2019 06/23/2019 PRN Q6H HYDROCODONE/APAP 5MG/325MG T AB 5 MG/325MG (ADARSH-TAB 5/325) TAB 06/16/2019 06/26/2019 PRN Q6H AMLODIPINE TAB 10 MG (NORVASC) MG 06/17/2019 06/23/2019 Daily&0900 BISACODYL TAB 5 MG (DULCOLAX) MG 06/17/2019 06/23/2019 PRN Daily NORMAL SALINE 250CC IV BAG I NJ 0.9 % (NS 250CC IV BAG) ml 06/17/2019 06/21/2019 Daily&0900 POLYETHYLENE GLYCOL POWDER U D PWD (MIRALAX 17GM UNIT DOSE PAKS) gm 06/17/2019 06/23/2019 Daily&0900 BISACODYL SUPPOS 10 MG (DULCOLAX SUPPOS) MG 06/17/2019 06/23/2019 PRN Daily MILK OF MAGNESIA LIQ ml 06/17/2019 07/16/2019 PRN Daily ENOXAPARIN SYRINGE INJ 40 MG (LOVENOX SYRI NGE) MG 06/17/2019 06/26/2019 Daily&2000 METHYLPREDNISOLONE VIAL INJ 125 MG/2CC (SOLU-MEDROL VIAL) MG 06/17/2019 06/22/2019 BID&0800,2000 Problems Date Dx Coded Attending Type Code Diagnosis Diagnosed By 05/29/2012 Ot 626.2 EXCE SSIVE MENSTRUATION 12/07/2012 BLAINE DPM, ILYA Q Ot 735. 2 HALLUX RIGIDUS 03/24/2015 Ot 611.89 03/24/2015 Ot V76.12 03/24/2015 Ot 793.81 03/24/2015 Ot 620.2 03/24/2015 Ot 621.2 03/24/2015 Ot 626.8 03/24/2015 Ot 793.5 03/24/2015 Ot V76.12 03/24/2015 Ot 610.0 03/24/2015 Ot 793.80 03/24/2015 Ot 626.2 03/24/2015 Ot V72.63 03/24/2015 Ot V74.8 03/24/2015 Ot 793.80 03/24/2015 BLAINE DPM, ILYA Q Ot 735. 2 03/24/2015 BLAINE DPM, ILYA Q Ot V72. 83 03/24/2015 BLAINE DPM, ILYA Q Ot V74. 8 03/24/2015 YEE HEDRICK, EDUARDO Robison Ot V76. 12 06/05/2015 Ot 611.89 06/05/2015 Ot V76.12 06/05/2015 Ot 793.81 06/05/2015 Ot 620.2 06/05/2015 Ot 621.2 06/05/2015 Ot 626.8 06/05/2015 Ot 793.5 06/05/2015 Ot V76.12 06/05/2015 Ot 610.0 06/05/2015 Ot 793.80 06/05/2015 Ot 626.2 06/05/2015 Ot V72.63 06/05/2015 Ot V74.8 06/05/2015 Ot 793.80 06/05/2015 BLAINE DPM, ILYA Q Ot 735. 2 06/05/2015 BLAINE DPM, ILYA Q Ot V72. 83 06/05/2015 BLAINE DPM, ILYA Q Ot V74. 8 06/05/2015 EDUARDO FRAIRE MD Ot V76. 12 06/16/2015 EDUARDO FRAIRE MD Ot Z12. 31 09/04/2015 Ot 611.89 OTH ER SPECIFIED DISORDERS OF BREAST 09/04/2015 Ot V76.12 OTH SCREEN MAMMO- MALIGN NEOPLASM OF VINAY 09/04/2015 Ot 793.81 AL MOGRAPHIC MICROCLACIFICATION 09/04/2015 Ot 620.2 OVAR SHANNON CYST NEC/NOS 09/04/2015 Ot 621.2 HYPE RTROPHY OF UTERUS 09/04/2015 Ot 626.8 MENS TRUAL DISORDER NEC 09/04/2015 Ot 793.5 NOSP (ABN) FINDINGS ON RADIOLOGICAL OT 09/04/2015 Ot V76.12 OTH SCREEN MAMMO- MALIGN NEOPLASM OF VINAY 09/04/2015 Ot 610.0 TERESA TARY CYST OF BREAST 09/04/2015 Ot 793.80 UNS PEC ABNORMAL MAMMOGRAM 09/04/2015 Ot 626.2 EXCE SSIVE MENSTRUATION 09/04/2015 Ot V72.63 PRE -PROCEDURAL LABORATORY EXAMINATION 09/04/2015 Ot V74.8 SCRE EN-BACTERIAL DIS NEC 09/04/2015 Ot 793.80 UNS PEC ABNORMAL MAMMOGRAM 09/04/2015 BLAINE DPM, ILYA Q Ot 735. 2 HALLUX RIGIDUS 09/04/2015 BLAINE DPM, ILYA Q Ot V72. 83 EXAM PRE-OPERATIVE NEC 09/04/2015 BLAINE DPM, ILYA Q Ot V74. 8 SCREEN-BACTERIAL DIS NEC 09/04/2015 YEE HEDRICK, EDUARDO Robison Ot V76. 12 OTH SCREEN MAMMO-MALIGN NEOPLASM OF VINAY 09/04/2015 YEE HEDRICK, EDUARDO Robison Ot Z12. 31 ENCNTR SCREEN MAMMOGRAM FOR MALIGNANT NE 09/04/2015 Ot 611.89 OTH ER SPECIFIED DISORDERS OF BREAST 09/04/2015 Ot V76.12 OTH SCREEN MAMMO- MALIGN NEOPLASM OF VINAY 09/04/2015 Ot 793.81 AL MOGRAPHIC MICROCLACIFICATION 09/04/2015 Ot 620.2 OVAR SHANNON CYST NEC/NOS 09/04/2015 Ot 621.2 HYPE RTROPHY OF UTERUS 09/04/2015 Ot 626.8 MENS TRUAL DISORDER NEC 09/04/2015 Ot 793.5 NOSP (ABN) FINDINGS ON RADIOLOGICAL OT 09/04/2015 Ot V76.12 OTH SCREEN MAMMO- MALIGN NEOPLASM OF VINAY 09/04/2015 Ot 610.0 TERESA TARY CYST OF BREAST 09/04/2015 Ot 793.80 UNS PEC ABNORMAL MAMMOGRAM 09/04/2015 Ot 626.2 EXCE SSIVE MENSTRUATION 09/04/2015 Ot V72.63 PRE -PROCEDURAL LABORATORY EXAMINATION 09/04/2015 Ot V74.8 SCRE EN-BACTERIAL DIS NEC 09/04/2015 Ot 793.80 UNS PEC ABNORMAL MAMMOGRAM 09/04/2015 BLAINE DPM, ILYA Q Ot 735. 2 HALLUX RIGIDUS 09/04/2015 BLAINE DPM, ILYA Q Ot V72. 83 EXAM PRE-OPERATIVE NEC 09/04/2015 BLAINE DPM, ILYA Q Ot V74. 8 SCREEN-BACTERIAL DIS NEC 09/04/2015 YEE HEDRICK, EDUARDO Robison Ot V76. 12 OTH SCREEN MAMMO-MALIGN NEOPLASM OF VINAY 09/04/2015 YEE HEDRICK, EDUARDO Robison Ot Z12. 31 ENCNTR SCREEN MAMMOGRAM FOR MALIGNANT NE 09/05/2015 Ot 611.89 OTH ER SPECIFIED DISORDERS OF BREAST 09/05/2015 Ot V76.12 OTH SCREEN MAMMO- MALIGN NEOPLASM OF VINAY 09/05/2015 Ot 793.81 AL MOGRAPHIC MICROCLACIFICATION 09/05/2015 Ot 620.2 OVAR SHANNON CYST NEC/NOS 09/05/2015 Ot 621.2 HYPE RTROPHY OF UTERUS 09/05/2015 Ot 626.8 MENS TRUAL DISORDER NEC 09/05/2015 Ot 793.5 NOSP (ABN) FINDINGS ON RADIOLOGICAL OT 09/05/2015 Ot V76.12 OTH SCREEN MAMMO- MALIGN NEOPLASM OF VINAY 09/05/2015 Ot 610.0 TERESA TARY CYST OF BREAST 09/05/2015 Ot 793.80 UNS PEC ABNORMAL MAMMOGRAM 09/05/2015 Ot 626.2 EXCE SSIVE MENSTRUATION 09/05/2015 Ot V72.63 PRE -PROCEDURAL LABORATORY EXAMINATION 09/05/2015 Ot V74.8 SCRE EN-BACTERIAL DIS NEC 09/05/2015 Ot 793.80 UNS PEC ABNORMAL MAMMOGRAM 09/05/2015 BLAINE DPM, ILYA Q Ot 735. 2 HALLUX RIGIDUS 09/05/2015 BLAINE DPM, ILYA Q Ot V72. 83 EXAM PRE-OPERATIVE NEC 09/05/2015 BLAINE DPM, ILYA Q Ot V74. 8 SCREEN-BACTERIAL DIS NEC 09/05/2015 EDUARDO FRAIRE MD Ot V76. 12 OTH SCREEN MAMMO-MALIGN NEOPLASM OF VINAY 09/05/2015 EDUARDO FRAIRE MD Ot Z12. 31 ENCNTR SCREEN MAMMOGRAM FOR MALIGNANT NE 01/21/2016 Ot 611.89 OTH ER SPECIFIED DISORDERS OF BREAST 01/21/2016 Ot V76.12 OTH SCREEN MAMMO- MALIGN NEOPLASM OF VINAY 01/21/2016 Ot 793.81 AL MOGRAPHIC MICROCLACIFICATION 01/21/2016 Ot 620.2 OVAR SHANNON CYST NEC/NOS 01/21/2016 Ot 621.2 HYPE RTROPHY OF UTERUS 01/21/2016 Ot 626.8 MENS TRUAL DISORDER NEC 01/21/2016 Ot 793.5 NOSP (ABN) FINDINGS ON RADIOLOGICAL OT 01/21/2016 Ot V76.12 OTH SCREEN MAMMO- MALIGN NEOPLASM OF VINAY 01/21/2016 Ot 610.0 TERESA TARY CYST OF BREAST 01/21/2016 Ot 793.80 UNS PEC ABNORMAL MAMMOGRAM 01/21/2016 Ot 626.2 EXCE SSIVE MENSTRUATION 01/21/2016 Ot V72.63 PRE -PROCEDURAL LABORATORY EXAMINATION 01/21/2016 Ot V74.8 SCRE EN-BACTERIAL DIS NEC 01/21/2016 Ot 793.80 UNS PEC ABNORMAL MAMMOGRAM 01/21/2016 BLAINE DPM, ILYA Q Ot 735. 2 HALLUX RIGIDUS 01/21/2016 BLAINE DPM, ILYA Q Ot V72. 83 EXAM PRE-OPERATIVE NEC 01/21/2016 BLAINE DPM, ILYA Q Ot V74. 8 SCREEN-BACTERIAL DIS NEC 01/21/2016 EDUARDO FRAIRE MD Ot V76. 12 OTH SCREEN MAMMO-MALIGN NEOPLASM OF VINAY 01/21/2016 EDUARDO FRAIRE MD Ot Z12. 31 ENCNTR SCREEN MAMMOGRAM FOR MALIGNANT NE 02/19/2016 Ot 611.89 OTH ER SPECIFIED DISORDERS OF BREAST 02/19/2016 Ot V76.12 OTH SCREEN MAMMO- MALIGN NEOPLASM OF VINAY 02/19/2016 Ot 793.81 AL MOGRAPHIC MICROCLACIFICATION 02/19/2016 Ot 620.2 OVAR SHANNON CYST NEC/NOS 02/19/2016 Ot 621.2 HYPE RTROPHY OF UTERUS 02/19/2016 Ot 626.8 MENS TRUAL DISORDER NEC 02/19/2016 Ot 793.5 NOSP (ABN) FINDINGS ON RADIOLOGICAL OT 02/19/2016 Ot V76.12 OTH SCREEN MAMMO- MALIGN NEOPLASM OF VINAY 02/19/2016 Ot 610.0 TERESA TARY CYST OF BREAST 02/19/2016 Ot 793.80 UNS PEC ABNORMAL MAMMOGRAM 02/19/2016 Ot 626.2 EXCE SSIVE MENSTRUATION 02/19/2016 Ot V72.63 PRE -PROCEDURAL LABORATORY EXAMINATION 02/19/2016 Ot V74.8 SCRE EN-BACTERIAL DIS NEC 02/19/2016 Ot 793.80 UNS PEC ABNORMAL MAMMOGRAM 02/19/2016 BLAINE DPM, ILYA Q Ot 735. 2 HALLUX RIGIDUS 02/19/2016 BLAINE DPM, ILYA Q Ot V72. 83 EXAM PRE-OPERATIVE NEC 02/19/2016 BLAINE DPM, ILYA Q Ot V74. 8 SCREEN-BACTERIAL DIS NEC 02/19/2016 EDUARDO FRAIRE MD Ot V76. 12 OTH SCREEN MAMMO-MALIGN NEOPLASM OF VINAY 02/19/2016 EDUARDO FRAIRE MD Ot Z12. 31 ENCNTR SCREEN MAMMOGRAM FOR MALIGNANT NE 02/21/2016 EDUARDO FRAIRE MD Ot R05 COUGH 02/21/2016 EDUARDO FRAIRE MD Ot R09. 89 OTH SYMPTOMS AND SIGNS INVOLVING THE CIR 02/28/2016 EDUARDO FRAIRE MD Ot R05 COUGH 02/28/2016 EDUARDO FRAIRE MD Ot R09. 89 OTH SYMPTOMS AND SIGNS INVOLVING THE CIR 05/09/2017 Ot 620.2 OVAR SHANNON CYST NEC/NOS 05/09/2017 Ot 621.2 HYPE RTROPHY OF UTERUS 05/09/2017 Ot 626.8 MENS TRUAL DISORDER NEC 05/09/2017 Ot 793.5 NOSP (ABN) FINDINGS ON RADIOLOGICAL OT 05/09/2017 Ot V76.12 OTH SCREEN MAMMO- MALIGN NEOPLASM OF VINAY 05/09/2017 Ot 610.0 TERESA TARY CYST OF BREAST 05/09/2017 Ot 793.80 UNS PEC ABNORMAL MAMMOGRAM 05/09/2017 Ot 626.2 EXCE SSIVE MENSTRUATION 05/09/2017 Ot V72.63 PRE -PROCEDURAL LABORATORY EXAMINATION 05/09/2017 Ot V74.8 SCRE EN-BACTERIAL DIS NEC 05/09/2017 Ot 793.80 UNS PEC ABNORMAL MAMMOGRAM 05/09/2017 BLAINE DPM, ILYA Q Ot 735. 2 HALLUX RIGIDUS 05/09/2017 BLAINE DPM, ILYA Q Ot V72. 83 EXAM PRE-OPERATIVE NEC 05/09/2017 BLAINE DPM, ILYA Q Ot V74. 8 SCREEN-BACTERIAL DIS NEC 05/09/2017 EDUARDO FRAIRE MD Ot V76. 12 OTH SCREEN MAMMO-MALIGN NEOPLASM OF VINAY 05/09/2017 EDUARDO FRAIRE MD Ot Z12. 31 ENCNTR SCREEN MAMMOGRAM FOR MALIGNANT NE 05/09/2017 EDUARDO FRAIRE MD Ot R05 COUGH 05/09/2017 EDUARDO FRAIRE MD Ot R09. 89 OTH SYMPTOMS AND SIGNS INVOLVING THE CIR 01/13/2018 Ot 793.80 UNS PEC ABNORMAL MAMMOGRAM 01/13/2018 BLAINE DPM, ILYA Q Ot 735. 2 HALLUX RIGIDUS 01/13/2018 BLAINE DPM, ILYA Q Ot V72. 83 EXAM PRE-OPERATIVE NEC 01/13/2018 BLAINE DPM, ILYA Q Ot V74. 8 SCREEN-BACTERIAL DIS NEC 01/13/2018 EDUARDO FRAIRE MD Ot V76. 12 OTH SCREEN MAMMO-MALIGN NEOPLASM OF VINAY 01/13/2018 EDUARDO FRAIRE MD Ot Z12. 31 ENCNTR SCREEN MAMMOGRAM FOR MALIGNANT NE 01/13/2018 EDUARDO FRAIRE MD Ot R05 COUGH 01/13/2018 EDUARDO FRAIRE MD Ot R09. 89 OTH SYMPTOMS AND SIGNS INVOLVING THE CIR 02/05/2018 BLAINE DPM, ILYA Q Ot 735. 2 HALLUX RIGIDUS 02/05/2018 BLAINE DPM, ILYA Q Ot V72. 83 EXAM PRE-OPERATIVE NEC 02/05/2018 BLAINE DPM, ILYA Q Ot V74. 8 SCREEN-BACTERIAL DIS NEC 02/05/2018 EDUARDO FRAIRE MD Ot V76. 12 OTH SCREEN MAMMO-MALIGN NEOPLASM OF VINAY 02/05/2018 EDUARDO FRAIRE MD Ot Z12. 31 ENCNTR SCREEN MAMMOGRAM FOR MALIGNANT NE 02/05/2018 EDUARDO FRAIRE MD Ot R05 COUGH 02/05/2018 EDUARDO FRAIRE MD Ot R09. 89 OTH SYMPTOMS AND SIGNS INVOLVING THE CIR 02/11/2018 EDUARDO FRAIRE MD Ot Z12. 31 ENCNTR SCREEN MAMMOGRAM FOR MALIGNANT NE 02/25/2018 EDUARDO FRAIRE MD Ot Z12. 31 ENCNTR SCREEN MAMMOGRAM FOR MALIGNANT NE 03/30/2018 BLAINE DPM, ILYA Q Ot 735. 2 HALLUX RIGIDUS 03/30/2018 BLAINE DPM, ILYA Q Ot V72. 83 EXAM PRE-OPERATIVE NEC 03/30/2018 BLAINE DPM, ILYA Q Ot V74. 8 SCREEN-BACTERIAL DIS NEC 03/30/2018 EDUARDO FRAIRE MD Ot V76. 12 OTH SCREEN MAMMO-MALIGN NEOPLASM OF VINAY 03/30/2018 EDUARDO RFAIRE MD Ot Z12. 31 ENCNTR SCREEN MAMMOGRAM FOR MALIGNANT NE 03/30/2018 EDUARDO FRAIRE MD Ot R05 COUGH 03/30/2018 EDUARDO FRAIRE MD Ot R09. 89 OTH SYMPTOMS AND SIGNS INVOLVING THE CIR 03/30/2018 EDUARDO FRAIRE MD Ot Z12. 31 ENCNTR SCREEN MAMMOGRAM FOR MALIGNANT NE 03/31/2018 BLAINE DPM, ILYA Q Ot 735. 2 HALLUX RIGIDUS 03/31/2018 BLAINE DPM, ILYA Q Ot V72. 83 EXAM PRE-OPERATIVE NEC 03/31/2018 BLAINE DPM, ILYA Q Ot V74. 8 SCREEN-BACTERIAL DIS NEC 03/31/2018 EDUARDO FRAIRE MD Ot V76. 12 OTH SCREEN MAMMO-MALIGN NEOPLASM OF VINAY 03/31/2018 YEE HEDRICK, EDUARDO Robison Ot Z12. 31 ENCNTR SCREEN MAMMOGRAM FOR MALIGNANT NE 03/31/2018 YEE HEDRICK, EDUARDO Robison Ot R05 COUGH 03/31/2018 EDUARDO FRAIRE MD Ot R09. 89 OTH SYMPTOMS AND SIGNS INVOLVING THE CIR 03/31/2018 EDUARDO FRAIRE MD, Ot Z12. 31 ENCNTR SCREEN MAMMOGRAM FOR MALIGNANT NE 06/17/2019 Perla, Patria W 486 PNEUMONIA, ORGANISM UNSPECIFIED 06/17/2019 Perla, Patria W J18.9 PNEUMONIA, UNSPECIFIED ORGANISM 06/17/2019 Perla, Patria W 486 PNEUMONIA, ORGANISM UNSPECIFIED 06/17/2019 Perla, Patria W 493.91 ASTHMA, UNSPECIFIED TYPE, WITH STATUS ASTHMATICUS 06/17/2019 Perla, Patria W J18.9 PNEUMONIA, UNSPECIFIED ORGANISM 06/17/2019 Perla, Patria W J45.902 UNSPECIFIED ASTHMA WITH STATUS ASTHMATICUS 06/17/2019 Perla, Patria W 038.9 UNSPECIFIED SEPTICEMIA 06/17/2019 Perla, Patria W 486 PNEUMONIA, ORGANISM UNSPECIFIED 06/17/2019 Perla, Patria W 493.91 ASTHMA, UNSPECIFIED TYPE, WITH STATUS ASTHMATICUS 06/17/2019 Perla, Patria W A41.9 SEPSIS, UNSPECIFIED ORGANISM 06/17/2019 Perla, Patria W J18.9 PNEUMONIA, UNSPECIFIED ORGANISM 06/17/2019 Perla, Patria W J45.902 UNSPECIFIED ASTHMA WITH STATUS ASTHMATICUS 06/18/2019 Perla, Patria W 038.9 UNSPECIFIED SEPTICEMIA 06/18/2019 Perla, Patria W 300.00 ANXIETY STATE, UNSPECIFIED 06/18/2019 Perla, Patria W 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 06/18/2019 Perla, Patria W 401.0 MALIGNANT ESSENTIAL HYPERTENSION 06/18/2019 Perla, Patria W 482.9 BACTERIAL PNEUMONIA, UNSPECIFIED 06/18/2019 Perla, Patria W 486 PNEUMONIA, ORGANISM UNSPECIFIED 06/18/2019 Perla, Patria W 493.91 ASTHMA, UNSPECIFIED TYPE, WITH STATUS ASTHMATICUS 06/18/2019 Perla, Patria W 780.52 INSOMNIA, UNSPECIFIED 06/18/2019 Patria Perla W A41.9 SEPSIS, UNSPECIFIED ORGANISM 06/18/2019 Patria Perla W F41.9 ANXIETY DISORDER, UNSPECIFIED 06/18/2019 Patria Perla W F90.9 ATTENTION-DEFICIT HYPERACTIVITY DISORDER, UNSPECIFIED TYPE 06/18/2019 Patria Perla W G47.00 INSOMNIA, UNSPECIFIED 06/18/2019 Patria Perla W I10 ESSENTIAL (PRIMARY) HYPERTENSION 06/18/2019 Patria Perla W J15.9 UNSPECIFIED BACTERIAL PNEUMONIA 06/18/2019 Patria Perla W J18.9 PNEUMONIA, UNSPECIFIED ORGANISM 06/18/2019 Patria Perla W J45.902 UNSPECIFIED ASTHMA WITH STATUS ASTHMATICUS 06/25/2019 YEE HEDRICK, EDUARDO Robison Ot Z12. 31 ENCNTR SCREEN MAMMOGRAM FOR MALIGNANT NE 06/25/2019 EDUARDO FRAIRE MD Ot R05 COUGH 06/25/2019 EDUARDO FRAIRE MD Ot R09. 89 OTH SYMPTOMS AND SIGNS INVOLVING THE CIR 06/25/2019 EDUARDO FRAIRE MD, Ot Z12. 31 ENCNTR SCREEN MAMMOGRAM FOR MALIGNANT NE 06/26/2019 GRACE DO, AISLINN K Ot A41.9 SEPSIS, UNSPECIFIED ORGANISM 06/26/2019 GRACE DO, AISLINN K Ot F17.210 NICOTINE DEPENDENCE, CIGARETTES, UNCOMPL 06/26/2019 GRACE DO, AISLINN K Ot F41.9 ANXIETY DISORDER, UNSPECIFIED 06/26/2019 GRACE DO, AISLINN K Ot F90.9 ATTENTION-DEFICIT HYPERACTIVITY DISORDER 06/26/2019 GRACE DO, AISLINN K Ot I11.0 HYPERTENSIVE HEART DISEASE WITH HEART FA 06/26/2019 GRACE DO, AISLINN K Ot I50.9 HEART FAILURE, UNSPECIFIED 06/26/2019 GRACE DO, AISLINN K Ot J18.9 PNEUMONIA, UNSPECIFIED ORGANISM 06/26/2019 GRACE DO, AISLINN K Ot K86.9 DISEASE OF PANCREAS, UNSPECIFIED 06/26/2019 GRACE DO, AISLINN K Ot N28.9 DISORDER OF KIDNEY AND URETER, UNSPECIFI 06/26/2019 GRACE DO AISLINN K Ot R06.02 SHORTNESS OF BREATH 06/26/2019 GRACE DO, AISLINN K Ot R09.02 HYPOXEMIA 06/26/2019 GRACE DO, AISLINN K Ot R65.20 SEVERE SEPSIS WITHOUT SEPTIC SHOCK 06/26/2019 GRACE DO, AISLINN K Ot R73.9 HYPERGLYCEMIA, UNSPECIFIED 06/26/2019 GRACE DO, AISLINN K Ot R79.89 OTHER SPECIFIED ABNORMAL FINDINGS OF BLO 06/26/2019 GRACE DO, AISLINN K Ot Z88.0 ALLERGY STATUS TO PENICILLIN 06/30/2019 GRACE DO, AISLINN K Ot A41.9 SEPSIS, UNSPECIFIED ORGANISM 06/30/2019 GRACE DO, AISLINN K Ot F17.210 NICOTINE DEPENDENCE, CIGARETTES, UNCOMPL 06/30/2019 GRACE DO, AISLINN K Ot F41.9 ANXIETY DISORDER, UNSPECIFIED 06/30/2019 GRACE DO, AISLINN K Ot F90.9 ATTENTION-DEFICIT HYPERACTIVITY DISORDER 06/30/2019 GRACE DO, AISLINN K Ot I11.0 HYPERTENSIVE HEART DISEASE WITH HEART FA 06/30/2019 GRACE DO, AISLINN K Ot I50.9 HEART FAILURE, UNSPECIFIED 06/30/2019 GRACE DO, AISLINN K Ot J18.9 PNEUMONIA, UNSPECIFIED ORGANISM 06/30/2019 GRACE DO, AISLINN K Ot K86.9 DISEASE OF PANCREAS, UNSPECIFIED 06/30/2019 GRACE DO, AISLINN K Ot N28.9 DISORDER OF KIDNEY AND URETER, UNSPECIFI 06/30/2019 GRACE DO, AISLINN K Ot R06.02 SHORTNESS OF BREATH 06/30/2019 GRACE DO, AISLINN K Ot R09.02 HYPOXEMIA 06/30/2019 GRACE DO, AISLINN K Ot R65.20 SEVERE SEPSIS WITHOUT SEPTIC SHOCK 06/30/2019 GRACE DO, AISLINN K Ot R73.9 HYPERGLYCEMIA, UNSPECIFIED 06/30/2019 GRACE DO, AISLINN K Ot R79.89 OTHER SPECIFIED ABNORMAL FINDINGS OF BLO 06/30/2019 GRACE DO, AISLINN K Ot Z88.0 ALLERGY STATUS TO PENICILLIN 07/01/2019 EDUARDO FRAIRE MD Ot J18. 9 PNEUMONIA, UNSPECIFIED ORGANISM 11/05/2019 EDUARDO FRAIRE MD Ot Z12. 31 ENCNTR SCREEN MAMMOGRAM FOR MALIGNANT NE 11/05/2019 EDUARDO FRAIRE MD Ot R05 COUGH 11/05/2019 EDUARDO FRAIRE MD Ot R09. 89 OTH SYMPTOMS AND SIGNS INVOLVING THE CIR 11/05/2019 EDUARDO FRAIRE MD, Ot Z12. 31 ENCNTR SCREEN MAMMOGRAM FOR MALIGNANT NE 11/05/2019 EDUARDO FRAIRE MD, Ot J18. 9 PNEUMONIA, UNSPECIFIED ORGANISM 11/05/2019 EDUARDO FRAIRE MD, Ot Z12. 31 ENCNTR SCREEN MAMMOGRAM FOR MALIGNANT NE 11/05/2019 EDUARDO FRAIRE MD, Ot R05 COUGH 11/05/2019 EDUARDO FRAIRE MD, Ot R09. 89 OTH SYMPTOMS AND SIGNS INVOLVING THE CIR 11/05/2019 EDUARDO FRAIRE MD, Ot Z12. 31 ENCNTR SCREEN MAMMOGRAM FOR MALIGNANT NE 11/05/2019 EDUARDO FRAIRE MD, Ot J18. 9 PNEUMONIA, UNSPECIFIED ORGANISM Procedures There is no data. Results Test Result Range Comprehensive Metabolic Panel - 06/16/19 14:17 Albumin 4.4 g/dL 3.6-5.1 ALP 150 U/L 35-130 ALT 11 U/L 6-45 Anion Gap 16 6-14 AST 24 U/L 2-40 BUN 8 mg/dL 5-25 Calcium 9.6 mg/dL 8.3-10.4 Chloride 106 mmol/L 95-114 CO2 22 mEq/L 22-33 Creat 0.77 mg/dL 0.50-1.50 eGFR 78 mL/min/1.73m2 >59 Globulin 3.5 g/dL 2.3-3.5 Glucose 300 mg/dL 70-110 Osmo 298 280-295 Potassium 3.8 mmol/L 3.5-5.3 Sodium 140 mmol/L 134-148 TBil 0.3 mg/dL 0.2-1.2 TP 7.9 g/dL 6.0-8.3 Blood Culture - 06/16/19 14:17 PRELIM CULTURE RESULTS Blood Culture Negativ e, No Growth Day 1 FINAL CULTURE RESULTS Blood Culture Negative , No Growth Day 5 CULTURE SOURCE left Blood Culture - 06/16/19 14:17 PRELIM CULTURE RESULTS Blood Culture Negativ e, No Growth Day 1 FINAL CULTURE RESULTS Blood Culture Negative , No Growth Day 5 CULTURE SOURCE right ac Comprehensive Metabolic Panel - 06/17/19 04:50 Albumin 4.0 g/dL 3.6-5.1 ALP 133 U/L 35-130 ALT 10 U/L 6-45 Anion Gap 18 6-14 AST 23 U/L 2-40 BUN 10 mg/dL 5-25 Calcium 9.5 mg/dL 8.3-10.4 Chloride 107 mmol/L 95-114 CO2 19 mEq/L 22-33 Creat 0.67 mg/dL 0.50-1.50 eGFR 91 mL/min/1.73m2 >59 Globulin 2.7 g/dL 2.3-3.5 Glucose 223 mg/dL 70-110 Osmo 294 280-295 Potassium 3.7 mmol/L 3.5-5.3 Sodium 140 mmol/L 134-148 TBil 0.2 mg/dL 0.2-1.2 TP 6.7 g/dL 6.0-8.3 MRSA Screen - 06/17/19 05:00 FINAL CULTURE RESULTS MRSA Negative Nasal Culture MEDIA PLATED Setup at 08:06 on 06/17/2019 Comprehensive Metabolic Panel - 06/18/19 05:00 Albumin 3.7 g/dL 3.6-5.1 ALP 119 U/L 35-130 ALT 12 U/L 6-45 Anion Gap 15 6-14 AST 19 U/L 2-40 BUN 10 mg/dL 5-25 Calcium 9.5 mg/dL 8.3-10.4 Chloride 106 mmol/L 95-114 CO2 23 mEq/L 22-33 Creat 0.68 mg/dL 0.50-1.50 eGFR 90 mL/min/1.73m2 >59 Globulin 2.6 g/dL 2.3-3.5 Glucose 228 mg/dL 70-110 Osmo 295 280-295 Potassium 4.1 mmol/L 3.5-5.3 Sodium 140 mmol/L 134-148 TBil 0.2 mg/dL 0.2-1.2 TP 6.3 g/dL 6.0-8.3 Complete blood count (CBC) with automate d white blood cell (WBC) differential - 06/26/19 11:55 Blood leukocytes automated count (number/volume) 19.0 10*3/uL 4.3-11.0 Blood erythrocytes automated count (number/volume) 5.34 10*6/uL 4.35-5.85 Venous blood hemoglobin measurement (mass/volume) 15.7 g/dL 11.5-16.0 Blood hematocrit (volume fraction) 47 % 35-52 Automated erythrocyte mean corpuscular volume 88 [ foz_us] 80-99 Automated erythrocyte mean corpuscular h emoglobin (mass per erythrocyte) 29 pg 25-34 Automated erythrocyte mean corpuscular h emoglobin concentration measurement (mass/volume) 33 g/dL 32-36 Automated erythrocyte distribution width ratio 14. 5 % 10.0- 14.5 Automated blood platelet count (count/volume) 732 10*3/uL 130-400 Automated blood platelet mean volume measurement 9.6 [foz_us] 7.4-10.4 Automated blood neutrophils/100 leukocytes 73 % 42-75 Automated blood lymphocytes/100 leukocytes 16 % 12-44 Blood monocytes/100 leukocytes 8 % 0-12 Automated blood eosinophils/100 leukocytes 3 % 0-10 Automated blood basophils/100 leukocytes 1 % 0-10 Blood neutrophils automated count (number/volume) 13.9 10*3 1.8-7.8 Blood lymphocytes automated count (number/volume) 2.9 10*3 1.0-4.0 Blood monocytes automated count (number/volume) 1. 5 10*3 0.0-1.0 Automated eosinophil count 0.5 10*3/uL 0 .0-0.3 Automated blood basophil count (count/volume) 0.1 10*3/uL 0.0-0.1 Comprehensive metabolic panel - 06/26/19 11:55 Serum or plasma sodium measurement (moles/volume) 134 mmol/L 135-145 Serum or plasma potassium measurement (moles/volume) 3.8 mmol/L 3.6-5.0 Serum or plasma chloride measurement (moles/volume) 91 mmol/L 98-107 Carbon dioxide 25 mmol/L 21-32 Serum or plasma anion gap determination (moles/volume) 18 mmol/L 5-14 Serum or plasma urea nitrogen measurement (mass/volume ) 19 mg/dL 7-18 Serum or plasma creatinine measurement (mass/volume) 1.57 mg/dL 0.60-1.30 Serum or plasma urea nitrogen/creatinine mass ratio 12 NRG Serum or plasma creatinine measurement w ith calculation of estimated glomerular filtration rate 34 NRG Serum or plasma glucose measurement (mass/volume) 458 mg/dL 70-105 Serum or plasma calcium measurement (mass/volume) 10.0 mg/dL 8.5-10.1 Serum or plasma total bilirubin measurement (mass/volu me) 0.5 mg/dL 0.1-1.0 Serum or plasma alkaline phosphatase raghavendra surement (enzymatic activity/volume) 144 U/L 40-136 Serum or plasma aspartate aminotransfera se measurement (enzymatic activity/volume) 18 U/L 5-34 Serum or plasma alanine aminotransferase measurement (enzymatic activity/volume) 17 U/L 0-55 Serum or plasma protein measurement (mass/volume) 8.4 g/dL 6.4-8.2 Serum or plasma albumin measurement (mass/volume) 4.4 g/dL 3.2-4.5 CALCIUM CORRECTED 9.7 mg/dL 8.5-10.1 Blood lactic acid measurement (moles/vol ume) - 06/26/19 11:55 Blood lactic acid measurement (moles/volume) 4.19 mmol/L 0.50-2.00 Serum or plasma troponin i.cardiac measu rement (mass/volume) - 06/26/19 11:55 Serum or plasma troponin i.cardiac measurement (mass/v olume) 0.473 ng/mL <0.028 Manual absolute plasma cell count - 01/05 11:55 Blood monocytes/100 leukocytes 4 % NRG Manual blood segmented neutrophils/100 leukocytes 70 % NRG Manual blood lymphocytes/100 leukocytes 21 % NRG Manual eosinophils/100 leukocytes in nose 4 % NRG Manual blood basophils/100 leukocytes 1 % NRG Blood toxic granules detection by light microscopy 3+ NRG Blood poikilocytosis detection by light microscopy SLIGHT NRG Blood spherocytes detection by light microscopy SL IGHT [facility] Bacterial blood culture - 06/26/19 11:55 Bacterial blood culture NG NR Bacterial blood culture - 06/26/19 12:10 Bacterial blood culture NG [facility] Influenza virus A and B antigen detectio n - 06/26/19 12:20 FLU RESULT NEGATIVE FOR INFLUENZA A AND B ANTIGENS BY IA NRG PT panel in platelet poor plasma by coag ulation assay - 06/26/19 12:48 Prothrombin time (PT) in platelet poor plasma by coagu lation assay 13.1 s 12.2-14.7 INR in platelet poor plasma or blood by coagulation as say 1.0 0.8-1.4 Activated partial thromboplastin time (a PTT) in platelet poor plasma bycoagulation assay - 06/26/19 12:48 Activated partial thromboplastin time (a PTT) in platelet poor plasma bycoagulation assay 27 s 24-35 Magnesium - 06/26/19 12:48 Magnesium 2.2 mg/dL 1.6-2.4 Serum or plasma amylase measurement (enz ymatic activity/volume) - 06/26/19 12:48 Serum or plasma amylase measurement (enzymatic activit y/volume) 43 U/L 25-125 Lipase - 06/26/19 12:48 Lipase 28 U/L 8-78 Serum or plasma ethanol measurement (mas s/volume) - 06/26/19 12:48 Serum or plasma ethanol measurement (mass/volume) < mg/dL <10 Serum or plasma lithium measurement (mol es/volume) - 06/26/19 12:48 BNP PT 1182.6 pg/mL <100.0 Serum or plasma salicylates measurement (mass/volume) - 06/26/19 12:48 Serum or plasma salicylates measurement (mass/volume) < mg/dL 5.0-20.0 Serum or plasma acetaminophen measuremen t (mass/volume) - 06/26/19 12:48 Serum or plasma acetaminophen measurement (mass/volume ) < ug/mL 10-30 Hemoglobin A1c measurement - 06/26/19 12 :48 Blood hemoglobin A1C measurement (mass/volume) 8.5 % 4.0-5.6 MEAN BLOOD GLUCOSE 197 % <=126 Arterial blood gas measurement - 0 13:59 Blood pCO2 39 mm[Hg] 35-45 Blood pO2 75 mm[Hg] 79-93 Arterial blood bicarbonate measurement (moles/volume) 27 mmol/L 23-27 Arterial blood base excess by calculation 3.4 mmol /L -2.5-2.5 Arterial blood oxygen saturation measurement 95 % 94-100 * Inhaled oxygen flow rate 1 NRG Arterial blood pH measurement with patient temperature correction 7.45 7.37-7.43 Arterial blood carbon dioxide, total measurement (mole s/volume) 28.5 mmol/L 21.0-31.0 Body site RT RAD NRG Assessment of wrist artery patency prior to arterial p uncture YES-POS NRG Setting of ventilation mode NO NR G Measurement of body temperature 36.5 NRG Serum or plasma lactate measurement (mol es/volume) - 06/26/19 14:19 Serum or plasma lactate measurement (moles/volume) 2.63 mmol/L 0.50-2.00 Complete urinalysis with reflex to cultu re - 06/26/19 14:20 Urine color determination YELLOW NRG Urine clarity determination CLEAR NR G Urine pH measurement by test strip 6.0 5-9 Specific gravity of urine by test strip 1.010 1.016-1.022 Urine protein assay by test strip, semi-quantitative 1+ NEGATIVE Urine glucose detection by automated test strip 3+ NEGATIVE Erythrocytes detection in urine sediment by light micr oscopy NEGATIVE NEGATIVE Urine ketones detection by automated test strip NE GATIVE NEGATIVE Urine nitrite detection by test strip NEGATIVE NEGATIVE Urine total bilirubin detection by test strip NEGA TIVE NEGATIVE Urine urobilinogen measurement by automated test strip (mass/volume) 0.2 mg/dL < = 1.0 Urine leukocyte esterase detection by dipstick NEG ATIVE NEGATIVE Automated urine sediment erythrocyte cou nt by microscopy (number/high power field) 0 [HPF] NRG Automated urine sediment leukocyte count by microscopy (number/high power field) 0 [HPF] NRG Bacteria detection in urine sediment by light microsco py TRACE NRG Crystals detection in urine sediment by light microsco py NONE NRG Casts detection in urine sediment by light microscopy NONE NRG Mucus detection in urine sediment by light microscopy NEGATIVE NRG Complete urinalysis with reflex to culture CULTURE PENDING NRG Urine drug screening test - 06/26/19 14: 20 Urine phencyclidine detection by screening method NEGATIVE NEGATIVE Urine benzodiazepines detection by screening method NEGATIVE NEGATIVE Urine cocaine detection NEGATIVE NEGATI VE Urine amphetamines detection by screening method P OSITIVE NEGATIVE Urine methamphetamine detection by screening method NEGATIVE NEGATIVE Urine cannabinoids detection by screening method N EGATIVE NEGATIVE Urine opiates detection by screening method NEGATI VE NEGATIVE Urine barbiturates detection NEGATIVE N EGATIVE Screening urine tricyclic antidepressants detection NEGATIVE NEGATIVE Urine methadone detection by screening method NEGA TIVE NEGATIVE Urine oxycodone detection NEGATIVE NEGA TIVE Urine propoxyphene detection NEGATIVE N EGATIVE Bacterial urine culture - 06/26/19 14:20 Bacterial urine culture NG NRG Capillary blood glucose measurement by g lucometer (mass/volume) - 06/26/19 14:45 Capillary blood glucose measurement by glucometer (mas s/volume) 323 mg/dL 70-110 Complete blood count (CBC) with automate d white blood cell (WBC) differential - 11/23/19 00:01 Blood leukocytes automated count (number/volume) 17.7 10*3/uL 4.3-11.0 Blood erythrocytes automated count (number/volume) 4.33 10*6/uL 4.35-5.85 Venous blood hemoglobin measurement (mass/volume) 13.2 g/dL 11.5-16.0 Blood hematocrit (volume fraction) 39 % 35-52 Automated erythrocyte mean corpuscular volume 91 [ foz_us] 80-99 Automated erythrocyte mean corpuscular h emoglobin (mass per erythrocyte) 30 pg 25-34 Automated erythrocyte mean corpuscular h emoglobin concentration measurement (mass/volume) 34 g/dL 32-36 Automated erythrocyte distribution width ratio 14. 7 % 10.0- 14.5 Automated blood platelet count (count/volume) 434 10*3/uL 130-400 Automated blood platelet mean volume measurement 8.8 [foz_us] 7.4-10.4 Automated blood neutrophils/100 leukocytes 65 % 42-75 Automated blood lymphocytes/100 leukocytes 14 % 12-44 Blood monocytes/100 leukocytes 11 % 0-12 Automated blood eosinophils/100 leukocytes 10 % 0-10 Automated blood basophils/100 leukocytes 1 % 0-10 Blood neutrophils automated count (number/volume) 11.5 10*3 1.8-7.8 Blood lymphocytes automated count (number/volume) 2.4 10*3 1.0-4.0 Blood monocytes automated count (number/volume) 2. 0 10*3 0.0-1.0 Automated eosinophil count 1.7 10*3/uL 0 .0-0.3 Automated blood basophil count (count/volume) 0.1 10*3/uL 0.0-0.1 Comprehensive metabolic panel - 11/23/19 00:01 Serum or plasma sodium measurement (moles/volume) 135 mmol/L 135-145 Serum or plasma potassium measurement (moles/volume) 4.1 mmol/L 3.6-5.0 Serum or plasma chloride measurement (moles/volume) 100 mmol/L 98-107 Carbon dioxide 19 mmol/L 21-32 Serum or plasma anion gap determination (moles/volume) 16 mmol/L 5-14 Serum or plasma urea nitrogen measurement (mass/volume ) 14 mg/dL 7-18 Serum or plasma creatinine measurement (mass/volume) 0.96 mg/dL 0.60-1.30 Serum or plasma urea nitrogen/creatinine mass ratio 15 NRG Serum or plasma creatinine measurement w ith calculation of estimated glomerular filtration rate 60 NRG Serum or plasma glucose measurement (mass/volume) 111 mg/dL 70-105 Serum or plasma calcium measurement (mass/volume) 9.6 mg/dL 8.5-10.1 Serum or plasma total bilirubin measurement (mass/volu me) 0.2 mg/dL 0.1-1.0 Serum or plasma alkaline phosphatase raghavendra surement (enzymatic activity/volume) 138 U/L 40-136 Serum or plasma aspartate aminotransfera se measurement (enzymatic activity/volume) 23 U/L 5-34 Serum or plasma alanine aminotransferase measurement (enzymatic activity/volume) 10 U/L 0-55 Serum or plasma protein measurement (mass/volume) 8.3 g/dL 6.4-8.2 Serum or plasma albumin measurement (mass/volume) 4.8 g/dL 3.2-4.5 Serum or plasma C reactive protein measu rement (mass/volume) - 11/23/19 00:01 Serum or plasma C reactive protein measurement (mass/v olume) 1.38 mg/dL 0.00-0.50 Serum or plasma lithium measurement (mol es/volume) - 11/23/19 00:01 BNP PT 25.0 pg/mL <100.0 Manual absolute plasma cell count - 12/05 00:01 Blood monocytes/100 leukocytes 11 % NRG Manual blood segmented neutrophils/100 leukocytes 68 % NRG Manual blood lymphocytes/100 leukocytes 13 % NRG Manual eosinophils/100 leukocytes in nose 8 % NRG Blood erythrocyte morphology finding identification NORMAL NRG PT panel in platelet poor plasma by coag ulation assay - 11/23/19 00:01 Prothrombin time (PT) in platelet poor plasma by coagu lation assay 12.7 s 12.2-14.7 INR in platelet poor plasma or blood by coagulation as say 0.9 0.8-1.4 Activated partial thromboplastin time (a PTT) in platelet poor plasma bycoagulation assay - 11/23/19 00:01 Activated partial thromboplastin time (a PTT) in platelet poor plasma bycoagulation assay 30 s 24-35 Blood lactic acid measurement (moles/vol ume) - 11/23/19 00:13 Blood lactic acid measurement (moles/volume) 1.16 mmol/L 0.50-2.00 Encounters ACCT No. Visit Date/Time Discharge Status Pt. Type Provider Facility Loc./Unit Complaint [id number] 06/16/2019 14:13:00 06/18/2019 14:40 :00 DIS Inpatient [facility] [id number] 06/16/2019 14:28:22 Document Registration [id number] 06/26/2019 11:41:00 16:02:00 DIS Emergency GRACE DO, AISLINN K [facility] ER SOA / WEAKNESS [id number] 06/25/2019 12:45:00 23:59:59 CLS Outpatient EDUARDO FRAIRE MD [facility] RAD PNEUMONIA [id number] 02/10/2018 07:43:00 018 23:59:59 CLS Outpatient EDUARDO FRAIRE MD [facility] RAD SCREENING [id number] 02/19/2016 13:39:00 016 23:59:59 CLS Outpatient EDUARDO FRAIRE MD [facility] RAD COUGH [id number] 06/05/2015 07:55:00 016 23:59:59 CLS Outpatient EDUARDO FRAIRE MD [facility] RAD ROUTINE MAMMOGRAM CARMEN CRUMP [id number] 11/23/2013 10:57:00 014 23:59:59 CLS Outpatient EDUARDO FRAIRE MD [facility] RAD SCREENING [id number] 12/07/2012 06:07:00 013 10:30:00 DIS Outpatient BLAINE DPM, ILYA Q [facility] SDC HALLX RIGID LEFT FOOT [id number] 11/27/2012 10:06:00 013 23:59:59 CLS Outpatient BLAINE DPM, ILYA Q [facility] PREOP HALLUS RIGID LEFT FOOT [id number] 11/23/2019 00:13:00 Document Registration [id number] 03/24/2015 09:32:00 Document Registration [id number] 03/24/2015 09:32:00 Document Registration [id number] 08/10/2012 07:39:00 Document Registration [id number] 05/29/2012 10:48:00 Document Registration [id number] 05/26/2012 08:44:00 Document Registration [id number] 01/21/2012 11:03:00 Document Registration [id number] 01/14/2012 07:17:00 Document Registration [id number] 01/02/2012 12:51:00 Document Registration [id number] 07/02/2011 10:35:00 Document Registration [id number] 01/10/2011 12:47:00 Document Registration
--- NOTE | 2019-11-23 03:55 | NUR ---
LORENZO SALGADO admitted to room 425-1, with an admitting diagnosis of ACUTE BRONCHITIS, HYPOXIA, BRONCHOSPASM/PUI, on 11/23/19 from ED via WC, accompanied by STAFF.LORENZO SALGADO introduced to surroundings, call light, bed controls, phone, TV, temperature control, lights, meal times, smoking policy, visitor policy, side rail policy, bathrooms and showers. Patient Rights given to patient in the handbook. LORENZO SALGADO verbalizes understanding that [facility] is not responsible for the loss or damage to any personal effects or valuables that are kept in the patients posession during their hospitalization. The following Patient Care Plans were discussed with the : Discharge Planning, INFECTION CONTROL,BRONCHITIS, and HYPOXIA. LORENZO SALGADO verbalizes understanding of Interdisciplinary Patient Education. Patient and/or family were informed about the Rapid Response Team and its purpose.
[2019-11-23] MEDS ORDERED: NS IV 1000 ML 1,000 ML IV SCH (06:00)
[2019-11-23] MEDS ORDERED: RT-ALBUTEROL/IPRATROPIUM 3 ML (DUONEB) VIAL IH PRN (06:00)
--- NOTE | 2019-11-23 06:46 | Diagnostic Imaging Report ---
INDICATION: Shortness of air. TECHNIQUE: Single view chest 12:25 AM. CORRELATION STUDY: 06/26/2019 FINDINGS: The heart size, mediastinal configuration and pulmonary vascularity are within normal limits. Lung parham are hyperinflated but overall appear to be clear. No consolidating infiltrate. IMPRESSION: 1. Hyperinflated lung parham with chronic change of the lung parenchyma. No acute abnormality and/or significant interval change. Dictated by: Dictated on workstation # [id number]
--- NOTE | 2019-11-23 06:56 | History & Physicial ---
History of Present Illness History of Present Illness Reason for visit/HPI 54-year-old female presents to [facility] emergency department during the evening of November 22, 2019 with shortness of breath. 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 She was also admitted earlier in the inferior May 2019 with sepsis. Currently patient admits taking breathing treatments and not seen much relief of shortness of breath. She was found to be hypoxic in ED. Date of Admission Nov 23, 2019 at 02:53 Date Seen by a Provider: Nov 23, 2019 Time Seen by a Provider: 07:15 I consulted on this patient on 11/23/19 06:54 Attending Physician Dung Fraire MD Admitting Physician Dung Fraire MD Consult Allergies and Home Medications Allergies Coded Allergies: Penicillins (Unverified Allergy, Unknown, HIVES, 06/26/19) Home Medications Clonazepam 0.5 Mg Tablet, 0.5 MG PO BID PRN, (Reported) PRN ANXIETY Hydrocodone Bit/Acetaminophen 1 Each Tablet, 1-2 TAB PO Q4H PRN, (Reported) Lisdexamfetamine Dimesylate 50 Mg Capsule, 50 MG PO DAILY, (Reported) Patient Home Medication List Home Medication List Reviewed: Yes Past Vmtclfz-Ldarrv-Efwflk Hx Patient Social History Marrital Status: Number of Children: 2 Alcohol Use: Regular Use Recreational Drug Use: No Smoking Status: Former Smoker Former Smoker, Quit: May 19, 2019 Type Used: Cigarettes 2nd Hand Smoke Exposure: Yes Recent Foreign Travel: No Contact w/other who traveled: No Recent Infectious Disease Expo: No Immunizations Up To Date Date of Pneumonia Vaccine: Jun 21, 2019 Date of Influenza Vaccine: Feb 17, 2012 Surgeries Yes ( X 3;REMOVAL OF BIRTHMARK;L FOOT SURGERY X 2;ENDOMETRIAL ABLATION) Section, Ear Surgery, Orthopedic Respiratory Yes (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) Cardiovascular Yes Hypertension Neurological No Reproductive System : No Hx Reproductive Disorders: Yes (MENORRHAGIA-S/P ENDOMETRIAL ABLATION AND D&C 2012) Female Reproductive Disorders: Menstrual Problems Genitourinary No Gastrointestinal No Musculoskeletal Yes (LEFT FOOT SURGERY X 2 IN 2013) Endocrine History of Endocrine Disorders: No Endocrine Disorders: Diabetes, Non-Insulin dep HEENT History of HEENT Disorders: Yes (EAR SURGERY ) HEENT Disorders: Chronic Ear Infection Cancer No Psychosocial History of Psychiatric Problem: Yes Behavioral Health Disorders: ADD/ADHD, Anxiety Integumentary History of Skin or Integumenta: Yes (BIRTHMARK REMOVAL ) Blood Transfusions History of Blood Disorders: No Family Medical History Other Significan Family Hx: PSH: - X 3 -ENDOMETRIAL ABLATION AND D&C IN 2013 -LEFT FOOT SURGERY X 2 IN 2013 -REMOVAL OF DEYSI -EAR SURGERY Review of Systems Constitutional: see HPI Physical Exam Vital Signs Vital Signs - First Documented 11/22/19 23:48 Temp 36.7 Pulse 122 Resp 26 B/P (MAP) 168/82 (110) Pulse Ox 93 O2 Delivery Nasal Cannula O2 Flow Rate 2.00 Capillary Refill : Less Than 3 Seconds Height, Weight, BMI Height: '" Weight: lbs. oz. kg; 170.88 BMI Method: General Appearance: Anxious Eyes: Bilateral Eye Normal Inspection HEENT: Pharynx Normal Neck: Supple Respiratory: Lungs Clear Cardiovascular: Regular Rate, Rhythm Gastrointestinal: Soft Extremity: Non Tender, No Pedal Edema Neurologic/Psychiatric: Alert, Oriented x3 Comments [facility] [place], [place] NAME: LORENZO SALGADO [facility] REC#: [id number] PT STATUS: ADM IN : 1965 PHYSICIAN: DEBBY MORENO MD ADMIT DATE: 11/23/19 Signed Date of Exam:11/23/19 CHEST 1 VIEW, AP/PA ONLY INDICATION: Shortness of air. TECHNIQUE: Single view chest 12:25 AM. CORRELATION STUDY: 06/26/2019 FINDINGS: The heart size, mediastinal configuration and pulmonary vascularity are within normal limits. Lung parham are hyperinflated but overall appear to be clear. No consolidating infiltrate. IMPRESSION: 1. Hyperinflated lung parham with chronic change of the lung parenchyma. No acute abnormality and/or significant interval change. Dictated by: Dictated on workstation # [id number] Dict: 11/23/1946 Trans: 11/23/1945 DO [id number] Interpreted by: GREG PACKER DO Electronically signed by: GREG PACKER DO 11/23/1947 Assessment/Plan Assessment and Plan 1. Hypoxemiaeither due to bronchospasm or COPD exacerbation -She has been initiated on Solu-Medrol receiving 125 in ED and now 40 mg every 6 hours. -Oxygen by nasal cannula to maintain saturations greater than 93 percent 2. Bronchitis -IV loading dose of Zithromax given in ED. -She is currently on 250 mg orally daily -Coronavirus testing pending--she is in isolation Admission Diagnosis 1. Hypoxemiaeither due to bronchospasm or COPD exacerbation 2. Bronchitis Admission Status: Inpatient Order (span 2 midnights) Reason for Inpatient Admission: Pulmonary care Clinical Quality Measures DVT/VTE Risk/Contraindication: Risk Factor Score Per Nursin RFS Level Per Nursing on Admit: 2=Moderate DUNG FRAIRE MD Nov 23, 2019 06:56
[2019-11-23] MEDS: methylPREDNISolone 40 MG/ML (Solu-MEDROL) VIAL IV SCH ×3 (08:17→21:56)
[2019-11-23] MEDS: RT-ALBUTEROL INHALER HFA (VENTOLIN HFA) 8 GM IH SCH ×4 (10:42→21:59)
[2019-11-23] MEDS ORDERED: RT-ALBUINH PO (12:44)
[2019-11-23] MEDS ORDERED: MTP25TSR PO (12:44)
[2019-11-23] MEDS ORDERED: LISI40TA PO (12:44)
[2019-11-23] MEDS ORDERED: CLON0.5T4 PO (12:44)
--- NOTE | 2019-11-23 12:45 | NUR ---
SPOKE WITH THE PT (I CALLED HER ROOM PHONE) AND WENT THRU THE EXT MED HISTORY TO COMPLETE THE MED REC METFORMIN ER 500MG (LAST FILLED 09-20-2019) AND PHENOXYBENZAMINE 10MG (LAST FILLED 11-11-2019) ARE MEDS THE PT IS NO LONGER TAKING ALL OTHER MEDS ARE ON THE EXT MED HISTORY PT DENIES TAKING ANY OTC MEDS
[2019-11-24] VITALS (7 sets, daily range): BP systolic 136–187; BP diastolic 77–88
[2019-11-24] MEDS: RT-ALBUTEROL INHALER HFA (VENTOLIN HFA) 8 GM IH SCH ×6 (02:17→22:15)
[2019-11-24] MEDS: methylPREDNISolone 40 MG/ML (Solu-MEDROL) VIAL IV SCH ×4 (03:26→20:49)
[2019-11-24 05:35] LABS: BASOPHILS % (AUTO) 0 % (0-10); EOSINOPHILS % (AUTO) 0 % (0-10); HEMATOCRIT 37 % (35-52); HEMOGLOBIN 12.3 G/DL (11.5-16.0); LYMPHOCYTES # (AUTO) 0.8 X 10^3 (1.0-4.0); LYMPHOCYTES % (AUTO) 5 % (12-44); MEAN CORPUSCULAR HEMOGLOBIN 31 PG (25-34); MEAN CORPUSCULAR HGB CONC 33 G/DL (32-36); MEAN CORPUSCULAR VOLUME 92 FL (80-99); MEAN PLATELET VOLUME 9.5 FL (7.4-10.4); MONOCYTES # (AUTO) 0.8 X 10^3 (0.0-1.0); MONOCYTES % (AUTO) 5 % (0-12); NEUTROPHILS # (AUTO) 15.2 X 10^3 (1.8-7.8); NEUTROPHILS % (AUTO) 91 % (42-75); PLATELET COUNT 412 10^3/uL (130-400); RED CELL DISTRIBUTION WIDTH 14.7 % (10.0-14.5); WHITE BLOOD COUNT 16.8 10^3/uL (4.3-11.0)
[2019-11-24 05:58] LABS: ALBUMIN 4.5 GM/DL (3.2-4.5); CHLORIDE 105 MMOL/L (98-107); SODIUM 136 MMOL/L (135-145)
[2019-11-24 05:59] LABS: CALCIUM 9.8 MG/DL (8.5-10.1)
[2019-11-24 06:00] LABS: GLUCOSE 144 MG/DL (70-105); TOTAL PROTEIN 7.9 GM/DL (6.4-8.2)
[2019-11-24 06:01] LABS: CARBON DIOXIDE 19 MMOL/L (21-32)
[2019-11-24 06:02] LABS: BILIRUBIN,TOTAL 0.2 MG/DL (0.1-1.0)
[2019-11-24 06:04] LABS: ALKALINE PHOSPHATASE 98 U/L (40-136); CREATININE SERUM 0.83 MG/DL (0.60-1.30); GFR ESTIMATED > 60
[2019-11-24 06:05] LABS: BUN/CREATININE RATIO 18
[2019-11-24 06:07] LABS: ALANINE AMINOTRANSFERASE 10 U/L (0-55)
--- NOTE | 2019-11-24 07:20 | Progress Note ---
Subjective Date Seen by a Provider: Nov 24, 2019 Time Seen by a Provider: 07:05 Subjective/Events-last exam She clinically appears to be in no acute distress. She has had no shortness of breath while wearing nasal cannula oxygen. At home she does not utilize oxygen by nasal cannula. She reports that cough she has now is with clear sputum and not discolored. Focused Exam Lactate Level 11/23/19 00:13: Lactic Acid Level 1.16 Objective Exam Vital Signs Date Time Temp Pulse Resp B/P (MAP) Pulse Ox O2 Delivery O2 Flow Rate FiO2 11/24/19 06:42 94 Nasal Cannula 3.00 11/24/19 04:00 36.6 106 21 138/77 (97) 97 Nasal Cannula 4.00 11/24/19 02:17 98 Nasal Cannula 3.00 11/24/19 01:00 111 11/24/19 00:09 36.4 111 22 141/88 (105) 98 Nasal Cannula 4.00 11/23/19 19:45 97 Nasal Cannula 4.00 11/23/19 19:36 36.7 119 18 156/76 (102) 97 Nasal Cannula 4.00 11/23/19 19:00 120 11/23/19 15:54 37.0 122 20 129/86 (100) 96 Nasal Cannula 3.00 11/23/19 15:06 96 Nasal Cannula 3.00 11/23/19 13:20 142 11/23/19 12:49 36.5 120 20 130/74 (92) 96 Nasal Cannula 3.00 11/23/19 10:42 94 Nasal Cannula 3.00 11/23/19 09:21 Nasal Cannula 3.00 11/23/19 08:30 95 Nasal Cannula 3.00 11/23/19 08:19 37.0 109 20 147/73 (97) 95 Nasal Cannula 3.00 I & O 11/24/19 07:00 Intake Total 2690 ml Output Total 975 ml Balance 1715 ml Capillary Refill : Less Than 3 Seconds General Appearance: No Apparent Distress Neck: Supple Respiratory: Wheezing (Expiratory) Cardiovascular: Regular Rate, Rhythm Gastrointestinal: soft Results Lab Laboratory Tests 11/24/19 05:06: White Blood Count 16.8H, Red Blood Count 3.99L, Hemoglobin 12.3, Hematocrit 37, Mean Corpuscular Volume 92, Mean Corpuscular Hemoglobin 31, Mean Corpuscular Hemoglobin Concent 33, Red Cell Distribution Width 14.7H, Platelet Count 412H, Mean Platelet Volume 9.5, Neutrophils (%) (Auto) 91H, Lymphocytes (%) (Auto) 5L, Monocytes (%) (Auto) 5, Eosinophils (%) (Auto) 0, Basophils (%) (Auto) 0, Neutrophils # (Auto) 15.2H, Lymphocytes # (Auto) 0.8L, Monocytes # (Auto) 0.8, Eosinophils # (Auto) 0.0, Basophils # (Auto) 0.0, Sodium Level 136, Potassium Level 5.0, Chloride Level 105, Carbon Dioxide Level 19L, Anion Gap 12, Blood Urea Nitrogen 15, Creatinine 0.83, Estimat Glomerular Filtration Rate > 60, BUN/Creatinine Ratio 18, Glucose Level 144H, Calcium Level 9.8, Corrected Calcium 9.4, Total Bilirubin 0.2, Aspartate Amino Transf (AST/SGOT) 22, Alanine Aminotransferase (ALT/SGPT) 10, Alkaline Phosphatase 98, Total Protein 7.9, Al bumin 4.5 Microbiology 11/23/19 Blood Culture - Preliminary, Resulted No growth Assessment/Plan Assessment/Plan Assess & Plan/Chief Complaint 1. Hypoxemiaeither due to bronchospasm or COPD exacerbation -She has been initiated on Solu-Medrol receiving 125 in ED and now 40 mg every 6 hours. -Oxygen by nasal cannula to maintain saturations greater than 93 percent 11/23 -IV Solu-Medrol is continuing at 40 mg every 6 hours. -At present she is on 4 L nasal cannula oxygen. She is not on oxygen at home. We will attempt a trial of off the nasal cannula oxygen and see if she remains saturated above 93 percent 2. Bronchitis -IV loading dose of Zithromax given in ED. -She is currently on 250 mg orally daily -Coronavirus testing pending--she is in isolation 11/23 -She is currently on Zithromax 250 mg daily. Clinical Quality Measures Admission Status Admission Dx 1. Hypoxemiaeither due to bronchospasm or COPD exacerbation -She has been initiated on Solu-Medrol receiving 125 in ED and now 40 mg every 6 hours. -Oxygen by nasal cannula to maintain saturations greater than 93 percent 2. Bronchitis -IV loading dose of Zithromax given in ED. -She is currently on 250 mg orally daily -Coronavirus testing pending--she is in isolation DVT/VTE Risk/Contraindication: Risk Factor Score Per Nursin RFS Level Per Nursing on Admit: 2=Moderate EDUARDO FRAIRE MD Nov 24, 2019 07:20
[2019-11-24] MEDS: AZITHROMYCIN 250 MG TAB (ZITHROMAX) PO SCH (08:03)
--- NOTE | 2019-11-24 11:08 | Physician Query Clarification ---
PQ-Intro New Diagnosis Admission/Discharge Admission Date: Nov 23, 2019 at 02:53 Discharge Date: The medical record reflects the following clinical scenario: Dr. Carmen, History/Risk Factors: Acute Bronchitis Hypoxemia Clinical Findings: WBC 17.7, T 36.7, P 122, Resp 26, BP 168/82, lactic acid 1.16. Preliminary blood cultures-no growth. Treatment: IV Azithromycin 500mg, Solu Medrol injection 125mg, Albuterol/Ipratropium inhalation therapy, Supplemental oxygen 2-4 Liters nasal cannula. Question: What condition best reflects the above clinical scenario? Please document a response in the Progress Noter or Discharge Summary. 1. Acute Bronchitis with sepsis. 2. Acute Bronchitis without sepsis. 3. Other, with explanation of the clinical findings. 4. Clinically undetermined, no explanation for the clinical findings. PHYSICIAN RESPONSE What condition reflects above: Other, explanation/clinical finding Explanation of clincal finding Patient has acute bronchitis without sepsis. She also had COPD exacerbation Please remember a lack of response to the above will prompt a phone page by CDI/Coding staff. In responding to this query, please exercise your independent professional judgment. The purpose of this communication is to more accurately reflect the complexity of your patients condition. The fact that a question is asked does not imply that any particular answer is desired or expected. Thank you for your timely response to this clarification. Requestors name: Keiko Brambila [facility] Phone # ext [phone] or [phone] THIS PHYSICIAN QUERY FORM IS A PERMANENT PART OF THE MEDICAL RECORD KEIKO BRAMBILA Nov 24, 2019 11:08 EDUARDO CARMEN MD Nov 25, 2019 07:09
--- NOTE | 2019-11-24 12:48 | NUR ---
RD ASSESSMENT PMHx: HTN; DM PT INTERACTION: Pt was awake and pleasant during nutrition assessment. Pt states current appetite is "not good" and has been this way since 11/19. Note avg PO intake 67% x1d per chart review. Pt states following a regular diet at home, and has no issues with chewing/swallowing food. Pt states no recent issues with nausea, vomiting, constipation, or diarrhea, and that her last BM "was 2 days ago." Note pt not currently on bowel regimen per chart review. Pt states some recent wt changes, ranging from as high as 140# and as low as 115#. Note recent 24# wt gain x5mon, per chart review. When asked about current level of DM management, pt states she doesn't have DM. Note recent HbA1c of 8.5 on 06/26/19, per chart review. ABNORMAL NUTRITION-RELATED LAB VALUES LOW: HIGH: glu 144 Est. kcal needs: 1425 kcal | 25 kcal/kg Est. Pro needs: 57 g Pro | 1.0 g Pro/kg PES STATEMENT: Inadequate oral intake (NI-2.1) related to loss of appetite as evidenced by pt interview | avg PO intake 67% x1d INTERVENTION: Continue with current diet order of Regular diet. Pt may benefit from consistent CHO restriction if blood glucose levels become elevated. Pt may benefit from nutrition supplementation if PO intake declines. Offered diet education on DM management. Pt declined, stating they did not have DM. Will continue to follow and reassess as pt needs, intake, and status change. MONITOR/EVALUATE: PO Intake; Plan of Care; Hydration Status; Weight Status; Lab Values Jericho Jeong, MS, RD, LD
--- NOTE | 2019-11-24 16:07 | NUR ---
PT WALKED 400FT AND REQUIRED 2L TO KEEP SAT GREATER THAN 90%.
--- NOTE | 2019-11-24 16:27 | NUR ---
PT ON RA AT REST SATING 94%. PT WILL NEED 2L PRN AND WITH EXERTION
--- NOTE | 2019-11-24 16:28 | NUR ---
DR FRAIRE GIVEN RESULTS FROM HOME O2 EVAL
[2019-11-24] MEDS ORDERED: ZOLPIDEM 5 MG (AMBIEN) TAB PO PRN (21:15)
--- NOTE | 2019-11-24 21:16 | NUR ---
pt requesting sleep aid-this rn contacted dr. pedroza order received
[2019-11-25] MEDS: RT-ALBUTEROL INHALER HFA (VENTOLIN HFA) 8 GM IH SCH ×3 (02:40→11:00)
[2019-11-25] MEDS: methylPREDNISolone 40 MG/ML (Solu-MEDROL) VIAL IV SCH ×2 (03:09→08:25)
[2019-11-25 04:45] VITALS: BP 160/94
[2019-11-25 06:00] VITALS: BP 160/80
--- NOTE | 2019-11-25 07:12 | Discharge Summary ---
Diagnosis/Chief Complaint Date of Admission Nov 23, 2019 at 02:53 Date of Discharge November 25, 2019 Discharge Date: Nov 25, 2019 Discharge Time: 11:00 Admission Diagnosis Admission Diagnosis 1. Acute bronchitis 2. COPD exacerbation with hypoxia Discharge Diagnosis 1. Acute bronchitis 2. COPD exacerbation with hypoxia Reason Hospital Visit 54-year-old female presents to [facility] emergency department during the evening of November 22, 2019 with shortness of breath. 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 She was also admitted earlier in the inferior May 2019 with sepsis. Currently patient admits taking breathing treatments and not seen much relief of shortness of breath. She was found to be hypoxic in ED. Discharge Summary Hospital Course Was the Problem List Reviewed?: Yes Hospital Course Patient was admitted on November 23, 2019 with acute bronchitis and COPD exacerbation with hypoxemia. She was placed on fourth medical after receiving initial dosing of Solu-Medrol 125 mg IV and 1 g of IV Zithromax. On the floor she was receiving 40 mg Solu-Medrol every 6 hours as well as Zithromax 250 mg orally daily. Additionally respiratory therapy provided albuterol breathing treatments. She was also given nasal cannula oxygen to keep saturations above 93 percent. She attempted to wean off the oxygen by nasal cannula on November 24, 2019 and this was unsuccessful as her saturations were below 93 percent. Patient was evaluated and qualifies for home oxygen. She was afebrile 24 hours prior to dismissal. Her laboratory remained stable. Labs Laboratory Tests 11/23/19 00:01: White Blood Count 17.7H, Red Blood Count 4.33L, Red Cell Distribution Width 14.7H, Platelet Count 434H, Neutrophils # (Auto) 11.5H, Monocytes # (Auto) 2.0H, Eosinophils # (Auto) 1.7H, Carbon Dioxide Level 19L, Anion Gap 16H, Glucose Level 111H, Alkaline Phosphatase 138H, C-Reactive Protein High Sensitivity 1.38H , Total Protein 8.3H, Albumin 4.8H 11/23/19 00:07: 11/23/19 00:09: 11/23/19 00:13: 11/24/19 05:06: White Blood Count 16.8H, Red Blood Count 3.99L, Red Cell Distribution Width 14.7H, Platelet Count 412H, Neutrophils (%) (Auto) 91H, Lymphocytes (%) (Auto) 5L, Neutrophils # (Auto) 15.2H, Lymphocytes # (Auto) 0.8L, Carbon Dioxide Level 19L, Glucose Level 144H Procedures None. Discharge Physical Examination Allergies: Coded Allergies: Penicillins (Unverified Allergy, Unknown, HIVES, 06/26/19) Vitals & I&Os Vital Signs Date Time Temp Pulse Resp B/P (MAP) Pulse Ox O2 Delivery O2 Flow Rate FiO2 11/25/19 06:23 91 Room Air 11/25/19 06:00 160/80 (106) 11/25/19 04:45 36.2 95 20 11/24/19 20:45 2.00 General Appearance: Alert, No Acute Distress Respiratory: Other (Predominantly clear but course this is noted) Cardiovascular: Regular Rate Abdominal: Soft Neuro: Normal Gait Discharge Home Medications Reviewed and agree with Discharge Medication list on patient's Discharge Instruction sheet Instructions to Patient/Family Please see electronic discharge instructions given to patient. Clinical Quality Measures DVT/VTE Risk/Contraindication: Risk Factor Score Per Nursin RFS Level Per Nursing on Admit: 2=Moderate EDUARDO FRAIRE MD Nov 25, 2019 07:12
[2019-11-25] MEDS ORDERED: AZIT250T12 PO (07:15)
[2019-11-25] MEDS ORDERED: PRD20T PO (07:15)
--- NOTE | 2019-11-25 07:18 | Discharge Inst-Simple/Standard ---
Discharge Inst-Standard Reconcile Patient Problems Problems Reviewed?: Yes Discharge Medications New, Converted or Re-Newed RX: Transmitted to Pharmacy Patient Instructions/Follow Up Plan of Care/Instructions/FU: Dr Fraire 11/28 or 11/29. Prednisone will be given 3 tablets daily for 3 days, then 2 tablets daily for 3 days, then 1 tablet daily for 3 days. Activity as Tolerated: Yes Discharge Diet: Regular Diet Return to The Hospital For: Significant shortness of breath or saturations consistently below 93 percent. Planned Outpatient Orders/Ref. Home oxygen at 2 L during exertion. EDUARDO FRAIRE MD Nov 25, 2019 07:18
[2019-11-25 07:36] VITALS: BP 161/85
[2019-11-25] MEDS: AZITHROMYCIN 250 MG TAB (ZITHROMAX) PO SCH (08:25)
--- NOTE | 2019-11-25 11:07 | NUR ---
CM/SS: Visited with pt as to her plan for discharge Plan: Pt will return home with new oxygen order Summary: Pt reports she is from home and that she just wants to know when she will be able to leave. Process to obtain oxygen is explained and that some will be delivered to the hospital prior to her leaving. Pt is ok with that. Pt is aware that they will bring the concentrator to her home. Home address and phone number is verified. 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 Information faxed to [facility] [employer] equipment. Dr Carmen had some difficulty with entering the script information on the computer, requested a paper physician order be faxed to him to complete. Paper form faxed, and he is later able to electronically submit the script. Script is sent to [facility]. They report they can deliver to Oxygen to the hospital within the hour. Should be here around 12noon. Ron RN is informed of the timeframe for oxygen delivery.
--- NOTE | 2019-11-25 11:43 | NUR ---
ATTEMPTED TO SET UP F/U APPOINTMENT X3, NO ANSWER. PT INSTRUCTED TO CALL OFFICE WHEN SHE GETS HOME TO SCHEDULE AN APPOINTMENT WITH DR FRAIRE ON 11/28 OR 11/29.
[2019-11-25 11:55] VITALS: BP 161/85
--- NOTE | 2019-11-25 12:06 | NUR ---
LORENZO SALGADO demonstrates understanding of discharge instructions and accurately returns instructions upon questioning. Copy of Post-Discharge Instructions and Medication Discharge Instructions given to PT. LORENZO SALGADO is able to manage continuing needs after discharge. Patients belongings returned to PT. Skin dry and intact; no breakdown noted. Patient discharged from [facility] on 11/25/19 at 1155. LORENZO SALGADO left floor via , accompanied by STAFF.
== END 2019-11-25 11:55 | disposition home or self-care (01) | DRG 202 ==
LOC: EDUNIT# 23:44 → ER 23:46 → 4TH 11-23 02:53
PROVIDERS: ADMIT Family Medicine; ATTEND Family Medicine
DX: J20.9 Acute bronchitis, unspecified (principal); J44.0 Chronic obstructive pulmonary disease with (acute) lower respiratory infection; J44.1 Chronic obstructive pulmonary disease with (acute) exacerbation; E89.6 Postprocedural adrenocortical (-medullary) hypofunction; I10 Essential (primary) hypertension; E11.9 Type 2 diabetes mellitus without complications; F90.9 Attention-deficit hyperactivity disorder, unspecified type; F41.9 Anxiety disorder, unspecified; Z20.828 Contact with and (suspected) exposure to other viral communicable diseases; Z87.01 Personal history of pneumonia (recurrent); Z87.09 Personal history of other diseases of the respiratory system; Z87.891 Personal history of nicotine dependence
CPT/HCPCS: 36415; 71045; 80053; 83605; 83880; 84145; 85007; 85025; 85027; 85610; 85730; 86141; 87040; 87635; 94640; 94760; 94761

== ENCOUNTER → 2020-09-29 | Outpatient (CLI) | payer BC ==
[~2020-09-29] MED LIST changes: +AZIT250T12 PO; +CLON0.5T4 PO; +LISI40TA9 PO; +MTP25TSR PO; +PRD20T PO; +RT-ALBUINH PO
--- NOTE | 2020-09-29 17:25 | Diagnostic Imaging Report ---
INDICATION: Routine screening. Comparison is made with prior mammogram from 02/10/2018 and 06/05/2015. 2-D and 3-D bilateral screening mammography was performed with CAD. Scattered fibroglandular densities are identified bilaterally. Scattered benign calcifications are noted. The benign nodule in the medial left breast is stable. No new mass or malignant appearing microcalcifications are seen. Axillae are unremarkable. IMPRESSION: BI-RADS Category 2 No mammographic features suspicious for malignancy are identified. ACR BI-RADS Category 2: Benign findings. Result letter will be mailed to the patient. Note: At least 10% of breast cancer is not imaged by mammography. Dictated by: Dictated on workstation # [id number]
== END ==
LOC: RAD 10:49
PROVIDERS: ATTEND Family Medicine
DX: Z12.31 Encounter for screening mammogram for malignant neoplasm of breast (principal)
CPT/HCPCS: 77063; 77067

== ENCOUNTER 2020-12-01 11:49 | Emergency (ER) | payer BC ==
[~2020-12-01] VITALS: Ht 157.5 cm; Wt 63.5 kg
--- NOTE | 2020-12-01 13:21 | ED GI ---
General Chief Complaint: Abdominal/GI Problems Stated Complaint: FEVER,COUGH,CHILLS,BODY ACHES Source of Information: Patient Exam Limitations: No Limitations History of Present Illness Date Seen by Provider: Dec 01, 2020 Time Seen by Provider: 13:21 Initial Comments to ER with nausea vomiting abdominal pain since August of this year getting progressively worse. Constipation for 4 days. Timing/Duration: 1-2 Days Severity/Quality: Moderate Location: Generalized Abdomen Radiation: No Radiation Associated Symptoms: Denies Symptoms Allergies and Home Medications Allergies Coded Allergies: Penicillins (Unverified Allergy, Unknown, HIVES, 06/26/19) Home Medications Albuterol Sulfate 1 Puff Puff, 2 PUFF PO Q6H PRN for SHORTNESS OF BREATH, (Reported) Azithromycin 250 Mg Tablet, 250 MG PO DAILY Prescribed by: EDUARDO FRAIRE on 11/25/19 0715 Clonazepam 0.5 Mg Tablet, 0.5 MG PO Q12H PRN for ANXIETY, (Reported) Lisinopril 40 Mg Tablet, 40 MG PO DAILY, (Reported) Metoprolol Succinate 25 Mg Tab.er.24h, 25 MG PO DAILY, (Reported) Polyethylene Glycol 3350 17 Gm Powd.pack, 17 GM PO BID Prescribed by: KENNEDY KEENE on 12/01/20 1640 Prednisone 20 Mg Tab, 0 PO DAILY Prescribed by: EDUARDO FRAIRE on 11/25/19 0715 Patient Home Medication List Home Medication List Reviewed: Yes Review of Systems Review of Systems Constitutional: see HPI EENTM: No Symptoms Reported Respiratory: No Symptoms Reported Cardiovascular: No Symptoms Reported Gastrointestinal: No Symptoms Reported Genitourinary: No Symptoms Reported Musculoskeletal: see HPI Skin: no symptoms reported Psychiatric/Neurological: No Symptoms Reported Endocrine: No Symptoms Reported Hematologic/Lymphatic: No Symptoms Reported Past Pqhmlcg-Uuwotm-Dtznxl Hx Past Medical History Surgeries: Yes ( X 3;REMOVAL OF BIRTHMARK;L FOOT SURGERY X 2;ENDOMETRIAL ABLATION) Section, Ear Surgery, Orthopedic 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) Pneumonia Cardiac: Yes Hypertension Neurological: No Reproductive Disorders: Yes (MENORRHAGIA-S/P ENDOMETRIAL ABLATION AND D&C 2012) Female Reproductive Disorders: Menstrual Problems Genitourinary: No Gastrointestinal: No Musculoskeletal: Yes (LEFT FOOT SURGERY X 2 IN 2012) Endocrine: No Diabetes, Non-Insulin dep HEENT: Yes (EAR SURGERY ) Chronic Ear Infection Cancer: No Psychosocial: Yes ADD/ADHD, Anxiety Integumentary: Yes (BIRTHMARK REMOVAL ) Blood Disorders: No Family Medical History PSH: - X 3 -ENDOMETRIAL ABLATION AND D&C IN 2013 -LEFT FOOT SURGERY X 2 IN 2013 -REMOVAL OF DEYSI -EAR SURGERY Physical Exam Vital Signs Vital Signs - First Documented 12/01/20 13:10 Temp 36.8 Pulse 84 Resp 17 B/P (MAP) 166/98 (120) O2 Delivery Room Air Capillary Refill : Height/Weight/BMI Height: '" Weight: lbs. oz. kg; 170.88 BMI Method: General Appearance: WD/WN, no apparent distress HEENT: PERRL/EOMI, normal ENT inspection Respiratory: no respiratory distress, no accessory muscle use Gastrointestinal: normal bowel sounds, non tender, soft Neurologic/Psychiatric: alert, normal mood/affect, oriented x 3 Skin: normal color, warm/dry Progress/Results/Core Measures Results/Orders Lab Results Laboratory Tests Test 12/01/20 13:29 12/01/20 13:31 12/01/20 13:44 Range/Units White Blood Count 16.5 H 4.3-11.0 10^3/uL Red Blood Count 4.31 3.80-5.11 10^6/uL Hemoglobin 13.4 11.5-16.0 g/dL Hematocrit 40 35-52 % Mean Corpuscular Volume 92 80-99 fL Mean Corpuscular Hemoglobin 31 25-34 pg Mean Corpuscular Hemoglobin Concent 34 32-36 g/dL Red Cell Distribution Width 13.0 10.0-14.5 % Platelet Count 434 H 130-400 10^3/uL Mean Platelet Volume 9.0 9.0-12.2 fL Immature Granulocyte % (Auto) 1 % Neutrophils (%) (Auto) 83 H 42-75 % Lymphocytes (%) (Auto) 7 L 12-44 % Monocytes (%) (Auto) 8 0-12 % Eosinophils (%) (Auto) 1 0-10 % Basophils (%) (Auto) 1 0-10 % Neutrophils # (Auto) 13.6 H 1.8-7.8 10^3/uL Lymphocytes # (Auto) 1.2 1.0-4.0 10^3/uL Monocytes # (Auto) 1.4 H 0.0-1.0 10^3/uL Eosinophils # (Auto) 0.1 0.0-0.3 10^3/uL Basophils # (Auto) 0.2 H 0.0-0.1 10^3/uL Immature Granulocyte # (Auto) 0.1 0.0-0.1 10^3/uL Neutrophils % (Manual) 8 % Lymphocytes % (Manual) 6 % Monocytes % (Manual) 9 % Eosinophils % (Manual) 1 % Basophils % (Manual) 4 % Blood Morphology Comment NORMAL Sodium Level 136 135-145 MMOL/L Potassium Level 4.0 3.6-5.0 MMOL/L Chloride Level 94 L 98-107 MMOL/L Carbon Dioxide Level 27 21-32 MMOL/L Anion Gap 15 H 5-14 MMOL/L Blood Urea Nitrogen 11 7-18 MG/DL Creatinine 1.01 0.60-1.30 MG/DL Estimat Glomerular Filtration Rate 56 BUN/Creatinine Ratio 11 Glucose Level 134 H 70-105 MG/DL Calcium Level 10.5 H 8.5-10.1 MG/DL Corrected Calcium 8.5-10.1 MG/DL Total Bilirubin 0.4 0.1-1.0 MG/DL Aspartate Amino Transf (AST/SGOT) 17 5-34 U/L Alanine Aminotransferase (ALT/SGPT) 13 0-55 U/L Alkaline Phosphatase 95 40-136 U/L Total Protein 7.9 6.4-8.2 GM/DL Albumin 4.7 H 3.2-4.5 GM/DL Lipase 29 8-78 U/L SARS-CoV-2 RNA (RT-PCR) Not Detected Not Detecte Urine Color YELLOW Urine Clarity SL CLOUDY Urine pH 6.0 5-9 Urine Specific [place] <=1.005 1.016-1.022 Urine Protein NEGATIVE NEGATIVE Urine Glucose (UA) NEGATIVE NEGATIVE Urine Ketones TRACE H NEGATIVE Urine Nitrite NEGATIVE NEGATIVE Urine Bilirubin NEGATIVE NEGATIVE Urine Urobilinogen 0.2 < = 1.0 MG/DL Urine Leukocyte Esterase NEGATIVE NEGATIVE Urine RBC (Auto) NEGATIVE NEGATIVE Urine RBC NONE /HPF Urine WBC NONE /HPF Urine Squamous Epithelial Cells RARE /HPF Urine Crystals NONE /LPF Urine Bacteria TRACE /HPF Urine Casts NONE /LPF Urine Mucus NEGATIVE /LPF Urine Culture Indicated NO My Orders Orders - KENNEDY KEENE APRN Covid 19 Inhouse Test (12/01/20 12:37) Cbc With Automated Diff (12/01/20 13:25) Comprehensive Metabolic Panel (12/01/20 13:25) Ua Culture If Indicated (12/01/20 13:25) Ed Iv/Invasive Line Start (12/01/20 13:25) Lipase (12/01/20 13:25) Manual Differential (12/01/20 13:29) Fentanyl Inj (Sublimaze Injection) (12/01/20 14:30) Ketorolac Injection (Toradol Injection) (12/01/20 14:30) Ct Abdomen/Pelvis W (12/01/20 14:22) Iohexol Injection (Omnipaque 350 Mg/Ml 1 (12/01/20 14:45) Received Contrast (Hold Metformin- Contr (12/01/20 14:45) Sodium Chloride Flush (Catheter Flush Sy (12/01/20 14:45) Ns (Ivpb) (Sodium Chloride 0.9% Ivpb Bag (12/01/20 14:45) Ondansetron Injection (Zofran Injectio (12/01/20 14:45) Ondansetron Injection (Zofran Injectio (12/01/20 14:35) Medications Given in ED Current Medications Medications Dose Ordered Sig/Colleen Route Start Time Stop Time Status Last Admin Dose Admin Fentanyl Citrate 50 mcg ONCE ONCE IVP 12/01/20 14:30 12/01/20 14:31 DC 12/01/20 14:29 50 MCG Iohexol 100 ml ONCE ONCE IV 12/01/20 14:45 12/01/20 14:46 DC 12/01/20 15:24 60 ML Ketorolac Tromethamine 15 mg ONCE ONCE IVP 12/01/20 14:30 12/01/20 14:31 DC 12/01/20 14:29 15 MG Ondansetron HCl 8 mg ONCE ONCE IVP 12/01/20 14:45 12/01/20 14:46 DC 12/01/20 14:37 8 MG Sodium Chloride 100 ml ONCE ONCE IV 12/01/20 14:45 12/01/20 14:46 DC 12/01/20 15:24 80 ML Vital Signs/I&O 12/01/20 13:10 Temp 36.8 Pulse 84 Resp 17 B/P (MAP) 166/98 (120) O2 Delivery Room Air Departure Communication (Admissions) NAME: DAMIAN,LORENZO A [facility] REC#: [id number] PT STATUS: REG ER : 1965 PHYSICIAN: KENNEDY KEENE APRN ADMIT DATE: 12/01/20/ER Signed Date of Exam:12/01/20 CT ABDOMEN/PELVIS W PROCEDURE: CT abdomen and pelvis with contrast. TECHNIQUE: Multiple contiguous axial images were obtained through the abdomen and pelvis after administration of intravenous contrast. Auto Exposure Controls were utilized during the CT exam to meet ALARA standards for radiation dose reduction. All CT scans use one or more of the following dose optimizing techniques: automated exposure control, MA and/or KvP adjustment based on patient size and exam type or iterative reconstruction. INDICATION: Abdominal pain. COMPARISON: None. FINDINGS: Included portions of the lung bases are clear. CT ABDOMEN: Normal appendix is identified. Small bowel loops are nondistended. Moderate air and stool is noted within the ascending and transverse colon. Liver has a diffuse hypodense appearance on this post contrast exam. There is some sparing about the gallbladder fossa. Findings are consistent with hepatic steatosis. No suspicious focal hepatic lesions are identified. There is a right adrenal nodule that measures 2.4 x 1.4 cm. Washout percentage of 72% is consistent with benign adenoma. Left adrenal gland, pancreas, spleen, and kidneys have a normal CT appearance. There is no loculated fluid collection, free fluid, nor free air within the abdomen. No abnormal mesenteric or retroperitoneal adenopathy is seen. There is scattered mild calcified and noncalcified aortic atherosclerosis. Osseous structures show no acute abnormalities. Urinary bladder is grossly unremarkable. There is no loculated fluid collection, free fluid, nor free air within the pelvis. No abnormal lymph nodes are seen. Osseous structures show no acute abnormalities. IMPRESSION: 1. No acute abnormalities are seen within the abdomen or pelvis. 2. Moderate colonic air and stool. Please correlate for constipation. 3. Hepatic steatosis. 4. Benign right adrenal adenoma. Dictated by: Dictated on workstation # [id number] Dict: 12/01/20 1631 Trans: 12/01/20 1648 [id number] Interpreted by: GEMA JONES MD Electronically signed by: GEMA JONES MD 12/01/20 1648 Impression Primary Impression: Abdominal pain Additional Impression: Constipation Disposition: HOME, SELF-CARE Condition: Stable Departure-Patient Inst. Decision time for Depature: 16:39 Referrals: SAVANNA CAMPBELL BRETT D DO KIDO, TAKAAKI MD KOEHN, DANIEL J MD (PCP/Family) Primary Care Physician Patient Instructions: NO INSTRUCTIONS GIVEN Add. Discharge Instructions: 1. Return to ER for any concerns 2. Miralax as directed 3. FOllow up with orthopedics All discharge instructions reviewed with patient and/or family. Voiced understanding. Scripts Polyethylene Glycol 3350 (Miralax) 17 Gm Powd.pack 17 GM PO BID, #10 EACH Prov: KENNEDY KEENE CHANGE MANAGEMENT CONSULTANT 12/01/20 KENNEDY KEENE CHANGE MANAGEMENT CONSULTANT Dec 01, 2020 13:21
[2020-12-01 13:51] LABS: BASOPHILS # (AUTO) 0.2 10^3/uL (0.0-0.1); BASOPHILS % (AUTO) 1 % (0-10); EOSINOPHILS # (AUTO) 0.1 10^3/uL (0.0-0.3); EOSINOPHILS % (AUTO) 1 % (0-10); HEMATOCRIT 40 % (35-52); HEMOGLOBIN 13.4 g/dL (11.5-16.0); LYMPHOCYTES # (AUTO) 1.2 10^3/uL (1.0-4.0); LYMPHOCYTES % (AUTO) 7 % (12-44); MEAN CORPUSCULAR HEMOGLOBIN 31 pg (25-34); MEAN CORPUSCULAR HGB CONC 34 g/dL (32-36); MEAN CORPUSCULAR VOLUME 92 fL (80-99); MONOCYTES # (AUTO) 1.4 10^3/uL (0.0-1.0); MONOCYTES % (AUTO) 8 % (0-12); NEUTROPHILS # (AUTO) 13.6 10^3/uL (1.8-7.8); NEUTROPHILS % (AUTO) 83 % (42-75); PLATELET COUNT 434 10^3/uL (130-400); WHITE BLOOD COUNT 16.5 10^3/uL (4.3-11.0)
[2020-12-01 13:52] LABS: BILIRUBIN,URINE NEGATIVE (NEGATIVE); CLARITY,URINE SL CLOUDY; COLOR,URINE YELLOW; GLUCOSE, URINE (UA) NEGATIVE (NEGATIVE); KETONES,URINE TRACE (NEGATIVE); LEUKOCYTE ESTERASE ,URINE NEGATIVE (NEGATIVE); NITRITE,URINE NEGATIVE (NEGATIVE); PROTEIN,URINE NEGATIVE (NEGATIVE)
[2020-12-01 14:08] LABS: BACTERIA,URINE TRACE /HPF; SQUAMOUS EPITHELIAL CELL,UR RARE /HPF
[2020-12-01 14:15] LABS: ALBUMIN 4.7 GM/DL (3.2-4.5)
[2020-12-01 14:16] LABS: CHLORIDE 94 MMOL/L (98-107); SODIUM 136 MMOL/L (135-145)
[2020-12-01 14:17] LABS: CALCIUM 10.5 MG/DL (8.5-10.1)
[2020-12-01 14:18] LABS: GLUCOSE 134 MG/DL (70-105); TOTAL PROTEIN 7.9 GM/DL (6.4-8.2)
[2020-12-01 14:19] LABS: CARBON DIOXIDE 27 MMOL/L (21-32)
[2020-12-01 14:20] LABS: BILIRUBIN,TOTAL 0.4 MG/DL (0.1-1.0)
[2020-12-01 14:21] LABS: ALKALINE PHOSPHATASE 95 U/L (40-136)
[2020-12-01 14:22] LABS: CREATININE SERUM 1.01 MG/DL (0.60-1.30); GFR ESTIMATED 56
[2020-12-01 14:23] LABS: BUN/CREATININE RATIO 11
[2020-12-01 14:24] LABS: ALANINE AMINOTRANSFERASE 13 U/L (0-55)
[2020-12-01 14:25] LABS: LIPASE 29 U/L (8-78)
[2020-12-01] MEDS ORDERED: KETOROLAC 30 MG/ML VIAL IVP ONE (14:30)
[2020-12-01] MEDS ORDERED: fentaNYL INJ 100 MCG/2 ML AMP IVP ONE (14:30)
[2020-12-01] MEDS ORDERED: ONDANSETRON 4 MG/2 ML (SDV) Z0FRAN ONE (14:35)
[2020-12-01 14:40] LABS: BASOPHILS % (MANUAL) 4 %; EOSINOPHILS % (MANUAL) 1 %; LYMPHOCYTES % (MANUAL) 6 %; MONOCYTES % (MANUAL) 9 %; NEUTROPHILS % (MANUAL) 8 %; RBC MORPH NORMAL
[2020-12-01] MEDS ORDERED: HOLD METFORMIN - RECEIVED CONTRAST 20 ML VIAL IV SCH (14:45)
[2020-12-01] MEDS ORDERED: IOHEXOL 350 MG/ML 100 ML (OMNIPAQUE 350) VIAL IV ONE (14:45)
[2020-12-01] MEDS ORDERED: CATHETER FLUSH 10 ML SYR IV PRN (14:45)
[2020-12-01] MEDS ORDERED: NS 100 ML (IVPB) BAG IV ONE (14:45)
[2020-12-01] MEDS ORDERED: ONDANSETRON 4 MG/2 ML (SDV) Z0FRAN IVP ONE (14:45)
[2020-12-01] MEDS ORDERED: POLY17PO6 PO (16:40)
--- NOTE | 2020-12-01 16:49 | Diagnostic Imaging Report ---
PROCEDURE: CT abdomen and pelvis with contrast. TECHNIQUE: Multiple contiguous axial images were obtained through the abdomen and pelvis after administration of intravenous contrast. Auto Exposure Controls were utilized during the CT exam to meet ALARA standards for radiation dose reduction. All CT scans use one or more of the following dose optimizing techniques: automated exposure control, MA and/or KvP adjustment based on patient size and exam type or iterative reconstruction. INDICATION: Abdominal pain. COMPARISON: None. FINDINGS: Included portions of the lung bases are clear. CT ABDOMEN: Normal appendix is identified. Small bowel loops are nondistended. Moderate air and stool is noted within the ascending and transverse colon. Liver has a diffuse hypodense appearance on this post contrast exam. There is some sparing about the gallbladder fossa. Findings are consistent with hepatic steatosis. No suspicious focal hepatic lesions are identified. There is a right adrenal nodule that measures 2.4 x 1.4 cm. Washout percentage of 72% is consistent with benign adenoma. Left adrenal gland, pancreas, spleen, and kidneys have a normal CT appearance. There is no loculated fluid collection, free fluid, nor free air within the abdomen. No abnormal mesenteric or retroperitoneal adenopathy is seen. There is scattered mild calcified and noncalcified aortic atherosclerosis. Osseous structures show no acute abnormalities. Urinary bladder is grossly unremarkable. There is no loculated fluid collection, free fluid, nor free air within the pelvis. No abnormal lymph nodes are seen. Osseous structures show no acute abnormalities. IMPRESSION: 1. No acute abnormalities are seen within the abdomen or pelvis. 2. Moderate colonic air and stool. Please correlate for constipation. 3. Hepatic steatosis. 4. Benign right adrenal adenoma. Dictated by: Dictated on workstation # [id number]
[2020-12-01 16:52] VITALS: BP 141/68
== END 2020-12-01 16:52 | disposition home or self-care (01) ==
LOC: EDUNIT# 11:49 → ER 11:51
DX: K59.00 Constipation, unspecified (principal); I10 Essential (primary) hypertension; E11.9 Type 2 diabetes mellitus without complications; F41.9 Anxiety disorder, unspecified; Z20.822 Contact with and (suspected) exposure to COVID-19; Z79.52 Long term (current) use of systemic steroids; Z79.899 Other long term (current) drug therapy
CPT/HCPCS: 36415; 74177; 80053; 81000; 83690; 85007; 85027; 87636

== ENCOUNTER 2020-12-28 05:29 | Outpatient (RCR) | payer BC ==
[~2020-12-28] VITALS: Ht 157.5 cm; Wt 66.1 kg
[~2020-12-28 05:29] MED LIST changes: +METO50TA7 PO; +POLY17PO6 PO
== END 2020-12-28 10:49 | disposition home or self-care (01) ==
LOC: PREOP 05:29
PROVIDERS: ATTEND Surgery
DX: Z01.818 Encounter for other preprocedural examination (principal); K30 Functional dyspepsia; Z20.822 Contact with and (suspected) exposure to COVID-19
CPT/HCPCS: 87635

== ENCOUNTER 2021-01-01 10:33 | Day surgery (SDC) | payer BC ==
[2021-01-01] VITALS (9 sets, daily range): BP systolic 99–121; BP diastolic 50–70
[~2021-01-01] VITALS: Ht 157.5 cm; Wt 66.1 kg
[2021-01-01] MEDS ORDERED: LACTATED RINGERS 1,000 ML IV STA (10:40)
[2021-01-01] MEDS ORDERED: HURRICAINE EXT TUBE (BENZOCAINE) XX PRN (10:45)
[2021-01-01] MEDS ORDERED: LACTATED RINGERS 1,000 ML IV ONE (10:52)
--- NOTE | 2021-01-01 11:08 | Progress Note-Pre Operative ---
Pre-Operative Progress Note H&P Reviewed The H&P was reviewed, patient examined and no changes noted. Time Seen by Provider: 11:07 Date H&P Reviewed: Jan 01, 2021 Time H&P Reviewed: 11:07 Pre-Operative Diagnosis: Epigastric Pain, Vomiting, Screening Colon SAVANNA CAMPBELL DO Jan 01, 2021 11:08
[2021-01-01] MEDS ORDERED: MIDAZOLAM 2 MG/2 ML (VERSED) VIAL ONE (12:27)
[2021-01-01] MEDS ORDERED: PROPOFOL INJECTION 50 ML IV ONE ×2 (12:28→13:15)
--- NOTE | 2021-01-01 14:08 | Anesthesia-General Post-Op ---
MAC Patient Condition Mental Status/LOC: Same as Preop Cardiovascular: Satisfactory Nausea/Vomiting: Absent Respiratory: Satisfactory Pain: Controlled Complications: Absent Post Op Complications Complications None Follow Up Care/Instructions Patient Instructions None needed. Anesthesiology Discharge Order Discharge Order Patient is doing well, no complaints, stable vital signs, no apparent adverse anesthesia problems. No complications reported per nursing. ROMEL MCCLOUD CRNA Jan 01, 2021 14:08
--- NOTE | 2021-01-01 14:13 | Progress Note-Post Operative ---
Post-Operative Progess Note Surgeon (s)/Sap Bw Developer (s) Surgeon SAVANNA CAMPBELL DO Sap Bw Developer: BARBRA Early Pre-Operative Diagnosis Epigastric Pain, Vomiting, Screening Colon Post-Operative Diagnosis Gastritis small hiatal hernia esophagitis Polyps Diverticula int hemorrhoids Procedure & Operative Findings Date of Procedure 01/01/21 Procedure Performed/Findings 1) EGD with bx 2) Colon with snare 3) Colon with hot bx 4) Colon with injection of dye for tattooing PROCEDURE NOTE: After informed consent was obtained, the patient was brought to the endoscopy suite, placed in bed in left lateral decubitus position. She was administered IV sedation by the ACTIVITY THERAPY TEACHER who then monitored vitals the entire time, heart rate, blood pressure and pulse ox and the scope was inserted down the mouth through the esophagus into the stomach. On the way down, noted some mild esophagitis, took a picture, pushed into the stomach, pushed past the antrum into the duodenum. Duodenum looked good. Pulled back and saw some gastritis and did a biopsy of the antrum; as well as took a picture. Then retroflexed the scope, saw a small hiatal hernia, took a picture of this and then pulled the scope into the GE junction; noted some changes at the Z-line and took another picture of this area. Then did a biopsy of the GE junction. Pushed the scope back into the stomach, suctioned all the air out of the stomach. At this point pulled the scope up the esophagus and out the mouth. Switched camera, switched gloves, went down below, started the colonoscopy. Pushed all the way into about 160 cm to get all the way to cecum. On the way in noted some diverticula and took a picture. In the transvere colon saw a small flat polyp and elected to do a hot biopsy of this (took it completely off in 2 pieces). Continued up and at the hepatic flexure saw a large flat polyp; took a picture, did a hot biopsy and then elected to tattoo the area because it was too big to try and remove with biopsies and it was slightly behind a fold. I also saw 2 more small polyps near it. Finally able to get to the cecum and took a picture of the appendiceal orifice, noted the ileocecal valve and then slowly withdrew the scope, Insufflating to look circumferentially at the siddiqi starting in the cecum, up the ascending colon to the hepatic flexure, then down the transverse colon to the splenic flexure and into the descending colon. In the descending colon saw a large polyp that could be removed completely and elected to do this with a snare polypectomy. Finally down into the sigmoid and into the rectum, retroflexed in the rectal vault. Saw some minimal internal hemorrhoids and took a picture of this. The patient tolerated the procedure and she recovered in the endoscopy suite. Anesthesia Type IV Sedation by ACTIVITY THERAPY TEACHER Estimated Blood Loss Estimated blood loss (mL): scant Specimens/Packing Specimens Removed antral bx body of stomach bx GE jxn bx Transverse polyp transverse near hepatic flexure polyp desc colon polyp SAVANNA CAMPBELL DO Jan 01, 2021 14:12
--- NOTE | 2021-01-01 14:15 | Endoscopy Discharge Instruct ---
Endo Procedure/Findings Findings 1.: Hiatal Hernia, Gastritis, Other Findings (Esophagitis) 2.: Polyp 3.: Diverticulosis 4.: Internal Hemorrhoids Discharge Instructions - Activity: You might feel a little sleepy until tomorrow. This is due to the medicine you received to relax you. Until tomorrow, you should: NOT drive a car, operate machinery or power tools. NOT drink any alcoholic beverages. NOT make any important decisions or sign importortant papers. Do not return to work until tomorrow, unless otherwise instructed. Resume previous activities tomorrow. Diet: Start by taking liquids. If you tolerate liquids, advance to solid food. 1.: EGD in 3 years 2.: Colonoscopy in 1 year Notify Physician - If you experience excessive bleeding, unusual abdominal pain, fever, or chest pain, contact your doctor immediately. SAVANNA CAMPBELL DO Jan 01, 2021 14:15
== END 2021-01-01 14:35 | disposition home or self-care (01) ==
LOC: ENDO 10:33
PROVIDERS: ATTEND Surgery
DX: Z12.11 Encounter for screening for malignant neoplasm of colon (principal); D12.3 Benign neoplasm of transverse colon; D12.4 Benign neoplasm of descending colon; K44.9 Diaphragmatic hernia without obstruction or gangrene; K29.70 Gastritis, unspecified, without bleeding; K64.8 Other hemorrhoids; K57.30 Diverticulosis of large intestine without perforation or abscess without bleeding; I10 Essential (primary) hypertension; F41.9 Anxiety disorder, unspecified; F90.9 Attention-deficit hyperactivity disorder, unspecified type; E11.40 Type 2 diabetes mellitus with diabetic neuropathy, unspecified; K21.00 Gastro-esophageal reflux disease with esophagitis, without bleeding; Z79.899 Other long term (current) drug therapy; Z87.891 Personal history of nicotine dependence
CPT/HCPCS: 88305

== ENCOUNTER 2021-03-31 22:46 | Inpatient (IN) | payer BC ==
[~2021-03-31] VITALS: Ht 157.4 cm; Wt 57.6 kg
--- NOTE | 2021-03-31 22:58 | ED Fall/Injury ---
General Stated Complaint: FALL - LEG PAIN Source: patient Exam Limitations: no limitations History of Present Illness Date Seen by Provider: Mar 31, 2021 Time Seen by Provider: 22:40 Initial Comments Patient to the ER by private conveyance with her significant other is in chief complaint that just prior to arrival she was stepping down a couple stairs after getting up to go to the bathroom and fell. She denies striking her head nor loss of consciousness. No nausea or vomiting. She is having pain and mobility in her right ankle. She has obvious deformity of the right ankle. She says she drinks daily and had 3 beers around 7:00 this evening. She has a history of pheochromocytoma status post surgical removal and essential tremor. She is on metoprolol and lisinopril. She follows with Dr. Fraire. She is had toe surgery in the past by Dr. Appiah, life management teacher. No previous injury to her right ankle. She has a history of asthma but says she does not routinely take any breathing treatments for it. Allergies and Home Medications Allergies Coded Allergies: Penicillins (Verified Allergy, Unknown, HIVES, 04/01/21) The patient states she had hives when she received penicillin when she was 2 years old. She thinks she has had cephalosporins in the past without any problems. Patient Home Medication List Home Medication List Reviewed: Yes Clonazepam (Clonazepam) 0.5 Mg Tablet, 0.5 MG PO Q12H PRN for ANXIETY, (Reported) Entered as Reported by: MARIA ALEJANDRA KWOK on 11/23/19 1244 Last Action: Continued Lisinopril (Lisinopril) 40 Mg Tablet, 40 MG PO DAILY, (Reported) Entered as Reported by: GABINO NARVAEZ on 04/01/21 6066 Last Action: Continued Metoprolol Succinate (Metoprolol Succinate) 50 Mg Tab.er.24h, 50 MG PO DAILY, (Reported) Entered as Reported by: SHAY FRANCIS on 12/25/20 1228 Last Action: Continued Omeprazole (Omeprazole) 20 Mg Tablet.dr, 20 MG PO DAILY, (Reported) Entered as Reported by: GABINO NARVAEZ on 04/01/21 9084 Last Action: Converted Discontinued Medications Albuterol Sulfate (Ventolin Hfa) 1 Puff Puff, 2 PUFF PO Q6H PRN for SHORTNESS OF BREATH, (Reported) Discontinued Reason: No Longer Taking Entered as Reported by: MARIA ALEJANDRA KWOK on 11/23/19 0387 Last Action: Discontinued Review of Systems Review of Systems Constitutional: No chills, No diaphoresis, No fever, No malaise Eyes: Denies Blindness, Denies Blurred Vision Ears, Nose, Mouth, Throat: denies ear pain, denies ear discharge Respiratory: No cough, No short of breath Cardiovascular: No chest pain, No edema Gastrointestinal: No abdominal pain, No nausea, No vomiting Genitourinary: No discharge, No dysuria Musculoskeletal: see HPI; No back pain; joint pain Skin: No pruritus, No rash All Other Systems Reviewed Negative Unless Noted: Yes Past Ejzephm-Ecszxr-Mplazt Hx Patient Social History Tobacco Use?: Yes Tobacco type used: Cigarettes Smoking Status: Current Everyday Smoker (Quarter pack per day) Use of E-Cig and/or Vaping dev: No Substance use?: No Alcohol Use?: Yes Alcohol type: Beer Alcohol Frequency: Daily Seasonal Allergies Seasonal Allergies: No Past Medical History Surgeries: Yes ( X 3;REMOVAL OF BIRTHMARK;L FOOT SURGERY X 2;ENDOMETRIAL ABLATION) Adrenal, Section, Ear Surgery, Orthopedic 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) Pneumonia Cardiac: Yes Hypertension Neurological: No Reproductive Disorders: Yes (MENORRHAGIA-S/P ENDOMETRIAL ABLATION AND D&C 2012) Female Reproductive Disorders: Menstrual Problems Genitourinary: No Gastrointestinal: No Musculoskeletal: Yes (LEFT FOOT SURGERY X 2 IN 2013) Endocrine: Yes Diabetes, Non-Insulin dep HEENT: Yes (EAR SURGERY ) Chronic Ear Infection Cancer: No Psychosocial: Yes ADD/ADHD, Anxiety Integumentary: Yes (BIRTHMARK REMOVAL ) Blood Disorders: No Adverse Reaction/Blood Tranf: No (N/A) Family Medical History PSH: - X 3 -ENDOMETRIAL ABLATION AND D&C IN 2013 -LEFT FOOT SURGERY X 2 IN 2013 -REMOVAL OF DEYSI -EAR SURGERY Physical Exam Vital Signs Vital Signs - First Documented 03/31/21 22:46 Temp 35.7 Pulse 64 Resp 24 B/P (MAP) 151/116 (128) Pulse Ox 98 O2 Delivery Room Air Capillary Refill : Height, Weight, BMI Height: '" Weight: lbs. oz. kg; 26.64 BMI Method: General Appearance: WD/WN, moderate distress HEENT: PERRL/EOMI, normal ENT inspection, pharynx normal Neck: full range of motion, supple, normal inspection Cardiovascular: normal peripheral pulses, regular rate, rhythm Respiratory: lungs clear, normal breath sounds, no respiratory distress, no accessory muscle use Peripheral Pulses: 2+ Radial Pulses (R), 2+ Radial Pulses (L) Gastrointestinal: normal bowel sounds, non tender, soft Extremities: normal capillary refill, other (Overt deformity of the right ankle with no open skin.) Neurologic/Psychiatric: alert, normal mood/affect, oriented x 3 Procedures/Interventions Procedure: Closed reduction of right ankle Patient Education: Explained Benefits, Explained Risks, Pt. Ack. Understanding Agreement on procedure with pt: Yes Breath Sounds per Auscultation: Clear Heart Sounds per Auscultation: Regular Airway Exam: Mouth opens >2 fingers, Neck Full Range of Motion, Visulation of Uvula Sedation Adminstration Time: 23:39 Total Time spent in CS 24 mins We are able to successfully reduce the right ankle into better alignment however still is anterior to the right foot. Splint stirrup/sugar tong style was placed. Re-examination Time: 00:00 Re-examination Stirring, reacting following commands. Splinting and Joint Reduction : Location: Right ankle Pre-Proc Neuro Vasc Exam: normal Post-Proc Neuro Vasc Exam: normal, unchanged from pre-exam Progress Right ankle reduction on first attempt. Patient had good vascular and neuro checks prior as well as after reduction. Good alignment was confirmed with repeat 2 view ankle x-ray. Stirrup splint was placed and held with 4 inch Chas wraps. Reduction Attempts: 1 Pre-Procedure NV Exam: Yes post joint reduction film: joint reduced Chas wrap: Yes Hand-Made Type: fiberglass Splint Application: Short Leg (Stirrup) Progress/Results/Core Measures Results/Orders Lab Results Laboratory Tests Test 03/31/21 22:50 Range/Units White Blood Count 11.5 H 4.3-11.0 10^3/uL Red Blood Count 4.19 3.80-5.11 10^6/uL Hemoglobin 12.4 11.5-16.0 g/dL Hematocrit 37 35-52 % Mean Corpuscular Volume 89 80-99 fL Mean Corpuscular Hemoglobin 30 25-34 pg Mean Corpuscular Hemoglobin Concent 33 32-36 g/dL Red Cell Distribution Width 13.3 10.0-14.5 % Platelet Count 377 130-400 10^3/uL Mean Platelet Volume 8.5 L 9.0-12.2 fL Immature Granulocyte % (Auto) 0 % Neutrophils (%) (Auto) 51 42-75 % Lymphocytes (%) (Auto) 33 12-44 % Monocytes (%) (Auto) 9 0-12 % Eosinophils (%) (Auto) 6 0-10 % Basophils (%) (Auto) 2 0-10 % Neutrophils # (Auto) 5.8 1.8-7.8 10^3/uL Lymphocytes # (Auto) 3.7 1.0-4.0 10^3/uL Monocytes # (Auto) 1.0 0.0-1.0 10^3/uL Eosinophils # (Auto) 0.7 H 0.0-0.3 10^3/uL Basophils # (Auto) 0.2 H 0.0-0.1 10^3/uL Immature Granulocyte # (Auto) 0.0 0.0-0.1 10^3/uL Sodium Level 129 L 135-145 MMOL/L Potassium Level 4.5 3.6-5.0 MMOL/L Chloride Level 98 98-107 MMOL/L Carbon Dioxide Level 19 L 21-32 MMOL/L Anion Gap 12 5-14 MMOL/L Blood Urea Nitrogen 13 7-18 MG/DL Creatinine 1.23 0.60-1.30 MG/DL Estimat Glomerular Filtration Rate 45 BUN/Creatinine Ratio 11 Glucose Level 78 70-105 MG/DL Calcium Level 8.6 8.5-10.1 MG/DL Corrected Calcium 8.8 8.5-10.1 MG/DL Total Bilirubin 0.2 0.1-1.0 MG/DL Aspartate Amino Transf (AST/SGOT) 25 5-34 U/L Alanine Aminotransferase (ALT/SGPT) 13 0-55 U/L Alkaline Phosphatase 90 40-136 U/L Total Protein 6.5 6.4-8.2 GM/DL Albumin 3.8 3.2-4.5 GM/DL Serum Alcohol 76 H <10 MG/DL My Orders Orders - DAVID LINDSAY Fentanyl Inj (Sublimaze Injection) (03/31/21 23:00) End Tidal Co2 (03/31/21 22:50) Cbc With Automated Diff (03/31/21 22:50) Comprehensive Metabolic Panel (03/31/21 22:50) Alcohol (03/31/21 22:50) Medications Given in ED Vital Signs/I&O 03/31/21 22:46 Temp 35.7 Pulse 64 Resp 24 B/P (MAP) 151/116 (128) Pulse Ox 98 O2 Delivery Room Air Progress Progress Note : Time: 22:56 Progress Note We will start with 50 mcg of IV fentanyl. We have discussed doing a conscious sedation to reduce her dislocated and likely fractured right ankle. Plain films of the right ankle. Labs and alcohol level. Diagnostic Imaging Diagonstic Imaging: Xray Plain Films/CT/US/NM/MRI: ankle (Right) Comments Bimalleolar fracture with displacement. Right ankle. [facility], [place] NAME: LORENZO SALGADO Maegan [facility] REC#: [id number] PT STATUS: ADM IN : 1965 PHYSICIAN: DAVID LINDSAY MD ADMIT DATE: 03/31/21 Signed Date of Exam:03/31/21 ANKLE, RIGHT, 2 VIEWS INDICATION: Fall. Ankle deformity. FINDINGS: On this examination, there is a complex right-sided ankle fracture and dislocation. The talus is tilted and the tibia appears to be anterior to the talar dome. The fibula is also anteriorly displaced relative to the talar dome with an obliquely oriented fibular fracture. There also appears to be a fracture of the medial malleolus. IMPRESSION: Complex right ankle fracture and dislocation as described. Dictated by: Dictated on workstation # [id number] Dict: 04/01/21 0552 Trans: 04/01/21 0711 [facility] [id number] Interpreted by: ALFREDO CERON MD Electronically signed by: ALFREDO CERON MD 04/01/21710 Reviewed: Reviewed by Me Diagonstic Imaging: Xray Plain Films/CT/US/NM/MRI: ankle (Right) Comments Better alignment post reduction changes noted. Fractures as noted on previous x-ray. [facility] [place] [place] NAME: DAMIANLORENZO A MED REC#: [id number] PT STATUS: ADM IN : 1965 PHYSICIAN: DAVID LINDSAY MD ADMIT DATE: 03/31/21 Signed Date of Exam:03/31/21 ANKLE, RIGHT, 2 VIEWS INDICATION: Post reduction. Comparison made with the prior study from earlier same day. FINDINGS: There has been reduction of the ankle with closed plaster splinting. The distal tibia now projects above the talar dome although there does still appear to be joint space incongruency. Fractures of the distal fibula and of the medial malleolus again noted. IMPRESSION: Reduction of the patient's complex ankle fracture dislocation, though there does still continue to be incongruity at the tibial talar articulation. There are fractures of the distal fibula and of the medial malleolus. CT imaging could be considered if appropriate for further characterization. Dictated by: Dictated on workstation # [id number] Dict: 04/01/21 0553 Trans: 04/01/21710 [facility] [id number] Interpreted by: ALFREDO CERON MD Electronically signed by: ALFREDO CERON MD 04/01/21710 Reviewed: Reviewed by La Diagonstic Imaging: Xray Plain Films/CT/US/NM/MRI: chest Comments [facility] [place] NAME: LORENZO SALGADO [facility] REC#: [id number] PT STATUS: ADM IN : 1965 PHYSICIAN: DAVID LINDSAY MD ADMIT DATE: 03/31/21 Signed Date of Exam:03/31/21 CHEST 1 VIEW, AP/PA ONLY INDICATION: Preoperative evaluation. Ankle surgery. COMPARISON: 11/23/2019. FINDINGS: The lungs appear clear without focal infiltrate or consolidation. There are no findings of an effusion. There is no evidence of a pneumothorax. Heart size and mediastinal contours appear appropriate. Pulmonary vascularity appears within normal limits. There is no acute or suspicious osseous abnormality demonstrated. IMPRESSION: No radiographic evidence of an acute cardiopulmonary process. Dictated by: Dictated on workstation # [id number] Dict: 04/01/21 0551 Trans: 04/01/2152 [facility] [id number] Interpreted by: ALFREDO CERON MD Electronically signed by: ALFREDO CERON MD 04/01/21 0552 Reviewed: Reviewed by Me Departure Communication (Admissions) Time/Spoke to Admitting Phy: 23:[address] Herron and he agrees to admit the patient with consult to orthopedic surgery. Time/Spoke to Consulting Phy: 23:[address] Pabon, orthopedic surgery and he agrees to consult on the case if we will get medicine to admit. N.p.o. when he plans to fixer in the morning. He agrees with close reduction and splinting. Impression Primary Impression: Fall Qualified Codes: W19.XXXA - Unspecified fall, initial encounter Additional Impressions: Closed right ankle fracture Qualified Codes: S82.891A - Other fracture of right lower leg, initial encounter for closed fracture Hyponatremia Disposition: ADMITTED INPATIENT Condition: Stable Admissions Decision to Admit Reason: Admit from ER (General) Decision to Admit/Date: Mar 31, 2021 Time/Decision to Admit Time: 23:12 Departure-Patient Inst. Referrals: EDUARDO FRAIRE MD (PCP/Family) Primary Care Physician DAVID LINDSAY Mar 31, 2021 22:57
[2021-03-31 23:00] LABS: BASOPHILS # (AUTO) 0.2 10^3/uL (0.0-0.1); BASOPHILS % (AUTO) 2 % (0-10); EOSINOPHILS # (AUTO) 0.7 10^3/uL (0.0-0.3); EOSINOPHILS % (AUTO) 6 % (0-10); HEMATOCRIT 37 % (35-52); HEMOGLOBIN 12.4 g/dL (11.5-16.0); LYMPHOCYTES # (AUTO) 3.7 10^3/uL (1.0-4.0); LYMPHOCYTES % (AUTO) 33 % (12-44); MEAN CORPUSCULAR HEMOGLOBIN 30 pg (25-34); MEAN CORPUSCULAR HGB CONC 33 g/dL (32-36); MEAN CORPUSCULAR VOLUME 89 fL (80-99); MEAN PLATELET VOLUME 8.5 fL (9.0-12.2); MONOCYTES % (AUTO) 9 % (0-12); NEUTROPHILS # (AUTO) 5.8 10^3/uL (1.8-7.8); NEUTROPHILS % (AUTO) 51 % (42-75); PLATELET COUNT 377 10^3/uL (130-400); WHITE BLOOD COUNT 11.5 10^3/uL (4.3-11.0)
[2021-03-31] MEDS ORDERED: fentaNYL INJ 100 MCG/2 ML AMP IVP ONE ×2 (23:00→23:30)
[2021-03-31 23:10] LABS: ALBUMIN 3.8 GM/DL (3.2-4.5); POTASSIUM 4.5 MMOL/L (3.6-5.0)
[2021-03-31 23:11] LABS: CALCIUM 8.6 MG/DL (8.5-10.1)
[2021-03-31 23:13] LABS: TOTAL PROTEIN 6.5 GM/DL (6.4-8.2)
[2021-03-31 23:14] LABS: BILIRUBIN,TOTAL 0.2 MG/DL (0.1-1.0)
[2021-03-31 23:16] LABS: CREATININE SERUM 1.23 MG/DL (0.60-1.30)
[2021-03-31] MEDS ORDERED: KETAMINE HCL 100 MG/ML 5 ML VIAL IV ONE (23:30)
[2021-04-01] VITALS (10 sets, daily range): BP systolic 107–147; BP diastolic 63–85
[2021-04-01] MEDS ORDERED: ONDANSETRON 4 MG/2 ML (SDV) Z0FRAN IVP ONE (00:15)
[2021-04-01] MEDS ORDERED: ONDANSETRON 4 MG/2 ML (SDV) Z0FRAN ONE ×2 (00:15→09:32)
[2021-04-01] MEDS ORDERED: ONDANSETRON 4 MG/2 ML (SDV) Z0FRAN IV PRN (01:15)
[2021-04-01] MEDS: LACTATED RINGERS 1,000 ML IV SCH ×3 (01:15→16:21)
[2021-04-01] MEDS: fentaNYL INJ 100 MCG/2 ML AMP IV PRN ×5 (01:33→09:33)
[2021-04-01] MEDS ORDERED: LISI40TA9 PO (05:25)
[2021-04-01] MEDS ORDERED: OMEP20TA7 PO (05:27)
[2021-04-01 05:28] LABS: BASOPHILS # (AUTO) 0.1 10^3/uL (0.0-0.1); BASOPHILS % (AUTO) 1 % (0-10); EOSINOPHILS % (AUTO) 0 % (0-10); HEMATOCRIT 36 % (35-52); HEMOGLOBIN 12.1 g/dL (11.5-16.0); LYMPHOCYTES % (AUTO) 9 % (12-44); MEAN CORPUSCULAR HEMOGLOBIN 30 pg (25-34); MEAN CORPUSCULAR HGB CONC 34 g/dL (32-36); MEAN CORPUSCULAR VOLUME 89 fL (80-99); MONOCYTES # (AUTO) 0.5 10^3/uL (0.0-1.0); MONOCYTES % (AUTO) 4 % (0-12); NEUTROPHILS # (AUTO) 9.9 10^3/uL (1.8-7.8); NEUTROPHILS % (AUTO) 85 % (42-75); PLATELET COUNT 351 10^3/uL (130-400); WHITE BLOOD COUNT 11.6 10^3/uL (4.3-11.0)
[2021-04-01 05:45] LABS: POTASSIUM 4.5 MMOL/L (3.6-5.0)
[2021-04-01 05:46] LABS: CALCIUM 8.8 MG/DL (8.5-10.1)
[2021-04-01 05:50] LABS: CREATININE SERUM 0.87 MG/DL (0.60-1.30)
--- NOTE | 2021-04-01 05:53 | Diagnostic Imaging Report ---
INDICATION: Preoperative evaluation. Ankle surgery. COMPARISON: 11/23/2019. FINDINGS: The lungs appear clear without focal infiltrate or consolidation. There are no findings of an effusion. There is no evidence of a pneumothorax. Heart size and mediastinal contours appear appropriate. Pulmonary vascularity appears within normal limits. There is no acute or suspicious osseous abnormality demonstrated. IMPRESSION: No radiographic evidence of an acute cardiopulmonary process. Dictated by: Dictated on workstation # [id number]
--- NOTE | 2021-04-01 06:32 | Diagnostic Imaging Report ---
INDICATION: Fall. Ankle deformity. FINDINGS: On this examination, there is a complex right-sided ankle fracture and dislocation. The talus is tilted and the tibia appears to be anterior to the talar dome. The fibula is also anteriorly displaced relative to the talar dome with an obliquely oriented fibular fracture. There also appears to be a fracture of the medial malleolus. IMPRESSION: Complex right ankle fracture and dislocation as described. Dictated by: Dictated on workstation # [id number]
--- NOTE | 2021-04-01 06:49 | Diagnostic Imaging Report ---
INDICATION: Post reduction. Comparison made with the prior study from earlier same day. FINDINGS: There has been reduction of the ankle with closed plaster splinting. The distal tibia now projects above the talar dome although there does still appear to be joint space incongruency. Fractures of the distal fibula and of the medial malleolus again noted. IMPRESSION: Reduction of the patient's complex ankle fracture dislocation, though there does still continue to be incongruity at the tibial talar articulation. There are fractures of the distal fibula and of the medial malleolus. CT imaging could be considered if appropriate for further characterization. Dictated by: Dictated on workstation # [id number]
--- NOTE | 2021-04-01 09:12 | Consultation - Ortho ---
Consult - Ortho Subjective Date of Exam 04/01/21 Chief Complaint Right ankle fracture HPI/Events since last exam Mrs. Meraz is a 55-year-old white female who injured her right ankle when she fell down some steps last evening. She was seen in the emergency room where she was evaluated and x-rayed noted to have a displaced bimalleolar fracture of the right ankle. Dr. Doss reduce this under sedation and splinted her and improved the position but the talus was still posterior lateral release subluxed. She denies any previous injury to the right ankle. She states she has a tremor in the right leg. She has a history of pheochromocytoma that was surgically removed a year ago. 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 She denies any other injury. Medical, Surgical History Reviewed and no additions or changes Social History Reviewed and no additions or changes Family History Reviewed and no additions or change Review of Systems Reviewed and no additions or changes Allergies: Coded Allergies: Penicillins (Verified Allergy, Unknown, HIVES, 04/01/21) The patient states she had hives when she received penicillin when she was 2 years old. She thinks she has had cephalosporins in the past without any problems. Home Meds Reported Medications Omeprazole (Omeprazole) 20 Mg Tablet.dr, 20 MG PO DAILY, TAB 04/01/21 Lisinopril (Lisinopril) 40 Mg Tablet, 40 MG PO DAILY, TAB 04/01/21 Metoprolol Succinate (Metoprolol Succinate) 50 Mg Tab.er.24h, 50 MG PO DAILY, TAB 12/25/20 Clonazepam (Clonazepam) 0.5 Mg Tablet, 0.5 MG PO Q12H PRN for ANXIETY, TAB 11/23/19 Discontinued Reported Medications Albuterol Sulfate (VENTOLIN HFA) 1 Puff Puff, 2 PUFF PO Q6H PRN for SHORTNESS OF BREATH, EA 11/23/19 Objective Exam Constitutional: [] HEENT: [] Neck: No pain with palpation or range of motion[] Cardiovascular: [] Respiratory: [] Gastrointestinal: [] Genitourinary: [] Skin: [] Back/Spine: [No pain with palpation] Extremities: [Upper extremitiesfull range of motion without pain. No deformity or crepitation. Normal sensation with good cap refill. Equal pulses. Equal strength. Lower extremitiesthe right ankle and lower leg is splinted. She can move her toes and has normal sensation with good cap refill. No pain with palpation and gentle range of motion of the right knee and right hip. No pain left hip, left knee or left ankle. She has normal sensation with good cap refill left lower extremity.] Neurologic: [] Psychiatric: [] Hematologic/lymphatic/immunologic: [] Vital Signs Vital Signs Date Time Temp Pulse Resp B/P (MAP) Pulse Ox O2 Delivery O2 Flow Rate FiO2 04/01/21 07:57 36.3 73 20 147/83 (104) 98 Room Air 04/01/21 04:22 35.4 62 18 136/83 (100) 98 04/01/21 00:50 93 Room Air 0.00 04/01/21 00:30 63 16 128/76 98 Nasal Cannula 3.00 03/31/21 23:33 Nasal Cannula 3.00 03/31/21 22:46 35.7 64 24 151/116 (128) 98 Room Air I & O 04/01/21 07:00 Intake Total 0 ml Output Total 800 ml Balance -800 ml Lab Results Laboratory Tests 03/31/21 22:50: White Blood Count 11.5H, Red Blood Count 4.19, Hemoglobin 12.4, Hematocrit 37, Mean Corpuscular Volume 89, Mean Corpuscular Hemoglobin 30, Mean Corpuscular Hemoglobin Concent 33, Red Cell Distribution Width 13.3, Platelet Count 377, Mean Platelet Volume 8.5L, Immature Granulocyte % (Auto) 0, Neutrophils (%) (Auto) 51, Lymphocytes (%) (Auto) 33, Monocytes (%) (Auto) 9, Eosinophils (%) (Auto) 6, Basophils (%) (Auto) 2, Neutrophils # (Auto) 5.8, Lymphocytes # (Auto) 3.7, Monocytes # (Auto) 1.0, Eosinophils # (Auto) 0.7H, Basophils # (Auto) 0.2H , Immature Granulocyte # (Auto) 0.0, Sodium Level 129L, Potassium Level 4.5, Chloride Level 98, Carbon Dioxide Level 19L, Anion Gap 12, Blood Urea Nitrogen 13, Creatinine 1.23, Estimat Glomerular Filtration Rate 45, BUN/Creatinine Ratio 11, Glucose Level 78, Calcium Level 8.6, Corrected Calcium 8.8, Total Bilirubin 0.2, Aspartate Amino Transf (AST/SGOT) 25, Alanine Aminotransferase (ALT/SGPT) 13, Alkaline Phosphatase 90, Total Protein 6.5, Albumin 3.8, Serum Alcohol 76H 04/01/21 05:03: White Blood Count 11.6H, Red Blood Count 4.01, Hemoglobin 12.1, Hematocrit 36, Mean Corpuscular Volume 89, Mean Corpuscular Hemoglobin 30, Mean Corpuscular Hemoglobin Concent 34, Red Cell Distribution Width 13.3, Platelet Count 351, Mean Platelet Volume 9.0, Immature Granulocyte % (Auto) 0, Neutrophils (%) (Auto) 85H, Lymphocytes (%) (Auto) 9L, Monocytes (%) (Auto) 4, Eosinophils (%) (Auto) 0, Basophils (%) (Auto) 1, Neutrophils # (Auto) 9.9H, Lymphocytes # (Auto) 1.0, Monocytes # (Auto) 0.5, Eosinophils # (Auto) 0.0, Basophils # (Auto) 0.1, Immature Granulocyte # (Auto) 0.0, Sodium Level 129L, Potassium Level 4.5, Chloride Level 95L, Carbon Dioxide Level 21, Anion Gap 13, Blood Urea Nitrogen 13, Creatinine 0.87, Estimat Glomerular Filtration Rate 67, BUN/Creatinine Ratio 15, Glucose Level 118H, Calcium Level 8.8 04/01/21 07:10: SARS-CoV-2 RNA (RT-PCR) Not Detected Imaging X-rays were reviewed which shows posterior lateral displacement of her talus and fracture of her distal fibula and medial malleolus. No evidence of posterior malleolar fracture. Post reduction and splinting x-ray shows improvement in the displacement but the talus remains posterior laterally displaced and the fracture is remained displaced Assessment and Plan Assessment Fracture right ankleBimalleolar displaced Problem List Displaced bimalleolar fracture right ankle Plan Treatment options were discussed with the patient including nonsurgical as well as surgical treatment. She understands that nonsurgical treatment will resolve then problems with the ankle due to inability to maintain good alignment and stability. I discussed surgical treatment with open reduction internal fixation and I discussed the procedure risk complications and the patient would like to proceed with surgical treatment. Plan on surgery this morning with screws medially and plate and screws laterally Plan on using Ancef as it is unlikely if she had penicillin at this point she would have a reaction like she did when she was a child. There is a 10% chance of similar type reaction to cephalosporins.Most likely she will have no problems with Ancef. She can be discharged when she is up ambulating with a walker and/or crutches nonweightbearing on the right. Final Diagonsis Displaced bimalleolar fracture right ankle Level of the visit: Level 3 LOTUS STONE MD Apr 01, 2021 09:12
[2021-04-01] MEDS ORDERED: MIDAZOLAM 2 MG/2 ML (VERSED) VIAL ONE (09:32)
[2021-04-01] MEDS ORDERED: proPOfol 200 MG/20 ML (DIPRIVAN) VIAL IV ONE (09:32)
[2021-04-01] MEDS ORDERED: fentaNYL INJ 100 MCG/2 ML AMP ONE (09:32)
[2021-04-01] MEDS ORDERED: LIDOCAINE PF 2% 5 ML (XYLOCAINE) VIAL ONE (09:32)
[2021-04-01] MEDS: LACTATED RINGERS 1,000 ML IV PRN ×2 (09:45→10:25)
[2021-04-01] MEDS ORDERED: LIDOCAINE/EPI 1%-1:100,000 (XYLOCAINE) 20ML ONE (09:47)
[2021-04-01] MEDS ORDERED: NEO/POLY/BAC (NEOSPORIN) OINT 15 GM TUBE ONE (09:47)
[2021-04-01] MEDS ORDERED: BUPIVACAINE 0.25% 30 ML (SENSORCAINE) VIAL ONE (09:47)
[2021-04-01] MEDS ORDERED: SUCCINYLCHOLINE INJ 100 MG/5 ML SYR/VIAL ONE (09:54)
[2021-04-01] MEDS ORDERED: ROCURONIUM 10 MG/ML 5 ML SYRINGE IV ONE (09:54)
[2021-04-01] MEDS ORDERED: ceFAZolin INJECTION 2,000 MG ONE (10:32)
[2021-04-01] MEDS ORDERED: SEVOFLURANE (ULTANE) 15 ML INHAL SOLN ONE (11:37)
--- NOTE | 2021-04-01 11:39 | Diagnostic Imaging Report ---
INDICATION: Fluoroscopy for right ankle ORIF. Fluoroscopy was provided in the OR during right ankle surgery. 25 seconds of fluoroscopic time was utilized. 2 images were obtained, demonstrating lateral plate and numerous screws transfixing the distal fibula. 2 partially threaded screws are utilized to transfix medial malleolus. Overall alignment appears anatomic. IMPRESSION: Fluoroscopy during right ankle ORIF. Dictated by: Dictated on workstation # [id number]
[2021-04-01] MEDS ORDERED: PROMETHAZINE INJ 25 MG/ML (PHENERGAN) AMP IVP ONE (12:00)
[2021-04-01] MEDS ORDERED: HYDROmorphone 2 MG/ML VIAL (DILAUDID) IV ONE (12:00)
[2021-04-01] MEDS ORDERED: morphine INJ 10 MG/ML 1ML (SYR OR VIAL) IVP ONE (12:00)
[2021-04-01] MEDS ORDERED: ONDANSETRON 4 MG/2 ML (SDV) Z0FRAN IVP PRN (12:00)
--- NOTE | 2021-04-01 12:06 | History & Physical-Hospitalist ---
History of Present Illness HPI/Chief Complaint This is a 55-year-old white female who is currently at the time of my interview postop from having her right ankle open external fixation for fracture. She is awake but somewhat groggy and able to provide additional information. Denies have any chest pain or shortness of breath but chest pain is related to her leg. Does note that she was walking down some stairs and is unaware of how but twisted her ankle and fell resulting in a fracture. Source: patient Exam Limitations: clinical condition Date Seen 04/01/21 Time Seen by a Provider: 12:00 Attending Physician Sherwin Herron MD PCP Dung Carmen MD Referring Physician Date of Admission Mar 31, 2021 at 23:12 Home Medications & Allergies Home Medications Reviewed patient Home Medication Reconciliation performed by pharmacy medication reconciliations communications field technician and/or nursing. Patients Allergies have been reviewed. Allergies Allergies Coded Allergies Penicillins (Verified Allergy, Unknown, HIVES, 04/01/21) The patient states she had hives when she received penicillin when she was 2 years old. She thinks she has had cephalosporins in the past without any problems. Past Ntpgmih-Hqsngb-Bbgitn Hx Patient Social History Tobacco Use?: Yes Tobacco type used: Cigarettes Smoking Status: Former Smoker Use of E-Cig and/or Vaping dev: No Substance use?: No Alcohol Use?: Yes Alcohol type: Beer Alcohol Frequency: Daily Pt feels they are or have been: No Immunizations Up To Date Date of Influenza Vaccine: Mar 23, 2021 First/Initial COVID19 Vaccinat: JULY 2020 Second COVID19 Vaccination Yannick: JULY 2020 Tetanus Booster (TDap): Unknown Date of Pneumonia Vaccine: Jun 21, 2019 Seasonal Allergies Seasonal Allergies: No Current Status Advance Directives: Yes Advance Directive Location: Home Communicates: Verbally Primary Language: Greenlandic Preferred Spoken Language: Greenlandic Is interpretation needed?: No Sensory deficits: Vision impairment Implanted or Applied Medical D: None Past Medical History Surgeries: Adrenal, Section, Ear Surgery, Orthopedic Pneumonia Hypertension Diabetes, Non-Insulin dep Chronic Ear Infection ADD/ADHD, Anxiety Blood Disorders: No Adverse Reaction/Blood Tranf: No (N/A) Family Medical History PSH: - X 3 -ENDOMETRIAL ABLATION AND D&C IN 2013 -LEFT FOOT SURGERY X 2 IN 2013 -REMOVAL OF DEYSI -EAR SURGERY Review of Systems Constitutional: see HPI EENTM: no symptoms reported Respiratory: no symptoms reported Cardiovascular: no symptoms reported Gastrointestinal: no symptoms reported Genitourinary: no symptoms reported Musculoskeletal: no symptoms reported, other (Leg pain) Skin: no symptoms reported Psychiatric/Neurological: No Symptoms Reported Physical Exam Physical Exam Vital Signs Vital Signs - First Documented 03/31/21 03/31/21 22:46 23:33 Temp 35.7 Pulse 64 Resp 24 B/P (MAP) 151/116 (128) Pulse Ox 98 O2 Delivery Room Air O2 Flow Rate 3.00 Capillary Refill : Less Than 3 Seconds Height, Weight, BMI Height: '" Weight: lbs. oz. kg; 23.24 BMI Method: General Appearance: WD/WN, Other (Groggy awakening from anesthesia) HEENT: Normal ENT Inspection Neck: Normal Inspection, Limited Range of Motion Respiratory: Chest Non Tender, Lungs Clear, Normal Breath Sounds, No Accessory Muscle Use, No Respiratory Distress Cardiovascular: Regular Rate, Rhythm, No Edema, No Gallop, No JVD, No Murmur Gastrointestinal: Normal Bowel Sounds, Non Tender, Soft Extremity: Non Tender, No Pedal Edema, Other (Right leg casted) Neurologic/Psychiatric: Alert, Oriented x3, Normal Mood/Affect Skin: Normal Color, Warm/Dry Results Results/Procedures Labs Laboratory Tests 03/31/21 22:50 04/01/21 05:03 Patient resulted labs reviewed. Imaging: Reviewed Imaging Report Assessment/Plan Admission Diagnosis Right bimalleolar fracture status post open reduction internal fixation History of hypertension History of pheochromocytoma Hyponatremia Plan to continue her home medications, discharge planning per Dr. Pabon Admission Status: Observation SHERWIN HERRON MD Apr 01, 2021 12:06
--- NOTE | 2021-04-01 12:09 | Operative Report - Ortho ---
Operative Report Surgeon (s)/Liquor Tester (s) Surgeon LOTUS STONE MD Liquor Tester n/a Pre-Operative Diagnosis Displaced bimalleolar fracture right ankle Post-Operative Diagnosis same Operative Report Date of Procedure: Apr 01, 2021 Name of Procedure Performed: Open reduction internal fixation of bimalleolar fracture right ankle Description & Findings The patient was taken to the operating room in her hospital bed and after general anesthesia was placed on the OR table. The patient was given 2 g Ancef IV and had no reaction. A tourniquet was placed on the right thigh. The splint was removed from the right lower leg and there were no skin changes. Patient had good cap refill and good pulses. The right lower leg was prepped and draped from the tourniquet down in the usual sterile fashion. Esmarch was used to exsanguinate the right lower extremity and the tourniquet was elevated to 250 mmHg. Skin incision was made laterally over the distal fibula. This was taken down through subcutaneous tissue. Bleeders were cauterized. The soft tissue was elevated off the distal fibula. There is an oblique fracture running from anterior proximal to posterior distal. This was minimally displaced and could be easily reduced. Soft tissue was elevated around the fracture site and the fracture was held in place using reduction clamp.A lag screw was then placed from superior anterior to posterior inferior after over drilling the anterior cortex. This was measured and appropriate length screw was inserted. At this point a 3 hole distal fibular locking plate was placed over the distal fibula and found to fit well. Locking screws were placed distally x4 and proximally x2 drilling measuring and inserting appropriate length screws. This held the fracture in excellent alignment. There appeared to be no injury to the syndesmosis. Image was used to visualize the plate and screws during the insertion and excellent position was noted of the plate and screws as well as t he fracture. After plating of the distal fibula an incision was made medially over the medial malleolus. This was taken down through subtenons tissue. The saphenous vein was identified and protected and retracted. Soft tissue was elevated off of the fracture. The fracture was reduced without difficulty and held with reduction clamp. Guidewire was then placed through the tip of the medial malleolus across fracture into the distal tibia. These were overdrilled and then 40 mm partially-threaded 4.0 mm cannulated screws were inserted. This held the fracture in excellent alignment. Image was used to visualize the insertion of the guidewires as well as the screws. After fixation both medial and laterally the syndesmosis was stressed and there is no instability or opening. Excellent alignment of the fractures were noted. The mortise was reduced and symmetrical. At this point the tourniquet was deflated after 43 minutes. There was minimal bleeding controlled with cautery. The wounds were irrigated with normal saline.Laterally the wound was closed in layers with oh, 2-0 Vicryl and then skin clips. Medially with 2-0 Vicryl and skin clips. The wounds were injected with the 50-50 mixture of 1% Xylocaine with epinephrine and 0.25% Marcaine plain. Wounds are dressed with antibiotic ointment, Adaptic and 4 x 4's and then wrapped with web roll. A posterior and sugar tong splint was applied to the ankle. These were then wrapped with Chas wraps. After the splint hardened patient was transferred back to her hospital bed. She was then transferred to recovery room in good condition, she tolerated the procedure well. [id number] minutes at 250 mmHg Estimated blood loss50 mL Replacementnone Drainsnone Complicationsnone n/a Anesthesia Type General Estimated Blood Loss 50 mL Packing none. Specimen(s) collected/removed None LOTUS STONE MD Apr 01, 2021 12:09
[2021-04-01] MEDS ORDERED: clonazePAM 0.5 MG (KlonoPIN) TAB PO PRN (12:15)
[2021-04-01] MEDS: ceFAZolin 2 GM IV Premixed 50 ML IV SCH (18:22)
[2021-04-01] MEDS: fentaNYL INJ 100 MCG/2 ML AMP IVP PRN ×2 (18:28→20:34)
[2021-04-02] VITALS (7 sets, daily range): BP systolic 145–175; BP diastolic 69–83
[2021-04-02] MEDS: fentaNYL INJ 100 MCG/2 ML AMP IVP PRN ×2 (00:16→08:41)
[2021-04-02] MEDS: LACTATED RINGERS 1,000 ML IV SCH ×4 (00:55→21:49)
[2021-04-02] MEDS: ceFAZolin 2 GM IV Premixed 50 ML IV SCH ×2 (00:56→10:34)
[2021-04-02] MEDS: HYDROcodone/APAP 5 MG/325 MG (LORTAB) TAB PO PRN ×3 (02:23→21:49)
--- NOTE | 2021-04-02 07:01 | Progress Note ---
Subjective Date Seen by a Provider: Apr 02, 2021 Time Seen by a Provider: 06:45 Subjective/Events-last exam Patient communicating little better today. She does admit she still a little bit confused. She is on Lortab for pain control status post surgery yesterday Objective Exam Vital Signs Date Time Temp Pulse Resp B/P (MAP) Pulse Ox O2 Delivery O2 Flow Rate FiO2 04/02/21 04:22 36.8 78 20 150/80 (103) 96 Room Air 04/02/21 00:37 36.8 81 20 145/69 (94) 97 Room Air 04/01/21 19:40 95 Room Air 04/01/21 19:12 36.6 73 20 143/70 (94) 95 Room Air 04/01/21 15:59 36.6 82 18 135/63 (87) 97 Room Air 04/01/21 12:40 Room Air 04/01/21 12:40 36.4 71 20 107/68 (81) 94 Room Air 04/01/21 12:22 36.1 12 131/72 (91) 96 Room Air 04/01/21 12:12 14 129/71 (90) 100 OxyMask 10 04/01/21 12:10 OxyMask 10 04/01/21 12:02 16 137/74 (95) 100 OxyMask 10 04/01/21 11:52 17 143/83 (103) 99 OxyMask 10 04/01/21 11:42 36.1 20 131/85 (100) 100 OxyMask 10 04/01/21 11:42 OxyMask 10 04/01/21 08:00 Room Air 04/01/21 07:57 36.3 73 20 147/83 (104) 98 Room Air I & O0 04/02/21 06:59 Intake Total 4980 ml Output Total 3325 ml Balance 1655 ml Capillary Refill : Less Than 3 SecondsLess Than 3 Seconds General Appearance: No Apparent Distress, Anxious Neck: Supple Respiratory: Lungs Clear Cardiovascular: Regular Rate, Rhythm Extremity: Other (below knee cast noted on the right) Neurologic/Psychiatric: Oriented x3 Skin: Normal Color Results Lab Laboratory Tests 04/01/21 07:10: SARS-CoV-2 RNA (RT-PCR) Not Detected Microbiology 04/01/21 MRSA Screen - Final, Complete MRSA not isolated Assessment/Plan Assessment/Plan Assess & Plan/Chief Complaint 1. Right bimalleolar fracture status post open reduction internal fixation -Dr Michel with OR[facility] yesterday -PT -Garrido catheter still in place and I suspect this will be removed today -She has available fentanyl for severe pain and Lortab for less severe pain 2. History of hypertension -monitoring. She has both normal and blood pressure slightly up - currently on lisinopril 40 mg and metoprolol XL 50 mg daily 3. History of pheochromocytoma 4. Hyponatremia EDUARDO FRAIRE MD Apr 02, 2021 07:01
[2021-04-02] MEDS: meTOproloL SUCCINATE 50 MG (TOPROL XL) TAB PO SCH (08:41)
[2021-04-02] MEDS: PANTOPRAZOLE 20 MG TABLET (PROTONIX) PO SCH (08:41)
[2021-04-02] MEDS: ASPIRIN E.C. 325 MG (ECOTRIN) TABLET PO SCH (08:42)
[2021-04-02] MEDS ORDERED: lisINopril 40 MG (PRINIVIL) TABLET PO SCH (09:00)
[2021-04-02] MEDS ORDERED: MTP25TSR PO (10:10)
[2021-04-02] MEDS ORDERED: ACET-93 PO (10:12)
--- NOTE | 2021-04-02 10:12 | Progress Note - Ortho ---
Progress Note Subjective Date of Exam 04/02/21 Chief Complaint POD#1 Open reduction internal fixation bimalleolar fracture right ankle HPI/Events since last exam Mrs. Meraz is 1 day postop open reduction internal fixation bimalleolar fracture right ankle. She states she is already been up with therapy with walker ambulation nonweightbearing on the right. When I saw her she was up sitting in the chair. She states her pain is markedly improved compared to preop. Review of Systems Unchanged Allergies: Coded Allergies: Penicillins (Verified Allergy, Unknown, HIVES, 04/01/21) The patient states she had hives when she received penicillin when she was 2 years old. She thinks she has had cephalosporins in the past without any problems. Home Meds Reported Medications Omeprazole (Omeprazole) 20 Mg Tablet.dr, 20 MG PO DAILY, TAB 04/01/21 Lisinopril (Lisinopril) 40 Mg Tablet, 40 MG PO DAILY, TAB 04/01/21 Metoprolol Succinate (Metoprolol Succinate) 50 Mg Tab.er.24h, 50 MG PO DAILY, TAB 12/25/20 Clonazepam (Clonazepam) 0.5 Mg Tablet, 0.5 MG PO Q12H PRN for ANXIETY, TAB 11/23/19 Discontinued Reported Medications Albuterol Sulfate (VENTOLIN HFA) 1 Puff Puff, 2 PUFF PO Q6H PRN for SHORTNESS OF BREATH, EA 11/23/19 Objective Exam Constitutional: [] HEENT: [] Neck: [] Cardiovascular: [] Respiratory: [] Gastrointestinal: [] Genitourinary: [] Skin: [] Back/Spine: [] Extremities: [Splint is intact. She can move her toes and has normal sensation with good cap refill] Neurologic: [] Psychiatric: [] Hematologic/lymphatic/immunologic: [] Vital Signs Vital Signs Date Time Temp Pulse Resp B/P (MAP) Pulse Ox O2 Delivery O2 Flow Rate FiO2 04/02/21 08:49 Room Air 04/02/21 08:00 36.0 83 18 149/75 (99) 95 Room Air 04/02/21 04:22 36.8 78 20 150/80 (103) 96 Room Air 04/02/21 00:37 36.8 81 20 145/69 (94) 97 Room Air 04/01/21 19:40 95 Room Air 04/01/21 19:12 36.6 73 20 143/70 (94) 95 Room Air 04/01/21 15:59 36.6 82 18 135/63 (87) 97 Room Air 04/01/21 12:40 Room Air 04/01/21 12:40 36.4 71 20 107/68 (81) 94 Room Air 04/01/21 12:22 36.1 12 131/72 (91) 96 Room Air 04/01/21 12:12 14 129/71 (90) 100 OxyMask 10 04/01/21 12:10 OxyMask 10 04/01/21 12:02 16 137/74 (95) 100 OxyMask 10 04/01/21 11:52 17 143/83 (103) 99 OxyMask 10 04/01/21 11:42 36.1 20 131/85 (100) 100 OxyMask 10 04/01/21 11:42 OxyMask 10 I & O 04/02/21 07:00 Intake Total 4980 ml Output Total 3325 ml Balance 1655 ml Lab Results Microbiology 04/01/21 MRSA Screen - Final, Complete MRSA not isolated Assessment and Plan Assessment Doing well 1 day postop Problem List Unchanged Plan Continue walker ambulation nonweightbearing on the right. Think it would probably be a good idea to Stay until tomorrow for additional physical therapy and pain management. She agrees.Her home has several steps but her mother is home only has 1 or 2 steps no she is can try to figure out what would be best for her. Final Diagonsis Displaced bimalleolar fracture right ankle status post open reduction internal fixation Level of the visit: Level 3 LOTUS STONE MD Apr 02, 2021 10:12
[2021-04-02] MEDS ORDERED: IBUP-2473 PO (10:15)
[2021-04-02] MEDS ORDERED: DOCU-163 PO (10:17)
[2021-04-02] MEDS ORDERED: MAG355OR16 PO (10:19)
--- NOTE | 2021-04-02 10:48 | Physical Therapy Evaluation ---
PT Evaluation-General Medical Diagnosis Admission Date Mar 31, 2021 at 23:12 Medical Diagnosis: fall/right ankle fracture Onset Date: Mar 31, 2021 Therapy Diagnosis Therapy Diagnosis: debility/weakness Precautions Precautions/Isolations: Fall Prevention, Standard Precautions Weight Bear Status Right Lower Extremity: Right Non Weight Bearing Left Lower Extremity: Left Full Weight Bearing Referral Physician: Cm Reason for Referral: Evaluation/Treatment Medical History Pertinent Medical History: HTN, Smoking Current History ER secondary to fall down 2 steps Social History Home: [facility] Current Living Status: Children patient reports she is going to stay with her mom upon dismissal Prior Prior Level of Function SCALE: Activities may be completed with or without assistive devices. 9-Vfpjtnlimd-secwavl completes the activity by him/herself with no assistance from a helper. 5-Set-up or Clean-up Assistance-helper sets up or cleans up; patient completes activity. [place] assists only prior to or following the activity. 4-Supervision or Touching Assistance-helper provides verbal cues and/or t ouching/steadying and/or contact guard assistance as patient completes activity. Assistance may be provided throughout the activity or intermittently. 3-Partial/Moderate Assistance-helper does LESS THAN HALF the effort. [place] lifts, holds or supports trunk or limbs, but provides less than half the effort. 2-Substantial/Maximal Assistance-helper does MORE THAN HALF the effort. [place] lifts or holds trunk or limbs and provides more than half the effort. 6-Bjrrdxpzy-zrtssc does ALL the effort. Patient does none of the effort to complete the activity. Or, the assistance of 2 or more helpers is required for the patient to complete the activity. If activity was not attempted, code reason: 7-Patient Refused. 9-Not Applicable-not attempted and the patient did not perform the activity before the current illness, exacerbation or injury. 10-Not Attempted due to Environmental Limitations-(lack of equipment, weather restraints, etc.). 88-Not Attempted due to Medical Conditions or Safety Concerns. Bed Mobility: 6 Transfers (B,C,W/C): 6 Gait: 6 Stairs: 6 Indoor Mobility (Ambulation): Independent Stairs: Independent Prior Devices Use: None PT Evaluation-Current Subjective Patient agrees to PT. Pain Numeric Pain Scale: 5-Moderate Pain Location: Right Location Body Site: Ankle Pain Description: Acute Objective Patient Orientation: Normal For Age ROM/Strength ROM Lower Extremities right soft cast ankle/left LE WFL Strength Lower Extremities right LE 3/5 grossly/left LE 3+/5 grossly Integumentary/Posture Bowel Incontinence: No Bladder Incontinence: Garrido Cath Posture WFL Neuromuscular (Tone, Coordination, Reflexes) noted bilateral foot tremors at rest Sensory Vision: Functional Hearing: Functional Transfers Lying to Sitting/Side of Bed(Q: 6 Sit to Stand (QC): 4 Chair/Fag-jo-Fnkst Xfer(QC): 4 Gait Does the Patient Walk?: Yes Mode of Locomotion: Walk Anticipated Mode of Locomotion: Walk Walk 10 feet (QC): 4 Walk 50 ft with 2 Turns(QC): 88 Walk 150 ft (QC): 88 Distance: 10' Gait Assistive Device: FWW Comments/Gait Description Patient is able to maintain NWB right LE/patient became diaphoretic due to patient medication (nursing aware) Balance Sitting Static: Normal Sitting Dynamic: Normal Standing Static: Fair Standing Dynamic: Fair Assessment/Needs 55 y.o. female, will benefit from skilled PT to address functional strength and mobility to improve current LOF. Patient reports she will dismiss to home with mother. Rehab Potential: Fair PT Graves Registration Specialist Goals Graves Registration Specialist Goals PT Assisted Goals Time Frame: Apr 14, 2021 Roll Left & Right (QC): 6 Sit to Lying (QC): 6 Lying-Sitting on Side/Bed(QC): 6 Sit to Stand (QC): 5 Chair/Rgp-hn-Gwfsi Xfer(QC): 5 Toilet Transfer (QC): 5 Walk 10 feet (QC): 5 Walk 50ft with 2 Turns (QC): 5 Walk 150 ft (QC): 5 PT Plan Problem List Problem List: Activity Tolerance, Functional Strength, Balance, Gait Treatment/Plan Treatment Plan: Continue Plan of Care Treatment Plan: Bed Mobility, Education, Functional Activity [place], Functional Strength, Gait, Safety, Therapeutic Exercise, Transfers Treatment Duration: Apr 14, 2021 Frequency: 11 times per week Estimated Hrs Per Day: .5 hour per day Patient and/or Family Agrees t: Yes Time/GCodes Time In: 846 Time Out: 900 Total Billed Treatment Time: 14 Total Billed Treatment 1 visit EVModC 14 min GURPREET RODRIGUEZ PT Apr 02, 2021 10:48
--- NOTE | 2021-04-02 12:09 | Occupational Therapy Eval ---
OT Evaluation-General/PLF Medical Diagnosis Admission Date Mar 31, 2021 at 23:12 Medical Diagnosis: fall/right ankle fracture Onset Date: Mar 31, 2021 Therapy Diagnosis Therapy Diagnosis: Impaired adls/iadls Precautions Precautions/Isolations: Fall Prevention, Standard Precautions Weight Bear Status Weight Bearing Restriction: Non Weight Bearing Location Restriction: R LE Referral Physician: Cm Beatty Reason: Evaluation/Treatment Medical History Pertinent Medical History: HTN, Smoking Current History s/p R ankle ORIF following a fall and displaced bimalleolar fx. Pt is now NWB RLE. She reports she plans to stay with her mother in [facility] d/c as she has multi levels within her home and bath/bed are on separate floors. She reports her mother lives in a single story home and is a retired Physical Therapist. She has a walk in shower with a chair. 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 No AD used. Social History Home: Single Level Current Living Status: Other Family ADL-Prior Level of Function SCALE: Activities may be completed with or without assistive devices. 8-Afesowpyvu-zvgryzs completes the activity by him/herself with no assistance from a helper. 5-Set-up or Clean-up Assistance-helper sets up or cleans up; patient completes activity. [place] assists only prior to or following the activity. 4-Supervision or Touching Assistance-helper provides verbal cues and/or touching/steadying and/or contact guard assistance as patient completes activity. Assistance may be provided throughout the activity or intermittently. 3-Partial/Moderate Assistance-helper does LESS THAN HALF the effort. [place] lifts, holds or supports trunk or limbs, but provides less than half the effort. 2-Substantial/Maximal Assistance-helper does MORE THAN HALF the effort. [place] lifts or holds trunk or limbs and provides more than half the effort. 0-Sdpskpabn-elskxg does ALL the effort. Patient does none of the effort to complete the activity. Or, the assistance of 2 or more helpers is required for the patient to complete the activity. If activity was not attempted, code reason: 7-Patient Refused. 9-Not Applicable-not attempted and the patient did not perform the activity before the current illness, exacerbation or injury. 10-Not Attempted due to Environmental Limitations-(lack of equipment, weather restraints, etc.). 88-Not Attempted due to Medical Conditions or Safety Concerns. Self Care: Independent Functional Cognition: Independent DME/Equipment: Bath Chair, Shower Drive Self: Yes OT Current Status Subjective Pt reports pain as 7/10, tearful. RN notified. Appearance Pt left sitting in chair, all needs within reach. Mental Status/Objective Patient Orientation: Person, Place, Situation Attachments: Garrido Catheter, IV Current Upper Extremity ROM WNL Upper Extremity Strength 4/5 grossly ADL-Treatment Upper Body Dressing (QC): 5 (per clinical judgment) Lower Body Dressing (QC): 3 ((min)per clinical judgment) On/Off Footwear (QC): 4 Pt sitting in chair at OT arrival. Agreeable to eval. Able to don/doff L sock without difficulty. RLE not addressed secondary to cast. She was able to stand with SBA-CGA. Good adherence to NWB on RLE for short time. Steps (hops) not taken at this time due to floor just being mopped and still wet. She reports hopping with physical therapy earlier in am and that she wasn't able to go very far because her arms got tired quickly when pushing through walker. Refer to physical therapy note on distance and assist. At this time, pt likely needing steadying assist if removing hand from walker during functional tasks. Education OT Patient Education: Correct positioning, Modified ADL techniques, Purpose of tx/functional activities, Reviewed precautions, Rehab process, Transfer techniques Teaching Recipient: Patient Teaching Methods: Discussion Response to Teaching: Return Demonstration OT Neighborhood Worker Goals Custodial Goals Time Frame: Apr 14, 2021 Eating (QC): 6 Oral Hygiene (QC): 6 Toileting Hygiene (QC): 4 Lower Body Dressing (QC): 4 1=Demonstrate adherence to instructed precautions during ADL tasks. 2=Patient will verbalize/demonstrate understanding of assistive devices/modifications for ADL. 3=Patient will improve strength/tolerance for activity to enable patient to perform ADL's. OT Education/Plan Problem List/Assessment Assessment: Decreased Activ Tolerance, Decreased UE Strength, Impaired Funct Balance, Impaired I ADL's, Impaired Self-Care Skills Discharge Recommendations Plan/Recommendations: Continue POC Treatment Plan/Plan of Care Treatment,Training & Education: Yes Patient would benefit from OT for education, treatment and training to promote independence in ADL's, mobility, safety and/or upper extremity function for ADL's. Plan of Care: ADL Retraining, Functional Mobility, UE Funct Exercise/Act Treatment Duration: Apr 14, 2021 Frequency: 5 times per week Estimated Hrs Per Day: .25 hour per day Agreement: Yes Rehab Potential: Fair Time/GCodes Start Time: 10:14 Stop Time: 10:24 Total Time Billed (hr/min): 10 Billed Treatment Time 1 visit, Dalia Tyler OT Apr 02, 2021 12:09
--- NOTE | 2021-04-02 13:14 | Anesthesia-General Post-Op ---
General Patient Condition Mental Status/LOC: Same as Preop Cardiovascular: Satisfactory Nausea/Vomiting: Absent Respiratory: Satisfactory Pain: Controlled Complications: Absent Post Op Complications Complications None Follow Up Care/Instructions Patient Instructions None needed. Anesthesia/Patient Condition Patient Condition Patient is doing well, no complaints, stable vital signs, no apparent adverse anesthesia problems. ALFONSO LUTHER DO Apr 02, 2021 13:14
--- NOTE | 2021-04-02 14:21 | Physical Therapy Daily Note ---
PT Daily Note-Current Subjective Patient agrees to PT. Pain Numeric Pain Scale: 5-Moderate Pain Location: Right Location Body Site: Ankle Pain Description: Acute Mental Status Patient Orientation: Normal For Age Attachments: Garrido Catheter Transfers SCALE: Activities may be completed with or without assistive devices. 9-Bnkfudtwmh-msfjsbg completes the activity by him/herself with no assistance from a helper. 5-Set-up or Clean-up Assistance-helper sets up or cleans up; patient completes activity. [place] assists only prior to or following the activity. 4-Supervision or Touching Assistance-helper provides verbal cues and/or touching/steadying and/or contact guard assistance as patient completes activity. Assistance may be provided throughout the activity or intermittently. 3-Partial/Moderate Assistance-helper does LESS THAN HALF the effort. [place] lifts, holds or supports trunk or limbs, but provides less than half the effort. 2-Substantial/Maximal Assistance-helper does MORE THAN HALF the effort. [place] lifts or holds trunk or limbs and provides more than half the effort. 1-Ucpzaxugp-rfctlw does ALL the effort. Patient does none of the effort to complete the activity. Or, the assistance of 2 or more helpers is required for the patient to complete the activity. If activity was not attempted, code reason: 7-Patient Refused. 9-Not Applicable-not attempted and the patient did not perform the activity before the current illness, exacerbation or injury. 10-Not Attempted due to Environmental Limitations-(lack of equipment, weather restraints, etc.). 88-Not Attempted due to Medical Conditions or Safety Concerns. Sit to Lying (QC): 6 Lying to Sitting/Side of Bed(Q: 6 Sit to Stand (QC): 4 Weight Bearing Right Lower Extremity: Right Non Weight Bearing Left Lower Extremity: Left Full Weight Bearing Gait Training Does the Patient Walk?: Yes Distance: 15' FWW/250' knee scooter Walk 10 feet (QC): 4 Walk 50 ft with 2 Turns(QC): 4 Walk 150 ft (QC): 4 Gait Assistive Device: FWW and knee scooter for distance/FWW short distances Assessment Patient highly motivated with knee scooter use. Patient able to NWB right LE sh ort distances with FWW. RN and SW notified PT Box Blank Machine Operator Helper Goals Box Blank Machine Operator Helper Goals PT Custodial Goals Time Frame: Apr 14, 2021 Roll Left & Right (QC): 6 Sit to Lying (QC): 6 Lying-Sitting on Side/Bed(QC): 6 Sit to Stand (QC): 5 Chair/Okj-ff-Bqrib Xfer(QC): 5 Toilet Transfer (QC): 5 Walk 10 feet (QC): 5 Walk 50ft with 2 Turns (QC): 5 Walk 150 ft (QC): 5 PT Plan Treatment/Plan Treatment Plan: Continue Plan of Care Treatment Plan: Bed Mobility, Education, Functional Activity [place], Functional Strength, Gait, Safety, Therapeutic Exercise, Transfers Treatment Duration: Apr 14, 2021 Frequency: 11 times per week Estimated Hrs Per Day: .5 hour per day Patient and/or Family Agrees t: Yes Time/GCodes Time In: 1330 Time Out: 1346 Total Billed Treatment Time: 16 Total Billed Treatment 1 visit GT 16 min GURPREET RODRIGUEZ PT Apr 02, 2021 14:21
[2021-04-02] MEDS: fentaNYL INJ 100 MCG/2 ML AMP IV PRN (16:30)
[2021-04-03] VITALS (8 sets, daily range): BP systolic 153–195; BP diastolic 69–91
--- NOTE | 2021-04-03 07:10 | Progress Note ---
Subjective Date Seen by a Provider: Apr 03, 2021 Time Seen by a Provider: 06:40 Subjective/Events-last exam Patient reported quite a bit of ankle pain after physical therapy yesterday. Her blood pressure has been elevated Objective Exam Vital Signs Date Time Temp Pulse Resp B/P (MAP) Pulse Ox O2 Delivery O2 Flow Rate FiO2 04/03/21 04:37 73 18 179/81 (113) 98 Room Air 04/03/21 04:00 35.7 74 18 195/91 (125) 97 Room Air 04/02/21 23:30 36.0 75 18 170/70 (103) 93 Room Air 04/02/21 20:00 36.7 76 20 172/76 (108) 96 Room Air 04/02/21 20:00 Room Air 04/02/21 15:57 36.2 72 20 175/83 (113) 96 Room Air 04/02/21 11:55 36.0 74 20 155/72 (99) 99 Room Air 04/02/21 08:49 Room Air 04/02/21 08:00 36.0 83 18 149/75 (99) 95 Room Air I & O 04/03/21 07:00 Intake Total 2410 ml Output Total 2075 ml Balance 335 ml Capillary Refill : Less Than 3 SecondsLess Than 3 Seconds General Appearance: No Apparent Distress Respiratory: Lungs Clear Cardiovascular: Regular Rate, Rhythm Extremity: Pedal Edema (minimal) Results Lab Microbiology 04/01/21 MRSA Screen - Final, Complete MRSA not isolated Assessment/Plan Assessment/Plan Assess & Plan/Chief Complaint 1. Right bimalleolar fracture status post open reduction internal fixation -Dr Swab with [facility] yesterday -PT -Garrido catheter still in place and I suspect this will be removed today -She has available fentanyl for severe pain and Lortab for less severe pain 04/03 -Physical therapy initiated yesterday 2. History of hypertension -monitoring. She has both normal and blood pressure slightly up - currently on lisinopril 40 mg and metoprolol XL 50 mg daily 04/03 -her lisinopril was increased to 60 mg as this was her dosage at home 3. History of pheochromocytoma 4. Hyponatremia EDUARDO FRAIRE MD Apr 03, 2021 07:10
[2021-04-03] MEDS: ASPIRIN E.C. 325 MG (ECOTRIN) TABLET PO SCH (08:04)
[2021-04-03] MEDS: PANTOPRAZOLE 20 MG TABLET (PROTONIX) PO SCH (08:04)
[2021-04-03] MEDS: lisINopril 40 MG (PRINIVIL) TABLET PO SCH (08:04)
[2021-04-03] MEDS: meTOproloL SUCCINATE 50 MG (TOPROL XL) TAB PO SCH (08:04)
[2021-04-03] MEDS: LACTATED RINGERS 1,000 ML IV SCH (08:07)
--- NOTE | 2021-04-03 09:52 | Physical Therapy Daily Note ---
PT Daily Note-Current Subjective Patient agrees to PT. Pain Numeric Pain Scale: 5-Moderate Pain Location: Right Location Body Site: Ankle Pain Description: Acute Mental Status Patient Orientation: Normal For Age Transfers SCALE: Activities may be completed with or without assistive devices. 6-Noqaenlowj-qkifaur completes the activity by him/herself with no assistance from a helper. 5-Set-up or Clean-up Assistance-helper sets up or cleans up; patient completes activity. [place] assists only prior to or following the activity. 4-Supervision or Touching Assistance-helper provides verbal cues and/or touching/steadying and/or contact guard assistance as patient completes activity. Assistance may be provided throughout the activity or intermittently. 3-Partial/Moderate Assistance-helper does LESS THAN HALF the effort. [place] lifts, holds or supports trunk or limbs, but provides less than half the effort. 2-Substantial/Maximal Assistance-helper does MORE THAN HALF the effort. [place] lifts or holds trunk or limbs and provides more than half the effort. 2-Azrmuoptm-gyzykz does ALL the effort. Patient does none of the effort to complete the activity. Or, the assistance of 2 or more helpers is required for the patient to complete the activity. If activity was not attempted, code reason: 7-Patient Refused. 9-Not Applicable-not attempted and the patient did not perform the activity before the current illness, exacerbation or injury. 10-Not Attempted due to Environmental Limitations-(lack of equipment, weather restraints, etc.). 88-Not Attempted due to Medical Conditions or Safety Concerns. Lying to Sitting/Side of Bed(Q: 6 Sit to Stand (QC): 4 Chair/Uot-ro-Vumpx Xfer(QC): 4 Toilet Transfer (QC): 4 SBA for safety Weight Bearing Right Lower Extremity: Right Non Weight Bearing Left Lower Extremity: Left Full Weight Bearing Gait Training Distance: 20' x 2/50' x 1 Walk 10 feet (QC): 4 Walk 50 ft with 2 Turns(QC): 4 Gait Assistive Device: FWW Patient able to maintain NWB right LE Exercises Supine Ex: Quad Set, Heel Slides, Straight leg raise Supine Reps: 15 (x 2 sets) Seated Therapy Exercises: Long arc quads Seated Reps: 15 Assessment Patient instructed to ambulate to restroom independent if comfortable with safety. Patient progressing with treatment plan. Knee scooter for distance. PT Penitentiary Goals Penitentiary Goals PT V Belt Skiver Goals Time Frame: Apr 14, 2021 Roll Left & Right (QC): 6 Sit to Lying (QC): 6 Lying-Sitting on Side/Bed(QC): 6 Sit to Stand (QC): 5 Chair/Nnq-jw-Wxwbc Xfer(QC): 5 Toilet Transfer (QC): 5 Walk 10 feet (QC): 5 Walk 50ft with 2 Turns (QC): 5 Walk 150 ft (QC): 5 PT Plan Treatment/Plan Treatment Plan: Continue Plan of Care Treatment Plan: Bed Mobility, Education, Functional Activity [place], Functional Strength, Gait, Safety, Therapeutic Exercise, Transfers Treatment Duration: Apr 14, 2021 Frequency: 11 times per week Estimated Hrs Per Day: .5 hour per day Patient and/or Family Agrees t: Yes Time/GCodes Time In: 805 Time Out: 828 Total Billed Treatment Time: 23 Total Billed Treatment 1 visit Ex 8 min GT 15 min GURPREET RODRIGUEZ PT Apr 03, 2021 09:52
--- NOTE | 2021-04-03 10:06 | Progress Note - Ortho ---
Progress Note Subjective Date of Exam 04/03/21 Chief Complaint POD#2 Open reduction internal fixation displaced bimalleolar fracture right ankle HPI/Events since last exam Mrs. Hector 2 days postop open reduction internal fixation displaced bimalleolar fracture right ankle. She stabbing pain but it is less. She is already been up with therapy ambulating with a walker nonweightbearing on the right. No other complaints. Review of Systems Reviewed and no additions or changes Allergies: Coded Allergies: Penicillins (Verified Allergy, Unknown, HIVES, 04/01/21) The patient states she had hives when she received penicillin when she was 2 years old. She thinks she has had cephalosporins in the past without any problems. Home Meds Reported Medications Docusate Sodium (Dulcolax Stool Softener) 100 Mg Capsule, 100 MG PO DAILY PRN for CONSTIPATION-1ST LINE, CAP 04/02/21 Ibuprofen (Ibuprofen) 200 Mg Tablet, 400 MG PO DAILY PRN for PAIN-MILD (1-4), TAB TAKES 2 TABLETS 04/02/21 Acetaminophen (Acetaminophen) 500 Mg Tablet, 1000 MG PO Q8H PRN for PAIN-MILD (1-4), TAB TAKES 2 TABLETS 04/02/21 Metoprolol Succinate (Metoprolol Succinate) 25 Mg Tab.er.24h, 37.5 MG PO DAILY, TAB TAKES 1 AND 1/2 TABLETS 04/02/21 Omeprazole (Omeprazole) 20 Mg Tablet.dr, 20 MG PO DAILY, TAB 04/01/21 Lisinopril (Lisinopril) 40 Mg Tablet, 60 MG PO DAILY, TAB TAKES 1 AND 1/2 TABLETS 04/01/21 Clonazepam (Clonazepam) 0.5 Mg Tablet, 0.5 MG PO Q12H PRN for ANXIETY, TAB 11/23/19 Discontinued Reported Medications Mag Hydrox/Aluminum Hyd/Simeth (Maalox Advanced Suspension) 355 Ml Oral.susp, 355 ML PO DAILY, ML 04/02/21 Metoprolol Succinate (Metoprolol Succinate) 50 Mg Tab.er.24h, 50 MG PO DAILY, TAB 12/25/20 Albuterol Sulfate (VENTOLIN HFA) 1 Puff Puff, 2 PUFF PO Q6H PRN for SHORTNESS OF BREATH, EA 11/23/19 Objective Exam Constitutional: [] HEENT: [] Neck: [] Cardiovascular: [] Respiratory: [] Gastrointestinal: [] Genitourinary: [] Skin: [] Back/Spine: [] Extremities: [The splint Is in good condition. She can move her toes without pain. She has normal sensation and good capillary refill.] Neurologic: [] Psychiatric: [] Hematologic/lymphatic/immunologic: [] Vital Signs Vital Signs Date Time Temp Pulse Resp B/P (MAP) Pulse Ox O2 Delivery O2 Flow Rate FiO2 04/03/21 08:31 35.4 76 18 177/84 (115) 92 Room Air 04/03/21 08:00 Room Air 04/03/21 04:37 73 18 179/81 (113) 98 Room Air 04/03/21 04:00 35.7 74 18 195/91 (125) 97 Room Air 04/02/21 23:30 36.0 75 18 170/70 (103) 93 Room Air 04/02/21 20:00 36.7 76 20 172/76 (108) 96 Room Air 04/02/21 20:00 Room Air 04/02/21 15:57 36.2 72 20 175/83 (113) 96 Room Air 04/02/21 11:55 36.0 74 20 155/72 (99) 99 Room Air I & O 04/03/21 07:00 Intake Total 2410 ml Output Total 2075 ml Balance 335 ml Lab Results Microbiology 04/01/21 MRSA Screen - Final, Complete MRSA not isolated Assessment and Plan Assessment Doing well postop day #2 Problem List Unchanged Plan At this point I think Mrs. Meraz is doing well. She is up ambulating with a walker. The problem is she is not sure whether she will be going to her son's house here in [place] or her mother's home in [place]. Her son works all day so she will not have any help part of the day.So I think it probably would be best to have her stay here another night so she can make arrangements with her family. If she chooses to go to stay with her mother in [place] she will need follow-up with an orthopedist there. If she stays here with her son we will see her back at 2 weeks postop. Since she is staying tonight we will change her dressing and put her in a cast tomorrow morning before she leaves. She wanted me to talk to Dr. Carmen. I did speak with him and discussed the above plan. He is fine with that. Final Diagonsis Displaced bimalleolar fracture right ankle status post open reduction internal fixation Level of the visit: Level 3 LOTUS STONE MD Apr 03, 2021 10:06
[2021-04-03] MEDS: HYDROcodone/APAP 5 MG/325 MG (LORTAB) TAB PO PRN ×3 (10:52→20:28)
--- NOTE | 2021-04-03 12:06 | Occupational Ther Daily Note ---
OT Current Status-Daily Note ADL-Treatment Therapy Code Descriptions/Definitions Functional [place] Measure: 0=Not Assessed/NA 4=Minimal Assistance 1=Total Assistance 5=Supervision or Setup 2=Maximal Assistance 6=Modified [place] 3=Moderate Assistance 7=Complete IndependenceSCALE: Activities may be completed with or without assistive devices. 2-Ljrtbmbnda-zqgweat completes the activity by him/herself with no assistance from a helper. 5-Set-up or Clean-up Assistance-helper sets up or cleans up; patient completes activity. [place] assists only prior to or following the activity. 4-Supervision or Touching Assistance-helper provides verbal cues and/or touching/steadying and/or contact guard assistance as patient completes activity. Assistance may be provided throughout the activity or intermittently. 3-Partial/Moderate Assistance-helper does LESS THAN HALF the effort. [place] lifts, holds or supports trunk or limbs, but provides less than half the effort. 2-Substantial/Maximal Assistance-helper does MORE THAN HALF the effort. [place] lifts or holds trunk or limbs and provides more than half the effort. 5-Qbyhmrufd-qwwycs does ALL the effort. Patient does none of the effort to complete the activity. Or, the assistance of 2 or more helpers is required for the patient to complete the activity. If activity was not attempted, code reason: 7-Patient Refused. 9-Not Applicable-not attempted and the patient did not perform the activity before the current illness, exacerbation or injury. 10-Not Attempted due to Environmental Limitations-(lack of equipment, weather restraints, etc.). 88-Not Attempted due to Medical Conditions or Safety Concerns. OT Mcfp Goals Chiller Hand Goals Time Frame: Apr 14, 2021 Eating (QC): 6 Oral Hygiene (QC): 6 Toileting Hygiene (QC): 4 Lower Body Dressing (QC): 4 1=Demonstrate adherence to instructed precautions during ADL tasks. 2=Patient will verbalize/demonstrate understanding of assistive devices/modifications for ADL. 3=Patient will improve strength/tolerance for activity to enable patient to perform ADL's. OT Education/Plan Treatment Plan/Plan of Care Patient would benefit from OT for education, treatment and training to promote independence in ADL's, mobility, safety and/or upper extremity function for ADL's. Plan of Care: ADL Retraining, Functional Mobility, UE Funct Exercise/Act Treatment Duration: Apr 14, 2021 Frequency: 5 times per week Estimated Hrs Per Day: .25 hour per day Agreement: Yes Rehab Potential: ESTRADA Ram Apr 03, 2021 12:06
--- NOTE | 2021-04-03 13:23 | Occupational Ther Daily Note ---
OT Current Status-Daily Note Subjective Pt alert, laying in bed when therapy entered. Pt agreed to therapy. No c/o pain reported. Mental Status/Objective Patient Orientation: Person, Place, Time, Situation ADL-Treatment Pt agreed to complete brushing of teeth at bedside. After set up, pt completed oral hygiene while laying in bed. Pt stated she has already brushed hair and washed face. Therapy Code Descriptions/Definitions Functional [place] Measure: 0=Not Assessed/NA 4=Minimal Assistance 1=Total Assistance 5=Supervision or Setup 2=Maximal Assistance 6=Modified [place] 3=Moderate Assistance 7=Complete IndependenceSCALE: Activities may be completed with or without assistive devices. 9-Udlkfgzeeg-xwjltan completes the activity by him/herself with no assistance from a helper. 5-Set-up or Clean-up Assistance-helper sets up or cleans up; patient completes activity. [place] assists only prior to or following the activity. 4-Supervision or Touching Assistance-helper provides verbal cues and/or touching/steadying and/or contact guard assistance as patient completes ac tivity. Assistance may be provided throughout the activity or intermittently. 3-Partial/Moderate Assistance-helper does LESS THAN HALF the effort. [place] lifts, holds or supports trunk or limbs, but provides less than half the effort. 2-Substantial/Maximal Assistance-helper does MORE THAN HALF the effort. [place] lifts or holds trunk or limbs and provides more than half the effort. 6-Fnuofdbgc-ojobvc does ALL the effort. Patient does none of the effort to complete the activity. Or, the assistance of 2 or more helpers is required for the patient to complete the activity. If activity was not attempted, code reason: 7-Patient Refused. 9-Not Applicable-not attempted and the patient did not perform the activity before the current illness, exacerbation or injury. 10-Not Attempted due to Environmental Limitations-(lack of equipment, weather restraints, etc.). 88-Not Attempted due to Medical Conditions or Safety Concerns. Other Treatment Pt agreed to complete brushing of teeth at bedside. After set up, pt completed oral hygiene while laying in bed. Pt stated she has already brushed hair and washed face. Education OT Patient Education: Exercise program, Home exercise program, Purpose of tx/functional activities Teaching Recipient: Patient Teaching Methods: Demonstration, Handout, Discussion Response to Teaching: Verbalize Understanding OT Veterinary Radiologist Goals Residential Goals Time Frame: Apr 14, 2021 Eating (QC): 6 Oral Hygiene (QC): 6 Toileting Hygiene (QC): 4 Lower Body Dressing (QC): 4 1=Demonstrate adherence to instructed precautions during ADL tasks. 2=Patient will verbalize/demonstrate understanding of assistive devices/modifications for ADL. 3=Patient will improve strength/tolerance for activity to enable patient to perform ADL's. OT Education/Plan Problem List/Assessment Assessment: Decreased Activ Tolerance, Decreased UE Strength, Impaired Funct Balance, Impaired I ADL's, Impaired Self-Care Skills Discharge Recommendations Plan/Recommendations: Continue POC Treatment Plan/Plan of Care Patient would benefit from OT for education, treatment and training to promote independence in ADL's, mobility, safety and/or upper extremity function for ADL's. Plan of Care: ADL Retraining, Functional Mobility, UE Funct Exercise/Act Treatment Duration: Apr 14, 2021 Frequency: 5 times per week Estimated Hrs Per Day: .25 hour per day Agreement: Yes Rehab Potential: Fair Time/GCodes Start Time: 11:50 Stop Time: 12:01 Total Time Billed (hr/min): 11 Billed Treatment Time 1 visit- ADL 1 ESTRADA COBIAN Apr 03, 2021 13:23
[2021-04-03] MEDS ORDERED: WALK1EAC23 MC (13:49)
[2021-04-03] MEDS ORDERED: ACHD5005 PO (13:49)
--- NOTE | 2021-04-03 14:26 | Physical Therapy Daily Note ---
PT Daily Note-Current Subjective Patient agrees to PT. She reports she is going home tomorrow and feels comfortable with mobility. Pain Numeric Pain Scale: 5-Moderate Pain Location: Right Location Body Site: Ankle Pain Description: Acute Mental Status Patient Orientation: Normal For Age Transfers SCALE: Activities may be completed with or without assistive devices. 5-Ngkooukpxo-siqtweg completes the activity by him/herself with no assistance from a helper. 5-Set-up or Clean-up Assistance-helper sets up or cleans up; patient completes activity. [place] assists only prior to or following the activity. 4-Supervision or Touching Assistance-helper provides verbal cues and/or touching/steadying and/or contact guard assistance as patient completes activity. Assistance may be provided throughout the activity or intermittently. 3-Partial/Moderate Assistance-helper does LESS THAN HALF the effort. [place] lifts, holds or supports trunk or limbs, but provides less than half the effort. 2-Substantial/Maximal Assistance-helper does MORE THAN HALF the effort. [place] lifts or holds trunk or limbs and provides more than half the effort. 6-Qhprztmjg-bhzifd does ALL the effort. Patient does none of the effort to complete the activity. Or, the assistance of 2 or more helpers is required for the patient to complete the activity. If activity was not attempted, code reason: 7-Patient Refused. 9-Not Applicable-not attempted and the patient did not perform the activity before the current illness, exacerbation or injury. 10-Not Attempted due to Environmental Limitations-(lack of equipment, weather restraints, etc.). 88-Not Attempted due to Medical Conditions or Safety Concerns. Sit to Lying (QC): 6 Lying to Sitting/Side of Bed(Q: 6 Sit to Stand (QC): 5 Weight Bearing Right Lower Extremity: Right Non Weight Bearing Left Lower Extremity: Left Full Weight Bearing Gait Training Distance: 250' Walk 10 feet (QC): 6 Walk 50 ft with 2 Turns(QC): 6 Walk 150 ft (QC): 6 knee scooter Exercises Supine Ex: Bridging (with left LE use only and right LE extended), Quad Set, Heel Slides, Knee to chest, Straight leg raise, Hip abd/add Supine Reps: 12 Assessment Education with patient on exercise program. Patient has progressed with treatment plan. PT Telecommunication Lines Repairer Goals [facility] Goals PT Chcf Goals Time Frame: Apr 14, 2021 Roll Left & Right (QC): 6 Sit to Lying (QC): 6 Lying-Sitting on Side/Bed(QC): 6 Sit to Stand (QC): 5 Chair/Bdz-um-Afaaa Xfer(QC): 5 Toilet Transfer (QC): 5 Walk 10 feet (QC): 5 Walk 50ft with 2 Turns (QC): 5 Walk 150 ft (QC): 5 PT Plan Treatment/Plan Treatment Plan: Continue Plan of Care Treatment Plan: Bed Mobility, Education, Functional Activity [place], Functional Strength, Gait, Safety, Therapeutic Exercise, Transfers Treatment Duration: Apr 14, 2021 Frequency: 11 times per week Estimated Hrs Per Day: .5 hour per day Patient and/or Family Agrees t: Yes Safety Risks/Education Patient Education: Steps Teaching Recipient: Patient Teaching Methods: Discussion Response to Teaching: Verbalize Understanding patient will ascend and descend steps on her bottom Time/GCodes Time In: 1355 Time Out: 1410 Total Billed Treatment Time: 15 Total Billed Treatment 1 visit FA 15 min GURPREET RODRIGUEZ PT Apr 03, 2021 14:26
[2021-04-04 04:00] VITALS: BP 176/78
--- NOTE | 2021-04-04 07:09 | Discharge Summary ---
Diagnosis/Chief Complaint Date of Admission Mar 31, 2021 at 23:12 Date of Discharge April 04, 2021 Discharge Date: Apr 04, 2021 Admission Diagnosis Admission Diagnosis 1. Right bimalleolar ankle displaced fracture Discharge Diagnosis 1. Right bimalleolar ankle displaced fracture 2. Hypertension Reason Hospital Visit 55-year-old female presents to emergency room during the evening of March 31, 2021 after a fall. She had obvious gross deformity to the right ankle and was admitted for orthopedic consultation. Discharge Summary Hospital Course Was the Problem List Reviewed?: Yes Hospital Course Patient was admitted to fourth medical/surgical floor during the evening of March 31, 2021 after having a grossly displaced ankle fracture on the right. She was given pain medication and had orthopedic consultation. Dr. Pabon visited with patient on April 01, 2021 and also at that time she underwent open reduction and internal fixation. She subsequently continued to have pain management. Physical therapy and occupational therapy was initiated on April 02 and was continued through April 03. She was also noted to have elevated blood pressure during the course of her stay and she was continued on her home medication of lisinopril 60 mg and metoprolol ER 50 mg. Ultimately she done well with physical therapy and was ready for dismissal during the morning of April 04, 2021. She will follow up with Dr. Pabon per his instructions. Labs Laboratory Tests 04/01/21 07:10: Procedures 1. Open reduction internal fixation of the right ankle Consultations 1. Dr. Pabon orthopedics, 2. Physical therapy and occupational therapy Discharge Physical Examination Allergies: Coded Allergies: Penicillins (Verified Allergy, Unknown, HIVES, 04/01/21) The patient states she had hives when she received penicillin when she was 2 years old. She thinks she has had cephalosporins in the past without any problems. Vitals & I&Os Vital Signs Date Time Temp Pulse Resp B/P (MAP) Pulse Ox O2 Delivery O2 Flow Rate FiO2 04/04/21 04:00 36.2 81 18 176/78 (110) 96 Room Air 04/01/21 12:12 10 General Appearance: Alert, Oriented X3 Respiratory: Clear to Auscultation Cardiovascular: Regular Rate Extremities: Other (splint with Chas wrap on right ankle) Skin: No Rashes Neuro: Normal Speech Discharge Home Medications Reviewed and agree with Discharge Medication list on patient's Discharge I nstruction sheet Instructions to Patient/Family Please see electronic discharge instructions given to patient. EDUARDO FRAIRE MD Apr 04, 2021 07:09
--- NOTE | 2021-04-04 07:12 | Discharge Inst-Simple/Standard ---
Discharge Inst-Standard Reconcile Patient Problems Problems Reviewed?: Yes Discharge Medications New, Converted or Re-Newed RX: Transmitted to Pharmacy ([facility]) Patient Instructions/Follow Up Plan of Care/Instructions/FU: follow-up with Dr. Pabon per his instructions Activity as Tolerated: Yes Discharge Diet: Regular Diet Return to The Hospital For: worsening pain of the right ankle, shortness of breath, fever EDUARDO FRAIRE MD Apr 04, 2021 07:12
[2021-04-04 08:00] VITALS: BP 155/77
[2021-04-04] MEDS: ASPIRIN E.C. 325 MG (ECOTRIN) TABLET PO SCH (09:01)
[2021-04-04] MEDS: lisINopril 40 MG (PRINIVIL) TABLET PO SCH (09:01)
[2021-04-04] MEDS: PANTOPRAZOLE 20 MG TABLET (PROTONIX) PO SCH (09:01)
[2021-04-04] MEDS: meTOproloL SUCCINATE 50 MG (TOPROL XL) TAB PO SCH (09:01)
--- NOTE | 2021-04-04 09:56 | Physical Therapy Daily Note ---
PT Daily Note-Current Subjective Patient in bed pre tx, agrees to PT, has no complaints of pain at rest. Appearance Patient in bed post tx with nurse call, phone, tray, all needs met. Mental Status Patient Orientation: Person, Place, Situation Transfers SCALE: Activities may be completed with or without assistive devices. 1-Cvvfwlnckj-crkfcib completes the activity by him/herself with no assistance from a helper. 5-Set-up or Clean-up Assistance-helper sets up or cleans up; patient completes activity. [place] assists only prior to or following the activity. 4-Supervision or Touching Assistance-helper provides verbal cues and/or touch ing/steadying and/or contact guard assistance as patient completes activity. Assistance may be provided throughout the activity or intermittently. 3-Partial/Moderate Assistance-helper does LESS THAN HALF the effort. [place] lifts, holds or supports trunk or limbs, but provides less than half the effort. 2-Substantial/Maximal Assistance-helper does MORE THAN HALF the effort. [place] lifts or holds trunk or limbs and provides more than half the effort. 1-Dhsbbmixs-dvvzye does ALL the effort. Patient does none of the effort to complete the activity. Or, the assistance of 2 or more helpers is required for the patient to complete the activity. If activity was not attempted, code reason: 7-Patient Refused. 9-Not Applicable-not attempted and the patient did not perform the activity before the current illness, exacerbation or injury. 10-Not Attempted due to Environmental Limitations-(lack of equipment, weather restraints, etc.). 88-Not Attempted due to Medical Conditions or Safety Concerns. Roll Left & Right (QC): 6 Sit to Lying (QC): 6 Lying to Sitting/Side of Bed(Q: 6 Sit to Stand (QC): 4 Chair/Ooa-ur-Mdpyh Xfer(QC): 4 Weight Bearing Right Lower Extremity: Right Non Weight Bearing Left Lower Extremity: Left Full Weight Bearing Gait Training Distance: 100' Walk 10 feet (QC): 4 Walk 50 ft with 2 Turns(QC): 4 Gait Persons Needed: 1 Gait Assistive Device: FWW slow, no LOB, good compliance with weight bearing restrictions Exercises Supine Ex: Heel Slides, Straight leg raise Supine Reps: 20 (and toe flex/ext on right side) Treatments bed mobility and transfers, LE exercise Assessment Current Status: Fair Progress good compliance with weight bearing restrictions 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[employer] Goals PT Custodial Goals Time Frame: Apr 14, 2021 Roll Left & Right (QC): 6 Sit to Lying (QC): 6 Lying-Sitting on Side/Bed(QC): 6 Sit to Stand (QC): 5 Chair/Zdk-jd-Srzma Xfer(QC): 5 Toilet Transfer (QC): 5 Walk 10 feet (QC): 5 Walk 50ft with 2 Turns (QC): 5 Walk 150 ft (QC): 5 PT Plan Problem List Problem List: Activity Tolerance, Functional Strength, Safety, Balance, Gait, Transfer, Bed Mobility, ROM Treatment/Plan Treatment Plan: Continue Plan of Care Treatment Plan: Bed Mobility, Education, Functional Activity [place], Functional Strength, Gait, Safety, Therapeutic Exercise, Transfers Treatment Duration: Apr 14, 2021 Frequency: 11 times per week Estimated Hrs Per Day: .5 hour per day Patient and/or Family Agrees t: Yes Safety Risks/Education Patient Education: Gait Training, Transfer Techniques, Correct Positioning, Safety Issues Teaching Recipient: Patient Teaching Methods: Demonstration, Discussion Response to Teaching: Reinforcement Needed Time/GCodes Time In: 919 Time Out: 929 Total Billed Treatment Time: 10 Total Billed Treatment 1 visit FA CHACHA PETERSON PT Apr 04, 2021 09:56
[2021-04-04] MEDS: HYDROcodone/APAP 5 MG/325 MG (LORTAB) TAB PO PRN (10:51)
--- NOTE | 2021-04-04 12:12 | Progress Note - Ortho ---
Progress Note Subjective Date of Exam 04/04/21 Chief Complaint POD#3 Open reduction internal fixation displaced bimalleolar fracture right ankle HPI/Events since last exam Mrs. Meraz is 3 days postop open reduction internal fixation displaced bimalleolar fracture right ankle. She states she is doing well and is being discharged today. She talk to Dr. Fraire this morning and he provided her with a prescription for hydrocodone which she is taking and that is working well. She is going to her mother's in [place] but probably will come back here for her 2- week follow-up. Review of Systems Reviewed and no additions or changes Allergies: Coded Allergies: Penicillins (Verified Allergy, Unknown, HIVES, 04/01/21) The patient states she had hives when she received penicillin when she was 2 years old. She thinks she has had cephalosporins in the past without any problems. Home Meds Active Scripts Hydrocodone Bit/Acetaminophen (HYDROcodone/APAP 5 MG/325 MG TAB) 1 Tab Tab, 1 EA PO Q4H PRN for PAIN-MODERATE (5-7), #30 TAB Prov:EDUARDO FRAIRE MD 04/03/21 Walker (Ultra-Light Rollator) 1 Each Each, EACH MC DAILY for Discomfort, #1 0 Refills use when ambulating Prov:EDUARDO FRAIRE MD 04/03/21 Reported Medications Docusate Sodium (Dulcolax Stool Softener) 100 Mg Capsule, 100 MG PO DAILY PRN for CONSTIPATION-1ST LINE, CAP 04/02/21 Ibuprofen (Ibuprofen) 200 Mg Tablet, 400 MG PO DAILY PRN for PAIN-MILD (1-4), TAB TAKES 2 TABLETS 04/02/21 Acetaminophen (Acetaminophen) 500 Mg Tablet, 1000 MG PO Q8H PRN for PAIN-MILD (1-4), TAB TAKES 2 TABLETS 04/02/21 Metoprolol Succinate (Metoprolol Succinate) 25 Mg Tab.er.24h, 37.5 MG PO DAILY, TAB TAKES 1 AND 1/2 TABLETS 04/02/21 Omeprazole (Omeprazole) 20 Mg Tablet.dr, 20 MG PO DAILY, TAB 04/01/21 Lisinopril (Lisinopril) 40 Mg Tablet, 60 MG PO DAILY, TAB TAKES 1 AND 1/2 TABLETS 04/01/21 Clonazepam (Clonazepam) 0.5 Mg Tablet, 0.5 MG PO Q12H PRN for ANXIETY, TAB 11/23/19 Discontinued Reported Medications Mag Hydrox/Aluminum Hyd/Simeth (Maalox Advanced Suspension) 355 Ml Oral.susp, 355 ML PO DAILY, ML 04/02/21 Metoprolol Succinate (Metoprolol Succinate) 50 Mg Tab.er.24h, 50 MG PO DAILY, TAB 12/25/20 Albuterol Sulfate (VENTOLIN HFA) 1 Puff Puff, 2 PUFF PO Q6H PRN for SHORTNESS OF BREATH, EA 11/23/19 Objective Exam Constitutional: [] HEENT: [] Neck: [] Cardiovascular: [] Respiratory: [] Gastrointestinal: [] Genitourinary: [] Skin: [] Back/Spine: [] Extremities: [Her splint was removed. There is minimal swelling. Minimal bruising. Incisions look good without redness or drainage. Normal sensation to the foot and toes with good cap refill and pulses.] Neurologic: [] Psychiatric: [] Hematologic/lymphatic/immunologic: [] Vital Signs Vital Signs Date Time Temp Pulse Resp B/P (MAP) Pulse Ox O2 Delivery O2 Flow Rate FiO2 04/04/21 08:00 36.1 74 20 155/77 (103) 97 Room Air 04/04/21 08:00 Room Air 04/04/21 04:00 36.2 81 18 176/78 (110) 96 Room Air 04/03/21 23:30 36.1 70 18 173/79 (110) 96 Room Air 04/03/21 21:00 35.6 73 18 165/74 (104) 96 Room Air 04/03/21 20:00 Room Air 04/03/21 16:11 36.4 83 20 162/72 (102) 95 Room Air 04/03/21 12:12 153/69 (97) I & O 04/04/21 06:59 Intake Total 2930 ml Output Total 1950 ml Balance 980 ml Lab Results Microbiology 04/01/21 MRSA Screen - Final, Complete MRSA not isolated Assessment and Plan Assessment Doing well 3 days postop Problem List Unchanged Plan A short leg nonweightbearing cast was applied after dressing the wounds with antibiotic ointment Adaptic and 4 x 4's. The patient will schedule appointment for follow-up on April 18. We will remove the cast, remove the rena and serg-ray the ankle and plan on applying another short leg cast. If she is in [place] and cannot make it back she will follow-up with an orthopedist in [place]. We will download her x-rays to a disc so she has them in case she stays in [place]. Final Diagonsis Displaced bimalleolar fracture right ankle status post open reduction internal fixation Level of the visit: Level 3 LOTUS STONE MD Apr 04, 2021 12:12
[2021-04-04 12:38] VITALS: BP 155/77
== END 2021-04-04 12:52 | disposition home or self-care (01) | DRG 493 ==
LOC: EDUNIT# 22:46 → ER 22:47 → 4TH 23:12
PROVIDERS: ADMIT Internal Medicine; ATTEND Internal Medicine
PROC: 0SSFXZZ Reposition Right Ankle Joint, External Approach (ICD-10-PCS; 2021-03-31)
PROC: 0QSG04Z Reposition Right Tibia with Internal Fixation Device, Open Approach (ICD-10-PCS; 2021-04-01)
PROC: 0QSJ04Z Reposition Right Fibula with Internal Fixation Device, Open Approach (ICD-10-PCS; principal; 2021-04-01 09:55)
DX: S82.841A Displaced bimalleolar fracture of right lower leg, initial encounter for closed fracture (principal); E87.1 Hypo-osmolality and hyponatremia; W10.9XXA Fall (on) (from) unspecified stairs and steps, initial encounter; F17.210 Nicotine dependence, cigarettes, uncomplicated; I10 Essential (primary) hypertension; E11.9 Type 2 diabetes mellitus without complications; F90.9 Attention-deficit hyperactivity disorder, unspecified type; F41.9 Anxiety disorder, unspecified; Z20.822 Contact with and (suspected) exposure to COVID-19; Z87.01 Personal history of pneumonia (recurrent); Z88.0 Allergy status to penicillin
CPT/HCPCS: 36415; 71045; 73600; 76000; 80048; 80053; 80320; 85025; 87081; 87636; 93005; 93041; 94664; 96374; 96375; 96376

== ENCOUNTER → 2021-04-18 | Outpatient (CLI) | payer BC ==
[~2021-04-18] MED LIST changes: +ACET-93 PO; +ACHD5005 PO; +DOCU-163 PO; +IBUP-2473 PO; +MAG355OR16 PO; +OMEP20TA7 PO; +WALK1EAC23 MC
--- NOTE | 2021-04-18 10:17 | Diagnostic Imaging Report ---
INDICATION: Postop right ankle. COMPARISON: 03/31/2021. EXAMINATION: Right ankle, 2 views. FINDINGS: There has been reduction of the talotibial joint. The articulating surfaces are smooth. The joint space is uniform. Distal fibular sideplate with cortical bone screws as well as two cannulated cortical bone screws in the medial malleolus show the bimalleolar fracture in good alignment and anatomical position. IMPRESSION: Satisfactory appearing open reduction and fixation of the bimalleolar fracture. Dictated by: Dictated on workstation # [id number]
== END ==
LOC: ORTHO 08:47
PROVIDERS: ATTEND Orthopaedic Surgery
DX: Z09 Encounter for follow-up examination after completed treatment for conditions other than malignant neoplasm (principal); S82.841D Displaced bimalleolar fracture of right lower leg, subsequent encounter for closed fracture with routine healing; X58.XXXD Exposure to other specified factors, subsequent encounter
CPT/HCPCS: 29405; 73610

== ENCOUNTER → 2021-05-02 | Outpatient (CLI) | payer BC ==
--- NOTE | 2021-05-02 09:05 | Diagnostic Imaging Report ---
INDICATION: Postop right ankle. TIME OF EXAM: 8:53 AM. COMPARISON: Correlation is made with the prior radiograph from 04/18/2021. FINDINGS: There is a lateral plate and screws transfixing the distal fibula. Two partially threaded screws transfix the medial malleolus. The fibular fracture is not well visualized. The medial malleolar fracture is partially visualized but does show some healing. Alignment is normal. The ankle mortise is well-maintained. The talar dome is smooth. IMPRESSION: Postop changes of ORIF involving the right ankle. Overall alignment is anatomic. Dictated by: Dictated on workstation # [id number]
== END ==
LOC: ORTHO 08:29
PROVIDERS: ATTEND Orthopaedic Surgery
DX: S82.841D Displaced bimalleolar fracture of right lower leg, subsequent encounter for closed fracture with routine healing (principal); Z98.890 Other specified postprocedural states; X58.XXXD Exposure to other specified factors, subsequent encounter
CPT/HCPCS: 73610

== ENCOUNTER → 2021-05-21 | Outpatient (CLI) | payer BC ==
--- NOTE | 2021-05-21 09:38 | Diagnostic Imaging Report ---
INDICATION: Followup right ankle fracture. TIME OF EXAM: 9:14 AM Correlation is made with prior graft from 05/02/2021. Lateral plate and screws transfix the distal fibula. Partially threaded screws transfix medial malleolus. Fracture line of the medial malleolus is still partly visualized. Overall alignment appears to be anatomic. Ankle mortise is well maintained. The hardware is intact. IMPRESSION: ORIF of the right ankle fractures. The medial linear fracture line does remain partially visible. Dictated by: Dictated on workstation # [id number]
== END ==
LOC: ORTHO 08:53
PROVIDERS: ATTEND Orthopaedic Surgery
DX: S82.841D Displaced bimalleolar fracture of right lower leg, subsequent encounter for closed fracture with routine healing (principal); X58.XXXD Exposure to other specified factors, subsequent encounter
CPT/HCPCS: 73610

== ENCOUNTER → 2021-06-04 | Outpatient (CLI) | payer BC ==
--- NOTE | 2021-06-04 09:55 | Diagnostic Imaging Report ---
INDICATION: Bimalleolar fracture of the right ankle. TIME OF EXAM: 9:25 AM Correlation is made to prior radiograph from 05/21/2021. Moderate soft tissue swelling about the lateral ankle is noted. Lateral plate and screws transfix the distal fibula. 2 partially-threaded screws transfix the medial malleolus. There continues to be some blurring of the medial malleolar fracture line. There is vague distal fibular fracture line. Overall alignment is anatomic. Ankle mortise is well maintained. Talar dome is smooth. IMPRESSION: ORIF of bimalleolar fractures showing continued healing since examination 2 weeks earlier. Dictated by: Dictated on workstation # [id number]
== END ==
LOC: ORTHO 09:04
PROVIDERS: ATTEND Orthopaedic Surgery
DX: S82.841D Displaced bimalleolar fracture of right lower leg, subsequent encounter for closed fracture with routine healing (principal); X58.XXXD Exposure to other specified factors, subsequent encounter
CPT/HCPCS: 73610

== ENCOUNTER → 2021-06-18 | Outpatient (RCR) | payer BC | END | disposition home or self-care (01) | PROVIDERS: ATTEND Orthopaedic Surgery | DX: S82.841D Displaced bimalleolar fracture of right lower leg, subsequent encounter for closed fracture with routine healing (principal); I10 Essential (primary) hypertension; X58.XXXD Exposure to other specified factors, subsequent encounter ==

== ENCOUNTER → 2021-12-20 | Outpatient (CLI) | payer BC ==
[~2021-12-20] MED LIST changes: +OMEP20TA56 PO; -OMEP20TA7 PO
--- NOTE | 2021-12-20 13:12 | Diagnostic Imaging Report ---
INDICATION: Routine screening. Comparison is made with prior mammogram from 09/29/2020 and 02/10/2018. 2-D and 3-D bilateral screening mammography was performed with CAD. Scattered fibroglandular densities are identified bilaterally. Scattered benign calcifications throughout both breasts are again noted. Benign nodule medial left breast is stable. No spiculated mass or malignant-appearing microcalcifications are seen. Axillae are unremarkable. IMPRESSION: No mammographic features suspicious for malignancy are identified. ACR BI-RADS Category 2: Benign findings. Result letter will be mailed to the patient. Note: At least 10% of breast cancer is not imaged by mammography. BI-RADS Category 2 Dictated by: Dictated on workstation # [id number]
== END ==
LOC: RAD 10:10
PROVIDERS: ATTEND Family Medicine
DX: Z12.31 Encounter for screening mammogram for malignant neoplasm of breast (principal)
CPT/HCPCS: 77063; 77067

== ENCOUNTER 2022-01-16 05:33 | Outpatient (CLI) | payer BC ==
[~2022-01-16] VITALS: Ht 157.5 cm; Wt 65.8 kg
[2022-01-16] MEDS ORDERED: AMLO-250 PO (08:48)
== END 2022-01-16 08:50 | disposition home or self-care (01) ==
LOC: PREOP 05:33
PROVIDERS: ATTEND Surgery
DX: Z01.818 Encounter for other preprocedural examination (principal)

== ENCOUNTER 2022-01-28 07:33 | Day surgery (SDC) | payer BC ==
[~2022-01-28] VITALS: Ht 157.5 cm; Wt 65.8 kg
[~2022-01-28 07:33] MED LIST changes: +AMLO-250 PO; +LACTATED RINGERS 1,000 ML IV STA
[2022-01-28] MEDS ORDERED: HURRICAINE EXT TUBE (BENZOCAINE) XX PRN (07:45)
[2022-01-28 08:05] VITALS: BP 124/69
[2022-01-28] MEDS ORDERED: PROPOFOL INJECTION 50 ML IV ONE ×2 (09:12→09:54)
[2022-01-28] MEDS ORDERED: MIDAZOLAM 2 MG/2 ML (VERSED) VIAL ONE (09:12)
[2022-01-28 10:05] VITALS: BP 102/65
--- NOTE | 2022-01-28 10:08 | Progress Note-Post Operative ---
Post-Operative Progess Note Surgeon (s)/Academic Tutor (s) Surgeon SAVANNA CAMPBELL DO Academic Tutor: Pineda Redd, MSIII Pre-Operative Diagnosis Hx of large polyp, Gastritis Post-Operative Diagnosis Gastritis Esophagitis Sliding Hiatal hernia Polyp diverticula int hemorrhoids Procedure & Operative Findings Date of Procedure 01/28/22 Procedure Performed/Findings EGD with bx Colonoscopy with snare PROCEDURE NOTE: After informed consent was obtained, the patient was brought to the endoscopy suite, placed in bed in left lateral decubitus position. She was administered IV sedation by the [employer]CR[employer]ER who then monitored vitals the entire time, heart rate, blood pressure and pulse ox and the scope was inserted down the mouth through the esophagus into the stomach. On the way down, noted some mild esophagitis, took a picture, pushed into the stomach, pushed past the antrum into the duodenum. Duodenum looked good. Pulled back and did a biopsy of antrum, then retroflexed the scope, saw a small sliding hiatal hernia, took a picture of this and then pulled the scope into the GE junction, took another picture of the hiatal hernia and then did a biopsy of the GE junction. Pushed the scope back into the stomach, suctioned all the air out of the stomach. At this point pulled the scope up the esophagus and out the mouth. Switched camera, switched gloves, went down below and started the colonoscopy. Pushed all the way into about 160 cm to get all the way to cecum. On the way there noted a diverticula and took a picture; as well as saw the area I had tattooed previously. In the cecum I took a picture of the appendiceal orifice, noted the ileocecal valve and then slowly withdrew the scope, insufflating to look circumferentially at the siddiqi starting in the cecum, up the ascending colon to the hepatic flexure and then right at this junction with the transverse colon is where the tattoo was. Found another large polyp here and two small ones. I used the snare to remove almost all of the large polyp, but the two smaller ones were on the fold and could not get them with the snare. Elected to continue down the transverse colon to the splenic flexure, into the descending colon, down into the sigmoid and finally into the rectum. Retroflexed in the rectal vault, saw some minimal internal hemorrhoids and took a picture of this. The patient tolerated the procedure and she recovered in the endoscopy suite. Recommended for repeat colonoscopy in 1 year because she had a large polyp removed in pieces at area of tattoo. Anesthesia Type IV sedation by [employer]ER Estimated Blood Loss Estimated blood loss (mL): scant Specimens/Packing Specimens Removed antral bx GE jxn bx Transverse colon polyp SAVANNA CAMPBELL DO Jan 28, 2022 10:08
--- NOTE | 2022-01-28 10:09 | Endoscopy Discharge Instruct ---
Endo Procedure/Findings Findings 1.: Gastritis 2.: Hiatal Hernia 3.: Polyp 4.: Diverticulosis, Internal Hemorrhoids Discharge Instructions - Activity: You might feel a little sleepy until tomorrow. This is due to the medicine you received to relax you. Until tomorrow, you should: NOT drive a car, operate machinery or power tools. NOT drink any alcoholic beverages. NOT make any important decisions or sign importortant papers. Do not return to work until tomorrow, unless otherwise instructed. Resume previous activities tomorrow. Diet: Start by taking liquids. If you tolerate liquids, advance to solid food. 1.: EGD in 3 years 2.: Colonoscopy in 1 year Notify Physician - If you experience excessive bleeding, unusual abdominal pain, fever, or chest pain, contact your doctor immediately. SAVANNA CAMPBELL DO Jan 28, 2022 10:09
[2022-01-28 10:10] VITALS: BP 120/62
[2022-01-28 10:46] VITALS: BP 119/75
--- NOTE | 2022-01-28 14:04 | Anesthesia-General Post-Op ---
MAC Patient Condition Mental Status/LOC: Same as Preop Cardiovascular: Satisfactory Nausea/Vomiting: Absent Respiratory: Satisfactory Pain: Controlled Complications: Absent Post Op Complications Complications None Follow Up Care/Instructions Patient Instructions None needed. Anesthesiology Discharge Order Discharge Order Patient is doing well, no complaints, stable vital signs, no apparent adverse anesthesia problems. No complications reported per nursing. JIA NAIDU CRNA Jan 28, 2022 14:04
== END 2022-01-28 10:50 | disposition home or self-care (01) ==
LOC: ENDO 07:33
PROVIDERS: ATTEND Surgery
DX: Z12.11 Encounter for screening for malignant neoplasm of colon (principal); D12.3 Benign neoplasm of transverse colon; K29.50 Unspecified chronic gastritis without bleeding; K21.00 Gastro-esophageal reflux disease with esophagitis, without bleeding; K44.9 Diaphragmatic hernia without obstruction or gangrene; K57.30 Diverticulosis of large intestine without perforation or abscess without bleeding; K64.8 Other hemorrhoids; Z87.891 Personal history of nicotine dependence; Z79.899 Other long term (current) drug therapy

== ENCOUNTER 2022-03-11 09:03 | Emergency (ER) | payer BC ==
[~2022-03-11] VITALS: Ht 154.9 cm; Wt 63.5 kg
[~2022-03-11 09:03] MED LIST changes: -LACTATED RINGERS 1,000 ML IV STA
--- NOTE | 2022-03-11 10:38 | ED General ---
General Chief Complaint: Respiratory Problems Stated Complaint: SOB Source of Information: Patient Exam Limitations: No Limitations History of Present Illness Date Seen by Provider: Mar 11, 2022 Time Seen by Provider: 10:28 Initial Comments Here with report of shortness of breath that has been extended over the last 3 weeks since she had COVID. Does have history of bronchitis and states that she usually has to do several rounds of antibiotics and then steroids to get this to go away. She states that her COVID infection was really not that significant. She denies swelling of her legs or pain in her legs. Does report that she has had some recent intermittent fevers and has had history of sepsis. She also had history of heart failure with sepsis and she is concerned about both of those as well. She has just finished round of antibiotics since not helped her. She used to smoke but quit in 2019. Timing/Duration: Getting Worse, Other (3 weeks) Severity: Moderate Associated Systoms: No Chest Pain; Cough, Fever/Chills; No Headaches, No Nausea/Vomiting; Shortness of Air; No Weakness Allergies and Home Medications Allergies Coded Allergies: Penicillins (Verified Allergy, Unknown, HIVES, 04/01/21) The patient states she had hives when she received penicillin when she was 2 years old. She thinks she has had cephalosporins in the past without any problems. Patient Home Medication List Home Medication List Reviewed: Yes Acetaminophen (Acetaminophen) 500 Mg Tablet, 1,000 MG PO Q8H PRN for PAIN-MILD (1-4), (Reported) Entered as Reported by: CECILIA JOHNSON on 04/02/21 1012 Amlodipine Besylate (Amlodipine Besylate) 5 Mg Tablet, 5 MG PO DAILY, (Reported) Entered as Reported by: NATALIA ARGUELLO on 01/16/22 0848 Clonazepam (Clonazepam) 0.5 Mg Tablet, 0.5 MG PO Q12H PRN for ANXIETY, (Reported) Entered as Reported by: MARIA ALEJANDRA KWOK on 11/23/19 1244 Ibuprofen (Ibuprofen) 200 Mg Tablet, 400 MG PO DAILY PRN for PAIN-MILD (1-4), (Reported) Entered as Reported by: CECILIA JOHNSON on 04/02/21 1015 Lisinopril (Lisinopril) 40 Mg Tablet, 60 MG PO DAILY, (Reported) Entered as Reported by: GABINO NARVAEZ on 04/01/21 0525 Metoprolol Succinate (Metoprolol Succinate) 25 Mg Tab.er.24h, 37.5 MG PO DAILY, (Reported) Entered as Reported by: CECILIA JOHNSON on 04/02/21 1010 Omeprazole (Omeprazole) 20 Mg Tablet.dr, 20 MG PO DAILY, (Reported) Entered as Reported by: GABINO NARVAEZ on 04/01/21 0527 Review of Systems Review of Systems Constitutional: see HPI; No chills; fever EENTM: nose congestion, throat pain Respiratory: cough, short of breath Cardiovascular: No chest pain, No edema Gastrointestinal: No nausea, No vomiting Genitourinary: no symptoms reported Musculoskeletal: No back pain, No muscle pain Skin: No change in color, No lesions All Other Systems Reviewed Negative Unless Noted: Yes Past Zikgsyh-Tdtusl-Oihyst Hx Patient Social History Tobacco Use?: No Use of E-Cig and/or Vaping dev: No Substance use?: No Alcohol Use?: Yes Alcohol Frequency: Once in a while Pt feels they are or have been: No Immunizations Up To Date Tetanus Booster (TDap): Unknown First/Initial COVID19 Vaccinat: YES Second COVID19 Vaccination Yannick: YES Third COVID19 Vaccination Date: YES Seasonal Allergies Seasonal Allergies: No Past Medical History Surgeries: Yes ( X 3;REMOVAL OF BIRTHMARK;L FOOT SURGERY X 2;ENDOMETRIAL ABLATION) Adrenal, Section, Ear Surgery, Orthopedic Respiratory: Yes (CHILDHOOD ASTHMA) Pneumonia Cardiac: Yes Hypertension Neurological: No Reproductive Disorders: Yes (MENORRHAGIA-S/P ENDOMETRIAL ABLATION AND D&C 2012) Female Reproductive Disorders: Menstrual Problems Genitourinary: No Gastrointestinal: No Musculoskeletal: Yes (LEFT FOOT SURGERY X 2 IN 2013) Scoliosis, Chronic Back Pain Endocrine: Yes (FORMER DIABETIC ) Diabetes, Non-Insulin dep HEENT: Yes (EAR SURGERY ) Chronic Ear Infection Cancer: No Psychosocial: Yes ADD/ADHD, Anxiety Integumentary: Yes (BIRTHMARK REMOVAL ) Blood Disorders: No Adverse Reaction/Blood Tranf: No (N/A) Family Medical History Reviewed Nursing Family Hx PSH: - X 3 -ENDOMETRIAL ABLATION AND D&C IN 2013 -LEFT FOOT SURGERY X 2 IN 2013 -REMOVAL OF DEYSI -EAR SURGERY Physical Exam-Suspected Sepsis Physical Exam Vital Signs Vital Signs - First Documented 03/11/22 11:08 Pulse Ox 96 Capillary Refill : Height, Weight, BMI Height: '" Weight: lbs. oz. kg; 26.52 BMI Method: General Appearance: No Apparent Distress, WD/WN HEENT: PERRL/EOMI, Pharynx Normal Neck: Non Tender, Supple Respiratory: Lungs Clear, Normal Breath Sounds Cardiovascular: No Murmur, Tachycardia Gastrointestinal: Non Tender, Soft Back: Normal Inspection, No CVA Tenderness, No Vertebral Tenderness Extremity: Normal Range of Motion, Non Tender, No Calf Tenderness Neurologic/Psychiatric: Alert, Oriented x3 Skin: normal color, warm/dry Focused Exam Lactate Level 03/11/22 11:08: Lactic Acid Level 0.92 Lactic Acid Level Laboratory Tests Test 03/11/22 11:08 Lactic Acid Level 0.92 MMOL/L (0.50-2.00) Procedures/Interventions Patient Education: Explained Benefits, Explained Risks, Pt. Ack. Understanding Breath Sounds per Auscultation: Clear Heart Sounds per Auscultation: Regular Airway Exam: Mouth opens >2 fingers, Neck Full Range of Motion, Visulation of Uvula Sedation Adminstration Time: 2339 Re-examination Time: 0000 Progress/Results/Core Measures Suspected Sepsis SIRS Temperature: Pulse: Respiratory Rate: Laboratory Tests 03/11/22 11:08: White Blood Count 11.2H Blood Pressure / Mean: 03/11/22 11:08: Lactic Acid Level 0.92 Laboratory Tests 03/11/22 11:08: Creatinine 1.02, INR Comment 1.0, Platelet Count 412H, Total Bilirubin 0.4 Results/Orders Lab Results Laboratory Tests Test 03/11/22 11:08 Range/Units White Blood Count 11.2 H 4.3-11.0 10^3/uL Red Blood Count 4.32 3.80-5.11 10^6/uL Hemoglobin 13.5 11.5-16.0 g/dL Hematocrit 40 35-52 % Mean Corpuscular Volume 93 80-99 fL Mean Corpuscular Hemoglobin 31 25-34 pg Mean Corpuscular Hemoglobin Concent 34 32-36 g/dL Red Cell Distribution Width 13.6 10.0-14.5 % Platelet Count 412 H 130-400 10^3/uL Mean Platelet Volume 9.1 9.0-12.2 fL Immature Granulocyte % (Auto) 0 % Neutrophils (%) (Auto) 69 42-75 % Lymphocytes (%) (Auto) 9 L 12-44 % Monocytes (%) (Auto) 12 0-12 % Eosinophils (%) (Auto) 10 0-10 % Basophils (%) (Auto) 1 0-10 % Neutrophils # (Auto) 7.7 1.8-7.8 10^3/uL Lymphocytes # (Auto) 1.0 1.0-4.0 10^3/uL Monocytes # (Auto) 1.3 H 0.0-1.0 10^3/uL Eosinophils # (Auto) 1.1 H 0.0-0.3 10^3/uL Basophils # (Auto) 0.2 H 0.0-0.1 10^3/uL Immature Granulocyte # (Auto) 0.0 0.0-0.1 10^3/uL Prothrombin Time 13.3 12.2-14.7 SEC INR Comment 1.0 0.8-1.4 Activated Partial Thromboplast Time 33 24-35 SEC D-Dimer 0.28 0.00-0.49 UG/ML Sodium Level 137 135-145 MMOL/L Potassium Level 4.6 3.6-5.0 MMOL/L Chloride Level 104 98-107 MMOL/L Carbon Dioxide Level 20 L 21-32 MMOL/L Anion Gap 13 5-14 MMOL/L Blood Urea Nitrogen 11 7-18 MG/DL Creatinine 1.02 0.60-1.30 MG/DL Estimat Glomerular Filtration Rate 64 BUN/Creatinine Ratio 11 Glucose Level 104 70-105 MG/DL Lactic Acid Level 0.92 0.50-2.00 MMOL/L Calcium Level 9.9 8.5-10.1 MG/DL Corrected Calcium 9.8 8.5-10.1 MG/DL Total Bilirubin 0.4 0.1-1.0 MG/DL Aspartate Amino Transf (AST/SGOT) 19 5-34 U/L Alanine Aminotransferase (ALT/SGPT) 11 0-55 U/L Alkaline Phosphatase 140 H 40-136 U/L Troponin I < 0.028 <0.028 NG/ML C-Reactive Protein High Sensitivity 6.30 H 0.00-0.50 MG/DL B-Type Natriuretic Peptide 19.9 <100.0 PG/ML Total Protein 8.0 6.4-8.2 GM/DL Albumin 4.1 3.2-4.5 GM/DL Procalcitonin 0.51 H <0.10 NG/ML My Orders Orders - JAIDEN JACKSON MD Cbc With Automated Diff (03/11/22 10:35) Comprehensive Metabolic Panel (03/11/22 10:35) Blood Culture (03/11/22 10:35) Sputum Culture (03/11/22 10:35) Protime With Inr (03/11/22 10:35) Partial Thromboplastin Time (03/11/22 10:35) Chest 1 View, Ap/Pa Only (03/11/22 10:35) Ed Iv/Invasive Line Start (03/11/22 10:35) Troponin I Crowley (03/11/22 10:35) Vital Signs Adult Sepsis Patie Q15M (03/11/22 10:35) O2 (03/11/22 10:35) Remove Rings In Anticipation O (03/11/22 10:35) Lactic Acid Analyzer (03/11/22 10:35) Hs C Reactive Protein (03/11/22 10:35) Fibrin Degradation Products (03/11/22 10:35) Procalcitonin (Pct) (03/11/22 10:35) Ns Iv 500 Ml (Sodium Chloride 0.9%) (03/11/22 10:45) Bnp Crowley (03/11/22 10:35) Ekg Tracing (03/11/22 11:17) Medications Given in ED Current Medications Medications Dose Ordered Sig/Colleen Route Start Time Stop Time Status Last Admin Dose Admin Sodium Chloride 500 ml @ 0 mls/hr Q0M ONCE IV 03/11/22 10:45 03/11/22 10:46 DC 03/11/22 11:14 500 MLS/HR Vital Signs/I&O 03/11/22 03/11/22 03/11/22 11:00 11:00 11:08 Temp 37.6 Resp 20 B/P (MAP) 158/96 (116) Pulse Ox 96 O2 Delivery Nasal Cannula Nasal Cannula Nasal Cannula O2 Flow Rate 1.50 1.50 1.50 Capillary Refill : Progress Note : Progress Note Seen and evaluated. IV, labs, EKG and chest x-ray ordered. We will initiate sepsis protocol due to history of sepsis and prolonged event after COVID infection with concerns for pneumonia. I will also check D-dimer and troponin. I have added procalcitonin and CRP to help evaluate for bacterial illness. Normal saline 500 mL bolus ordered. Monitor patient. 1130: Chest x-ray comple elizabeth and does not show any acute infiltrate on my interpretation. Pending radiology review. 1151: D-dimer is negative. EKG shows sinus rhythm without findings of acute LA. Radiology review of chest x-ray shows no acute findings. Pending procalcitonin. CRP is elevated as well as slight elevation in white count. At this time, I do not believe that pulmonary embolism is a significant concern and we will forego CT angiogram of the chest given negative findings. Monitor patient. 1213: Procalcitonin is low so I do not believe there is significant bacterial component. I do believe that she is suffering from acute exacerbation of her bronchitis. We will initiate outpatient steroid. I did discuss all of this with the patient. She verbalized agreement and understanding. Discharged home with return precautions. Patient verbalized understanding instructions and agreement with plan. ECG Initial ECG Impression Date: Mar 11, 2022 Initial ECG Impression Time: 11:23 Initial ECG Rate: 88 Initial ECG Rhythm: Normal Sinus Initial ECG Comparisson: Unchanged (04/01/21) Comment Sinus rhythm with left atrial abnormality. Normal axis. No evidence of ST elevation LA. Interpreted by me. Diagnostic Imaging Diagonstic Imaging: Xray Plain Films/CT/US/NM/MRI: chest Comments [facility] [place], [place] NAME: LORENZO SALGADO [facility] REC#: [id number] PT STATUS: REG ER : 1965 PHYSICIAN: JAIDEN JACKSON MD ADMIT DATE: 03/11/22/ER Draft Date of Exam:03/11/22 CHEST 1 VIEW, AP/PA ONLY INDICATION: Breathing difficulty. TIME OF EXAM: 10:54 a.m. COMPARISON: Correlation is made to prior chest 03/31/2021. FINDINGS: The heart size is normal. The pulmonary vascularity is unremarkable. The lungs are clear. No infiltrate, effusion or pneumothorax is detected. IMPRESSION: No acute cardiopulmonary process is detected. Dictated on workstation # [id number] Dict: 03/11/22 1123 Trans: 03/11/22 1125 [id number] Interpreted by: FITZ STOCK MD Electronically signed by: Departure Impression Primary Impression: Bronchitis Disposition: 01 HOME, SELF-CARE Condition: Stable Departure-Patient Inst. Decision time for Depature: 12:15 Referrals: EDUARDO FRAIRE MD (PCP/Family) Primary Care Physician Patient Instructions: Bronchitis, Adult ED Add. Discharge Instructions: All discharge instructions reviewed with patient and/or family. Voiced understanding. Take medications as directed. Use nebulizer treatment up to every 6 hours as needed for shortness of breath. You may use this at least twice daily over the next few days and then as needed. Follow-up with your doctor early next week for recheck and further evaluation. Return for worse pain, fever, vomiting, weakness, breathing problems or other concerns as needed. The steroid should help over the next 24 hours and then you should see improvement over the next several days. Scripts Prednisone (Prednisone) 20 Mg Tab 40 MG PO DAILY for 6 Days, #12 TAB 0 Refills Prov: JAIDEN JACKSON MD 03/11/22 Copy Copies To 1: EDUARDO FRAIRE MD, TIMOTHY D MD Mar 11, 2022 10:37
[2022-03-11] MEDS ORDERED: NS IV 500 ML 500 ML IV ONE (10:45)
[2022-03-11 11:22] LABS: BASOPHILS # (AUTO) 0.2 10^3/uL (0.0-0.1); BASOPHILS % (AUTO) 1 % (0-10); EOSINOPHILS # (AUTO) 1.1 10^3/uL (0.0-0.3); EOSINOPHILS % (AUTO) 10 % (0-10); HEMATOCRIT 40 % (35-52); HEMOGLOBIN 13.5 g/dL (11.5-16.0); LYMPHOCYTES % (AUTO) 9 % (12-44); MEAN CORPUSCULAR HEMOGLOBIN 31 pg (25-34); MEAN CORPUSCULAR HGB CONC 34 g/dL (32-36); MEAN CORPUSCULAR VOLUME 93 fL (80-99); MEAN PLATELET VOLUME 9.1 fL (9.0-12.2); MONOCYTES # (AUTO) 1.3 10^3/uL (0.0-1.0); MONOCYTES % (AUTO) 12 % (0-12); NEUTROPHILS # (AUTO) 7.7 10^3/uL (1.8-7.8); NEUTROPHILS % (AUTO) 69 % (42-75); PLATELET COUNT 412 10^3/uL (130-400); WHITE BLOOD COUNT 11.2 10^3/uL (4.3-11.0)
--- NOTE | 2022-03-11 11:25 | Diagnostic Imaging Report ---
INDICATION: Breathing difficulty. TIME OF EXAM: 10:54 a.m. COMPARISON: Correlation is made to prior chest 03/31/2021. FINDINGS: The heart size is normal. The pulmonary vascularity is unremarkable. The lungs are clear. No infiltrate, effusion or pneumothorax is detected. IMPRESSION: No acute cardiopulmonary process is detected. Dictated by: Dictated on workstation # [id number]
[2022-03-11 11:31] LABS: ALBUMIN 4.1 GM/DL (3.2-4.5); CHLORIDE 104 MMOL/L (98-107); POTASSIUM 4.6 MMOL/L (3.6-5.0); SODIUM 137 MMOL/L (135-145)
[2022-03-11 11:32] LABS: CALCIUM 9.9 MG/DL (8.5-10.1)
[2022-03-11 11:33] LABS: GLUCOSE 104 MG/DL (70-105)
[2022-03-11 11:35] LABS: BILIRUBIN,TOTAL 0.4 MG/DL (0.1-1.0); CARBON DIOXIDE 20 MMOL/L (21-32)
[2022-03-11 11:36] LABS: FIBRIN DEGRADATION PRODUCTS 0.28 UG/ML (0.00-0.49); PROTHROMBIN TIME PATIENT 13.3 SEC (12.2-14.7)
[2022-03-11 11:37] LABS: ALKALINE PHOSPHATASE 140 U/L (40-136); CREATININE SERUM 1.02 MG/DL (0.60-1.30); GFR ESTIMATED 64
[2022-03-11 11:38] LABS: BUN/CREATININE RATIO 11
[2022-03-11 11:40] LABS: ALANINE AMINOTRANSFERASE 11 U/L (0-55)
[2022-03-11] MEDS ORDERED: PRD20T PO (12:14)
[2022-03-11 12:35] VITALS: BP 126/97
== END 2022-03-11 12:35 | disposition home or self-care (01) ==
LOC: EDUNIT# 09:03 → ER 09:06
DX: J45.909 Unspecified asthma, uncomplicated (principal); D72.829 Elevated white blood cell count, unspecified; R79.82 Elevated C-reactive protein (CRP); Z87.891 Personal history of nicotine dependence; Z86.16 Personal history of COVID-19
CPT/HCPCS: 36415; 71045; 80053; 83605; 83880; 84145; 84484; 85025; 85379; 85610; 85730; 86141; 87040; 93005

== ENCOUNTER 2023-01-29 06:07 | Outpatient (CLI) | payer BC ==
[~2023-01-29] VITALS: Ht 157.5 cm; Wt 69.4 kg
[2023-01-29] MEDS ORDERED: LISI30TA5 PO (16:55)
[2023-01-29] MEDS ORDERED: METO50TA7 PO (16:55)
== END 2023-01-29 17:04 | disposition home or self-care (01) ==
LOC: PREOP 06:07
PROVIDERS: ATTEND Surgery
DX: Z01.818 Encounter for other preprocedural examination (principal)

== ENCOUNTER → 2023-01-30 | Outpatient (CLI) | payer BC ==
[~2023-01-30] MED LIST changes: +LISI30TA5 PO
--- NOTE | 2023-01-30 13:22 | Diagnostic Imaging Report ---
Indication: Routine screening. Comparison is made with prior mammogram from 12/20/2021 and 09/29/2020. 2-D and 3-D bilateral screening mammography was performed with CAD. The current study was also evaluated with a Computer Aided Detection (CAD) system. Scattered fibroglandular densities are identified bilaterally. Benign nodules medial left breast are stable. There are scattered benign calcifications bilaterally. No spiculated mass or malignant-appearing microcalcifications are identified. Axillae are unremarkable. IMPRESSION: BI-RADS Category 2 No mammographic features suspicious for malignancy are identified. ACR BI-RADS Category 2: Benign findings. Result letter will be mailed to the patient. Note: At least 10% of breast cancer is not imaged by mammography. Dictated by: Dictated on workstation # [id number]
== END ==
LOC: RAD 09:45
PROVIDERS: ATTEND Family Medicine
DX: Z12.31 Encounter for screening mammogram for malignant neoplasm of breast (principal)
CPT/HCPCS: 77063; 77067